=== PATIENT | female | born 1940 | race Caucasian/White ===

== ENCOUNTER 2019-04-09 08:00 | Outpatient (CLI) | payer MEDICARE, MEDICAID ==
[2019-04-09 10:26] LABS: BASOPHILS # (AUTO) 0.1 10^3/uL (0.0-0.1); BASOPHILS % (AUTO) 1.4 %; EOSINOPHILS # (AUTO) 0.1 10^3/uL (0.0-0.7); EOSINOPHILS % (AUTO) 1.7 %; HGB - HEMOGLOBIN 11.7 g/dL (12.0-16.0); LYMPHOCYTES # (AUTO) 2.2 10^3/uL (1.5-3.5); LYMPHOCYTES % (AUTO) 32.4 %; MEAN CORPUSCULAR HEMOGLOBIN 31.8 pg (27.0-31.0); MEAN CORPUSCULAR HGB CONC 34.6 g/dL (32.0-36.0); MEAN CORPUSCULAR VOLUME 91.7 fL (81.0-99.0); MEAN PLATELET VOLUME 8.7 fL (7.9-10.8); MONOCYTES # (AUTO) 0.5 10^3/uL (0.0-1.0); MONOCYTES % (AUTO) 6.9 %; NEUTROPHILS # (AUTO) 3.9 10^3/uL (1.5-6.6); NEUTROPHILS % (AUTO) 57.6 %; PLT - PLATELET COUNT 365 10^3/uL (130-450); RED BLOOD COUNT 3.68 10^6/uL (4.20-5.40); RED CELL DISTRIBUTION WIDTH 13.6 % (12.0-15.0); WHITE BLOOD COUNT 6.9 x10^3/uL (4.8-10.8)
[2019-04-09 10:47] LABS: ALBUMIN 4.3 g/dL (3.2-5.5); ALBUMIN/GLOBULIN RATIO 1.1 (1.0-2.2); ALKALINE PHOSPHATASE 62 IU/L (42-121); ALT ALANINE AMINOTRANSFERASE 12 IU/L (10-60); AST ASPARTATE AMINOTRANSFERASE 16 IU/L (10-42); BILIRUBIN,TOTAL 0.5 mg/dL (0.2-1.0); BUN - BLOOD UREA NITROGEN 27 mg/dL (6-20); CALCIUM 9.5 mg/dL (8.5-10.3); CARBON DIOXIDE - CO2 25 mmol/L (21-32); CHLORIDE 99 mmol/L (101-111); CHOL/HDL RATIO 3.2 (<4.4); CHOLESTEROL 149 mg/dL; CREATININE 0.7 mg/dL (0.4-1.0); GFR - MDRD 81 (>89); GLUCOSE 102 mg/dL (70-100); HDL CHOLESTEROL 46 mg/dL; LDL CHOLESTEROL,CALCULATED 76 mg/dL; LDL/HDL RATIO 1.7 (<4.4); SODIUM 136 mmol/L (135-145); TOTAL PROTEIN 8.1 g/dL (6.7-8.2); VLDL CHOLESTEROL 27 mg/dL
== END 2019-04-09 23:59 | disposition home or self-care (01) ==
LOC: LAB.R 08:00
PROVIDERS: ATTEND Physician Assistant Medical
DX: E78.5 Hyperlipidemia, unspecified (principal); K21.9 Gastro-esophageal reflux disease without esophagitis; I10 Essential (primary) hypertension; F32.9 Major depressive disorder, single episode, unspecified; M81.8 Other osteoporosis without current pathological fracture; F39 Unspecified mood [affective] disorder; L84 Corns and callosities; M91.11 Juvenile osteochondrosis of head of femur [Legg-Calve-Perthes], right leg; M77.42 Metatarsalgia, left foot; M20.40 Other hammer toe(s) (acquired), unspecified foot; M54.2 Cervicalgia; M54.89 Other dorsalgia; F20.9 Schizophrenia, unspecified; Z72.0 Tobacco use; J44.9 Chronic obstructive pulmonary disease, unspecified
CPT/HCPCS: 36415; 80053; 80061; 82306; 83721; 84443; 85025

== ENCOUNTER 2019-06-10 14:45 | Outpatient (CLI) | payer MEDICARE, MEDICAID ==
[2019-06-10 18:26] LABS: CALCIUM 9.9 mg/dL (8.5-10.3); CREATININE 0.8 mg/dL (0.4-1.0)
== END 2019-06-10 23:59 | disposition home or self-care (01) ==
LOC: LAB.R 14:45
PROVIDERS: ATTEND Internal Medicine
DX: I10 Essential (primary) hypertension (principal); J44.9 Chronic obstructive pulmonary disease, unspecified; G89.4 Chronic pain syndrome
CPT/HCPCS: 80048

== ENCOUNTER 2021-05-15 13:39 | Outpatient (CLI) | payer MEDICARE, MEDICAID | END 2021-05-15 13:40 | disposition critical access hospital (66) | LOC: EMS 13:39 | DX: M25.551 Pain in right hip (principal) | CPT/HCPCS: A0425; A0427 ==

== ENCOUNTER 2021-05-15 14:06 | Inpatient (IN) | payer MEDICARE, MEDICAID ==
--- NOTE | 2021-05-15 14:07 | ED Physician Documentation ---
PD HPI Fall - Stated complaint Stated Complaint: R HIP PX - History obtained from History obtained from: Patient, EMS - History of Present Illness Mechanism of injury: Other (has had chronic hip pain due to osteoarthritis, with worse pain the past several days. No new injury. Was being brought by EMS for eval. Also reported to EMS was pt feeling lightheaded at times the past week. Enroute, went into fast rate SVT/atrial fib at 170s.). No: Tripped, Slipped Fall distance: Other (no known new injury.) Timing - onset: Other (The patient's fast heart rate started just on route by EMS. Her initial blood blood pressure and heart rate were good and went to heart rate 170 on route. Monitor showed SVT versus A. fib.) Quality of pain: Pain (right hip. No chest pain.) Symptoms improve with: Other (Medics gave adenosine enroute with pausing of HR and then returned at tachy 130 with unvarying rate. Consider atrial flutter.) Similar symptoms before: No diagnosis (reports lightheaded episodes for minutes or more at a time periodically the past 1-2 weeks. No history of atrial fib.) Review of Systems Constitutional: denies: Fever, Chills Nose: denies: Rhinorrhea / runny nose, Congestion Throat: denies: Sore throat Respiratory: denies: Cough GI: denies: Vomiting, Diarrhea Skin: denies: Abrasion (s), Laceration (s) Musculoskeletal: reports: Joint pain (right hip chronically, and has had eval by Ortho in [place] and not surgical candidate at the time.) Neurologic: denies: Headache Psychiatric: reports: Anxiety PD PAST MEDICAL HISTORY - Past Medical History Cardiovascular: Hypertension, Other (no history of atrial fib nor SVT. ) Respiratory: None Neuro: None Endocrine/Autoimmune: None Psych: Anxiety - Allergies Allergies/Adverse Reactions: Allergies Allergy/AdvReac Type Severity Reaction Status Date / Time No Known Drug Allergies Allergy Verified 05/15/21 14:14 - Living Situation Living Situation: reports: Alone Living Arrangement: reports: Assisted living - Social History Does the pt smoke?: No Does the pt drink ETOH?: No Does the pt have substance abuse?: No PD ED PE NORMAL - Vitals Vital signs reviewed: Yes - General General: Alert and oriented X 3, Well developed/nourished - HEENT HEENT: Atraumatic - Neck Neck: Supple, no meningeal sign, No bony TTP, No adenopathy - Cardiac Cardiac: No murmur. No: RRR (regular and tachycardic at 132 without wavering. ) - Respiratory Respiratory: Clear bilaterally, Other (no chestwall tenderness. ) - Abdomen Abdomen: Soft, Non tender - Derm Derm: Normal color, Warm and dry - Extremities Extremities: No tenderness to palpate, Normal ROM s pain, No edema, No calf tenderness / cord, Other (guarded ROM of the right hip. No noted deformity. Some pain with ROM of the left hip. ) - Neuro Neuro: Alert and oriented X 3, No motor deficit, Normal speech Results - Vitals Vitals: Vital Signs - 24 hr 05/15/21 05/15/21 05/15/21 14:14 14:19 14:49 Temperature 37.0 C 37.0 C Heart Rate 132 H 135 H 130 H Respiratory 22 20 16 Rate Blood Pressure 110/73 110/73 109/75 O2 Saturation 98 98 95 05/15/21 05/15/21 05/15/21 15:19 15:30 16:00 Temperature Heart Rate 128 H 126 H 124 H Respiratory 15 18 16 Rate Blood Pressure 105/77 111/79 119/87 H O2 Saturation 96 97 98 05/15/21 05/15/21 05/15/21 16:45 17:00 17:30 Temperature Heart Rate 124 H 121 H 123 H Respiratory 21 18 22 Rate Blood Pressure 116/86 H 117/95 H 116/85 H O2 Saturation 97 94 93 05/15/21 18:00 Temperature 36.5 C Heart Rate 124 H Respiratory 18 Rate Blood Pressure 113/74 O2 Saturation 95 Oxygen O2 Source Room air - EKG (time done) 14:08 Rate: Rate (enter#) (132) Rhythm: Atrial flutter [place]: Normal Intervals: Wide QRS Ischemia: Normal ST segments, Non specific changes. No: ST elevation c/w ischemia - Labs Labs: Laboratory Tests 05/15/21 05/15/21 05/15/21 14:36 14:36 14:36 WBC 7.2 RBC 3.58 L Hgb 11.8 L Hct 34.6 L MCV 96.6 MCH 33.0 H MCHC 34.1 RDW 14.0 Plt Count 234 MPV 9.8 Neut # (Auto) 5.2 Lymph # (Auto) 1.5 [place] # (Auto) 0.4 Eos # (Auto) 0.1 Baso # (Auto) 0.1 Absolute Nucleated RBC 0.00 Nucleated RBC % 0.0 Sodium 137 Potassium 4.7 Chloride 107 Carbon Dioxide 21 Anion Gap 9.0 BUN 38 H Creatinine 1.0 Estimated GFR (MDRD) 53 L Glucose 140 H Calcium 9.3 Magnesium 1.8 Total Bilirubin 0.5 AST 23 ALT 24 Alkaline Phosphatase 85 Troponin I High Sens 13.1 B-Natriuretic Peptide Total Protein 7.4 Albumin 4.2 Globulin 3.2 Albumin/Globulin Ratio 1.3 Lipase 50 Nasal Adenovirus (PCR) Nasal B. parapertussis DNA (PCR) Nasal Coronavir 229E PCR Nasal Coronavir HKU1 PCR Nasal Coronavir NL63 PCR Nasal Coronavir OC43 PCR Nasal Enterovir/Rhinovir PCR Nasal Influenza B PCR Nasal Influenza A PCR Nasal Parainfluen 1 PCR Nasal Parainfluen 2 PCR Nasal Parainfluen 3 PCR Nasal Parainfluen 4 PCR Nasal RSV (PCR) Nasal B.pertussis DNA PCR Nasal C.pneumoniae (PCR) Stefan Human Metapneumo PCR Nasal M.pneumoniae (PCR) Nasal SARS-CoV-2 (PCR) 05/15/21 05/15/21 14:36 16:50 WBC RBC Hgb Hct MCV MCH MCHC RDW Plt Count MPV Neut # (Auto) Lymph # (Auto) [place] # (Auto) Eos # (Auto) Baso # (Auto) Absolute Nucleated RBC Nucleated RBC % Sodium Potassium Chloride Carbon Dioxide Anion Gap BUN Creatinine Estimated GFR (MDRD) Glucose Calcium Magnesium Total Bilirubin AST ALT Alkaline Phosphatase Troponin I High Sens B-Natriuretic Peptide 291 H Total Protein Albumin Globulin Albumin/Globulin Ratio Lipase Nasal Adenovirus (PCR) NOT DETECTED Nasal B. parapertussis DNA (PCR) NOT DETECTED Nasal Coronavir 229E PCR NOT DETECTED Nasal Coronavir HKU1 PCR NOT DETECTED Nasal Coronavir NL63 PCR NOT DETECTED Nasal Coronavir OC43 PCR NOT DETECTED Nasal Enterovir/Rhinovir PCR NOT DETECTED Nasal Influenza B PCR NOT DETECTED Nasal Influenza A PCR NOT DETECTED Nasal Parainfluen 1 PCR NOT DETECTED Nasal Parainfluen 2 PCR NOT DETECTED Nasal Parainfluen 3 PCR NOT DETECTED Nasal Parainfluen 4 PCR NOT DETECTED Nasal RSV (PCR) NOT DETECTED Nasal B.pertussis DNA PCR NOT DETECTED Nasal C.pneumoniae (PCR) NOT DETECTED Stefan Human Metapneumo PCR NOT DETECTED Nasal M.pneumoniae (PCR) NOT DETECTED Nasal SARS-CoV-2 (PCR) NOT DETECTED - Rads (name of study) right hipe Radiology: Prelim report reviewed (degenerative changes. no acute fracture.), See rad report chest xray Radiology: Prelim report reviewed (no acute process), See rad report PD MEDICAL DECISION MAKING - ED course Complexity details: re-evaluated patient (Heart rate minimally slowed with Me toprolol IV. Down to 118-120 but still fiarly unimform at rate. No noted varying. Presume still atrial flutter. ), considered differential (The hip pain sounds likely to be an exacerbation of her arthritis. No new injury. Can get a new x-ray. The fast heart rate is not previously diagnosed. She had rate of 170. Slowed to 130 after adenosine. Likely atrial flutter.), d/w patient Departure - Departure Disposition: 66 [facility] DC/Xfer Clinical Impression: Atrial flutter with rapid ventricular response Chronic hip pain Qualifiers: Laterality: right Qualified Code(s): M25.551 - Pain in right hip Condition: Stable
[2021-05-15] MEDS ORDERED: METOPROLOL 5 MG/5 ML VIAL IVP STA ×4 (14:29→16:46)
[2021-05-15 14:45] LABS: BASOPHILS # (AUTO) 0.1 10^3/uL (0.0-0.1); BASOPHILS % (AUTO) 0.7 %; EOSINOPHILS # (AUTO) 0.1 10^3/uL (0.0-0.7); EOSINOPHILS % (AUTO) 0.8 %; HCT - HEMATOCRIT 34.6 % (37.0-47.0); HGB - HEMOGLOBIN 11.8 g/dL (12.0-16.0); LYMPHOCYTES # (AUTO) 1.5 10^3/uL (1.5-3.5); LYMPHOCYTES % (AUTO) 20.6 %; MEAN CORPUSCULAR HGB CONC 34.1 g/dL (32.0-36.0); MEAN CORPUSCULAR VOLUME 96.6 fL (81.0-99.0); MEAN PLATELET VOLUME 9.8 fL (7.9-10.8); MONOCYTES # (AUTO) 0.4 10^3/uL (0.0-1.0); MONOCYTES % (AUTO) 5.1 %; NEUTROPHILS # (AUTO) 5.2 10^3/uL (1.5-6.6); NEUTROPHILS % (AUTO) 72.5 %; PLT - PLATELET COUNT 234 10^3/uL (130-450); RED BLOOD COUNT 3.58 10^6/uL (4.20-5.40); WHITE BLOOD COUNT 7.2 x10^3/uL (4.8-10.8)
[2021-05-15 15:03] LABS: ALBUMIN 4.2 g/dL (3.2-5.5); ALBUMIN/GLOBULIN RATIO 1.3 (1.0-2.2); BILIRUBIN,TOTAL 0.5 mg/dL (0.2-1.0); CALCIUM 9.3 mg/dL (8.5-10.3); MAGNESIUM 1.8 mg/dL (1.7-2.8); POTASSIUM 4.7 mmol/L (3.5-5.0); TOTAL PROTEIN 7.4 g/dL (6.7-8.2)
--- NOTE | 2021-05-15 15:24 | XRAY Report ---
PROCEDURE: Chest 1 View X-Ray INDICATIONS: Chest pain TECHNIQUE: One view of the chest was acquired. COMPARISON: None. FINDINGS: Surgical changes and devices: None. Lungs and pleura: No pleural effusions or pneumothorax. Lungs are clear. Mediastinum: Tortuous thoracic aorta is seen. Heart size is normal. Bones and chest wall: No suspicious bony lesions. Overlying soft tissues appear unremarkable. IMPRESSION: No acute cardiopulmonary pathology. Reviewed by: Joshua Powell MD on 05/15/2021 3:23 PM PDT Approved by: Joshua Powell MD on 05/15/2021 3:23 PM PDT Station ID: [id number]
--- NOTE | 2021-05-15 15:24 | XRAY Report ---
PROCEDURE: Hip w/Pelvis 2-3V RT INDICATIONS: hip pain worse TECHNIQUE: AP pelvis with lateral view(s) of the right hip(s). COMPARISON: None. 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 Moderate left hip joint osteophytic changes are seen. No evidence of avascular necrosis of femoral head. No fractures or dislocations. Pelvic ring appear s intact. No suspicious bony lesions. Soft tissues: The visualized bowel gas pattern is normal. No suspicious soft tissue calcifications. IMPRESSION: Severe right hip joint osteoarthritis and chronic appearing hip deformity. No acute hip f racture or dislocation. Moderate left hip joint osteoarthritis. No evidence of avascular necrosis of femoral head. Reviewed by: Joshua Powell MD on 05/15/2021 3:23 PM PDT Approved by: Joshua Powell MD on 05/15/2021 3:23 PM PDT Station ID: [id number]
[2021-05-15] MEDS ORDERED: HYDROmorphone 1 MG/ML CARPUJECT IVP STA (16:53)
[2021-05-15 17:50] LABS: B. PARAPERTUSSIS- RESP PCR PAN NOT DETECTED; B. PERTUSSIS- RESP PCR PANEL NOT DETECTED; C. PNEUMONIAE- RESP PCR PANEL NOT DETECTED; CORONAVIRUS 229E-RESP PCR NOT DETECTED; CORONAVIRUS HKU1-RESP PCR NOT DETECTED; CORONAVIRUS NL63-RESP PCR NOT DETECTED; CORONAVIRUS OC43-RESP PCR NOT DETECTED; HUMAN METAPNEUMOVIRUS NOT DETECTED; INFLUENZA A- RESP PCR PANEL NOT DETECTED; INFLUENZA B - RESP PCR PANEL NOT DETECTED; M. PNEUMONIAE- RESP PCR PANEL NOT DETECTED; PARAINFLUENZA VIRUS 1 NOT DETECTED; PARAINFLUENZA VIRUS 2 NOT DETECTED; PARAINFLUENZA VIRUS 3 NOT DETECTED; PARAINFLUENZA VIRUS 4 NOT DETECTED; RHINOVIRUS/ENTEROVIRUS NOT DETECTED; RSV- RESP PCR PANEL NOT DETECTED; SARS-CoV-2 -RESP PCR PANEL NOT DETECTED
[2021-05-15] MEDS ORDERED: diltiaZEM INJ 125 MG in DEXTROSE 5% 100 ML IV SCH (19:00)
[2021-05-15] MEDS ORDERED: ACETAMINOPHEN 325 MG TABLET PO PRN (21:12)
[2021-05-15] MEDS ORDERED: ONDANSETRON 4 MG/2 ML VIAL IVP PRN (21:12)
[2021-05-15] MEDS ORDERED: diltiaZEM 30 MG TABLET PO SCH (21:15)
--- NOTE | 2021-05-15 21:21 | HISTORY & PHYSICAL EXAMINATION ---
Chief Complaint - Chief Complaint Chief Complaint: Hip pain History of Present Illness - Admitted From Admitted From:: ED - History Obtained From Records Reviewed: ED History obtained from: Patient Exam Limitations: Some dementia - History of Present Illness HPI Comment/Other: Patient is a 81-year-old female who is a poor historian who presented to the emergency room after complaining at her assisted living facility that she was having pain in her "thighs". She is known to have a history of severe DJD, and admits that she was complaining of her chronic hip pain. Paramedics were called despite no fall or injury to suggest a fracture, and upon their initial evaluation they noticed that the patient SVT to 170s, was brought to the emergency room and given adenosine, had a brief pause then returned to a flutter with heart rates in the 130s.She was then given metoprolol x2 with heart rates initially responding to the 110s then increasing again to the 130s so diltiazem drip was initiated. Patient denied ever having any chest pain, but upon questioning and review of systems she does admit to having experienced palpitations in the past especially when she is anxious. She also suggests that she may have anxiety related to her chronic hip pain. She denies any shortness of breath. She denies any known history of cardiac disease. However, she is a poor historian and denies any medical history to speak of however she has a relatively lengthy medication list from her assisted living facility. Hip x-rays in the ER were negative. Hospital admission was requested to manage new versus previously undiagnosed atrial flutter and to achieve better rate control and expand work-up in hospital. History - Past Medical History Cardiovascular: reports: Hypertension, Other (no history of atrial fib nor SVT. ) Respiratory: reports: None Neuro: reports: None Endocrine/Autoimmune: reports: None Psych: reports: Anxiety MRSA Hx?: No - Family & Social History Family History Comment/Other: Patient denies any family history stating all her family members have been health Living arrangement: Assisted living Living Situation: Alone - Substance History Use: Uses substance without health or social issues: NONE - POLST Patient has POLST: Yes POLST Status: Limited Interventions Meds/Allgy - Allergies Allergies/Adverse Reactions: Allergies Allergy/AdvReac Type Severity Reaction Status Date / Time No Known Drug Allergies Allergy Verified 05/15/21 14:14 Review of Systems - Constitutional Constitutional: denies: Fatigue - Cardiovascular Cariovascular: reports: Irregular heart rate, Palpitations. denies: Chest pain, Edema, Lightheadedness, Syncope, Exertional dyspnea - Respiratory Respiratory: denies: Cough, SOB at rest, SOB with exertion - Gastrointestinal Gastrointestinal: denies: Abdominal pain - Musculoskeletal Musculoskeletal: reports: Joint pain - Neurological Neurological: denies: General weakness, Dizziness - Psychiatric Psychiatric: reports: Anxiety Prior Level of Functionality: Patient resides in assisted living facility ambulating with a walker. She tells me that some days are better than others but she is usually able to get by fairly well with a walker Exam - Vital Signs Reviewed Vital Signs: Yes Vital Signs: Vital Signs x48h Temp Pulse Pulse Resp BP BP Pulse Ox 05/15/21 21:10 71 10 L 05/15/21 21:05 83 11 L 05/15/21 21:02 77 15 103/64 05/15/21 21:01 83 13 05/15/21 21:00 79 83 14 103/64 96 05/15/21 20:55 77 13 05/15/21 20:50 80 10 L 05/15/21 20:46 84 10 L 106/69 05/15/21 20:45 76 20 05/15/21 20:40 89 13 05/15/21 20:35 80 21 05/15/21 20:31 88 20 110/67 05/15/21 20:30 87 21 05/15/21 20:25 93 16 05/15/21 20:20 84 22 05/15/21 20:16 87 15 110/69 05/15/21 20:15 88 25 H 05/15/21 20:10 88 17 05/15/21 20:05 123 H 27 H 05/15/21 20:01 122 H 26 H 120/80 05/15/21 20:00 36.8 C 99 89 18 110/69 97 05/15/21 19:58 104 H 17 110/71 05/15/21 19:57 93 20 05/15/21 19:55 99 20 05/15/21 19:50 108 H 20 05/15/21 19:46 124 H 13 125/101 H 05/15/21 19:45 122 H 17 05/15/21 19:40 124 H 20 05/15/21 19:35 95 15 05/15/21 19:31 114 H 17 122/83 H 05/15/21 19:30 113 H 17 05/15/21 19:25 125 H 18 05/15/21 19:20 124 H 15 05/15/21 19:16 125 H 15 112/50 L 05/15/21 19:15 124 H 16 05/15/21 19:10 125 H 18 05/15/21 19:05 124 H 19 05/15/21 19:04 124 H 15 126/85 H 05/15/21 19:03 124 H 15 05/15/21 19:01 124 H 17 113/102 H 05/15/21 19:00 127 H 24 126/85 H 05/15/21 18:55 125 H 21 05/15/21 18:50 125 H 16 05/15/21 18:45 115 H 28 H 05/15/21 18:40 121 H 23 05/15/21 18:36 122 H 15 05/15/21 18:35 122 H 15 118/86 H 05/15/21 18:32 36.7 C 121 H 20 118/86 H 96 05/15/21 18:00 36.5 C 124 H 18 113/74 95 05/15/21 17:30 123 H 22 116/85 H 93 05/15/21 17:00 121 H 18 117/95 H 94 05/15/21 16:45 124 H 21 116/86 H 97 05/15/21 16:00 124 H 16 119/87 H 98 05/15/21 15:30 126 H 18 111/79 97 05/15/21 15:19 128 H 15 105/77 96 05/15/21 14:49 130 H 16 109/75 95 05/15/21 14:19 37.0 C 135 H 20 110/73 98 05/15/21 14:14 37.0 C 132 H 22 110/73 98 - Physical Exam General Appearance: positive: No acute distress Eyes Bilateral: positive: Normal inspection ENT: positive: ENT inspection nml Neck: positive: Nml inspection, Thyroid nml, No JVD Respiratory: positive: Chest non-tender, No respiratory distress, Breath sounds nml Cardiovascular: positive: No murmur, No gallop, Irregularly irregular. negative: Regular rate & rhythm Peripheral Pulses: positive: 2+ Abdomen: positive: Non-tender, No organomegaly, Nml bowel sounds, No distention Skin: positive: Color nml Extremities: positive: Nml appearance Neurologic/Psychiatric: positive: CN's nml (2-12), Disoriented to time. negative: Disoriented to person, Disoriented to place Conclusion/Plan - Problem List (1) Atrial flutter with rapid ventricular response Conclusion/Plan: Patient states that she has had a sensation of palpitations in the past, making me suspect that this is not new onset but rather new diagnosis. Given Possible past history of this, would be a risky candidate for cardioversion. Fortunately she is responded well to diltiazem so far. We will start oral diltiazem and resume her home metoprolol but transition her from metoprolol tartrate to metoprolol succinate tomorrow. Suspect she also may have a diagnosis of A. fib though I do not see this in the chart. She is on furosemide and lisinopril. Check thyroid labs in the morning We will check echocardiogram in the morning. (2) Chronic hip pain Conclusion/Plan: As needed pain medications for chronic hip pain. X-ray reviewed, no acute injury or fractures but known history of DJD. PT eval in the morning. Qualifiers: Laterality: right Qualified Code(s): M25.551 - Pain in right hip; G89.29 - Other chronic pain - Lab Results Fish Bones: 05/15/21 14:36 05/15/21 14:36 Core Measures - Anticipated LOS I expect patient to be DC'd or transferred within 96 hours.: Yes - DVT/VTE - Prophylaxis VTE/DVT Device ordered at admit?: Yes
[2021-05-15] MEDS: HYDROcod/ACETAM 5/325 MG TABLET PO PRN (21:38)
[2021-05-15] MEDS: ethyl alcohoL 62% SWAB AMPULE NAS SCH (22:06)
[2021-05-15] MEDS: SODIUM CHLORIDE FLUSH 0.9% 10 ML SYRINGE IVP SCH (22:37)
[2021-05-16] MEDS ORDERED: diltiaZEM 30 MG TABLET PO SCH (03:30)
[2021-05-16] MEDS: HYDROcod/ACETAM 5/325 MG TABLET PO PRN ×5 (03:37→21:54)
[2021-05-16 05:28] LABS: HCT - HEMATOCRIT 34.5 % (37.0-47.0); HGB - HEMOGLOBIN 11.1 g/dL (12.0-16.0); MEAN CORPUSCULAR HEMOGLOBIN 31.6 pg (27.0-31.0); MEAN CORPUSCULAR HGB CONC 32.2 g/dL (32.0-36.0); MEAN CORPUSCULAR VOLUME 98.3 fL (81.0-99.0); MEAN PLATELET VOLUME 10.4 fL (7.9-10.8); RED BLOOD COUNT 3.51 10^6/uL (4.20-5.40); RED CELL DISTRIBUTION WIDTH 14.2 % (12.0-15.0); WHITE BLOOD COUNT 6.2 x10^3/uL (4.8-10.8)
[2021-05-16 05:37] LABS: CALCIUM 8.8 mg/dL (8.5-10.3); CREATININE 0.8 mg/dL (0.4-1.0); POTASSIUM 3.9 mmol/L (3.5-5.0)
[2021-05-16 05:53] LABS: T4 (THYROXINE) 8.85 ug/dL (6.09-12.23)
[2021-05-16 05:57] LABS: THYROID STIMULATING HORMONE 1.7 uIU/mL (0.34-5.60)
[2021-05-16] MEDS ORDERED: METOPROLOL SUCCINATE 25 MG TABLET PO ONE (07:17)
[2021-05-16] MEDS ORDERED: METOPROLOL SUCCINATE 25 MG TABLET PO SCH (09:00)
[2021-05-16] MEDS: SODIUM CHLORIDE FLUSH 0.9% 10 ML SYRINGE IVP SCH ×2 (09:05→18:18)
[2021-05-16] MEDS: ethyl alcohoL 62% SWAB AMPULE NAS SCH ×2 (09:05→21:09)
[2021-05-16] MEDS: ENOXAPARIN 40 MG/0.4 ML SYRINGE SUBQ SCH (09:05)
--- NOTE | 2021-05-16 11:55 | PHARMACY PROGRESS NOTE ---
- Best Possible Medication History Admit Date and Time: 05/15/211812 Processed by: Pharmacy Medication History completed: Yes Secondary Source(s): Facility MAR as ONLY source As the person ultimately responsible for medication therapy, providers are able to order a medication from an existing home medication list in [facility] via the "Reconcile Routine" prior to Confirmation of that medication by it application support analyst. Such practice is discouraged except when the physician, in their clinical judgment, deems that a medical need exists for a medication without regard to previous use.
--- NOTE | 2021-05-16 12:27 | PROVIDER PROGRESS NOTE ---
Subjective - Prog Note Date Prog Note Date: 05/16/21 - Subjective Pt reports feeling: No change (Still has mild sensation of palpitaions and R hip pain when she moves, not at rest) Objective - Vital Signs/Intake & Output Reviewed Vital Signs: Yes Vital Signs: Vital Signs Pulse Resp BP BP Pulse Ox 05/16/21 12:00 132 H 12 108/74 94 05/16/21 11:00 134 H 18 116/75 05/16/21 10:00 134 H 29 H 107/68 95 05/16/21 09:04 118/71 05/16/21 09:00 132 H 19 118/71 95 Intake & Output: Intake & Output 05/13/21 05/14/21 05/15/21 05/16/21 23:59 23:59 23:59 23:59 Intake Total 18.083 415 Output Total 175 525 Balance -156.917 -110 - Objective General Appearance: positive: No acute distress, Other (Disheveled) Eyes Bilateral: positive: Normal inspection, EOMI Neck: positive: Nml inspection, Thyroid nml, No JVD Respiratory: positive: No respiratory distress, Breath sounds nml Cardiovascular: positive: No murmur, Tachycardia Abdomen: positive: Non-tender, No distention Skin: positive: Warm, Dry Extremities: positive: No pedal edema Neurologic/Psychiatric: positive: Oriented x3 (Poor memory) - Lab Results Fish Bones: 05/16/21 04:45 05/16/21 04:45 Other Labs: Lab Results x24hrs 05/16/21 05/16/21 05/16/21 Range/Units 10:43 04:45 04:45 WBC (4.8-10.8) x10^3/uL RBC (4.20-5.40) 10^6/uL Hgb (12.0-16.0) g/dL Hct (37.0-47.0) % MCV (81.0-99.0) fL MCH (27.0-31.0) pg MCHC (32.0-36.0) g/dL RDW (12.0-15.0) % Plt Count (130-450) 10^3/uL MPV (7.9-10.8) fL Neut # (Auto) (1.5-6.6) 10^3/uL Lymph # (Auto) (1.5-3.5) 10^3/uL [place] # (Auto) (0.0-1.0) 10^3/uL Eos # (Auto) (0.0-0.7) 10^3/uL Baso # (Auto) (0.0-0.1) 10^3/uL Absolute Nucleated RBC x10^3/uL Nucleated RBC % /100WBC Sodium (135-145) mmol/L Potassium (3.5-5.0) mmol/L Chloride (101-111) mmol/L Carbon Dioxide (21-32) mmol/L Anion Gap (6-13) BUN (6-20) mg/dL Creatinine (0.4-1.0) mg/dL Estimated GFR (MDRD) (>89) Glucose (70-100) mg/dL Calcium (8.5-10.3) mg/dL Magnesium (1.7-2.8) mg/dL Total Bilirubin (0.2-1.0) mg/dL AST (10-42) IU/L ALT (10-60) IU/L Alkaline Phosphatase (42-121) IU/L Troponin I High Sens 36.6 H* 58.9 H* (2.3-14.8) ng/L B-Natriuretic Peptide (5-100) pg/mL Total Protein (6.7-8.2) g/dL Albumin (3.2-5.5) g/dL Globulin (2.1-4.2) g/dL Albumin/Globulin Ratio (1.0-2.2) Lipase (22-51) U/L TSH 1.70 (0.34-5.60) uIU/mL Thyroxine (T4) 8.85 (6.09-12.23) ug/dL Nasal Adenovirus (PCR) Nasal B. parapertussis DNA (PCR) Nasal Coronavir 229E PCR Nasal Coronavir HKU1 PCR Nasal Coronavir NL63 PCR Nasal Coronavir OC43 PCR Nasal Enterovir/Rhinovir PCR Nasal Influenza B PCR Nasal Influenza A PCR Nasal Parainfluen 1 PCR Nasal Parainfluen 2 PCR Nasal Parainfluen 3 PCR Nasal Parainfluen 4 PCR Nasal RSV (PCR) Nasal Screen MRSA (PCR) (NEGATIVE) Nasal B.pertussis DNA PCR Nasal C.pneumoniae (PCR) Stefan Human Metapneumo PCR Nasal M.pneumoniae (PCR) Nasal SARS-CoV-2 (PCR) 05/16/21 05/16/21 05/15/21 Range/Units 04:45 04:45 19:00 WBC 6.2 (4.8-10.8) x10^3/uL RBC 3.51 L (4.20-5.40) 10^6/uL Hgb 11.1 L (12.0-16.0) g/dL Hct 34.5 L (37.0-47.0) % MCV 98.3 (81.0-99.0) fL MCH 31.6 H (27.0-31.0) pg MCHC 32.2 (32.0-36.0) g/dL RDW 14.2 (12.0-15.0) % Plt Count 216 (130-450) 10^3/uL MPV 10.4 (7.9-10.8) fL Neut # (Auto) (1.5-6.6) 10^3/uL Lymph # (Auto) (1.5-3.5) 10^3/uL [place] # (Auto) (0.0-1.0) 10^3/uL Eos # (Auto) (0.0-0.7) 10^3/uL Baso # (Auto) (0.0-0.1) 10^3/uL Absolute Nucleated RBC x10^3/uL Nucleated RBC % /100WBC Sodium 138 (135-145) mmol/L Potassium 3.9 (3.5-5.0) mmol/L Chloride 105 (101-111) mmol/L Carbon Dioxide 23 (21-32) mmol/L Anion Gap 10.0 (6-13) BUN 27 H (6-20) mg/dL Creatinine 0.8 (0.4-1.0) mg/dL Estimated GFR (MDRD) 69 L (>89) Glucose 100 (70-100) mg/dL Calcium 8.8 (8.5-10.3) mg/dL Magnesium (1.7-2.8) mg/dL Total Bilirubin (0.2-1.0) mg/dL AST (10-42) IU/L ALT (10-60) IU/L Alkaline Phosphatase (42-121) IU/L Troponin I High Sens (2.3-14.8) ng/L B-Natriuretic Peptide (5-100) pg/mL Total Protein (6.7-8.2) g/dL Albumin (3.2-5.5) g/dL Globulin (2.1-4.2) g/dL Albumin/Globulin Ratio (1.0-2.2) Lipase (22-51) U/L TSH (0.34-5.60) uIU/mL Thyroxine (T4) (6.09-12.23) ug/dL Nasal Adenovirus (PCR) Nasal B. parapertussis DNA (PCR) Nasal Coronavir 229E PCR Nasal Coronavir HKU1 PCR Nasal Coronavir NL63 PCR Nasal Coronavir OC43 PCR Nasal Enterovir/Rhinovir PCR Nasal Influenza B PCR Nasal Influenza A PCR Nasal Parainfluen 1 PCR Nasal Parainfluen 2 PCR Nasal Parainfluen 3 PCR Nasal Parainfluen 4 PCR Nasal RSV (PCR) Nasal Screen MRSA (PCR) POSITIVE A* (NEGATIVE) Nasal B.pertussis DNA PCR Nasal C.pneumoniae (PCR) Stefan Human Metapneumo PCR Nasal M.pneumoniae (PCR) Nasal SARS-CoV-2 (PCR) 05/15/21 05/15/21 05/15/21 Range/Units 16:50 14:36 14:36 WBC (4.8-10.8) x10^3/uL RBC (4.20-5.40) 10^6/uL Hgb (12.0-16.0) g/dL Hct (37.0-47.0) % MCV (81.0-99.0) fL MCH (27.0-31.0) pg MCHC (32.0-36.0) g/dL RDW (12.0-15.0) % Plt Count (130-450) 10^3/uL MPV (7.9-10.8) fL Neut # (Auto) (1.5-6.6) 10^3/uL Lymph # (Auto) (1.5-3.5) 10^3/uL [place] # (Auto) (0.0-1.0) 10^3/uL Eos # (Auto) (0.0-0.7) 10^3/uL Baso # (Auto) (0.0-0.1) 10^3/uL Absolute Nucleated RBC x10^3/uL Nucleated RBC % /100WBC Sodium (135-145) mmol/L Potassium (3.5-5.0) mmol/L Chloride (101-111) mmol/L Carbon Dioxide (21-32) mmol/L Anion Gap (6-13) BUN (6-20) mg/dL Creatinine (0.4-1.0) mg/dL Estimated GFR (MDRD) (>89) Glucose (70-100) mg/dL Calcium (8.5-10.3) mg/dL Magnesium (1.7-2.8) mg/dL Total Bilirubin (0.2-1.0) mg/dL AST (10-42) IU/L ALT (10-60) IU/L Alkaline Phosphatase (42-121) IU/L Troponin I High Sens 13.1 (2.3-14.8) ng/L B-Natriuretic Peptide 291 H (5-100) pg/mL Total Protein (6.7-8.2) g/dL Albumin (3.2-5.5) g/dL Globulin (2.1-4.2) g/dL Albumin/Globulin Ratio (1.0-2.2) Lipase (22-51) U/L TSH (0.34-5.60) uIU/mL Thyroxine (T4) (6.09-12.23) ug/dL Nasal Adenovirus (PCR) NOT DETECTED Nasal B. parapertussis DNA (PCR) NOT DETECTED Nasal Coronavir 229E PCR NOT DETECTED Nasal Coronavir HKU1 PCR NOT DETECTED Nasal Coronavir NL63 PCR NOT DETECTED Nasal Coronavir OC43 PCR NOT DETECTED Nasal Enterovir/Rhinovir PCR NOT DETECTED Nasal Influenza B PCR NOT DETECTED Nasal Influenza A PCR NOT DETECTED Nasal Parainfluen 1 PCR NOT DETECTED Nasal Parainfluen 2 PCR NOT DETECTED Nasal Parainfluen 3 PCR NOT DETECTED Nasal Parainfluen 4 PCR NOT DETECTED Nasal RSV (PCR) NOT DETECTED Nasal Screen MRSA (PCR) (NEGATIVE) Nasal B.pertussis DNA PCR NOT DETECTED Nasal C.pneumoniae (PCR) NOT DETECTED Stefan Human Metapneumo PCR NOT DETECTED Nasal M.pneumoniae (PCR) NOT DETECTED Nasal SARS-CoV-2 (PCR) NOT DETECTED 05/15/21 05/15/21 Range/Units 14:36 14:36 WBC 7.2 (4.8-10.8) x10^3/uL RBC 3.58 L (4.20-5.40) 10^6/uL Hgb 11.8 L (12.0-16.0) g/dL Hct 34.6 L (37.0-47.0) % MCV 96.6 (81.0-99.0) fL MCH 33.0 H (27.0-31.0) pg MCHC 34.1 (32.0-36.0) g/dL RDW 14.0 (12.0-15.0) % Plt Count 234 (130-450) 10^3/uL MPV 9.8 (7.9-10.8) fL Neut # (Auto) 5.2 (1.5-6.6) 10^3/uL Lymph # (Auto) 1.5 (1.5-3.5) 10^3/uL [place] # (Auto) 0.4 (0.0-1.0) 10^3/uL Eos # (Auto) 0.1 (0.0-0.7) 10^3/uL Baso # (Auto) 0.1 (0.0-0.1) 10^3/uL Absolute Nucleated RBC 0.00 x10^3/uL Nucleated RBC % 0.0 /100WBC Sodium 137 (135-145) mmol/L Potassium 4.7 (3.5-5.0) mmol/L Chloride 107 (101-111) mmol/L Carbon Dioxide 21 (21-32) mmol/L Anion Gap 9.0 (6-13) BUN 38 H (6-20) mg/dL Creatinine 1.0 (0.4-1.0) mg/dL Estimated GFR (MDRD) 53 L (>89) Glucose 140 H (70-100) mg/dL Calcium 9.3 (8.5-10.3) mg/dL Magnesium 1.8 (1.7-2.8) mg/dL Total Bilirubin 0.5 (0.2-1.0) mg/dL AST 23 (10-42) IU/L ALT 24 (10-60) IU/L Alkaline Phosphatase 85 (42-121) IU/L Troponin I High Sens (2.3-14.8) ng/L B-Natriuretic Peptide (5-100) pg/mL Total Protein 7.4 (6.7-8.2) g/dL Albumin 4.2 (3.2-5.5) g/dL Globulin 3.2 (2.1-4.2) g/dL Albumin/Globulin Ratio 1.3 (1.0-2.2) Lipase 50 (22-51) U/L TSH (0.34-5.60) uIU/mL Thyroxine (T4) (6.09-12.23) ug/dL Nasal Adenovirus (PCR) Nasal B. parapertussis DNA (PCR) Nasal Coronavir 229E PCR Nasal Coronavir HKU1 PCR Nasal Coronavir NL63 PCR Nasal Coronavir OC43 PCR Nasal Enterovir/Rhinovir PCR Nasal Influenza B PCR Nasal Influenza A PCR Nasal Parainfluen 1 PCR Nasal Parainfluen 2 PCR Nasal Parainfluen 3 PCR Nasal Parainfluen 4 PCR Nasal RSV (PCR) Nasal Screen MRSA (PCR) (NEGATIVE) Nasal B.pertussis DNA PCR Nasal C.pneumoniae (PCR) Stefan Human Metapneumo PCR Nasal M.pneumoniae (PCR) Nasal SARS-CoV-2 (PCR) Assessment/Plan - Problem List (1) Atrial flutter with rapid ventricular response Impression: Her record from [facility] was received and reviewed. It has no mention of Heart failure or Tachycardia, but her Metoprolol dose was increased from 12.5 bid to 50 bid on 05/02/21. Unknown if an EKG was done to document heart rate and rhythm. We need to request records from Dr Mendez's office. Will try to transition from iv Dilt drip to po Cardizem today, however, she was off Dilt drip for 3-4 hours this am and her HR again negrita to 130 and a Cardizem 30 mg po then Cardizem 60 mg po did not affect the tachycardia. TFTs have been checked and are normal; no hyperthyroidism as the cause of her RVR. Her troponin is increasing but I suspect it is a secondary finding, rising from the persistent tachycardia and demand ischemia. She is on Lovenox at a prophylactic dose. No anticoagulation has been chosen yet. We are awaiting her Echo to know her LVEF, and to consider if she is a high fall risk and maybe should only be on 1 aspirin daily as her stroke prophylaxis. Physical Therapy was ordered to start today, but I will cancel this because she is still tachycardic at rest. (2) Acute systolic heart failure Impression: Her record from [facility] was received and reviewed. She has no mention of Heart failure or tachycardia, but her Metoprolol dose was increased from 12.5 bid to 50 bid on 05/02/21. We need to request records from her PCP, DR Mendez. Today the Echo was pending to evaluate LVEF>>> Echo shows LVEF of 35% with zakiya bal hypokinesis. This is an apparently a new finding for her. Continue with aggressive measures for rate control since tachycardia-induced cardiomyopathy could be the problem. She is currently euvolemic, does not have CHF on chest x-ray or exam and no Lasix is ordered now. We will begin (low) doses of CHIKI inhibitor and spironolactone (3) Type 2 [place] (myocardial infarction) Impression: The picture looks like the tachycardia is causing demand ischemia and a significant increase in her troponin. We will check lipid panel. We will start 1 aspirin daily. (4) Hx of essential hypertension Impression: Her record from [facility] was received and reviewed. She has no mention of Heart failure or tachycardia. (5) Chronic hip pain Impression: She asked me if her hip pain may be the reason for her "fast heart rate and the feeling of palpitations". Theoretically, an adrenaline increase during pain may be adding to the high heart rate, but is not the sole cause of the tachycardia. Continue with plan for medications for pain control Qualifiers: Laterality: right Qualified Code(s): M25.551 - Pain in right hip; G89.29 - Other chronic pain (6) Schizophrenia Impression: As per the record from [facility]. Her psych meds will be resumed (7) Depression with anxiety Impression: As per the record from [facility]. Her psych meds will be resumed
[2021-05-16] MEDS: VENLAFAXINE 37.5 MG TABLET PO SCH (13:11)
[2021-05-16] MEDS ORDERED: diltiaZEM INJ 125 MG in DEXTROSE 5% 100 ML IV SCH (18:00)
[2021-05-16] MEDS: ASPIRIN EC 81 MG TABLET PO SCH (18:17)
[2021-05-16] MEDS: METOPROLOL SUCCINATE 25 MG TABLET PO SCH (21:09)
[2021-05-16] MEDS: GABAPENTIN 100 MG CAPSULE PO SCH (21:09)
[2021-05-17] MEDS: SODIUM CHLORIDE FLUSH 0.9% 10 ML SYRINGE IVP SCH ×4 (00:35→20:49)
[2021-05-17] MEDS: HYDROcod/ACETAM 5/325 MG TABLET PO PRN ×5 (03:27→23:55)
[2021-05-17 05:34] LABS: HGB - HEMOGLOBIN 11.4 g/dL (12.0-16.0); MEAN CORPUSCULAR HEMOGLOBIN 31.8 pg (27.0-31.0); MEAN CORPUSCULAR HGB CONC 32.6 g/dL (32.0-36.0); MEAN CORPUSCULAR VOLUME 97.8 fL (81.0-99.0); MEAN PLATELET VOLUME 10.5 fL (7.9-10.8); RED BLOOD COUNT 3.58 10^6/uL (4.20-5.40); WHITE BLOOD COUNT 7.3 x10^3/uL (4.8-10.8)
[2021-05-17 05:41] LABS: CALCIUM 8.9 mg/dL (8.5-10.3); CREATININE 0.9 mg/dL (0.4-1.0); POTASSIUM 4.2 mmol/L (3.5-5.0)
[2021-05-17 05:55] LABS: CHOLESTEROL 123 mg/dL; HDL CHOLESTEROL 41 mg/dL; LDL CHOLESTEROL,CALCULATED 62 mg/dL; LDL/HDL RATIO 1.5 (<4.4); TRIGLYCERIDES 102 mg/dL; VLDL CHOLESTEROL 20 mg/dL
[2021-05-17] MEDS: ASPIRIN EC 81 MG TABLET PO SCH (08:45)
[2021-05-17] MEDS: ENOXAPARIN 40 MG/0.4 ML SYRINGE SUBQ SCH (08:45)
[2021-05-17] MEDS: METOPROLOL SUCCINATE 25 MG TABLET PO SCH (08:45)
[2021-05-17] MEDS: ethyl alcohoL 62% SWAB AMPULE NAS SCH ×2 (08:45→20:48)
[2021-05-17] MEDS: ARIPiprazole 5 MG TABLET PO SCH (08:46)
[2021-05-17] MEDS: SPIRONOLACTONE 25 MG TABLET PO SCH (08:46)
[2021-05-17] MEDS: VENLAFAXINE 37.5 MG TABLET PO SCH (08:46)
[2021-05-17] MEDS: polyethylene glycoL 3350 17 GM PACKET PO SCH (08:50)
[2021-05-17] MEDS: lisinopriL 5 MG TABLET PO SCH (12:41)
[2021-05-17] MEDS: DIGOXIN 500 MCG/2 ML AMP IVP SCH ×3 (12:42→20:48)
[2021-05-17] MEDS: SODIUM CHLORIDE FLUSH 0.9% 10 ML SYRINGE IVP PRN ×6 (12:48→23:08)
--- NOTE | 2021-05-17 12:48 | PROVIDER PROGRESS NOTE ---
Subjective - Prog Note Date Prog Note Date: 05/17/21 Prog Note Time: 12:46 - Subjective Pt reports feeling: Improved (Ms. Stephens reports feeling "a little better," with less episodes of palpitations and slightly improved leg pain.) Objective - Vital Signs/Intake & Output Vital Signs: Vital Signs Temp Pulse Resp BP Pulse Ox 05/17/21 12:00 36.7 C 104 H 17 113/83 H 98 05/17/21 11:10 110 H 05/17/21 11:00 97 22 102/64 93 05/17/21 10:35 130 H 97/71 05/17/21 10:24 115 H 05/17/21 10:00 99 19 98/70 94 05/17/21 09:00 106 H 19 111/74 97 Intake & Output: Intake & Output 05/14/21 05/15/21 05/16/21 05/17/21 23:59 23:59 23:59 23:59 Intake Total 18.083 415 776.750 Output Total 175 1150 350 Balance -156.917 -735 426.750 - Objective General Appearance: positive: No acute distress, Alert Eyes Bilateral: positive: Normal inspection, No lid inflammation, Conjunctivae nml, No scleral icterus ENT: positive: ENT inspection nml Neck: positive: Nml inspection Respiratory: positive: Chest non-tender, No respiratory distress, Breath sounds nml Cardiovascular: positive: No murmur, No gallop, Irregularly irregular, Tachycardia Abdomen: positive: Non-tender, No organomegaly, Nml bowel sounds, No distention Back: positive: Nml inspection Skin: positive: Color nml, No rash, Warm, Dry Extremities: positive: Non-tender, Full ROM, Nml appearance, No pedal edema Neurologic/Psychiatric: positive: Oriented x3, Weakness - Lab Results Fish Bones: 05/17/21 04:48 05/17/21 04:48 Other Labs: Lab Results x24hrs 05/17/21 05/17/21 05/17/21 Range/Units 04:48 04:48 04:48 WBC (4.8-10.8) x10^3/uL RBC (4.20-5.40) 10^6/uL Hgb (12.0-16.0) g/dL Hct (37.0-47.0) % MCV (81.0-99.0) fL MCH (27.0-31.0) pg MCHC (32.0-36.0) g/dL RDW (12.0-15.0) % Plt Count (130-450) 10^3/uL MPV (7.9-10.8) fL Sodium 137 (135-145) mmol/L Potassium 4.2 (3.5-5.0) mmol/L Chloride 104 (101-111) mmol/L Carbon Dioxide 23 (21-32) mmol/L Anion Gap 10.0 (6-13) BUN 29 H (6-20) mg/dL Creatinine 0.9 (0.4-1.0) mg/dL Estimated GFR (MDRD) 60 L (>89) Glucose 105 H (70-100) mg/dL Calcium 8.9 (8.5-10.3) mg/dL Troponin I High Sens (2.3-14.8) ng/L B-Natriuretic Peptide 162 H (5-100) pg/mL Triglycerides 102 ( - 149) mg/dL Cholesterol 123 ( - 199) mg/dL LDL Cholesterol, Calc 62 ( - 129) mg/dL VLDL Cholesterol 20 mg/dL HDL Cholesterol 41 L (60 - ) mg/dL LDL/HDL Ratio 1.5 (<4.4) Cholesterol/HDL Ratio 3.0 (<4.4) 05/17/21 05/16/21 Range/Units 04:48 16:48 WBC 7.3 (4.8-10.8) x10^3/uL RBC 3.58 L (4.20-5.40) 10^6/uL Hgb 11.4 L (12.0-16.0) g/dL Hct 35.0 L (37.0-47.0) % MCV 97.8 (81.0-99.0) fL MCH 31.8 H (27.0-31.0) pg MCHC 32.6 (32.0-36.0) g/dL RDW 14.0 (12.0-15.0) % Plt Count 245 (130-450) 10^3/uL MPV 10.5 (7.9-10.8) fL Sodium (135-145) mmol/L Potassium (3.5-5.0) mmol/L Chloride (101-111) mmol/L Carbon Dioxide (21-32) mmol/L Anion Gap (6-13) BUN (6-20) mg/dL Creatinine (0.4-1.0) mg/dL Estimated GFR (MDRD) (>89) Glucose (70-100) mg/dL Calcium (8.5-10.3) mg/dL Troponin I High Sens 37.3 H* (2.3-14.8) ng/L B-Natriuretic Peptide (5-100) pg/mL Triglycerides ( - 149) mg/dL Cholesterol ( - 199) mg/dL LDL Cholesterol, Calc ( - 129) mg/dL VLDL Cholesterol mg/dL HDL Cholesterol (60 - ) mg/dL LDL/HDL Ratio (<4.4) Cholesterol/HDL Ratio (<4.4) - Diagnostic Imaging Diagnostic Imaging Results: positive: Final report reviewed Assessment/Plan - Problem List (1) Atrial flutter with rapid ventricular response Impression: Impression: Prior records from [facility] have no mention of Heart failure or Tachycardia, but her Metoprolol dose was increased from 12.5 bid to 50 bid on 05/02/21. Unknown if an EKG was done to document heart rate and rhythm. Awaiting a callback from Dr. Mendez's office for additional records. Will be stopping Diltiazem drip today at 1400 and have initiated Digoxin at 250mcg IVP QID. HR in the 90's during rounding this afternoon, though bedside RN stated it still occasionally gets up into the 120's. Will continue to monitor response. TFTs have been checked and are normal. Her troponin increased yesterday but began downtrending during the afternoon; these were likely a secondary finding, rising from the persistent tachycardia and demand ischemia. She is on Lovenox at a prophylactic dose. No anticoagulation has been chosen yet. EF of 25-30% on yesterday's ECHO. HASBLED score:1; [id number] Score: 5. At [facility], she reports limited independent ambulation to and from the bathroom with a walker. Will need to have thorough discussion with patient and caregiver regarding anticoagulation preference- may benefit from conservative approach using 1 aspirin daily as her stroke prophylaxis. Physical Therapy was ordered to start yesterday but remains on hold due to tachycardia at rest. (2) Acute systolic heart failure Impression: She has no mention of Heart failure or tachycardia from available records (currently awaiting return call from Dr. Mendez's office, her PCP), but her Metoprolol dose was increased from 12.5 bid to 50 bid on 05/02/21. Echo shows LVEF of 35% with global hypokinesis. This is a new finding for her. Continue with aggressive measures for rate control since tachycardia-induced cardiomyopathy could be the problem. Digoxin started today. She is currently euvolemic, does not have CHF on chest x-ray or exam and no Lasix is ordered now. Low doses of CHIKI inhibitor and spironolactone initiated. (3) Type 2 [place] (myocardial infarction) Impression: Likely tachycardia is causing demand ischemia and a significant increase in her troponin that was seen yesterday. Lipid panel does not demonstrate any serious concerns. Daily aspirin initiated. (4) Hx of essential hypertension Impression: Her record from [facility] was received and reviewed. She has no mention of Heart failure or tachycardia. Awaiting information from PCP's office. (5) Chronic hip pain Impression: She states her hip pain is leftover from septic arthritis she experienced as a child, which she states was better for a long time but pain began recurring in adulthood. 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 Continue with plan for medications for pain control Qualifiers: Laterality: right Qualified Code(s): M25.551 - Pain in right hip; G89.29 - Other chronic pain (6) Schizophrenia Impression: As per the record from [facility]. Her psych meds will be resumed (7) Depression with anxiety Impression: As per the record from [facility]. Her psych meds will be resumed
[2021-05-17] MEDS ORDERED: diltiaZEM INJ 5 MG/ML VIAL IVP ONE (13:00)
[2021-05-17] MEDS: MORPHINE 2 MG/ML CARPUJECT IVP PRN ×2 (14:24→23:03)
[2021-05-17] MEDS: GABAPENTIN 100 MG CAPSULE PO SCH (20:48)
[2021-05-17] MEDS ORDERED: METOPROLOL SUCCINATE 25 MG TABLET PO SCH (21:00)
[2021-05-17] MEDS ORDERED: METOPROLOL 5 MG/5 ML VIAL IVP STA (22:55)
[2021-05-18] MEDS: DIGOXIN 500 MCG/2 ML AMP IVP SCH (01:55)
[2021-05-18] MEDS: SODIUM CHLORIDE FLUSH 0.9% 10 ML SYRINGE IVP PRN ×2 (01:55→05:16)
[2021-05-18] MEDS: HYDROcod/ACETAM 5/325 MG TABLET PO PRN ×2 (04:20→12:25)
[2021-05-18 05:01] LABS: HCT - HEMATOCRIT 37.2 % (37.0-47.0); HGB - HEMOGLOBIN 11.7 g/dL (12.0-16.0); MEAN CORPUSCULAR HEMOGLOBIN 31.5 pg (27.0-31.0); MEAN CORPUSCULAR HGB CONC 31.5 g/dL (32.0-36.0); MEAN CORPUSCULAR VOLUME 100.3 fL (81.0-99.0); MEAN PLATELET VOLUME 10.3 fL (7.9-10.8); RED BLOOD COUNT 3.71 10^6/uL (4.20-5.40); RED CELL DISTRIBUTION WIDTH 13.7 % (12.0-15.0)
[2021-05-18 05:07] LABS: CREATININE 0.8 mg/dL (0.4-1.0); POTASSIUM 4.4 mmol/L (3.5-5.0)
[2021-05-18] MEDS ORDERED: METOPROLOL 5 MG/5 ML VIAL IVP STA (05:08)
--- NOTE | 2021-05-18 08:05 | PROVIDER PROGRESS NOTE ---
Subjective - Prog Note Date Prog Note Date: 05/18/21 Prog Note Time: 08:05 - Subjective Pt reports feeling: No change (Patient states she "feels normal" today aside from persistant bilateral hip pain.) Objective - Vital Signs/Intake & Output Vital Signs: Vital Signs x48h Temp Pulse Pulse Resp BP BP Pulse Ox 05/18/21 07:00 131 H 25 H 129/87 H 100 05/18/21 06:00 99 17 123/78 94 05/18/21 05:15 123/74 05/18/21 05:00 132 H 19 123/74 96 05/18/21 04:18 37.1 C 113 H 23 98 05/18/21 04:00 99 19 121/66 100 05/18/21 03:00 93 21 115/56 L 96 05/18/21 02:00 99 18 106/61 96 05/18/21 01:55 120 H 05/18/21 01:00 104 H 15 111/53 L 94 05/18/21 00:00 37.0 C 124 H 25 H 134/83 H 97 Intake & Output: Intake & Output 05/15/21 05/16/21 05/17/21 05/18/21 23:59 23:59 23:59 23:59 Intake Total 18.519 271 5246.000 Output Total 175 1150 1275 525 Balance -156.917 -735 320.000 -525 - Objective General Appearance: positive: No acute distress, Alert Eyes Bilateral: positive: Normal inspection ENT: positive: ENT inspection nml, Pharynx nml, No signs of dehydration Neck: positive: Nml inspection, Thyroid nml, No JVD, Trachea midline Respiratory: positive: Chest non-tender, No respiratory distress, Breath sounds nml Cardiovascular: positive: Tachycardia Abdomen: positive: Non-tender, Other (Patient denies abdominal discomfort but states she has not had a bowel movement in several days. She states she would prefer to try drinking prune juice today to see if that would help.) Back: positive: Nml inspection Skin: positive: Color nml, No rash, Warm, Dry Extremities: positive: Other (pain to bilateral hips and thighs, chronic issue) Neurologic/Psychiatric: positive: Oriented x3, Weakness (generalized) - Lab Results Fish Bones: 05/18/21 04:15 05/18/21 04:15 Other Labs: Lab Results x24hrs 05/18/21 05/18/21 05/18/21 Range/Units 04:15 04:15 04:15 WBC 8.0 (4.8-10.8) x10^3/uL RBC 3.71 L (4.20-5.40) 10^6/uL Hgb 11.7 L (12.0-16.0) g/dL Hct 37.2 (37.0-47.0) % MCV 100.3 H (81.0-99.0) fL MCH 31.5 H (27.0-31.0) pg MCHC 31.5 L (32.0-36.0) g/dL RDW 13.7 (12.0-15.0) % Plt Count 226 (130-450) 10^3/uL MPV 10.3 (7.9-10.8) fL Sodium 135 (135-145) mmol/L Potassium 4.4 (3.5-5.0) mmol/L Chloride 102 (101-111) mmol/L Carbon Dioxide 25 (21-32) mmol/L Anion Gap 8.0 (6-13) BUN 24 H (6-20) mg/dL Creatinine 0.8 (0.4-1.0) mg/dL Estimated GFR (MDRD) 69 L (>89) Glucose 91 (70-100) mg/dL Calcium 9.0 (8.5-10.3) mg/dL B-Natriuretic Peptide 171 H (5-100) pg/mL - Diagnostic Imaging Diagnostic Imaging Results: positive: Final report reviewed ABX Reporting Has patient been on IV antibiotics over the past 48 hours?: No Assessment/Plan - Problem List (1) Atrial flutter with rapid ventricular response Impression: Prior records from [facility] have no mention of Heart failure or Tachycardia, but her Metoprolol dose was increased from 12.5 bid to 50 bid on 05/02/21. Unknown if an EKG was done to document heart rate and rhythm. Still awaiting a callback from Dr. Mendez's office for additional records (they were called yesterday and a voicemail was left with return call request and nu mber). Diltiazem drip stopped yesterday at 1400 and have Digoxin at 250mcg IVP QID. Overnight, patient required IV Metoprolol x2 with limited response. Per night RN, the patient's HR routinely goes up to the 120s-130s with any kind of physical exertion. During morning rounding, patient's HR was sustained in the 130's shortly after using the bedpan to urinate. Patient denied any chest pain, palpitation, or shortness of breath. Patient states she "feels normal" aside from her chronic bilateral hip pain. Her dig level this am is over 3 so will hold more dig until tomorrow. TFTs have been checked and are normal. Her troponin increased 05/16/21 but began downtrending; these were likely a secon maddie finding, rising from the persistent tachycardia and demand ischemia. She is on Lovenox at a prophylactic dose. No anticoagulation has been chosen yet. EF of 25-30% on ECHO during this admission. HASBLED score:1; [id number] Score: 5. At [facility], she reports limited independent ambulation to and from the bathroom with a walker. Will need to have thorough discussion with patient and caregiver regarding anticoagulation preference- may benefit from conservative approach using 1 aspirin daily as her stroke prophylaxis. Physical Therapy was ordered to start on 05/16/21 but remains on hold due to tachycardia. we wonder if there is a link between her pain and her heart rate. when she is asleep or calm, HR goes down. So will add toradol, stop the ASA, and ask anesthesia to do femoral block to see if it helps. (2) Acute systolic heart failure Impression: She has no mention of Heart failure or tachycardia from available records (currently awaiting return call from PCP Dr. Mendez's office), but her Metoprolol dose was increased from 12.5 bid to 50 bid on 05/02/21 outpatient. Echo shows LVEF of 35% with global hypokinesis. This is a new finding for her. Continue with aggressive measures for rate control since tachycardia-induced cardiomyopathy could be the problem. Digoxin started yesterday. She is currently euvolemic, does not have CHF on chest x-ray or exam and no Lasix is ordered now. Low doses of CHIKI inhibitor and spironolactone initiated. (3) Type 2 AK (myocardial infarction) Impression: Likely tachycardia is causing demand ischemia and a significant increase in her troponin that was seen 05/16/21. Lipid panel does not demonstrate any serious concerns. Daily aspirin initiated. (4) Hx of essential hypertension Impression: Her record from [facility] was received and reviewed. She has no mention of Heart failure or tachycardia. Awaiting information from PCP's office. (5) Chronic hip pain Impression: She states her hip pain is leftover from septic arthritis she experienced as a child, which she states was better for a long time but pain began recurring in adulthood. Imaging this admission shows severe right hip joint osteoarthritis and chronic appearing hip deformity. No acute hip fracture or dislocation. Moderate left hip joint osteoarthritis. No evidence of avascular necrosis or femoral head. She states she has not seen an orthopedist or in service educator. Home medication list shows she typically takes Celebrex. Initiated Ketorolac and Ativan this afternoon to address pain; stopped Aspirin and began pantoprazole prophylactically. She also has PRN acetaminophen available. Reviewed case with orthopedic surgery who stated she would not be a surgical candidate here due to low EF. Anesthesia service agreed to perform a femoral nerve block, which was performed at bedside this afternoon without complications. Awaiting patient response. Nursing staff also reports that she has become very stiff and has difficulty with even passive range of motion in her legs. Upon exam, patient's legs remain completely stiff during passive range of motion, even while trying to place a pillow under ankles. Once heart rate under control, may need to premedicate prior to ambulation to work with PT initially. Will continue to monitor and reassess. If she has a positive response to nerve block, will discuss repeat intervention with anesthesia service. Qualifiers: Laterality: right Qualified Code(s): M25.551 - Pain in right hip; G89.29 - Other chronic pain (6) Schizophrenia Impression: As per the record from [facility]. Her psych meds will be resumed (7) Depression with anxiety Impression: As per the record from [facility]. Her psych meds will be resumed
[2021-05-18] MEDS: SODIUM CHLORIDE FLUSH 0.9% 10 ML SYRINGE IVP SCH ×2 (08:09→17:48)
[2021-05-18] MEDS: MORPHINE 2 MG/ML CARPUJECT IVP PRN (08:09)
[2021-05-18] MEDS: polyethylene glycoL 3350 17 GM PACKET PO SCH (08:09)
[2021-05-18] MEDS: ENOXAPARIN 40 MG/0.4 ML SYRINGE SUBQ SCH (08:11)
[2021-05-18] MEDS: ASPIRIN EC 81 MG TABLET PO SCH (08:12)
[2021-05-18] MEDS: SENNA 8.6 MG TABLET PO SCH (08:12)
[2021-05-18] MEDS: ARIPiprazole 5 MG TABLET PO SCH (08:13)
[2021-05-18] MEDS: SPIRONOLACTONE 25 MG TABLET PO SCH (08:13)
[2021-05-18] MEDS: METOPROLOL SUCCINATE 25 MG TABLET PO SCH ×2 (08:15→20:31)
[2021-05-18] MEDS: DOCUSATE SODIUM 250 MG CAPSULE PO SCH (08:16)
[2021-05-18] MEDS: VENLAFAXINE 37.5 MG TABLET PO SCH (08:16)
[2021-05-18] MEDS: ethyl alcohoL 62% SWAB AMPULE NAS SCH ×2 (08:16→20:31)
[2021-05-18 08:58] LABS: DIGOXIN 3.3 ng/mL
[2021-05-18] MEDS ORDERED: polyethylene glycoL 3350 17 GM PACKET PO SCH (09:00)
[2021-05-18] MEDS: lisinopriL 5 MG TABLET PO SCH (12:22)
[2021-05-18] MEDS: PANTOPRAZOLE 40 MG TABLET PO SCH (17:47)
[2021-05-18] MEDS ORDERED: ROPIVACAINE 0.5% PF 20 ML AMPULE ONE (18:16)
[2021-05-18] MEDS: KETOROLAC 15 MG/ML VIAL IVP PRN (19:00)
[2021-05-18] MEDS: LORazepam 0.5 MG TABLET PO PRN (19:45)
[2021-05-18] MEDS: GABAPENTIN 100 MG CAPSULE PO SCH (20:31)
[2021-05-19] MEDS: SODIUM CHLORIDE FLUSH 0.9% 10 ML SYRINGE IVP SCH ×5 (00:53→23:03)
[2021-05-19] MEDS: KETOROLAC 15 MG/ML VIAL IVP PRN ×3 (00:53→20:51)
[2021-05-19] MEDS: PANTOPRAZOLE 40 MG TABLET PO SCH (06:19)
[2021-05-19] MEDS: SODIUM CHLORIDE FLUSH 0.9% 10 ML SYRINGE IVP PRN (06:20)
[2021-05-19] MEDS: DOCUSATE SODIUM 250 MG CAPSULE PO SCH (08:10)
[2021-05-19] MEDS: ethyl alcohoL 62% SWAB AMPULE NAS SCH ×2 (08:11→20:50)
[2021-05-19] MEDS: polyethylene glycoL 3350 17 GM PACKET PO SCH (08:12)
[2021-05-19] MEDS: SENNA 8.6 MG TABLET PO SCH (08:12)
[2021-05-19] MEDS: SPIRONOLACTONE 25 MG TABLET PO SCH (08:13)
[2021-05-19] MEDS: METOPROLOL SUCCINATE 25 MG TABLET PO SCH ×2 (08:15→20:50)
[2021-05-19] MEDS: VENLAFAXINE 37.5 MG TABLET PO SCH (08:17)
[2021-05-19] MEDS: ARIPiprazole 5 MG TABLET PO SCH (08:22)
[2021-05-19] MEDS: ENOXAPARIN 40 MG/0.4 ML SYRINGE SUBQ SCH (09:00)
[2021-05-19] MEDS: HYDROcod/ACETAM 5/325 MG TABLET PO PRN ×3 (11:15→20:51)
[2021-05-19] MEDS: lisinopriL 5 MG TABLET PO SCH (12:04)
[2021-05-19] MEDS: MORPHINE 2 MG/ML CARPUJECT IVP PRN ×2 (14:05→23:03)
--- NOTE | 2021-05-19 15:47 | PROVIDER PROGRESS NOTE ---
Subjective - Prog Note Date Prog Note Date: 05/19/21 Prog Note Time: 15:45 - Subjective Pt reports feeling: No change (This morning patient was feeling better, but in the afternoon her hip pain resumed. This is her biggest complaint. While it was improved overnight and this morning, it is back to baseline pain now.) Objective - Vital Signs/Intake & Output Vital Signs: Vital Signs x48h Temp Pulse Resp BP Pulse Ox 05/19/21 15:00 89 20 114/55 L 94 05/19/21 14:00 130 H 16 126/77 96 05/19/21 13:00 107 H 18 120/93 H 97 05/19/21 12:00 80 21 123/57 L 96 05/19/21 11:00 106 H 20 130/87 H 93 05/19/21 10:00 77 18 115/53 L 94 05/19/21 09:00 94 20 122/53 L 97 05/19/21 08:00 36.4 C L 67 121/61 Intake & Output: Intake & Output 05/16/21 05/17/21 05/18/21 05/19/21 23:59 23:59 23:59 23:59 Intake Total 415 1595.000 670 510 Output Total 1150 1275 1175 Balance -735 320.000 -505 510 - Objective General Appearance: positive: Mild distress Eyes Bilateral: positive: Normal inspection ENT: positive: ENT inspection nml Neck: positive: Nml inspection Respiratory: positive: Chest non-tender, No respiratory distress, Breath sounds nml Cardiovascular: positive: Irregularly irregular, Tachycardia (Variable tachycardia. Rate varies between 80's and 90's - 130's. Remains in a-flutter.) Abdomen: positive: Non-tender, No organomegaly, Nml bowel sounds, No distention Back: positive: Nml inspection Skin: positive: Color nml, No rash, Warm, Dry Extremities: positive: No pedal edema, Other (Very limited range of motion in BLEs) Neurologic/Psychiatric: positive: Oriented x3, Mood/affect nml - Lab Results Fish Bones: 05/18/21 04:15 05/18/21 04:15 - Diagnostic Imaging Diagnostic Imaging Results: positive: Final report reviewed (Recent telemetry and CT imaging reviewed. Awaiting new CT hip this afternoon.) Assessment/Plan - Problem List (1) Atrial flutter with rapid ventricular response Impression: Prior records from [facility] have no mention of Heart failure or Tachycardia, but her Metoprolol dose was increased from 12.5 bid to 50 bid on 05/02/21. Diltiazem drip stopped 05/17/21 at 1400 and Digoxin was initiated at that time. Overnight, rate was much improved in the 70's-90's, though today patient again began having rates back into the 130's. Her elevated HR this afternoon seemed to coordinate with increased pain levels from her chronic hip issues (see plan for item #5). We believe there is a link between the patient's HR and pain levels. Patient continues to deny any chest pain, palpitation, or shortness of breath. Patient states she "feels normal" aside from her chronic bilateral hip pain. Digoxin was held yesterday for a dig level of 3.3. Will redraw level today before resuming. TFTs have been checked and are normal. While there is relatievely low clinical suspicion at this time, we will order a chest angiogram today to make sure there is no underlying PE contributing to her tachycardia. Her troponin increased 05/16/21 but began downtrending; this was likely a secondary finding, rising from the persistent tachycardia and demand ischemia. She is on Lovenox at a prophylactic dose. No anticoagulation has been chosen yet. Will need to have thorough discussion with patient and caregiver regarding anticoagulation preference- may benefit from conservative approach using 1 aspirin daily as her stroke prophylaxis. EF of 25-30% on ECHO during this admission. HASBLED score:1; [id number] Score: 5. we wonder if there is a link between her pain and her heart rate. when she is asleep or calm, HR goes down. So will add toradol, stop the ASA, and ask anesthesia to do femoral block to see if it helps. (2) Acute systolic heart failure Impression: She has no mention of Heart failure or tachycardia from available records, but her Metoprolol dose was increased from 12.5 bid to 50 bid on 05/02/21 outpatient. Echo shows LVEF of 35% with global hypokinesis. This is a new finding for her. Continue with aggressive measures for rate control since tachycardia-induced c ardiomyopathy could be the problem. Digoxin started 05/17/21, held yesterday due to high serum levels. Awaiting new level to be drawn this afternoon. She is currently euvolemic, does not have CHF on chest x-ray or exam and no Lasix is ordered now. Low doses of CHIKI inhibitor and spironolactone initiated. (3) Type 2 MS (myocardial infarction) Impression: Likely tachycardia is causing demand ischemia and a significant increase in her troponin that was seen 05/16/21. Lipid panel does not demonstrate any serious concerns. Daily aspirin initiated, but stopped yesterday due to initiation of NSAID for hip pain. May resume aspirin in the near future as we continue to make changes to her pain control regimen. (4) Hx of essential hypertension Impression: Her record from [facility] was received and reviewed. She has no mention of Heart failure or tachycardia. BP has been stable this admission on current schedule of beta aylin, CHIKI-i, and diuretic. No acute need for changes at this time. (5) Chronic hip pain Impression: She states her hip pain is leftover from septic arthritis she experienced as a child, which she states was better for a long time but pain began recurring in adulthood. Imaging this admission shows severe right hip joint osteoarthritis and chronic appearing hip deformity. No acute hip fracture or dislocation. Moderate left hip joint osteoarthritis. No evidence of avascular necrosis or femoral head. She states she has not seen an orthopedist or salesperson women's hats. We have ordered another CT pelvis and plan to send results to [facility] for feedback regarding surgical candidacy in the setting of low EF and extensive degeneration. May benefit from IR-guided steroid injection into the right affected hip. Home medication list shows she typically takes Celebrex. Initiated Ketorolac and Ativan yesterday afternoon to address pain; stopped Aspirin and began pantoprazole prophylactically at this time. She also has PRN acetaminophen available. Reviewed case with orthopedic surgery who stated she would not be a surgical candidate at [facility] due to low EF. Anesthesia service agreed to perform a femoral nerve block, which was performed at bedside this afternoon without complications. This seemed to help overnight, but pain came back early this afternoon. Patient has difficulty with even passive range of motion in her legs. Upon exam, patient's legs remain completely stiff during passive range of motion, even while trying to place a pillow under ankles. At [facility], she reports limited independent ambulation to and from the bathroom with a walker. This may have been an outdated report, however, as Dr. Kaiser had a detailed conversation with Ms. Stephens's guardian today where it was relayed that the patient has not been ambulating for some time and has instead been requiring a david lift since December (see addendum by Dr. Kaiser). Physical Therapy was ordered to start on 05/16/21 but remains on hold due to tachycardia. Qualifiers: Laterality: right Qualified Code(s): M25.551 - Pain in right hip; G89.29 - Other chronic pain (6) Schizophrenia Impression: As per the record from [facility]. Her psych meds have been resumed. She has been very appropriate, calm and pleasant during this admission. (7) Depression with anxiety Impression: As per the record from [facility]. Her psych meds have been resumed
[2021-05-19] MEDS: LORazepam 0.5 MG TABLET PO PRN ×2 (16:15→22:26)
[2021-05-19] MEDS ORDERED: IOVERSOL 320 100 ML VIAL IVP ONE ×2 (16:16→18:28)
--- NOTE | 2021-05-19 18:21 | CT Report ---
PROCEDURE: PELVIS WO INDICATIONS: hip fracture TECHNIQUE: Noncontrast 3 mm axial sections acquired through the bony pelvis, with coronal and sagittal reformatt ing. For radiation dose reduction, the following was used: automated exposure control, adjustment of mA and/or kV according to patient size. COMPARISON: Right hip radiographs 05/16/2021. FINDINGS: Image quality: Excellent. Bones: No acute fractures seen. There is severe deformity and flattening of the right femoral head w ith severe degenerative changes in the right hip. Thinning is resultant proximal migration of the fem ur and the lesser trochanter abutting the posteroinferior acetabulum with intervening degenerative ch anges. Severe joint space narrowing is seen in the left hip with subchondral cystic changes and subchondral edema and formation of small marginal osteophytes. Degenerative changes are seen in the included portions of the lumbar spine. Soft tissues: There is fatty infiltration of the right gluteus medius and minimus muscles. Multiple diverticula are seen in the colon without signs of acute diverticulitis. No acute abnormality is seen in the pelvis. IMPRESSION: 1. No acute osseous fracture or dislocation. 2. Severe flattening and deformity of the right femoral head may be secondary to primary osteoarthro sis versus remote prior trauma, infection, inflammation, or osteonecrosis with secondary degenerative changes. There is resulting severe right hip osteoarthrosis and mild proximal migration of the femur that causes the lesser trochanter to abut the acetabulum, which may cause osseous impingement. 3. Moderate to severe left hip osteoarthrosis. 4. Degenerative changes in the included lower lumbar spine. 5. Colonic diverticulosis. Reviewed by: Chino Driscoll MD on 05/19/2021 5:20 PM RONNELL Approved by: Chino Driscoll MD on 05/19/2021 5:20 PM RONNELL Station ID: [id number]
--- NOTE | 2021-05-19 18:47 | CT Report ---
PROCEDURE: ANGIO CHEST W/WO INDICATIONS: unstable afib rate CONTRAST: IV CONTRAST: Optiray 320 ml: 80 PO CONTRAST: *NO PO CONTRAST TECHNIQUE: After the administration of intravenous contrast, images were acquired from the pulmonary apices to t he posterior costophrenic angles. 3-dimensional maximum intensity projection (MIP) coronal and sagit carlyle reformats were then acquired through the thorax. For radiation dose reduction, the following was used: automated exposure control, adjustment of mA and/or kV according to patient size. COMPARISON: Chest x-ray 05/15/2021 FINDINGS: Image quality: Excellent. Pulmonary arteries: Pulmonary arteries are normal in size, and demonstrate no intraluminal filling d efects to suggest central pulmonary embolism. Lungs and pleura: Minimal bilateral effusions, left greater than right. No pleural effusions or pneum othorax. Central and peripheral airways are patent. Mediastinum: Heart size is mildly prominent, without pericardial effusion. No mediastinal or hilar adenopathy. Thoracic aorta is normal in caliber and enhancement. Esophagus is normal in caliber, wi thout hiatal hernia. Bones and chest wall: No suspicious bony lesions. Ribs and thoracic spine appear intact throughout. No axillary or supraclavicular adenopathy. The thyroid is normal in size and there are no incident al findings. Abdomen: Visualized upper abdominal solid organs appear normal in the early arterial phase of enhanc ement. IMPRESSION: 1. Minimal bilateral effusions, left greater than right. 2. No pulmonary embolism. 3. No consolidations. Reviewed by: Constanza Turcios MD on 05/19/2021 6:46 PM PDT Approved by: Constanza Turcios MD on 05/19/2021 6:46 PM PDT Station ID: [id number]
[2021-05-19] MEDS: GABAPENTIN 100 MG CAPSULE PO SCH (20:50)
[2021-05-20] MEDS: HYDROcod/ACETAM 5/325 MG TABLET PO PRN ×4 (04:58→20:25)
[2021-05-20] MEDS: KETOROLAC 15 MG/ML VIAL IVP PRN ×3 (04:58→18:19)
[2021-05-20] MEDS: SODIUM CHLORIDE FLUSH 0.9% 10 ML SYRINGE IVP SCH ×3 (04:59→16:15)
[2021-05-20] MEDS: PANTOPRAZOLE 40 MG TABLET PO SCH (06:22)
[2021-05-20] MEDS: ARIPiprazole 5 MG TABLET PO SCH (07:50)
[2021-05-20] MEDS: DOCUSATE SODIUM 250 MG CAPSULE PO SCH (07:50)
[2021-05-20] MEDS: METOPROLOL SUCCINATE 25 MG TABLET PO SCH ×2 (07:51→20:26)
[2021-05-20] MEDS: ethyl alcohoL 62% SWAB AMPULE NAS SCH ×2 (07:51→20:25)
[2021-05-20] MEDS: polyethylene glycoL 3350 17 GM PACKET PO SCH (07:52)
[2021-05-20] MEDS: SENNA 8.6 MG TABLET PO SCH (07:52)
[2021-05-20] MEDS: SPIRONOLACTONE 25 MG TABLET PO SCH (07:53)
[2021-05-20] MEDS: VENLAFAXINE 37.5 MG TABLET PO SCH (07:56)
[2021-05-20] MEDS: ENOXAPARIN 40 MG/0.4 ML SYRINGE SUBQ SCH (08:01)
--- NOTE | 2021-05-20 10:29 | PROVIDER PROGRESS NOTE ---
Subjective - Prog Note Date Prog Note Date: 05/20/21 Prog Note Time: 10:24 - Subjective Pt reports feeling: No change (Patient reports getting some sleep overnight. She states her hip pain is ongoing, but at the moment is slightly improved from yesterday.) Objective - Vital Signs/Intake & Output Vital Signs: Vital Signs x48h Temp Pulse Resp BP Pulse Ox 05/20/21 09:00 87 20 121/55 L 94 05/20/21 06:25 36.8 C 72 19 95/60 94 Intake & Output: Intake & Output 05/17/21 05/18/21 05/19/21 05/20/21 23:59 23:59 23:59 23:59 Intake Total 1595.000 670 510 400 Output Total 1275 1175 200 Balance 320.000 -505 510 200 - Objective General Appearance: positive: No acute distress, Alert Eyes Bilateral: positive: Normal inspection ENT: positive: ENT inspection nml Neck: positive: Nml inspection Respiratory: positive: Chest non-tender, No respiratory distress, Breath sounds nml Cardiovascular: positive: No murmur, Irregularly irregular Abdomen: positive: Non-tender, No organomegaly, Nml bowel sounds, No distention Skin: positive: Color nml, No rash, Warm, Dry Extremities: positive: Other (Contractures/limited ROM of BLEs) Neurologic/Psychiatric: positive: Oriented x3, Mood/affect nml - Lab Results Fish Bones: 05/18/21 04:15 05/18/21 04:15 Other Labs: Lab Results x24hrs 05/19/21 Range/Units 16:07 Last Dose Date Not Reportable Last Dose Time Not Reportable Digoxin 1.0 ng/mL - Diagnostic Imaging Diagnostic Imaging Results: positive: Final report reviewed (CT pelvis and CTA chest reviewed.) Assessment/Plan - Problem List (1) Atrial flutter with rapid ventricular response Impression: Prior records from [facility] have no mention of Heart failure or Tachycardia, but her Metoprolol dose was increased from 12.5 bid to 50 bid on 05/02/21. Diltiazem drip stopped 05/17/21 at 1400 and Digoxin was initiated at that time. For the last two nights, rate was much improved in the 70's-90's (Of note, she also received Ativan at bedtime for the last two nights), though yesterday HR was back in the 130's during the day and seemed to be exacerbated by acute on chronic hip pain. We believe there is a link between the patient's HR and pain levels. Patient continues to deny any chest pain, palpitation, or shortness of breath. Patient states she "feels normal" aside from her chronic bilateral hip pain. Digoxin was held for a dig level of 3.3 on 05/18/21. Dig level yesterday WNL 1.0; will restart digoxin today. TFTs have been checked and are normal. CTA performed yesterday was negative for any PEs. Her troponin increased 05/16/21 but began downtrending; this was likely a secondary finding, rising from the persistent tachycardia and demand ischemia. She is on Lovenox at a prophylactic dose. No anticoagulation has been chosen yet. Will need to have thorough discussion with patient and caregiver regarding anticoagulation preference- may benefit from conservative approach using 1 aspirin daily as her stroke prophylaxis. EF of 25-30% on ECHO during this admission. HASBLED score:1; [id number] Score: 5. (2) Acute systolic heart failure Impression: She has no mention of Heart failure or tachycardia from available records, but her Metoprolol dose was increased from 12.5 bid to 50 bid on 05/02/21 outpatient. Echo shows LVEF of 35% with global hypokinesis. This is a new finding for her. Continue with aggressive measures for rate control since tachycardia-induced cardiomyopathy could be the problem. Digoxin started 05/17/21, held yesterday due to high serum levels. Restarting today. She is currently euvolemic, does not have CHF on chest x-ray or exam and no Lasix is ordered now. Low doses of CHIKI inhibitor and spironolactone initiated. (3) Type 2 [place] (myocardial infarction) Impression: Likely tachycardia is causing demand ischemia and a significant increase in her troponin that was seen 05/16/21. Lipid panel does not demonstrate any serious concerns. Daily aspirin initiated, but stopped due to initiation of NSAID for hip pain. May resume aspirin in the near future as we continue to make changes to her pain control regimen. (4) Chronic hip pain Impression: She states her hip pain is leftover from septic arthritis she experienced as a child, which she states was better for a long time but pain began recurring in adulthood. Imaging this admission shows severe right hip joint osteoarthritis and chronic appearing hip deformity. No acute hip fracture or dislocation. Moderate left hip joint osteoarthritis. No evidence of avascular necrosis or femoral head. She states she has not seen an orthopedist or health information director. We have ordered another CT pelvis and plan to send results to [facility] for feedback regarding surgical candidacy in the setting of low EF and extensive degeneration. May benefit from IR-guided steroid injection into the right affected hip. Home medication list shows she typically takes Celebrex. Initiated Ketorolac and Ativan to address pain; stopped Aspirin and began pantoprazole prophylactically. She also has PRN acetaminophen available. Reviewed case with orthopedic surgery who stated she would not be a surgical candidate at [facility] due to low EF. Anesthesia service agreed to perform a femoral nerve block, which was performed at bedside this afternoon without complications. This seemed to help overnight, but pain came back early this afternoon. Today will speak to IR about performing bilateral steroid injections in her trochanters. Patient has difficulty with even passive range of motion in her legs. Upon exam, patient's legs remain completely stiff during passive range of motion, even while trying to place a pillow under ankles. At [facility], she reports limited independent ambulation to and from the bathroom with a walker. This may have been an outdated report, however, as Dr. Kaiser had a detailed conversation with Ms. Stephens's guardian yesterday where it was relayed that the patient has not been ambulating for some time and has instead been requiring a david lift since December. Physical Therapy ordered to evaluate for wheelchair and for appropriate outpatient disposition. Qualifiers: Laterality: right Qualified Code(s): M25.551 - Pain in right hip; G89.29 - Other chronic pain (5) Hx of essential hypertension Impression: Her record from [facility] was received and reviewed. She has no mention of Heart failure or tachycardia. BP has been stable this admission on current schedule of beta aylin, CHIKI-i, and diuretic. No acute need for changes at this time. (6) Schizophrenia Impression: As per the record from [facility]. Her psych meds have been resumed. She has been very appropriate, calm and pleasant during this admission. (7) Depression with anxiety Impression: As per the record from [facility]. Her psych meds have been resumed
[2021-05-20] MEDS: lisinopriL 5 MG TABLET PO SCH (12:10)
[2021-05-20] MEDS: DIGOXIN 125 MCG TABLET PO SCH (12:10)
[2021-05-20] MEDS ORDERED: BUFFERED LIDOCAINE 10 ML SYRINGE ONE (12:11)
[2021-05-20] MEDS ORDERED: ROPIVACAINE 0.5% PF 20 ML AMPULE ONE (12:12)
[2021-05-20] MEDS ORDERED: TRIAMCINOLONE 40 MG/ML VIAL ONE ×2 (12:13→13:18)
[2021-05-20] MEDS: LORazepam 0.5 MG TABLET PO PRN ×2 (12:15→18:19)
[2021-05-20] MEDS: SODIUM CHLORIDE FLUSH 0.9% 10 ML SYRINGE IVP PRN (18:20)
[2021-05-20] MEDS: GABAPENTIN 100 MG CAPSULE PO SCH (20:25)
[2021-05-21] MEDS: HYDROcod/ACETAM 5/325 MG TABLET PO PRN ×3 (00:03→10:28)
[2021-05-21] MEDS: SODIUM CHLORIDE FLUSH 0.9% 10 ML SYRINGE IVP SCH ×4 (00:03→23:43)
[2021-05-21] MEDS: KETOROLAC 15 MG/ML VIAL IVP PRN ×3 (00:03→16:06)
[2021-05-21] MEDS: PANTOPRAZOLE 40 MG TABLET PO SCH (06:34)
[2021-05-21] MEDS: DOCUSATE SODIUM 250 MG CAPSULE PO SCH (08:10)
[2021-05-21] MEDS: ARIPiprazole 5 MG TABLET PO SCH (08:10)
[2021-05-21] MEDS: VENLAFAXINE 37.5 MG TABLET PO SCH (08:10)
[2021-05-21] MEDS: DIGOXIN 125 MCG TABLET PO SCH (08:11)
[2021-05-21] MEDS: ENOXAPARIN 40 MG/0.4 ML SYRINGE SUBQ SCH (08:11)
[2021-05-21] MEDS: SPIRONOLACTONE 25 MG TABLET PO SCH (08:11)
[2021-05-21] MEDS: ethyl alcohoL 62% SWAB AMPULE NAS SCH ×2 (08:11→20:50)
[2021-05-21] MEDS: METOPROLOL SUCCINATE 25 MG TABLET PO SCH ×2 (08:11→20:50)
[2021-05-21] MEDS: polyethylene glycoL 3350 17 GM PACKET PO SCH (08:11)
[2021-05-21] MEDS: SENNA 8.6 MG TABLET PO SCH (08:11)
[2021-05-21 09:33] LABS: BASOPHILS # (AUTO) 0.1 10^3/uL (0.0-0.1); BASOPHILS % (AUTO) 0.8 %; EOSINOPHILS # (AUTO) 0.1 10^3/uL (0.0-0.7); EOSINOPHILS % (AUTO) 2.3 %; HCT - HEMATOCRIT 34.4 % (37.0-47.0); HGB - HEMOGLOBIN 11.7 g/dL (12.0-16.0); LYMPHOCYTES # (AUTO) 1.6 10^3/uL (1.5-3.5); LYMPHOCYTES % (AUTO) 27.4 %; MEAN CORPUSCULAR HEMOGLOBIN 32.3 pg (27.0-31.0); MEAN PLATELET VOLUME 10.1 fL (7.9-10.8); MONOCYTES # (AUTO) 0.3 10^3/uL (0.0-1.0); MONOCYTES % (AUTO) 4.7 %; NEUTROPHILS # (AUTO) 3.9 10^3/uL (1.5-6.6); NEUTROPHILS % (AUTO) 64.6 %; PLT - PLATELET COUNT 239 10^3/uL (130-450); RED BLOOD COUNT 3.62 10^6/uL (4.20-5.40); RED CELL DISTRIBUTION WIDTH 13.4 % (12.0-15.0)
[2021-05-21 09:38] LABS: CALCIUM 8.9 mg/dL (8.5-10.3); CREATININE 0.9 mg/dL (0.4-1.0); POTASSIUM 4.4 mmol/L (3.5-5.0)
[2021-05-21] MEDS: LORazepam 0.5 MG TABLET PO PRN ×2 (10:28→21:27)
--- NOTE | 2021-05-21 10:33 | PROVIDER PROGRESS NOTE ---
Subjective - Prog Note Date Prog Note Date: 05/21/21 Prog Note Time: 10:31 - Subjective Pt reports feeling: Improved (Patient reports that she slept well and that, at least at the moment, she is not having hip pain.) Objective - Vital Signs/Intake & Output Vital Signs: Vital Signs x48h Temp Pulse Resp BP BP Pulse Ox 05/21/21 08:44 37.2 C 56 L 17 132/66 H 97 05/21/21 05:00 36.5 C 56 L 18 138/59 H 99 Intake & Output: Intake & Output 05/18/21 05/19/21 05/20/21 05/21/21 23:59 23:59 23:59 23:59 Intake Total 378 846 1441 240 Output Total 1175 450 250 Balance -505 510 870 -10 - Objective General Appearance: positive: No acute distress, Alert Eyes Bilateral: positive: Normal inspection Neck: positive: Nml inspection Respiratory: positive: Chest non-tender, No respiratory distress, Breath sounds nml Cardiovascular: positive: No murmur, No gallop, Irregularly irregular Abdomen: positive: Non-tender, No organomegaly, Nml bowel sounds, No distention Skin: positive: Color nml, No rash, Warm, Dry Neurologic/Psychiatric: positive: Oriented x3, Mood/affect nml - Lab Results Fish Bones: 05/21/21 09:10 05/21/21 09:10 Other Labs: Lab Results x24hrs 05/21/21 05/21/21 Range/Units 09:10 09:10 WBC 6.0 (4.8-10.8) x10^3/uL RBC 3.62 L (4.20-5.40) 10^6/uL Hgb 11.7 L (12.0-16.0) g/dL Hct 34.4 L (37.0-47.0) % MCV 95.0 (81.0-99.0) fL MCH 32.3 H (27.0-31.0) pg MCHC 34.0 (32.0-36.0) g/dL RDW 13.4 (12.0-15.0) % Plt Count 239 (130-450) 10^3/uL MPV 10.1 (7.9-10.8) fL Neut # (Auto) 3.9 (1.5-6.6) 10^3/uL Lymph # (Auto) 1.6 (1.5-3.5) 10^3/uL [place] # (Auto) 0.3 (0.0-1.0) 10^3/uL Eos # (Auto) 0.1 (0.0-0.7) 10^3/uL Baso # (Auto) 0.1 (0.0-0.1) 10^3/uL Absolute Nucleated RBC 0.00 x10^3/uL Nucleated RBC % 0.0 /100WBC Sodium 134 L (135-145) mmol/L Potassium 4.4 (3.5-5.0) mmol/L Chloride 102 (101-111) mmol/L Carbon Dioxide 25 (21-32) mmol/L Anion Gap 7.0 (6-13) BUN 30 H (6-20) mg/dL Creatinine 0.9 (0.4-1.0) mg/dL Estimated GFR (MDRD) 60 L (>89) Glucose 150 H (70-100) mg/dL Calcium 8.9 (8.5-10.3) mg/dL Assessment/Plan - Problem List (1) Atrial flutter with rapid ventricular response Impression: New diagnosis. For the last 3 nights, rate was much improved in the 70's-90's, though she remains in atrial flutter. We believe there is a link between the patient's HR and pain levels. Patient continues to deny any chest pain, palpitation, or shortness of breath. Patient states she "feels normal" aside from her chronic bilateral hip pain. Digoxin was held for a dig level of 3.3 on 05/18/21. Dig level yesterday WNL 1.0 and was re-started. TFTs have been checked and are normal. CTA performed 05/19/21 was negative for any PEs. We have stopped enoxaparin and initiated apixaban for anticoagulation since it appears that she will be non-ambulatory/bed-bound. EF of 25-30% on ECHO during this admission. HASBLED score:1; [id number] Score: 5. (2) Acute systolic heart failure Impression: She has no mention of Heart failure or tachycardia from available records, but her Metoprolol dose was increased from 12.5 bid to 50 bid on 05/02/21 outpatient. Echo shows LVEF of 35% with global hypokinesis. This is a new finding for her. Continue with aggressive measures for rate control since tachycardia-induced cardiomyopathy could be the problem. Digoxin started. She is currently euvolemic, does not have CHF on chest x-ray or exam and no Lasix is ordered now. Low doses of CHIKI inhibitor and spironolactone initiated. (3) Type 2 [place] (myocardial infarction) Impression: Likely tachycardia is causing demand ischemia and a significant increase in her troponin that was seen 05/16/21. Lipid panel does not demonstrate any serious concerns. Daily aspirin initiated, but stopped due to initiation of NSAID for hip pain. Will resume aspirin today. (4) Chronic hip pain Impression: Patient had septic arthritis in her hips as a child. Imaging this admission shows severe right hip joint osteoarthritis and chronic appearing hip deformity. No acute hip fracture or dislocation. Moderate left hip joint osteoarthritis. No evidence of avascular necrosis or femoral head. She states she has not seen an orthopedist or analyst programmer. Stopped Ketorolac and initiated low-dose opioids as needed. Reviewed case with orthopedic surgery who stated she would not be a surgical candidate at [facility] due to low EF. Anesthesia service agreed to perform a femoral nerve block, which was performed at bedside on 05/19/21 without complications. This seemed to provide temporary relief. Yesterday IR was unable to perform a guided steroid injection into the hip due to patient's BLE contractures. The patient will unfortunately need to follow-up outpatient with her PCP for an orthopedic and possibly pain specialist referral to further explore available treatment options. Social work has contacted [facility] to discuss necessary assistive equipment the patient will need upon discharge. Physical Therapy ordered to evaluate for wheelchair and for appropriate outpatient disposition. Qualifiers: Laterality: right Qualified Code(s): M25.551 - Pain in right hip; G89.29 - Other chronic pain (5) Hx of essential hypertension Impression: Her record from [facility] was received and reviewed. She has no mention of Heart failure or tachycardia. BP has been stable this admission on current schedule of beta aylin, CHIKI-i, and diuretic. No acute need for changes at this time. (6) Schizophrenia Impression: As per the record from [facility]. Her psych meds have been resumed. She has been very appropriate, calm and pleasant during this admission. (7) Depression with anxiety Impression: As per the record from [facility]. Her psych meds have been resumed
[2021-05-21] MEDS: lisinopriL 5 MG TABLET PO SCH (13:12)
[2021-05-21] MEDS: HYDROcod/ACETAM 5/325 MG TABLET PO SCH (17:18)
[2021-05-21] MEDS: GABAPENTIN 100 MG CAPSULE PO SCH (20:50)
[2021-05-21] MEDS: APIXABAN 5 MG TABLET PO SCH (20:50)
[2021-05-21] MEDS: MORPHINE 2 MG/ML CARPUJECT IVP PRN ×2 (21:27→23:47)
[2021-05-22] MEDS: HYDROcod/ACETAM 5/325 MG TABLET PO SCH ×3 (00:59→16:58)
[2021-05-22] MEDS: MORPHINE 2 MG/ML CARPUJECT IVP PRN ×3 (03:07→21:34)
[2021-05-22] MEDS: LORazepam 0.5 MG TABLET PO PRN ×2 (03:07→21:34)
[2021-05-22] MEDS: PANTOPRAZOLE 40 MG TABLET PO SCH (05:53)
[2021-05-22] MEDS: DIGOXIN 125 MCG TABLET PO SCH (08:40)
[2021-05-22] MEDS: VENLAFAXINE 37.5 MG TABLET PO SCH (08:41)
[2021-05-22] MEDS: ARIPiprazole 5 MG TABLET PO SCH (08:41)
[2021-05-22] MEDS: APIXABAN 5 MG TABLET PO SCH ×2 (08:42→20:31)
[2021-05-22] MEDS: SENNA 8.6 MG TABLET PO SCH (08:42)
[2021-05-22] MEDS: METOPROLOL SUCCINATE 25 MG TABLET PO SCH ×2 (08:42→20:31)
[2021-05-22] MEDS: SPIRONOLACTONE 25 MG TABLET PO SCH (08:43)
[2021-05-22] MEDS: polyethylene glycoL 3350 17 GM PACKET PO SCH (08:44)
[2021-05-22] MEDS: DOCUSATE SODIUM 250 MG CAPSULE PO SCH (08:44)
[2021-05-22] MEDS: SODIUM CHLORIDE FLUSH 0.9% 10 ML SYRINGE IVP SCH ×3 (08:47→23:42)
[2021-05-22] MEDS: ethyl alcohoL 62% SWAB AMPULE NAS SCH ×2 (08:47→20:31)
[2021-05-22] MEDS ORDERED: ASPIRIN EC 81 MG TABLET PO SCH (09:00)
--- NOTE | 2021-05-22 10:27 | PROVIDER PROGRESS NOTE ---
Subjective - Prog Note Date Prog Note Date: 05/22/21 Prog Note Time: 10:24 - Subjective Pt reports feeling: No change (The patient continues to report feeling at baseline with variable pain levels in her hips. Yesterday she woke from a vivid dream that made her briefly confused about where she was and who was in the room with her. She says this has never happened before and it "freaked her out," but hasn't reoccured) Objective - Vital Signs/Intake & Output Vital Signs: Vital Signs x48h Temp Pulse Pulse Resp BP Pulse Ox 05/22/21 08:21 36.6 C 62 18 106/60 96 05/22/21 05:00 36.5 C 82 16 103/61 97 Intake & Output: Intake & Output 05/19/21 05/20/21 05/21/21 05/22/21 23:59 23:59 23:59 23:59 Intake Total 510 1320 720 340 Output Total 450 425 600 Balance 510 870 295 -260 - Objective General Appearance: positive: No acute distress, Alert Eyes Bilateral: positive: Normal inspection Neck: positive: Nml inspection, No JVD, Trachea midline Respiratory: positive: Chest non-tender, No respiratory distress, Breath sounds nml Cardiovascular: positive: Irregularly irregular Abdomen: positive: Non-tender, Nml bowel sounds Skin: positive: No rash, Warm, Dry Extremities: positive: No pedal edema, Other (Limited ROM in BLEs, which are very stiff and painful) Neurologic/Psychiatric: positive: Oriented x3, Mood/affect nml - Lab Results Fish Bones: 05/21/21 09:10 05/21/21 09:10 Assessment/Plan - Problem List (1) Atrial flutter with rapid ventricular response Impression: Newly diagnosed this admission For the last several nights, rate was much improved in the 70's-90's, though she remains in atrial flutter. There were some bradycardic readings from her VS report yesterday, but we question the fidelity of these since sometimes the HR is a-fib/flutter isn't accurately detected on pulse oximetry. We believe there is a link between the patient's HR and pain levels. Patient continues to deny any chest pain, palpitation, or shortness of breath. Patient states she "feels normal" aside from her chronic bilateral hip pain. Digoxin has been started and we are following therapeutic serum levels. TFTs have been checked and are normal. CTA performed 05/19/21 was negative for any PEs. We have stopped enoxaparin and initiated apixaban for anticoagulation since it appears that she will be non-ambulatory/bed-bound. EF of 25-30% on ECHO during this admission. HASBLED score:1; [id number] Score: 5. (2) Acute systolic heart failure Impression: She has no mention of Heart failure or tachycardia from available records, but her Metoprolol dose was increased from 12.5 bid to 50 bid on 05/02/21 outpatient. Echo shows LVEF of 35% with global hypokinesis. This is a new finding for her. Continue with aggressive measures for rate control since tachycardia-induced cardiomyopathy could be the problem. Digoxin started. She is currently euvolemic, does not have CHF on chest x-ray or exam and no Lasix is ordered now. Low doses of CHIKI inhibitor and spironolactone initiated. (3) Type 2 [place] (myocardial infarction) Impression: Likely tachycardia is causing demand ischemia and a significant increase in her troponin that was seen 05/16/21. Lipid panel does not demonstrate any serious concerns. Daily aspirin initiated, but stopped due to initiation of NSAID for hip pain. Aspirin was discontinued since we have started her on apixaban. (4) Chronic hip pain Impression: Patient had septic arthritis in her hips as a child. Imaging this admission shows severe right hip joint osteoarthritis and chronic appearing hip deformity. No acute hip fracture or dislocation. Moderate left hip joint osteoarthritis. No evidence of avascular necrosis or femoral head. She states she has not seen an orthopedist or service rig operator. Stopped Ketorolac and initiated low-dose opioids as needed. Reviewed case with orthopedic surgery who stated she would not be a surgical candidate at [facility] due to low EF. Anesthesia service agreed to perform a femoral nerve block, which was performed at bedside on 05/19/21 without complications. This seemed to provide temporary relief, but is not a mcc solution. IR was unable to perform a guided steroid injection into the hip due to patient's BLE stiffness, which prohibited her from getting into the correct positioning. The patient will unfortunately need to follow-up outpatient with her PCP for an orthopedic and possibly pain specialist referral to further explore available treatment options. Social work has contacted [facility] to discuss necessary assistive equipment the patient will need upon discharge. Physical Therapy ordered to evaluate for wheelchair and for appropriate outpatient disposition. (5) Hx of essential hypertension Impression: Her record from [facility] was received and reviewed. She has no mention of Heart failure or tachycardia. BP has been stable this admission on current schedule of beta aylin, CHIKI-i, and diuretic. No acute need for changes at this time. (6) Schizophrenia Impression: As per the record from [facility]. Her psych meds have been resumed. She has been very appropriate, calm and pleasant during this admission. (7) Depression with anxiety Impression: As per the record from [facility]. Her psych meds have been resumed
[2021-05-22] MEDS: lisinopriL 5 MG TABLET PO SCH (11:31)
[2021-05-22] MEDS: GABAPENTIN 100 MG CAPSULE PO SCH (20:31)
[2021-05-22] MEDS: SODIUM CHLORIDE FLUSH 0.9% 10 ML SYRINGE IVP PRN (21:34)
[2021-05-23] MEDS: HYDROcod/ACETAM 5/325 MG TABLET PO SCH ×3 (00:24→17:00)
[2021-05-23] MEDS: PANTOPRAZOLE 40 MG TABLET PO SCH (06:01)
[2021-05-23 08:54] LABS: DIGOXIN 0.6 ng/mL
[2021-05-23] MEDS: ethyl alcohoL 62% SWAB AMPULE NAS SCH ×2 (09:13→20:59)
[2021-05-23] MEDS: APIXABAN 5 MG TABLET PO SCH ×2 (09:13→21:00)
[2021-05-23] MEDS: ARIPiprazole 5 MG TABLET PO SCH (09:13)
[2021-05-23] MEDS: DIGOXIN 125 MCG TABLET PO SCH (09:13)
[2021-05-23] MEDS: DOCUSATE SODIUM 250 MG CAPSULE PO SCH (09:13)
[2021-05-23] MEDS: polyethylene glycoL 3350 17 GM PACKET PO SCH (09:14)
[2021-05-23] MEDS: SENNA 8.6 MG TABLET PO SCH (09:14)
[2021-05-23] MEDS: SPIRONOLACTONE 25 MG TABLET PO SCH (09:14)
[2021-05-23] MEDS: VENLAFAXINE 37.5 MG TABLET PO SCH (09:16)
[2021-05-23] MEDS: SODIUM CHLORIDE FLUSH 0.9% 10 ML SYRINGE IVP SCH ×2 (09:20→15:52)
[2021-05-23] MEDS: METOPROLOL SUCCINATE 25 MG TABLET PO SCH ×2 (09:24→21:00)
--- NOTE | 2021-05-23 10:31 | XRAY Report ---
PROCEDURE: Hip w/Pelvis 1V RT INDICATIONS: SEVERE OA AND HIP PAIN TECHNIQUE: Single fluoroscopic intra-procedural film of the right hip. COMPARISON: None. FINDINGS: Severe osteoarthritic changes of the right hip joint with flattening and dysmorphia of the right femo ral head and neck. Right hip joint injection was not performed due to patient condition. IMPRESSION: Severe right hip osteoarthritic changes. Right hip joint injection was not performed. Reviewed by: Shannan Tobar MD on 05/23/2021 10:30 AM PDT Approved by: Shannan Tobar MD on 05/23/2021 10:30 AM PDT Station ID: [id number]
[2021-05-23] MEDS: MORPHINE 2 MG/ML CARPUJECT IVP PRN ×2 (12:05→15:48)
[2021-05-23] MEDS: lisinopriL 5 MG TABLET PO SCH (12:27)
--- NOTE | 2021-05-23 17:38 | PROVIDER PROGRESS NOTE ---
Subjective - Prog Note Date Prog Note Date: 05/23/21 Prog Note Time: 17:37 - Subjective Pt reports feeling: No change Subjective: INTERIM REPORT: 05/15/21: Admitted to ED after experiencing increased severity of her chronic hip pain while at her [facility] ([facility]) and subsequently found to be in SVT by EMS. 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 She was brought to the emergency room and given adenosine, had a brief pause then returned to a-flutter with heart rates in the 130s. She was admitted to the ICU in a-flutter and started on a diltiazem drip. She was placed on enoxaparin for prophylaxis. TFTs checked and were normal. 05/16/20: Troponin became elevated. We believe this was due to demand ischemia 2/2 tachycardia causing a type 2 AL. EF of 25-30% on ECHO. HASBLED score:1; [id number] Score: 5. Low doses of CHIKI inhibitor and spironolactone initiated around this time. 05/17/21: Troponins begin down-trending. Diltiazem drip stopped. Digoxin initiated at 250mcg IVP QID. This was transitioned to Digoxin 125mcg PO daily. 05/19/21: Patient continues to have a-flutter in 120's-130's. We now suspect that her HR is greatly impacted by the hip pain. Regardless, CTA was ordered which ruled out PE. Over the next couple of days we devised various plans in an attempt to address the patient's hip pain. Imaging revels severe right hip joint osteoarthritis and chronic appearing hip deformity. No acute hip fracture or d islocation. Moderate left hip joint osteoarthritis. No evidence of avascular necrosis or femoral head. Ortho stated she would not be a surgical candidate at [facility] d/t low EF. Anesthesia graciously performed a lidocaine block to the patient's R hip, which seemed to help temporarily. IR was contacted to perform steroid injections in both hips, but were unable to do so since patient is now rather contracted at the hip. The patient may benefit from an outpatient orthopedic referral for surgical workup at a larger facility and for general treatment recommendations to address patient's discomfort. 05/21/21: Lovenox stopped and apixaban initiated. While we initially considering a conservative approach using aspirin for anticoagulation, we decided apixaban would be more appropriate since the patient is now essentially bed/chair-bound 2/2 hip pain and deformity. 05/23/21: The patient's HR is more rate controlled, but remains in a-flutter and is still quite variable with documented HRs in the 50's-120's. Social work has been attempting to coordinate with [place] and the patient's caser to address equipment and care needs upon discharge. The patient will require close and timely follow-up/coordination with her PCP to establish appropriate pain control in the outpatient setting. We believe that the patient will unfortunately require routine opioids due to her exceptional pain and complex medical issues which prohibit surgical intervention. Objective - Vital Signs/Intake & Output Vital Signs: Vital Signs x48h Temp Pulse Resp BP Pulse Ox 05/23/21 15:43 37.1 C 132 H 18 108/75 96 05/23/21 12:28 134/82 H Intake & Output: Intake & Output 05/20/21 05/21/21 05/22/21 05/23/21 23:59 23:59 23:59 23:59 Intake Total 5930 048 5097 880 Output Total 450 664 654 5957 Balance 870 295 440 -170 - Objective General Appearance: positive: Alert, Mild distress (increased pain in her hips during exam) Respiratory: positive: Chest non-tender, No respiratory distress, Breath sounds nml Cardiovascular: positive: Irregularly irregular (atrial flutter) Abdomen: positive: Non-tender, No organomegaly, Nml bowel sounds, No distention Skin: positive: Color nml, No rash, Warm, Dry Extremities: positive: No pedal edema, Other (bilateral hip pain and tenderness. she is contracted at the hips and generally very stiff throughout her BLEs) Neurologic/Psychiatric: positive: Oriented x3, Mood/affect nml (very pleasant and cooperative disposition) - Lab Results Fish Bones: 05/21/21 09:10 05/21/21 09:10 Other Labs: Lab Results x24hrs 05/23/21 Range/Units 08:00 Last Dose Date NA Last Dose Time NA Digoxin 0.6 ng/mL Assessment/Plan - Problem List (1) Atrial flutter with rapid ventricular response Impression: Newly diagnosed this admission For the last several nights, rate was much improved in the 70's-90's, though she remains in atrial flutter. There were some bradycardic readings from her VS, but we question the fidelity of these unless they were corrolated with telemetry as a-fib/flutter is often inaccurately detected on pulse oximetry. We believe there is a link between the patient's HR and pain levels. Patient continues to deny any chest pain, palpitation, or shortness of breath. Patient states she "feels normal" aside from her chronic bi lateral hip pain. Digoxin has been started and we are following therapeutic serum levels. Apixaban initiated for anticoagulation since it appears that she will be non-ambulatory/bed-bound. EF of 25-30% on ECHO during this admission. HASBLED score:1; [id number] Score: 5. (2) Acute systolic heart failure Impression: She has no mention of Heart failure or tachycardia from available records, but her Metoprolol dose was increased from 12.5 bid to 50 bid on 05/02/21 outpatient. Echo shows LVEF of 35% with global hypokinesis. This is a new finding for her during this admission. Continue with aggressive measures for rate control since tachycardia-induced cardiomyopathy could be the problem. Digoxin started. She is currently euvolemic, does not have CHF on chest x-ray or exam and no Lasix is ordered now. Low doses of CHIKI inhibitor and spironolactone initiated. (3) Chronic hip pain Impression: Patient had septic arthritis in her hips as a child. Imaging this admission shows severe right hip joint osteoarthritis and chronic appearing hip deformity. No acute hip fracture or dislocation. Moderate left hip joint osteoarthritis. No evidence of avascular necrosis or femoral head. She states she has not seen an orthopedist or life enrichment director. Low-dose opioids ordered. [facility]. IR was unable to perform a guided steroid injection into the hip due to patient's BLE stiffness. The patient will unfortunately need to follow-up outpatient with her PCP for an orthopedic and possibly pain specialist referral to further explore available treatment options. Social work has contacted [facility] to discuss necessary assistive equipment the patient will need upon discharge. (4) Hx of essential hypertension Impression: Her record from [facility] was received and reviewed. She has no mention of Heart failure or tachycardia. BP has been stable this admission on current schedule of beta aylin, CHIKI-i, and diuretic. No acute need for changes at this time. (5) Schizophrenia Impression: As per the record from [facility]. Her psych meds have been resumed. She has been very appropriate, calm and pleasant during this admission. (6) Depression with anxiety Impression: As per the record from [facility]. Her psych meds have been resumed
[2021-05-23] MEDS: GABAPENTIN 100 MG CAPSULE PO SCH (20:59)
[2021-05-24] MEDS: HYDROcod/ACETAM 5/325 MG TABLET PO SCH ×3 (01:11→17:41)
[2021-05-24] MEDS: SODIUM CHLORIDE FLUSH 0.9% 10 ML SYRINGE IVP SCH ×3 (01:29→17:41)
[2021-05-24] MEDS: MORPHINE 2 MG/ML CARPUJECT IVP PRN ×2 (03:50→06:36)
[2021-05-24] MEDS: SODIUM CHLORIDE FLUSH 0.9% 10 ML SYRINGE IVP PRN ×2 (06:37→09:44)
[2021-05-24] MEDS: PANTOPRAZOLE 40 MG TABLET PO SCH (06:37)
[2021-05-24] MEDS: LORazepam 0.5 MG TABLET PO PRN (08:42)
[2021-05-24] MEDS: SENNA 8.6 MG TABLET PO SCH (08:42)
[2021-05-24] MEDS: ethyl alcohoL 62% SWAB AMPULE NAS SCH ×2 (08:42→20:45)
[2021-05-24] MEDS: ARIPiprazole 5 MG TABLET PO SCH (08:42)
[2021-05-24] MEDS: VENLAFAXINE 37.5 MG TABLET PO SCH (08:42)
[2021-05-24] MEDS: SPIRONOLACTONE 25 MG TABLET PO SCH (08:42)
[2021-05-24] MEDS: METOPROLOL SUCCINATE 25 MG TABLET PO SCH (08:42)
[2021-05-24] MEDS: polyethylene glycoL 3350 17 GM PACKET PO SCH (08:42)
[2021-05-24] MEDS: DIGOXIN 125 MCG TABLET PO SCH (08:43)
[2021-05-24] MEDS: DOCUSATE SODIUM 250 MG CAPSULE PO SCH (08:43)
[2021-05-24] MEDS: APIXABAN 5 MG TABLET PO SCH ×2 (08:43→20:45)
[2021-05-24] MEDS ORDERED: METOPROLOL 5 MG/5 ML VIAL IVP PRN ×2 (09:23→10:36)
[2021-05-24] MEDS ORDERED: DIGOXIN 500 MCG/2 ML AMP IVP SCH (11:02)
[2021-05-24 11:13] LABS: BASOPHILS # (AUTO) 0.1 10^3/uL (0.0-0.1); BASOPHILS % (AUTO) 0.8 %; EOSINOPHILS # (AUTO) 0.1 10^3/uL (0.0-0.7); EOSINOPHILS % (AUTO) 1.9 %; HCT - HEMATOCRIT 37.5 % (37.0-47.0); HGB - HEMOGLOBIN 12.9 g/dL (12.0-16.0); LYMPHOCYTES # (AUTO) 1.9 10^3/uL (1.5-3.5); LYMPHOCYTES % (AUTO) 25.7 %; MEAN CORPUSCULAR HEMOGLOBIN 32.9 pg (27.0-31.0); MEAN CORPUSCULAR HGB CONC 34.4 g/dL (32.0-36.0); MEAN CORPUSCULAR VOLUME 95.7 fL (81.0-99.0); MEAN PLATELET VOLUME 9.6 fL (7.9-10.8); MONOCYTES # (AUTO) 0.6 10^3/uL (0.0-1.0); MONOCYTES % (AUTO) 7.7 %; NEUTROPHILS # (AUTO) 4.8 10^3/uL (1.5-6.6); NEUTROPHILS % (AUTO) 63.6 %; PLT - PLATELET COUNT 294 10^3/uL (130-450); RED BLOOD COUNT 3.92 10^6/uL (4.20-5.40); RED CELL DISTRIBUTION WIDTH 13.6 % (12.0-15.0); WHITE BLOOD COUNT 7.6 x10^3/uL (4.8-10.8)
[2021-05-24 11:22] LABS: CALCIUM 9.3 mg/dL (8.5-10.3); CREATININE 0.7 mg/dL (0.4-1.0)
--- NOTE | 2021-05-24 11:38 | PROVIDER PROGRESS NOTE ---
Assessment/Plan - Problem List (1) Atrial flutter with rapid ventricular response Assessment/Plan: Unfortunately, patient heart rate is still not in the control yet. add tele monitor and vital monitor both show pt has 125-135 HR, at time, pt did not complain of hip pain. pt is asymptomatic, she denies chest pain, palpitation, dizziness or lightheaded. plan: add tele monitor, check BMP and mag, check digoxin serum concentration, add once IV of digoxin. pt has severe systolic heart failure as well, and SBP is 95. slight increase Metoprolol oral, PRN IV of metoprolol. continue tele monitor. continue eliquis, continue monitor digoxin serum concentration. (2) Acute systolic heart failure Impression: Echo shows LVEF of 35% with global hypokinesis. This is a new finding for her during this admission. 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 Digoxin started. continue metoprolol. Because the patient had low systolic blood pressure, we will hold lisinopril and spironolactone. She is currently euvolemic, no lasix now. (3) Chronic hip pain Impression: CT study in this admission reveals severe right hip joint osteoarthritis and chronic appearing hip deformity. Moderate left hip joint osteoarthritis. No acute hip fracture or dislocation. No evidence of avascular necrosis or femoral head. She states she has not seen an orthopedist or line installation supervisor. Low-dose opioids ordered. 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 She is not a surgical candidate at [facility] due to low EF, systolic heart failure. IR was unable to perform a guided steroid injection into the hip due to pat ient's BLE stiffness. The patient may follow-up outpatient with her PCP for an orthopedic and possibly pain specialist referral to further explore available treatment options. Social work has contacted [facility] to discuss necessary assisting equipment the patient will need upon discharge. (4) Hx of essential hypertension Impression: her blood pressure is slightly lower, but pt is asymptomatic. we will hold her Lisinopril and spironolactone (5) Schizophrenia Impression: stable Her psych meds have been resumed. She has been very appropriate, calm and pleasant during this admission. (6) Depression with anxiety Impression: stable Her psych meds have been resumed - Current Meds Current Meds: Current Medications Generic Name Dose Route Start Last Admin Trade Name Luba PRN Reason Stop Dose Admin Hydrocodone Bitart/Acetaminophen 1 tab 05/21/21 17:00 05/24/21 08:43 Hydrocod/Acetam 5/325 Mg Tablet PO 1 tab Q8H JONATHAN Administration Alcohol 1 amp 05/15/21 22:00 05/24/21 08:42 Ethyl Alcohol 62% Swab Ampule LESLIE 1 amp BID JONATHAN Administration Apixaban 5 mg 05/21/21 21:00 05/24/21 08:43 Apixaban 5 Mg Tablet PO 5 mg BID JONATHAN Administration Aripiprazole 5 mg 05/17/21 09:00 05/24/21 08:42 Aripiprazole 5 Mg Tablet PO 5 mg DAILY JONATHAN Administration Digoxin 125 mcg 05/20/21 11:00 05/24/21 08:43 Digoxin 125 Mcg Tablet PO 125 mcg DAILY JONATHAN Administration Docusate Sodium 250 - 500 mg 05/18/21 09:00 05/24/21 08:43 Docusate Sodium 250 Mg Capsule PO 250 mg DAILY JONATHAN Administration Gabapentin 100 mg 05/16/21 21:00 05/23/21 20:59 Gabapentin 100 Mg Capsule PO 100 mg HS JONATHAN Administration Lorazepam 0.5 mg 05/18/21 15:58 05/24/21 08:42 Lorazepam 0.5 Mg Tablet PO 0.5 mg Q6H PRN Administration Anxiety Morphine Sulfate 2 mg 05/15/21 21:12 05/24/21 06:36 Morphine 2 Mg/Ml Carpuject IVP 2 mg Q2HR PRN Administration Pain 8 to 10 Pantoprazole Sodium 40 mg 05/18/21 17:00 05/24/21 06:37 Pantoprazole 40 Mg Tablet PO 40 mg QDAC JONATHAN Administration Polyethylene Glycol 17 gm 05/17/21 09:00 05/24/21 08:42 Polyethylene Glycol 3350 17 Gm Packet PO 17 gm DAILY JONATHAN Administration Senna 8.6 - 17.2 mg 05/18/21 09:00 05/24/21 08:42 Senna 8.6 Mg Tablet PO 8.6 mg DAILY JONATHAN Administration Sodium Chloride 10 ml 05/15/21 21:12 05/24/21 09:44 Sodium Chloride Flush 0.9% 10 Ml Syringe IVP 10 ml PRN PRN Administration NEEDED PER PROVIDER ORDERS Sodium Chloride 10 ml 05/16/21 01:00 05/24/21 08:44 Sodium Chloride Flush 0.9% 10 Ml Syringe IVP 10 ml 0100,0900,1700 JONATHAN Administration Venlafaxine HCl 112.5 mg 05/16/21 12:22 05/24/21 08:42 Venlafaxine 37.5 Mg Tablet PO 112.5 mg DAILY JONATHAN Administration - Lab Result Fish Bone Diagrams: 05/24/21 11:07 05/24/21 11:07 - Additional Planning My Orders: My Active Orders 05/24/21 08:22 Telemetry- [RC] Q4HR 05/24/21 10:36 Metoprolol Inj [Lopressor Inj] 5 mg IVP Q6H PRN 05/24/21 11:07 DIGOXIN [CHEM] Urgent 05/24/21 12:00 Digoxin Inj [Lanoxin Inj] 250 mcg IVP ONCE 05/24/21 21:00 Metoprolol Succinate [Toprol Xl] 100 mg PO BID 05/25/21 05:00 BMP - BASIC METABOLIC PANEL [CHEM] DAILYLAB CBC - COMP BLD CT W/AUTO DIFF [HEME] DAILYLAB DIGOXIN [CHEM] DAILYLAB MAGNESIUM [CHEM] DAILYLAB 05/26/21 05:00 BMP - BASIC METABOLIC PANEL [CHEM] DAILYLAB CBC - COMP BLD CT W/AUTO DIFF [HEME] DAILYLAB DIGOXIN [CHEM] DAILYLAB MAGNESIUM [CHEM] DAILYLAB 05/27/21 05:00 BMP - BASIC METABOLIC PANEL [CHEM] DAILYLAB CBC - COMP BLD CT W/AUTO DIFF [HEME] DAILYLAB MAGNESIUM [CHEM] DAILYLAB 05/28/21 05:00 BMP - BASIC METABOLIC PANEL [CHEM] DAILYLAB CBC - COMP BLD CT W/AUTO DIFF [HEME] DAILYLAB MAGNESIUM [CHEM] DAILYLAB 05/29/21 05:00 BMP - BASIC METABOLIC PANEL [CHEM] DAILYLAB CBC - COMP BLD CT W/AUTO DIFF [HEME] DAILYLAB Subjective - Subjective Patient Reports: Feeling Better Objective Vital Signs: Vital Signs - 24 hr 05/23/21 05/23/21 05/23/21 12:28 15:43 20:58 Temperature 37.1 C Heart Rate [ 132 H 128 H Brachial] Heart Rate [ Radial] Respiratory 18 Rate Blood Pressure [Left Brachial artery] Blood Pressure 134/82 H 108/75 109/66 [Right Brachial artery] O2 Saturation 96 05/24/21 05/24/21 05/24/21 00:00 03:44 07:53 Temperature 36.4 C L 36.5 C 37.2 C Heart Rate [ 119 H 65 Brachial] Heart Rate [ 133 H Radial] Respiratory 20 20 20 Rate Blood Pressure 89/69 L [Left Brachial artery] Blood Pressure 114/57 L 112/74 [Right Brachial artery] O2 Saturation 94 96 97 05/24/21 09:45 Temperature Heart Rate [ 125 H Brachial] Heart Rate [ Radial] Respiratory Rate Blood Pressure 95/49 L [Left Brachial artery] Blood Pressure [Right Brachial artery] O2 Saturation Oxygen O2 Source Room air I&O (Last 24 Hrs): Intake and Output Totals x24h 05/22/21 05/23/21 05/24/21 23:59 23:59 23:59 Intake Total 1040 1080 240 Output Total 600 1250 800 Balance 440 -170 -560 General: Alert, Oriented x3, Cooperative, No acute distress HEENT: Atraumatic, PERRLA Neck: Supple Lymphatic: no adenopathy Neuro: Alert, Non Focal, Oriented Times 3 Cardiovascular: Regular rate, Normal S1, Normal S2 Respiratory: Chest non-tender, No respiratory distress Abdomen: Normal bowel sounds, Soft Extremities: Normal pulses - Results Results: Laboratory Results WBC 7.6 x10^3/uL (4.8-10.8) 05/24/21 11:07 RBC 3.92 10^6/uL (4.20-5.40) L 05/24/21 11:07 Hgb 12.9 g/dL (12.0-16.0) 05/24/21 11:07 Hct 37.5 % (37.0-47.0) 05/24/21 11:07 MCV 95.7 fL (81.0-99.0) 05/24/21 11:07 MCH 32.9 pg (27.0-31.0) H 05/24/21 11:07 MCHC 34.4 g/dL (32.0-36.0) 05/24/21 11:07 RDW 13.6 % (12.0-15.0) 05/24/21 11:07 Plt Count 294 10^3/uL (130-450) 05/24/21 11:07 MPV 9.6 fL (7.9-10.8) 05/24/21 11:07 Neut # (Auto) 4.8 10^3/uL (1.5-6.6) 05/24/21 11:07 Lymph # (Auto) 1.9 10^3/uL (1.5-3.5) 05/24/21 11:07 [place] # (Auto) 0.6 10^3/uL (0.0-1.0) 05/24/21 11:07 Eos # (Auto) 0.1 10^3/uL (0.0-0.7) 05/24/21 11:07 Baso # (Auto) 0.1 10^3/uL (0.0-0.1) 05/24/21 11:07 Absolute Nucleated RBC 0.00 x10^3/uL 05/24/21 11:07 Nucleated RBC % 0.0 /100WBC 05/24/21 11:07 Sodium 135 mmol/L (135-145) 05/24/21 11:07 Potassium 4.0 mmol/L (3.5-5.0) 05/24/21 11:07 Chloride 103 mmol/L (101-111) 05/24/21 11:07 Carbon Dioxide 24 mmol/L (21-32) 05/24/21 11:07 Anion Gap 8.0 (6-13) 05/24/21 11:07 BUN 23 mg/dL (6-20) H 05/24/21 11:07 Creatinine 0.7 mg/dL (0.4-1.0) 05/24/21 11:07 Estimated GFR (MDRD) 80 (>89) L 05/24/21 11:07 Glucose 101 mg/dL (70-100) H 05/24/21 11:07 Calcium 9.3 mg/dL (8.5-10.3) 05/24/21 11:07 Magnesium 2.0 mg/dL (1.7-2.8) 05/24/21 11:07 Total Bilirubin 0.5 mg/dL (0.2-1.0) 05/15/21 14:36 AST 23 IU/L (10-42) 05/15/21 14:36 ALT 24 IU/L (10-60) 05/15/21 14:36 Alkaline Phosphatase 85 IU/L (42-121) 05/15/21 14:36 Troponin I High Sens 37.3 ng/L (2.3-14.8) H* 05/16/21 16:48 B-Natriuretic Peptide 171 pg/mL (5-100) H 05/18/21 04:15 Total Protein 7.4 g/dL (6.7-8.2) 05/15/21 14:36 Albumin 4.2 g/dL (3.2-5.5) 05/15/21 14:36 Globulin 3.2 g/dL (2.1-4.2) 05/15/21 14:36 Albumin/Globulin Ratio 1.3 (1.0-2.2) 05/15/21 14:36 Triglycerides 102 mg/dL (-149) 05/17/21 04:48 Cholesterol 123 mg/dL (-199) 05/17/21 04:48 LDL Cholesterol, Calc 62 mg/dL (-129) 05/17/21 04:48 VLDL Cholesterol 20 mg/dL 05/17/21 04:48 HDL Cholesterol 41 mg/dL (60-) L 05/17/21 04:48 LDL/HDL Ratio 1.5 (<4.4) 05/17/21 04:48 Cholesterol/HDL Ratio 3.0 (<4.4) 05/17/21 04:48 Lipase 50 U/L (22-51) 05/15/21 14:36 TSH 1.70 uIU/mL (0.34-5.60) 05/16/21 04:45 Thyroxine (T4) 8.85 ug/dL (6.09-12.23) 05/16/21 04:45 Nasal Adenovirus (PCR) NOT DETECTED 05/15/21 16:50 Nasal B. parapertussis DNA (PCR) NOT DETECTED 05/15/21 16:50 Nasal Coronavir 229E PCR NOT DETECTED 05/15/21 16:50 Nasal Coronavir HKU1 PCR NOT DETECTED 05/15/21 16:50 Nasal Coronavir NL63 PCR NOT DETECTED 05/15/21 16:50 Nasal Coronavir OC43 PCR NOT DETECTED 05/15/21 16:50 Nasal Enterovir/Rhinovir PCR NOT DETECTED 05/15/21 16:50 Nasal Influenza B PCR NOT DETECTED 05/15/21 16:50 Nasal Influenza A PCR NOT DETECTED 05/15/21 16:50 Nasal Parainfluen 1 PCR NOT DETECTED 05/15/21 16:50 Nasal Parainfluen 2 PCR NOT DETECTED 05/15/21 16:50 Nasal Parainfluen 3 PCR NOT DETECTED 05/15/21 16:50 Nasal Parainfluen 4 PCR NOT DETECTED 05/15/21 16:50 Nasal RSV (PCR) NOT DETECTED 05/15/21 16:50 Nasal Screen MRSA (PCR) POSITIVE (NEGATIVE) A* 05/15/21 19:00 Nasal B.pertussis DNA PCR NOT DETECTED 05/15/21 16:50 Nasal C.pneumoniae (PCR) NOT DETECTED 05/15/21 16:50 Leslie Human Metapneumo PCR NOT DETECTED 05/15/21 16:50 Nasal M.pneumoniae (PCR) NOT DETECTED 05/15/21 16:50 Nasal SARS-CoV-2 (PCR) NOT DETECTED 05/15/21 16:50 Last Dose Date NA 05/23/21 08:00 Last Dose Time NA 05/23/21 08:00 Digoxin 0.6 ng/mL 05/23/21 08:00 ABX Reporting Has patient been on IV antibiotics over the past 48 hours?: No Current Medications - Current Medications Current Medications: Active Medications Hydrocodone Bitart/Acetaminophen (Hydrocod/Acetam 5/325 Mg Tablet) 1 tab PO Q8H [facility] Last Admin: 05/24/21 08:43 Dose: 1 tab Documented by: Alcohol (Ethyl Alcohol 62% Swab Ampule) 1 amp LESLIE BID [facility] Last Admin: 05/24/21 08:42 Dose: 1 amp Documented by: Apixaban (Apixaban 5 Mg Tablet) 5 mg PO BID [facility] Last Admin: 05/24/21 08:43 Dose: 5 mg Documented by: Aripiprazole (Aripiprazole 5 Mg Tablet) 5 mg PO DAILY [facility] Last Admin: 05/24/21 08:42 Dose: 5 mg Documented by: Digoxin (Digoxin 125 Mcg Tablet) 125 mcg PO DAILY [facility] Last Admin: 05/24/21 08:43 Dose: 125 mcg Documented by: Digoxin (Digoxin 500 Mcg/2 Ml Amp) 250 mcg IVP ONCE ONE Stop: 05/24/21 12:01 Docusate Sodium (Docusate Sodium 250 Mg Capsule) 250 - 500 mg PO DAILY [facility] Last Admin: 05/24/21 08:43 Dose: 250 mg Documented by: Gabapentin (Gabapentin 100 Mg Capsule) 100 mg PO [facility] Last Admin: 05/23/21 20:59 Dose: 100 mg Documented by: Lorazepam (Lorazepam 0.5 Mg Tablet) 0.5 mg PO Q6H PRN PRN Reason: Anxiety Last Admin: 05/24/21 08:42 Dose: 0.5 mg Documented by: Metoprolol Succinate (Metoprolol Succinate 50 Mg Tablet) 100 mg PO BID [facility] Metoprolol Tartrate (Metoprolol 5 Mg/5 Ml Vial) 5 mg IVP Q6H PRN PRN Reason: Tachycardia Morphine Sulfate (Morphine 2 Mg/Ml Carpuject) 2 mg IVP Q2HR PRN PRN Reason: Pain 8 to 10 Last Admin: 05/24/21 06:36 Dose: 2 mg Documented by: Ondansetron HCl (Ondansetron 4 Mg/2 Ml Vial) 4 mg IVP Q6HR PRN PRN Reason: Nausea / Vomiting Pantoprazole Sodium (Pantoprazole 40 Mg Tablet) 40 mg PO QDAC [facility] Last Admin: 05/24/21 06:37 Dose: 40 mg Documented by: Polyethylene Glycol (Polyethylene Glycol 3350 17 Gm Packet) 17 gm PO DAILY [facility] Last Admin: 05/24/21 08:42 Dose: 17 gm Documented by: Senna (Senna 8.6 Mg Tablet) 8.6 - 17.2 mg PO DAILY [facility] Last Admin: 05/24/21 08:42 Dose: 8.6 mg Documented by: Sodium Chloride (Sodium Chloride Flush 0.9% 10 Ml Syringe) 10 ml IVP PRN PRN PRN Reason: NEEDED PER PROVIDER ORDERS Last Admin: 05/24/21 09:44 Dose: 10 ml Documented by: Sodium Chloride (Sodium Chloride Flush 0.9% 10 Ml Syringe) 10 ml IVP 0100,0 900,1700 [facility] Last Admin: 05/24/21 08:44 Dose: 10 ml Documented by: Venlafaxine HCl (Venlafaxine 37.5 Mg Tablet) 112.5 mg PO DAILY [facility] Last Admin: 05/24/21 08:42 Dose: 112.5 mg Documented by: ARIPiprazole [Abilify] 5 mg PO DAILY 05/16/21 Albuterol Sulfate [Proair Respiclick] 2 puffs INH Q4H PRN 05/16/21 Celecoxib [Celebrex] 200 mg PO QDBREAKFAST 05/16/21 Cholecalciferol (Vitamin D3) [Vitamin D3] 25 mcg PO DAILY 05/16/21 Diclofenac Sodium 50 mg PO TID PRN 05/16/21 Ferrous Sulfate 325 mg PO DAILYWM 05/16/21 Furosemide [Lasix] 20 mg PO MOWEFR PRN 05/16/21 Gabapentin [Neurontin] 100 mg PO HS 05/16/21 HYDROcod/ACETAM 5/325 [[place] 5/325] 1 tab PO 0800,1200,2100 05/16/21 Linaclotide [Linzess] 145 mcg PO DAILY PRN 05/16/21 Metoprolol Tartrate [Lopressor] 50 mg PO BID 05/16/21 Multivitamin [Theragran] 1 tab PO DAILY 05/16/21 Pantoprazole [Protonix] 40 mg PO QDAC 05/16/21 Simvastatin [Zocor] 20 mg PO QDDINNER 05/16/21 Venlafaxine HCl 75 mg PO DAILY 05/16/21 Venlafaxine [Effexor] 37.5 mg PO DAILY 05/16/21 lisinopriL [Lisinopril] 20 mg PO DAILY 05/16/21 traMADol [Ultram] 50 mg PO Q6H PRN 05/16/21
[2021-05-24 11:43] LABS: DIGOXIN 0.6 ng/mL
[2021-05-24] MEDS ORDERED: DIGOXIN 500 MCG/2 ML AMP IVP ONE (12:00)
[2021-05-24] MEDS: GABAPENTIN 100 MG CAPSULE PO SCH (20:45)
[2021-05-24] MEDS: METOPROLOL SUCCINATE 50 MG TABLET PO SCH (20:45)
[2021-05-24] MEDS ORDERED: METOPROLOL SUCCINATE 25 MG TABLET PO SCH (21:00)
[2021-05-24] MEDS ORDERED: METOPROLOL SUCCINATE 50 MG TABLET PO SCH ×2 (21:00)
[2021-05-25] MEDS: HYDROcod/ACETAM 5/325 MG TABLET PO SCH ×4 (00:53→22:39)
[2021-05-25] MEDS: SODIUM CHLORIDE FLUSH 0.9% 10 ML SYRINGE IVP SCH ×4 (00:53→23:43)
[2021-05-25 05:31] LABS: BASOPHILS # (AUTO) 0.1 10^3/uL (0.0-0.1); BASOPHILS % (AUTO) 0.9 %; EOSINOPHILS # (AUTO) 0.1 10^3/uL (0.0-0.7); EOSINOPHILS % (AUTO) 1.8 %; HCT - HEMATOCRIT 37.4 % (37.0-47.0); HGB - HEMOGLOBIN 12.5 g/dL (12.0-16.0); LYMPHOCYTES # (AUTO) 2.6 10^3/uL (1.5-3.5); LYMPHOCYTES % (AUTO) 33.7 %; MEAN CORPUSCULAR HEMOGLOBIN 31.8 pg (27.0-31.0); MEAN CORPUSCULAR HGB CONC 33.4 g/dL (32.0-36.0); MEAN CORPUSCULAR VOLUME 95.2 fL (81.0-99.0); MEAN PLATELET VOLUME 9.7 fL (7.9-10.8); MONOCYTES # (AUTO) 0.6 10^3/uL (0.0-1.0); MONOCYTES % (AUTO) 7.3 %; NEUTROPHILS # (AUTO) 4.3 10^3/uL (1.5-6.6); NEUTROPHILS % (AUTO) 55.9 %; PLT - PLATELET COUNT 288 10^3/uL (130-450); RED BLOOD COUNT 3.93 10^6/uL (4.20-5.40); RED CELL DISTRIBUTION WIDTH 13.5 % (12.0-15.0); WHITE BLOOD COUNT 7.7 x10^3/uL (4.8-10.8)
[2021-05-25 05:37] LABS: CALCIUM 9.6 mg/dL (8.5-10.3); CREATININE 0.8 mg/dL (0.4-1.0); MAGNESIUM 2.2 mg/dL (1.7-2.8); POTASSIUM 4.5 mmol/L (3.5-5.0)
[2021-05-25 05:43] LABS: DIGOXIN 1.2 ng/mL
[2021-05-25] MEDS: PANTOPRAZOLE 40 MG TABLET PO SCH (05:56)
[2021-05-25] MEDS: MORPHINE 2 MG/ML CARPUJECT IVP PRN ×3 (07:47→19:24)
[2021-05-25] MEDS: DOCUSATE SODIUM 250 MG CAPSULE PO SCH (08:28)
[2021-05-25] MEDS: APIXABAN 5 MG TABLET PO SCH ×2 (08:28→20:38)
[2021-05-25] MEDS: ARIPiprazole 5 MG TABLET PO SCH (08:28)
[2021-05-25] MEDS: VENLAFAXINE 37.5 MG TABLET PO SCH (08:29)
[2021-05-25] MEDS: METOPROLOL SUCCINATE 50 MG TABLET PO SCH ×2 (08:29→20:34)
[2021-05-25] MEDS: SENNA 8.6 MG TABLET PO SCH (08:30)
[2021-05-25] MEDS: polyethylene glycoL 3350 17 GM PACKET PO SCH (08:30)
[2021-05-25] MEDS: ethyl alcohoL 62% SWAB AMPULE NAS SCH ×2 (08:30→20:38)
[2021-05-25] MEDS: DIGOXIN 125 MCG TABLET PO SCH (08:31)
--- NOTE | 2021-05-25 14:00 | PROVIDER PROGRESS NOTE ---
Assessment/Plan - Problem List (1) Atrial flutter with rapid ventricular response Assessment/Plan: 05/25 [facility] did manually check her HR is 99 now, improved. digoxin is 1.2 now, will Continue digoxin, continue 100 mg twice daily metoprolol Since patient tolerated this dosage. Continue vital signs and color television console monitor Unfortunately, patient heart rate is still not in the control yet. add tele monitor and vital monitor both show pt has 125-135 HR, at time, pt did not complain of hip pain. pt is asymptomatic, she denies chest pain, palpitation, dizziness or lightheaded. plan: add tele monitor, check BMP and mag, check digoxin serum concentration, add once IV of digoxin. pt has severe systolic heart failure as well, and SBP is 95. slight increase Metoprolol oral, PRN IV of metoprolol. continue tele monitor. continue eliquis, continue monitor digoxin serum concentration. (2) Acute systolic heart failure Impression: Echo shows LVEF of 35% with global hypokinesis. This is a new finding for her during this admission. 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 Digoxin started. continue metoprolol. Because the patient had low systolic blood pressure, we will hold lisinopril and spironolactone. She is currently euvolemic, no lasix now. (3) Chronic hip pain Impression: 05/25 Patient complaint hip pain, We will increase her pain meds Frequency, Continue physical therapist. Continue consult with social work, [facility] facility will come to hospital to assess patient on tomorrow CT study in this admission reveals severe right hip joint osteoarthritis and chronic appearing hip deformity. Moderate left hip joint osteoarthritis. No acute hip fracture or dislocation. No evidence of avascular necrosis or femoral head. 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 Low-dose opioids ordered. 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 She is not a surgical candidate at [facility] due to low EF, systolic heart failure. IR was unable to perform a guided steroid injection into the hip due to patient's BLE stiffness. The patient may follow-up outpatient with her PCP for an orthopedic and possibly pain specialist referral to further explore available treatment options. Social work has contacted [facility] to discuss necessary assisting equipment the pat ient will need upon discharge. (4) Hx of essential hypertension Impression: her blood pressure is slightly lower, but pt is asymptomatic. we will hold her Lisinopril and spironolactone (5) Schizophrenia Impression: stable Her psych meds have been resumed. She has been very appropriate, calm and pleasant during this admission. (6) Depression with anxiety Impression: stable Her psych meds have been resumed - Current Meds Current Meds: Current Medications Generic Name Dose Route Start Last Admin Trade Name Freq PRN Reason Stop Dose Admin Hydrocodone Bitart/Acetaminophen 1 tab 05/21/21 17:00 05/25/21 08:28 Hydrocod/Acetam 5/325 Mg Tablet PO 1 tab Q8H JONATHAN Administration Alcohol 1 amp 05/15/21 22:00 05/25/21 08:30 Ethyl Alcohol 62% Swab Ampule LESLIE 1 amp BID JONATHAN Administration Apixaban 5 mg 05/21/21 21:00 05/25/21 08:28 Apixaban 5 Mg Tablet PO 5 mg BID JONATHAN Administration Aripiprazole 5 mg 05/17/21 09:00 05/25/21 08:28 Aripiprazole 5 Mg Tablet PO 5 mg DAILY JONATHAN Administration Digoxin 125 mcg 05/20/21 11:00 05/25/21 08:31 Digoxin 125 Mcg Tablet PO 125 mcg DAILY JONATHAN Administration Docusate Sodium 250 - 500 mg 05/18/21 09:00 05/25/21 08:28 Docusate Sodium 250 Mg Capsule PO 250 mg DAILY JONATHAN Administration Gabapentin 100 mg 05/16/21 21:00 05/24/21 20:45 Gabapentin 100 Mg Capsule PO 100 mg HS JONATHAN Administration Lorazepam 0.5 mg 05/18/21 15:58 05/24/21 08:42 Lorazepam 0.5 Mg Tablet PO 0.5 mg Q6H PRN Administration Anxiety Metoprolol Succinate 100 mg 05/24/21 21:00 05/25/21 08:29 Metoprolol Succinate 50 Mg Tablet PO 100 mg BID JONATHAN Administration Morphine Sulfate 2 mg 05/15/21 21:12 05/25/21 07:47 Morphine 2 Mg/Ml Carpuject IVP 2 mg Q2HR PRN Administration Pain 8 to 10 Pantoprazole Sodium 40 mg 05/18/21 17:00 05/25/21 05:56 Pantoprazole 40 Mg Tablet PO 40 mg QDAC JONATHAN Administration Polyethylene Glycol 17 gm 05/17/21 09:00 05/25/21 08:30 Polyethylene Glycol 3350 17 Gm Packet PO 17 gm DAILY JONATHAN Administration Senna 8.6 - 17.2 mg 05/18/21 09:00 05/25/21 08:30 Senna 8.6 Mg Tablet PO 8.6 mg DAILY JONATHAN Administration Sodium Chloride 10 ml 05/15/21 21:12 05/24/21 09:44 Sodium Chloride Flush 0.9% 10 Ml Syringe IVP 10 ml PRN PRN Administration NEEDED PER PROVIDER ORDERS Sodium Chloride 10 ml 05/16/21 01:00 05/25/21 07:47 Sodium Chloride Flush 0.9% 10 Ml Syringe IVP 10 ml 0100,0900,1700 JONATHAN Administration Venlafaxine HCl 112.5 mg 05/16/21 12:22 05/25/21 08:29 Venlafaxine 37.5 Mg Tablet PO 112.5 mg DAILY JONATHAN Administration - Lab Result Fish Bone Diagrams: 05/25/21 05:10 05/25/21 05:10 - Additional Planning My Orders: My Active Orders 05/24/21 21:00 Metoprolol Succinate [Toprol Xl] 100 mg PO BID 05/26/21 05:00 BMP - BASIC METABOLIC PANEL [CHEM] DAILYLAB CBC - COMP BLD CT W/AUTO DIFF [HEME] DAILYLAB DIGOXIN [CHEM] DAILYLAB MAGNESIUM [CHEM] DAILYLAB 05/27/21 05:00 BMP - BASIC METABOLIC PANEL [CHEM] DAILYLAB CBC - COMP BLD CT W/AUTO DIFF [HEME] DAILYLAB MAGNESIUM [CHEM] DAILYLAB 05/28/21 05:00 BMP - BASIC METABOLIC PANEL [CHEM] DAILYLAB CBC - COMP BLD CT W/AUTO DIFF [HEME] DAILYLAB MAGNESIUM [CHEM] DAILYLAB 05/29/21 05:00 BMP - BASIC METABOLIC PANEL [CHEM] DAILYLAB CBC - COMP BLD CT W/AUTO DIFF [HEME] DAILYLAB Subjective - Subjective Patient Reports: Pain Objective Vital Signs: Vital Signs - 24 hr 05/24/21 05/24/21 05/24/21 15:54 16:15 20:38 Temperature 36.5 C 36.4 C L Heart Rate [ 127 H 63 Brachial] Heart Rate [ 88 80 Monitoring electrodes] Respiratory 20 22 Rate Blood Pressure 142/82 H 124/54 L 107/49 L [Right Brachial artery] O2 Saturation 98 97 05/25/21 05/25/21 05/25/21 00:00 04:56 07:54 Temperature 36.4 C L 36.5 C 36.6 C Heart Rate [ 89 62 88 Brachial] Heart Rate [ Monitoring electrodes] Respiratory 18 20 20 Rate Blood Pressure 139/72 H 116/56 L 118/61 [Right Brachial artery] O2 Saturation 97 98 98 05/25/21 05/25/21 12:11 13:47 Temperature 36.4 C L Heart Rate [ 67 Brachial] Heart Rate [ Monitoring electrodes] Respiratory 20 Rate Blood Pressure 107/78 [Right Brachial artery] O2 Saturation 99 Oxygen O2 Source Room air I&O (Last 24 Hrs): Intake and Output Totals x24h 05/23/21 05/24/21 05/25/21 23:59 23:59 23:59 Intake Total 1080 1230 1070 Output Total 1250 1100 300 Balance -170 130 770 General: Alert, Oriented x3, Cooperative, No acute distress HEENT: Atraumatic, PERRLA Neck: Supple Lymphatic: no adenopathy Neuro: Alert, Non Focal, Oriented Times 3 Cardiovascular: Regular rate, Normal S1, Normal S2 Respiratory: Chest non-tender, No respiratory distress Abdomen: Normal bowel sounds, Soft, No tenderness Extremities: Normal pulses - Results Results: Laboratory Results WBC 7.7 x10^3/uL (4.8-10.8) 05/25/21 05:10 RBC 3.93 10^6/uL (4.20-5.40) L 05/25/21 05:10 Hgb 12.5 g/dL (12.0-16.0) 05/25/21 05:10 Hct 37.4 % (37.0-47.0) 05/25/21 05:10 MCV 95.2 fL (81.0-99.0) 05/25/21 05:10 MCH 31.8 pg (27.0-31.0) H 05/25/21 05:10 MCHC 33.4 g/dL (32.0-36.0) 05/25/21 05:10 RDW 13.5 % (12.0-15.0) 05/25/21 05:10 Plt Count 288 10^3/uL (130-450) 05/25/21 05:10 MPV 9.7 fL (7.9-10.8) 05/25/21 05:10 Neut # (Auto) 4.3 10^3/uL (1.5-6.6) 05/25/21 05:10 Lymph # (Auto) 2.6 10^3/uL (1.5-3.5) 05/25/21 05:10 Jack # (Auto) 0.6 10^3/uL (0.0-1.0) 05/25/21 05:10 Eos # (Auto) 0.1 10^3/uL (0.0-0.7) 05/25/21 05:10 Baso # (Auto) 0.1 10^3/uL (0.0-0.1) 05/25/21 05:10 Absolute Nucleated RBC 0.00 x10^3/uL 05/25/21 05:10 Nucleated RBC % 0.0 /100WBC 05/25/21 05:10 Sodium 138 mmol/L (135-145) 05/25/21 05:10 Potassium 4.5 mmol/L (3.5-5.0) 05/25/21 05:10 Chloride 103 mmol/L (101-111) 05/25/21 05:10 Carbon Dioxide 27 mmol/L (21-32) 05/25/21 05:10 Anion Gap 8.0 (6-13) 05/25/21 05:10 BUN 23 mg/dL (6-20) H 05/25/21 05:10 Creatinine 0.8 mg/dL (0.4-1.0) 05/25/21 05:10 Estimated GFR (MDRD) 69 (>89) L 05/25/21 05:10 Glucose 100 mg/dL (70-100) 05/25/21 05:10 Calcium 9.6 mg/dL (8.5-10.3) 05/25/21 05:10 Magnesium 2.2 mg/dL (1.7-2.8) 05/25/21 05:10 Total Bilirubin 0.5 mg/dL (0.2-1.0) 05/15/21 14:36 AST 23 IU/L (10-42) 05/15/21 14:36 ALT 24 IU/L (10-60) 05/15/21 14:36 Alkaline Phosphatase 85 IU/L (42-121) 05/15/21 14:36 Troponin I High Sens 37.3 ng/L (2.3-14.8) H* 05/16/21 16:48 B-Natriuretic Peptide 171 pg/mL (5-100) H 05/18/21 04:15 Total Protein 7.4 g/dL (6.7-8.2) 05/15/21 14:36 Albumin 4.2 g/dL (3.2-5.5) 05/15/21 14:36 Globulin 3.2 g/dL (2.1-4.2) 05/15/21 14:36 Albumin/Globulin Ratio 1.3 (1.0-2.2) 05/15/21 14:36 Triglycerides 102 mg/dL (-149) 05/17/21 04:48 Cholesterol 123 mg/dL (-199) 05/17/21 04:48 LDL Cholesterol, Calc 62 mg/dL (-129) 05/17/21 04:48 VLDL Cholesterol 20 mg/dL 05/17/21 04:48 HDL Cholesterol 41 mg/dL (60-) L 05/17/21 04:48 LDL/HDL Ratio 1.5 (<4.4) 05/17/21 04:48 Cholesterol/HDL Ratio 3.0 (<4.4) 05/17/21 04:48 Lipase 50 U/L (22-51) 05/15/21 14:36 TSH 1.70 uIU/mL (0.34-5.60) 05/16/21 04:45 Thyroxine (T4) 8.85 ug/dL (6.09-12.23) 05/16/21 04:45 Nasal Adenovirus (PCR) NOT DETECTED 05/15/21 16:50 Nasal B. parapertussis DNA (PCR) NOT DETECTED 05/15/21 16:50 Nasal Coronavir 229E PCR NOT DETECTED 05/15/21 16:50 Nasal Coronavir HKU1 PCR NOT DETECTED 05/15/21 16:50 Nasal Coronavir NL63 PCR NOT DETECTED 05/15/21 16:50 Nasal Coronavir OC43 PCR NOT DETECTED 05/15/21 16:50 Nasal Enterovir/Rhinovir PCR NOT DETECTED 05/15/21 16:50 Nasal Influenza B PCR NOT DETECTED 05/15/21 16:50 Nasal Influenza A PCR NOT DETECTED 05/15/21 16:50 Nasal Parainfluen 1 PCR NOT DETECTED 05/15/21 16:50 Nasal Parainfluen 2 PCR NOT DETECTED 05/15/21 16:50 Nasal Parainfluen 3 PCR NOT DETECTED 05/15/21 16:50 Nasal Parainfluen 4 PCR NOT DETECTED 05/15/21 16:50 Nasal RSV (PCR) NOT DETECTED 05/15/21 16:50 Nasal Screen MRSA (PCR) POSITIVE (NEGATIVE) A* 05/15/21 19:00 Nasal B.pertussis DNA PCR NOT DETECTED 05/15/21 16:50 Nasal C.pneumoniae (PCR) NOT DETECTED 05/15/21 16:50 Leslie Human Metapneumo PCR NOT DETECTED 05/15/21 16:50 Nasal M.pneumoniae (PCR) NOT DETECTED 05/15/21 16:50 Nasal SARS-CoV-2 (PCR) NOT DETECTED 05/15/21 16:50 Last Dose Date UNKNOWN 05/25/21 05:10 Last Dose Time UNKNOWN 05/25/21 05:10 Digoxin 1.2 ng/mL 05/25/21 05:10 ABX Reporting Has patient been on IV antibiotics over the past 48 hours?: No Current Medications - Current Medications Current Medications: Active Medications Hydrocodone Bitart/Acetaminophen (Hydrocod/Acetam 5/325 Mg Tablet) 1 tab PO Q6H [facility] Alcohol (Ethyl Alcohol 62% Swab Ampule) 1 amp LESLIE BID [facility] Last Admin: 05/25/21 08:30 Dose: 1 amp Documented by: Apixaban (Apixaban 5 Mg Tablet) 5 mg PO BID [facility] Last Admin: 05/25/21 08:28 Dose: 5 mg Documented by: Aripiprazole (Aripiprazole 5 Mg Tablet) 5 mg PO DAILY [facility] Last Admin: 05/25/21 08:28 Dose: 5 mg Documented by: Digoxin (Digoxin 125 Mcg Tablet) 125 mcg PO DAILY [facility] Last Admin: 05/25/21 08:31 Dose: 125 mcg Documented by: Docusate Sodium (Docusate Sodium 250 Mg Capsule) 250 - 500 mg PO DAILY [facility] Last Admin: 05/25/21 08:28 Dose: 250 mg Documented by: Gabapentin (Gabapentin 100 Mg Capsule) 100 mg PO HS [facility] Last Admin: 05/24/21 20:45 Dose: 100 mg Documented by: Lorazepam (Lorazepam 0.5 Mg Tablet) 0.5 mg PO Q6H PRN PRN Reason: Anxiety Last Admin: 05/25/21 14:20 Dose: 0.5 mg Documented by: Metoprolol Succinate (Metoprolol Succinate 50 Mg Tablet) 100 mg PO BID [facility] Last Admin: 05/25/21 08:29 Dose: 100 mg Documented by: Metoprolol Tartrate (Metoprolol 5 Mg/5 Ml Vial) 5 mg IVP Q6H PRN PRN Reason: Tachycardia Morphine Sulfate (Morphine 2 Mg/Ml Carpuject) 2 mg IVP Q2HR PRN PRN Reason: Pain 8 to 10 Last Admin: 05/25/21 14:20 Dose: 2 mg Documented by: Ondansetron HCl (Ondansetron 4 Mg/2 Ml Vial) 4 mg IVP Q6HR PRN PRN Reason: Nausea / Vomiting Pantoprazole Sodium (Pantoprazole 40 Mg Tablet) 40 mg PO QDAC [facility] Last Admin: 05/25/21 05:56 Dose: 40 mg Documented by: Polyethylene Glycol (Polyethylene Glycol 3350 17 Gm Packet) 17 gm PO DAILY [facility] Last Admin: 05/25/21 08:30 Dose: 17 gm Documented by: Senna (Senna 8.6 Mg Tablet) 8.6 - 17.2 mg PO DAILY [facility] Last Admin: 05/25/21 08:30 Dose: 8.6 mg Documented by: Sodium Chloride (Sodium Chloride Flush 0.9% 10 Ml Syringe) 10 ml IVP PRN PRN PRN Reason: NEEDED PER PROVIDER ORDERS Last Admin: 05/24/21 09:44 Dose: 10 ml Documented by: Sodium Chloride (Sodium Chloride Flush 0.9% 10 Ml Syringe) 10 ml IVP 010 0,0900,1700 [facility] Last Admin: 05/25/21 07:47 Dose: 10 ml Documented by: Venlafaxine HCl (Venlafaxine 37.5 Mg Tablet) 112.5 mg PO DAILY [facility] Last Admin: 05/25/21 08:29 Dose: 112.5 mg Documented by: ARIPiprazole [Abilify] 5 mg PO DAILY 05/16/21 Albuterol Sulfate [Proair Respiclick] 2 puffs INH Q4H PRN 05/16/21 Celecoxib [Celebrex] 200 mg PO QDBREAKFAST 05/16/21 Cholecalciferol (Vitamin D3) [Vitamin D3] 25 mcg PO DAILY 05/16/21 Diclofenac Sodium 50 mg PO TID PRN 05/16/21 Ferrous Sulfate 325 mg PO DAILYWM 05/16/21 Furosemide [Lasix] 20 mg PO MOWEFR PRN 05/16/21 Gabapentin [Neurontin] 100 mg PO HS 05/16/21 HYDROcod/ACETAM 5/325 [[place] 5/325] 1 tab PO 0800,1200,2100 05/16/21 Linaclotide [Linzess] 145 mcg PO DAILY PRN 05/16/21 Metoprolol Tartrate [Lopressor] 50 mg PO BID 05/16/21 Multivitamin [Theragran] 1 tab PO DAILY 05/16/21 Pantoprazole [Protonix] 40 mg PO QDAC 05/16/21 Simvastatin [Zocor] 20 mg PO QDDINNER 05/16/21 Venlafaxine HCl 75 mg PO DAILY 05/16/21 Venlafaxine [Effexor] 37.5 mg PO DAILY 05/16/21 lisinopriL [Lisinopril] 20 mg PO DAILY 05/16/21 traMADol [Ultram] 50 mg PO Q6H PRN 05/16/21
[2021-05-25] MEDS: LORazepam 0.5 MG TABLET PO PRN (14:20)
[2021-05-25] MEDS: GABAPENTIN 100 MG CAPSULE PO SCH (20:38)
[2021-05-26] MEDS: HYDROcod/ACETAM 5/325 MG TABLET PO SCH ×4 (05:04→22:04)
[2021-05-26 05:44] LABS: BASOPHILS # (AUTO) 0.1 10^3/uL (0.0-0.1); BASOPHILS % (AUTO) 0.9 %; CALCIUM 8.9 mg/dL (8.5-10.3); CREATININE 1.1 mg/dL (0.4-1.0); EOSINOPHILS # (AUTO) 0.3 10^3/uL (0.0-0.7); EOSINOPHILS % (AUTO) 3.1 %; HCT - HEMATOCRIT 34.1 % (37.0-47.0); HGB - HEMOGLOBIN 11.3 g/dL (12.0-16.0); LYMPHOCYTES # (AUTO) 2.6 10^3/uL (1.5-3.5); LYMPHOCYTES % (AUTO) 31.9 %; MEAN CORPUSCULAR HGB CONC 33.1 g/dL (32.0-36.0); MEAN CORPUSCULAR VOLUME 96.6 fL (81.0-99.0); MEAN PLATELET VOLUME 10.2 fL (7.9-10.8); MONOCYTES # (AUTO) 0.8 10^3/uL (0.0-1.0); MONOCYTES % (AUTO) 9.8 %; NEUTROPHILS # (AUTO) 4.3 10^3/uL (1.5-6.6); PLT - PLATELET COUNT 290 10^3/uL (130-450); POTASSIUM 4.3 mmol/L (3.5-5.0); RED BLOOD COUNT 3.53 10^6/uL (4.20-5.40); RED CELL DISTRIBUTION WIDTH 13.7 % (12.0-15.0)
[2021-05-26 05:50] LABS: DIGOXIN 1.5 ng/mL
[2021-05-26] MEDS: PANTOPRAZOLE 40 MG TABLET PO SCH (06:13)
[2021-05-26] MEDS: SODIUM CHLORIDE FLUSH 0.9% 10 ML SYRINGE IVP SCH ×2 (07:48→17:04)
[2021-05-26] MEDS ORDERED: SODIUM CHLORIDE 0.9% 1,000 ML IV SCH ×2 (08:00→08:15)
[2021-05-26] MEDS: SENNA 8.6 MG TABLET PO SCH (08:37)
[2021-05-26] MEDS: LORazepam 0.5 MG TABLET PO PRN (08:37)
[2021-05-26] MEDS: VENLAFAXINE 37.5 MG TABLET PO SCH (08:37)
[2021-05-26] MEDS: METOPROLOL SUCCINATE 50 MG TABLET PO SCH ×2 (08:37→20:37)
[2021-05-26] MEDS: APIXABAN 5 MG TABLET PO SCH ×2 (08:37→20:38)
[2021-05-26] MEDS: ethyl alcohoL 62% SWAB AMPULE NAS SCH ×2 (08:38→20:38)
[2021-05-26] MEDS: DOCUSATE SODIUM 250 MG CAPSULE PO SCH (08:38)
[2021-05-26] MEDS: MORPHINE 2 MG/ML CARPUJECT IVP PRN (08:38)
[2021-05-26] MEDS: ARIPiprazole 5 MG TABLET PO SCH (08:38)
[2021-05-26] MEDS: polyethylene glycoL 3350 17 GM PACKET PO SCH (08:38)
--- NOTE | 2021-05-26 14:16 | PROVIDER PROGRESS NOTE ---
Assessment/Plan - Problem List (1) Bradycardia Assessment/Plan: 05/26 pt's afib with RVR has been very difficult to control. now it controlled, tele reveal pt's afib/flutter was converted to sinus rhythm, but also in the night when pt was in the sleep, her tele show bradycardia at lowest HR is 30 with pauses otherwise her HR is normal arrange. pt's digoxin dosage is slight elevated now. pt's metoprolol is 100mg bid now. we will reduce digoxin dosage to Sunday, Sunday and Sunday, three days per week, check Digoxin serum concentration, continue tele monitor and order EKG. 05/25 DOUBLE CUTTER did manually check her HR is 99 now, improved. digoxin is 1.2 now, will Continue digoxin, continue 100 mg twice daily metoprolol Since patient tolerated this dosage. Continue vital signs and speech language pathologist Unfortunately, patient heart rate is still not in the control yet. add tele monitor and vital monitor both show pt has 125-135 HR, at time, pt did not complain of hip pain. pt is asymptomatic, she denies chest pain, palpitation, dizziness or lightheaded. plan: add tele monitor, check BMP and mag, check digoxin serum concentration, add once IV of digoxin. pt has severe systolic heart failure as well, and SBP is 95. slight increase Metoprolol oral, PRN IV of metoprolol. continue tele monitor. continue eliquis, continue monitor digoxin serum concentration. (2)dehydration pt has slight elevated creatinine to 1.1 from her baseline 0.8. clinic pt present dehydration. pt also has systolic heart failure. we will slowly give pt one bad IVF, closely monitor vital signs, and lab monitor (3) Acute systolic heart failure Impression: Echo shows LVEF of 35% with global hypokinesis. This is a new finding for her during this admission. 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 Digoxin started. continue metoprolol. Because the patient had low systolic blood pressure, we will hold lisinopril and spironolactone. She is currently euvolemic, no lasix now. (4) Chronic hip pain Impression: 05/25 Patient complaint hip pain, We will increase her pain meds Frequency, Continue physical therapist. [facility] patient on tomorrow CT study in this admission reveals severe right hip joint osteoarthritis and chronic appearing hip deformity. Moderate left hip joint osteoarthritis. No acute hip fracture or dislocation. No evidence of avascular necrosis or femoral head. She states she has not seen an orthopedist or cold roll inspector. Low-dose opioids ordered. 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 She is not a surgical candidate at [facility] due to low EF, systolic heart failure. IR was unable to perform a guided steroid injection into the hip due to patient's BLE stiffness. The patient may follow-up outpatient with her PCP for an orthopedic and possibly pain specialist referral to further explore available treatment options. Social work has contacted [facility] to discuss necessary assisting equipment the patient will need upon discharge. (5) Hx of essential hypertension Impression: her blood pressure is slightly lower, but pt is asymptomatic. we will hold her Lisinopril and spironolactone (6) Schizophrenia Impression: stable Her psych meds have been resumed. She has been very appropriate, calm and pleasant during this admission. (7) Depression with anxiety Impression: stable Her psych meds have been resumed - Current Meds Current Meds: Current Medications Generic Name Dose Route Start Last Admin Trade Name Mehrdadq PRN Reason Stop Dose Admin Hydrocodone Bitart/Acetaminophen 1 tab 05/25/21 17:00 05/26/21 11:22 Hydrocod/Acetam 5/325 Mg Tablet PO 1 tab Q6H JONATHAN Administration Alcohol 1 amp 05/15/21 22:00 05/26/21 08:38 Ethyl Alcohol 62% Swab Ampule LESLIE 1 amp BID JONATHAN Administration Apixaban 5 mg 05/21/21 21:00 05/26/21 08:37 Apixaban 5 Mg Tablet PO 5 mg BID JONATHAN Administration Aripiprazole 5 mg 05/17/21 09:00 05/26/21 08:38 Aripiprazole 5 Mg Tablet PO 5 mg DAILY JONATHAN Administration Docusate Sodium 250 - 500 mg 05/18/21 09:00 05/26/21 08:38 Docusate Sodium 250 Mg Capsule PO 250 mg DAILY JONATHAN Administration Gabapentin 100 mg 05/16/21 21:00 05/25/21 20:38 Gabapentin 100 Mg Capsule PO 100 mg HS JONATHAN Administration Sodium Chloride 1,000 mls @ 75 mls/hr 05/26/21 08:15 05/26/21 08:37 Normal Saline 0.9% IV 05/26/21 21:34 75 mls/hr .[id number] JONATHAN Administration Lorazepam 0.5 mg 05/18/21 15:58 05/26/21 08:37 Lorazepam 0.5 Mg Tablet PO 0.5 mg Q6H PRN Administration Anxiety Metoprolol Succinate 100 mg 05/24/21 21:00 05/26/21 08:37 Metoprolol Succinate 50 Mg Tablet PO 100 mg BID JONATHAN Administration Morphine Sulfate 2 mg 05/15/21 21:12 05/26/21 08:38 Morphine 2 Mg/Ml Carpuject IVP 2 mg Q2HR PRN Administration Pain 8 to 10 Pantoprazole Sodium 40 mg 05/18/21 17:00 05/26/21 06:13 Pantoprazole 40 Mg Tablet PO 40 mg QDAC JONATHAN Administration Polyethylene Glycol 17 gm 05/17/21 09:00 05/26/21 08:38 Polyethylene Glycol 3350 17 Gm Packet PO 17 gm DAILY JONATHAN Administration Senna 8.6 - 17.2 mg 05/18/21 09:00 05/26/21 08:37 Senna 8.6 Mg Tablet PO 8.6 mg DAILY JONATHAN Administration Sodium Chloride 10 ml 05/15/21 21:12 05/24/21 09:44 Sodium Chloride Flush 0.9% 10 Ml Syringe IVP 10 ml PRN PRN Administration NEEDED PER PROVIDER ORDERS Sodium Chloride 10 ml 05/16/21 01:00 05/26/21 07:48 Sodium Chloride Flush 0.9% 10 Ml Syringe IVP 10 ml 0100,0900,1700 JONATHAN Administration Venlafaxine HCl 112.5 mg 05/16/21 12:22 05/26/21 08:37 Venlafaxine 37.5 Mg Tablet PO 112.5 mg DAILY JONATHAN Administration - Lab Result Fish Bone Diagrams: 05/26/21 05:03 05/26/21 05:03 - Additional Planning My Orders: My Active Orders 05/25/21 17:00 HYDROcod/ACETAM 5/325 [[place] 5/325] 1 tab PO Q6H 05/26/21 08:15 Sodium Chloride 0.9% [Normal Saline 0.9%] 1,000 ml IV 75 mls/hr 05/26/21 14:06 EKG - Electrocardiogram [RC] .ONCE 05/27/21 05:00 BMP - BASIC METABOLIC PANEL [CHEM] DAILYLAB CBC - COMP BLD CT W/AUTO DIFF [HEME] DAILYLAB DIGOXIN [CHEM] DAILYLAB MAGNESIUM [CHEM] DAILYLAB 05/28/21 05:00 BMP - BASIC METABOLIC PANEL [CHEM] DAILYLAB CBC - COMP BLD CT W/AUTO DIFF [HEME] DAILYLAB DIGOXIN [CHEM] DAILYLAB MAGNESIUM [CHEM] DAILYLAB 05/29/21 05:00 BMP - BASIC METABOLIC PANEL [CHEM] DAILYLAB CBC - COMP BLD CT W/AUTO DIFF [HEME] DAILYLAB DIGOXIN [CHEM] DAILYLAB 05/30/21 05:00 DIGOXIN [CHEM] DAILYLAB Subjective - Subjective Patient Reports: Feeling Better Objective Vital Signs: Vital Signs - 24 hr 05/25/21 05/25/21 05/25/21 14:43 15:57 20:32 Temperature 36.6 C 36.5 C 36.6 C Heart Rate [ 66 Brachial] Heart Rate [ Monitoring electrodes] Heart Rate [ 99 Radial] Respiratory 18 20 20 Rate Blood Pressure [Left Brachial artery] Blood Pressure 103/76 103/53 L 97/48 L [Right Brachial artery] O2 Saturation 96 96 97 05/25/21 05/26/21 05/26/21 23:36 03:10 08:20 Temperature 36.5 C 36.4 C L 36.3 C L Heart Rate [ 69 Brachial] Heart Rate [ 79 80 Monitoring electrodes] Heart Rate [ Radial] Respiratory 17 16 18 Rate Blood Pressure 84/51 L 113/51 L [Left Brachial artery] Blood Pressure 111/50 L 109/51 L [Right Brachial artery] O2 Saturation 98 95 95 05/26/21 12:41 Temperature 36.5 C Heart Rate [ 67 Brachial] Heart Rate [ Monitoring electrodes] Heart Rate [ Radial] Respiratory 17 Rate Blood Pressure 118/59 L [Left Brachial artery] Blood Pressure [Right Brachial artery] O2 Saturation 99 Oxygen O2 Source Room air I&O (Last 24 Hrs): Intake and Output Totals x24h 05/24/21 05/25/21 05/26/21 23:59 23:59 23:59 Intake Total 1230 1540 833.3 Output Total 1100 500 100 Balance 130 1040 733.3 General: Alert, Oriented x3, Cooperative, No acute distress HEENT: Atraumatic Neck: Supple Lymphatic: no adenopathy Neuro: Alert, Non Focal, Oriented Times 3 Cardiovascular: Regular rate, Normal S1, Normal S2 Respiratory: Chest non-tender, No respiratory distress Abdomen: Normal bowel sounds, Soft, No tenderness Extremities: Normal pulses - Results Results: Laboratory Results WBC 8.0 x10^3/uL (4.8-10.8) 05/26/21 05:03 RBC 3.53 10^6/uL (4.20-5.40) L 05/26/21 05:03 Hgb 11.3 g/dL (12.0-16.0) L 05/26/21 05:03 Hct 34.1 % (37.0-47.0) L 05/26/21 05:03 MCV 96.6 fL (81.0-99.0) 05/26/21 05:03 MCH 32.0 pg (27.0-31.0) H 05/26/21 05:03 MCHC 33.1 g/dL (32.0-36.0) 05/26/21 05:03 RDW 13.7 % (12.0-15.0) 05/26/21 05:03 Plt Count 290 10^3/uL (130-450) 05/26/21 05:03 MPV 10.2 fL (7.9-10.8) 05/26/21 05:03 Neut # (Auto) 4.3 10^3/uL (1.5-6.6) 05/26/21 05:03 Lymph # (Auto) 2.6 10^3/uL (1.5-3.5) 05/26/21 05:03 [place] # (Auto) 0.8 10^3/uL (0.0-1.0) 05/26/21 05:03 Eos # (Auto) 0.3 10^3/uL (0.0-0.7) 05/26/21 05:03 Baso # (Auto) 0.1 10^3/uL (0.0-0.1) 05/26/21 05:03 Absolute Nucleated RBC 0.00 x10^3/uL 05/26/21 05:03 Nucleated RBC % 0.0 /100WBC 05/26/21 05:03 Sodium 134 mmol/L (135-145) L 05/26/21 05:03 Potassium 4.3 mmol/L (3.5-5.0) 05/26/21 05:03 Chloride 100 mmol/L (101-111) L 05/26/21 05:03 Carbon Dioxide 24 mmol/L (21-32) 05/26/21 05:03 Anion Gap 10.0 (6-13) 05/26/21 05:03 BUN 39 mg/dL (6-20) H 05/26/21 05:03 Creatinine 1.1 mg/dL (0.4-1.0) H 05/26/21 05:03 Estimated GFR (MDRD) 48 (>89) L 05/26/21 05:03 Glucose 105 mg/dL (70-100) H 05/26/21 05:03 Calcium 8.9 mg/dL (8.5-10.3) 05/26/21 05:03 Magnesium 2.0 mg/dL (1.7-2.8) 05/26/21 05:03 Total Bilirubin 0.5 mg/dL (0.2-1.0) 05/15/21 14:36 AST 23 IU/L (10-42) 05/15/21 14:36 ALT 24 IU/L (10-60) 05/15/21 14:36 Alkaline Phosphatase 85 IU/L (42-121) 05/15/21 14:36 Troponin I High Sens 37.3 ng/L (2.3-14.8) H* 05/16/21 16:48 B-Natriuretic Peptide 171 pg/mL (5-100) H 05/18/21 04:15 Total Protein 7.4 g/dL (6.7-8.2) 05/15/21 14:36 Albumin 4.2 g/dL (3.2-5.5) 05/15/21 14:36 Globulin 3.2 g/dL (2.1-4.2) 05/15/21 14:36 Albumin/Globulin Ratio 1.3 (1.0-2.2) 05/15/21 14:36 Triglycerides 102 mg/dL (-149) 05/17/21 04:48 Cholesterol 123 mg/dL (-199) 05/17/21 04:48 LDL Cholesterol, Calc 62 mg/dL (-129) 05/17/21 04:48 VLDL Cholesterol 20 mg/dL 05/17/21 04:48 HDL Cholesterol 41 mg/dL (60-) L 05/17/21 04:48 LDL/HDL Ratio 1.5 (<4.4) 05/17/21 04:48 Cholesterol/HDL Ratio 3.0 (<4.4) 05/17/21 04:48 Lipase 50 U/L (22-51) 05/15/21 14:36 TSH 1.70 uIU/mL (0.34-5.60) 05/16/21 04:45 Thyroxine (T4) 8.85 ug/dL (6.09-12.23) 05/16/21 04:45 Nasal Adenovirus (PCR) NOT DETECTED 05/15/21 16:50 Nasal B. parapertussis DNA (PCR) NOT DETECTED 05/15/21 16:50 Nasal Coronavir 229E PCR NOT DETECTED 05/15/21 16:50 Nasal Coronavir HKU1 PCR NOT DETECTED 05/15/21 16:50 Nasal Coronavir NL63 PCR NOT DETECTED 05/15/21 16:50 Nasal Coronavir OC43 PCR NOT DETECTED 05/15/21 16:50 Nasal Enterovir/Rhinovir PCR NOT DETECTED 05/15/21 16:50 Nasal Influenza B PCR NOT DETECTED 05/15/21 16:50 Nasal Influenza A PCR NOT DETECTED 05/15/21 16:50 Nasal Parainfluen 1 PCR NOT DETECTED 05/15/21 16:50 Nasal Parainfluen 2 PCR NOT DETECTED 05/15/21 16:50 Nasal Parainfluen 3 PCR NOT DETECTED 05/15/21 16:50 Nasal Parainfluen 4 PCR NOT DETECTED 05/15/21 16:50 Nasal RSV (PCR) NOT DETECTED 05/15/21 16:50 Nasal Screen MRSA (PCR) POSITIVE (NEGATIVE) A* 05/15/21 19:00 Nasal B.pertussis DNA PCR NOT DETECTED 05/15/21 16:50 Nasal C.pneumoniae (PCR) NOT DETECTED 05/15/21 16:50 Leslie Human Metapneumo PCR NOT DETECTED 05/15/21 16:50 Nasal M.pneumoniae (PCR) NOT DETECTED 05/15/21 16:50 Nasal SARS-CoV-2 (PCR) NOT DETECTED 05/15/21 16:50 Last Dose Date UNKNOWN 05/26/21 05:03 Last Dose Time UNKNOWN 05/26/21 05:03 Digoxin 1.5 ng/mL 05/26/21 05:03 ABX Reporting Has patient been on IV antibiotics over the past 48 hours?: No Current Medications - Current Medications Current Medications: Active Medications Hydrocodone Bitart/Acetaminophen (Hydrocod/Acetam 5/325 Mg Tablet) 1 tab PO Q6H [facility] Last Admin: 05/26/21 11:22 Dose: 1 tab Documented by: Alcohol (Ethyl Alcohol 62% Swab Ampule) 1 amp LESLIE BID [facility] Last Admin: 05/26/21 08:38 Dose: 1 amp Documented by: Apixaban (Apixaban 5 Mg Tablet) 5 mg PO BID [facility] Last Admin: 05/26/21 08:37 Dose: 5 mg Documented by: Aripiprazole (Aripiprazole 5 Mg Tablet) 5 mg PO DAILY [facility] Last Admin: 05/26/21 08:38 Dose: 5 mg Documented by: Digoxin (Digoxin 125 Mcg Tablet) 125 mcg PO MOWEFR [facility] Docusate Sodium (Docusate Sodium 250 Mg Capsule) 250 - 500 mg PO DAILY [facility] Last Admin: 05/26/21 08:38 Dose: 250 mg Documented by: Gabapentin (Gabapentin 100 Mg Capsule) 100 mg PO [facility] Last Admin: 05/25/21 20:38 Dose: 100 mg Documented by: Sodium Chloride (Normal Saline 0.9%) 1,000 mls @ 75 mls/hr IV .[id number] [facility] Stop: 05/26/21 21:34 Last Admin: 05/26/21 08:37 Dose: 75 mls/hr Documented by: Lorazepam (Lorazepam 0.5 Mg Tablet) 0.5 mg PO Q6H PRN PRN Reason: Anxiety Last Admin: 05/26/21 08:37 Dose: 0.5 mg Documented by: Metoprolol Succinate (Metoprolol Succinate 50 Mg Tablet) 100 mg PO BID [facility] Last Admin: 05/26/21 08:37 Dose: 100 mg Documented by: Metoprolol Tartrate (Metoprolol 5 Mg/5 Ml Vial) 5 mg IVP Q6H PRN PRN Reason: Tachycardia Morphine Sulfate (Morphine 2 Mg/Ml Carpuject) 2 mg IVP Q2HR PRN PRN Reason: Pain 8 to 10 Last Admin: 05/26/21 08:38 Dose: 2 mg Documented by: Ondansetron HCl (Ondansetron 4 Mg/2 Ml Vial) 4 mg IVP Q6HR PRN PRN Reason: Nausea / Vomiting Pantoprazole Sodium (Pantoprazole 40 Mg Tablet) 40 mg PO QDAC [facility] Last Admin: 05/26/21 06:13 Dose: 40 mg Documented by: Polyethylene Glycol (Polyethylene Glycol 3350 17 Gm Packet) 17 gm PO DAILY [facility] Last Admin: 05/26/21 08:38 Dose: 17 gm Documented by: Senna (Senna 8.6 Mg Tablet) 8.6 - 17.2 mg PO DAILY [facility] Last Admin: 05/26/21 08:37 Dose: 8.6 mg Documented by: Sodium Chloride (Sodium Chloride Flush 0.9% 10 Ml Syringe) 10 ml IVP PRN PRN PRN Reason: NEEDED PER PROVIDER ORDERS Last Admin: 05/24/21 09:44 Dose: 10 ml Documented by: Sodium Chloride (Sodium Chloride Flush 0.9% 10 Ml Syringe) 10 ml IVP 0100,0900,1700 [facility] Last Admin: 05/26/21 07:48 Dose: 10 ml Documented by: Venlafaxine HCl (Venlafaxine 37.5 Mg Tablet) 112.5 mg PO DAILY [facility] Last Admin: 05/26/21 08:37 Dose: 112.5 mg Documented by: ARIPiprazole [Abilify] 5 mg PO DAILY 05/16/21 Albuterol Sulfate [Proair Respiclick] 2 puffs INH Q4H PRN 05/16/21 Celecoxib [Celebrex] 200 mg PO QDBREAKFAST 05/16/21 Cholecalciferol (Vitamin D3) [Vitamin D3] 25 mcg PO DAILY 05/16/21 Diclofenac Sodium 50 mg PO TID PRN 05/16/21 Ferrous Sulfate 325 mg PO DAILYWM 05/16/21 Furosemide [Lasix] 20 mg PO MOWEFR PRN 05/16/21 Gabapentin [Neurontin] 100 mg PO HS 05/16/21 HYDROcod/ACETAM 5/325 [[place] 5/325] 1 tab PO 0800,1200,2100 05/16/21 Linaclotide [Linzess] 145 mcg PO DAILY PRN 05/16/21 Metoprolol Tartrate [Lopressor] 50 mg PO BID 05/16/21 Multivitamin [Theragran] 1 tab PO DAILY 05/16/21 Pantoprazole [Protonix] 40 mg PO QDAC 05/16/21 Simvastatin [Zocor] 20 mg PO QDDINNER 05/16/21 Venlafaxine HCl 75 mg PO DAILY 05/16/21 Venlafaxine [Effexor] 37.5 mg PO DAILY 05/16/21 lisinopriL [Lisinopril] 20 mg PO DAILY 05/16/21 traMADol [Ultram] 50 mg PO Q6H PRN 05/16/21
[2021-05-26] MEDS: GABAPENTIN 100 MG CAPSULE PO SCH (20:38)
[2021-05-27] MEDS: SODIUM CHLORIDE FLUSH 0.9% 10 ML SYRINGE IVP SCH ×3 (04:41→17:01)
[2021-05-27] MEDS: HYDROcod/ACETAM 5/325 MG TABLET PO SCH ×4 (04:41→22:32)
[2021-05-27 05:04] LABS: BASOPHILS # (AUTO) 0.1 10^3/uL (0.0-0.1); BASOPHILS % (AUTO) 0.9 %; CALCIUM 9.2 mg/dL (8.5-10.3); CREATININE 0.8 mg/dL (0.4-1.0); EOSINOPHILS # (AUTO) 0.2 10^3/uL (0.0-0.7); EOSINOPHILS % (AUTO) 2.4 %; HCT - HEMATOCRIT 33.7 % (37.0-47.0); HGB - HEMOGLOBIN 10.8 g/dL (12.0-16.0); LYMPHOCYTES # (AUTO) 2.8 10^3/uL (1.5-3.5); LYMPHOCYTES % (AUTO) 38.2 %; MEAN CORPUSCULAR HEMOGLOBIN 31.6 pg (27.0-31.0); MEAN CORPUSCULAR VOLUME 98.5 fL (81.0-99.0); MEAN PLATELET VOLUME 9.9 fL (7.9-10.8); MONOCYTES # (AUTO) 0.6 10^3/uL (0.0-1.0); MONOCYTES % (AUTO) 7.7 %; NEUTROPHILS # (AUTO) 3.7 10^3/uL (1.5-6.6); NEUTROPHILS % (AUTO) 50.5 %; PLT - PLATELET COUNT 294 10^3/uL (130-450); POTASSIUM 4.6 mmol/L (3.5-5.0); RED BLOOD COUNT 3.42 10^6/uL (4.20-5.40); RED CELL DISTRIBUTION WIDTH 13.9 % (12.0-15.0); WHITE BLOOD COUNT 7.4 x10^3/uL (4.8-10.8)
[2021-05-27 05:11] LABS: DIGOXIN 0.9 ng/mL
[2021-05-27] MEDS: PANTOPRAZOLE 40 MG TABLET PO SCH (06:19)
[2021-05-27] MEDS: SENNA 8.6 MG TABLET PO SCH (08:50)
[2021-05-27] MEDS: ARIPiprazole 5 MG TABLET PO SCH (08:50)
[2021-05-27] MEDS: APIXABAN 5 MG TABLET PO SCH ×2 (08:50→20:53)
[2021-05-27] MEDS: polyethylene glycoL 3350 17 GM PACKET PO SCH (08:50)
[2021-05-27] MEDS: VENLAFAXINE 37.5 MG TABLET PO SCH (08:51)
[2021-05-27] MEDS: DOCUSATE SODIUM 250 MG CAPSULE PO SCH (08:52)
[2021-05-27] MEDS: ethyl alcohoL 62% SWAB AMPULE NAS SCH ×2 (08:52→20:53)
[2021-05-27] MEDS: METOPROLOL SUCCINATE 50 MG TABLET PO SCH (08:53)
[2021-05-27] MEDS ORDERED: DIGOXIN 125 MCG TABLET PO SCH (09:00)
--- NOTE | 2021-05-27 11:51 | PROVIDER PROGRESS NOTE ---
Assessment/Plan - Problem List (1) Bradycardia Assessment/Plan: 05/27 resolved. pt's lowest HR on last is 51 on tele. WA interval is 0.20. Now EKG show Sinus rhythm. Patient also reported she feel good, she denies chest pain, palpitation, Dizziness or lightheaded. 05/26 pt's afib with RVR has been very difficult to control. now it controlled, tele reveal pt's afib/flutter was converted to sinus rhythm, but also in the night when pt was in the sleep, her tele show bradycardia at lowest HR is 30 with pauses otherwise her HR is normal arrange. pt's digoxin dosage is slight elevated now. pt's metoprolol is 100mg bid now. we will reduce digoxin dosage to Sunday, Sunday and Sunday, three days per week, check Digoxin serum concentration, continue tele monitor and order EKG. 05/25 TYPIST did manually check her HR is 99 now, improved. digoxin is 1.2 now, will Continue digoxin, continue 100 mg twice daily metoprolol Since patient tolerated this dosage. 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 add tele monitor and vital monitor both show pt has 125-135 HR, at time, pt did not complain of hip pain. pt is asymptomatic, she denies chest pain, palpitation, dizziness or lightheaded. plan: add tele monitor, check BMP and mag, check digoxin serum concentration, add once IV of digoxin. pt has severe systolic heart failure as well, and SBP is 95. slight increase Metoprolol oral, PRN IV of metoprolol. continue tele monitor. continue eliquis, continue monitor digoxin serum concentration. (2)dehydration 05/27 Resolved, creatinine 0.8, Keep patient oral hydration pt has slight elevated creatinine to 1.1 from her baseline 0.8. clinic pt present dehydration. pt also has systolic heart failure. we will slowly give pt one bad IVF, closely monitor vital signs, and lab monitor (3) Acute systolic heart failure Impression: Echo shows LVEF of 35% with global hypokinesis. This is a new finding for her during this admission. 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 Digoxin started. continue metoprolol. Because the patient had low systolic blood pressure, we will hold lisinopril and spironolactone. She is currently euvolemic, no lasix now. (4) Chronic hip pain Impression: 05/25 Patient complaint hip pain, We will increase her pain meds Frequency, Continue physical therapist. Continue consult with social work, [facility] facility will come to hospital to assess patient on tomorrow CT study in this admission reveals severe right hip joint osteoarthritis and chronic appearing hip deformity. Moderate left hip joint osteoarthritis. No acute hip fracture or dislocation. No evidence of avascular necrosis or femoral head. She states she has not seen an orthopedist or periodicals library assistant. Low-dose opioids ordered. 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 She is not a surgical candidate at [facility] due to low EF, systolic heart failure. IR was unable to perform a guided steroid injection into the hip due to patient's BLE stiffness. The patient may follow-up outpatient with her PCP for an orthopedic and possibly pain specialist referral to further explore available treatment options. Social work has contacted [facility] to discuss necessary assisting equipment the patient will need upon discharge. (5) Hx of essential hypertension Impression: her blood pressure is slightly lower, but pt is asymptomatic. we will hold her Lisinopril and spironolactone (6) Schizophrenia Impression: stable Her psych meds have been resumed. She has been very appropriate, calm and pleasant during this admission. (7) Depression with anxiety Impression: stable Her psych meds have been resumed - Current Meds Current Meds: Current Medications Generic Name Dose Route Start Last Admin Trade Name Mehrdadq PRN Reason Stop Dose Admin Hydrocodone Bitart/Acetaminophen 1 tab 05/25/21 17:00 05/27/21 11:04 Hydrocod/Acetam 5/325 Mg Tablet PO 1 tab Q6H JONATHAN Administration Alcohol 1 amp 05/15/21 22:00 05/27/21 08:52 Ethyl Alcohol 62% Swab Ampule LESLIE 1 amp BID JONATHAN Administration Apixaban 5 mg 05/21/21 21:00 05/27/21 08:50 Apixaban 5 Mg Tablet PO 5 mg BID JONATHAN Administration Aripiprazole 5 mg 05/17/21 09:00 05/27/21 08:50 Aripiprazole 5 Mg Tablet PO 5 mg DAILY JONATHAN Administration Digoxin 125 mcg 05/27/21 09:00 05/27/21 08:51 Digoxin 125 Mcg Tablet PO 125 mcg MOWEFR JONATHAN Administration Docusate Sodium 250 - 500 mg 05/18/21 09:00 05/27/21 08:52 Docusate Sodium 250 Mg Capsule PO 250 mg DAILY JONATHAN Administration Gabapentin 100 mg 05/16/21 21:00 05/26/21 20:38 Gabapentin 100 Mg Capsule PO 100 mg HS JONATHAN Administration Lorazepam 0.5 mg 05/18/21 15:58 05/26/21 08:37 Lorazepam 0.5 Mg Tablet PO 0.5 mg Q6H PRN Administration Anxiety Metoprolol Succinate 100 mg 05/24/21 21:00 05/27/21 08:53 Metoprolol Succinate 50 Mg Tablet PO 100 mg BID JONATHAN Administration Morphine Sulfate 2 mg 05/15/21 21:12 05/26/21 08:38 Morphine 2 Mg/Ml Carpuject IVP 2 mg Q2HR PRN Administration Pain 8 to 10 Pantoprazole Sodium 40 mg 05/18/21 17:00 05/27/21 06:19 Pantoprazole 40 Mg Tablet PO 40 mg QDAC JONATHAN Administration Polyethylene Glycol 17 gm 05/17/21 09:00 05/27/21 08:50 Polyethylene Glycol 3350 17 Gm Packet PO 17 gm DAILY JONATHAN Administration Senna 8.6 - 17.2 mg 05/18/21 09:00 05/27/21 08:50 Senna 8.6 Mg Tablet PO 8.6 mg DAILY JONATHAN Administration Sodium Chloride 10 ml 05/15/21 21:12 05/24/21 09:44 Sodium Chloride Flush 0.9% 10 Ml Syringe IVP 10 ml PRN PRN Administration NEEDED PER PROVIDER ORDERS Sodium Chloride 10 ml 05/16/21 01:00 05/27/21 08:53 Sodium Chloride Flush 0.9% 10 Ml Syringe IVP 10 ml 0100,0900,1700 JONATHAN Administration Venlafaxine HCl 112.5 mg 05/16/21 12:22 05/27/21 08:51 Venlafaxine 37.5 Mg Tablet PO 112.5 mg DAILY JONATHAN Administration - Lab Result Fish Bone Diagrams: 05/27/21 04:45 05/27/21 04:45 - Additional Planning My Orders: My Active Orders 05/28/21 05:00 BMP - BASIC METABOLIC PANEL [CHEM] DAILYLAB CBC - COMP BLD CT W/AUTO DIFF [HEME] DAILYLAB DIGOXIN [CHEM] DAILYLAB MAGNESIUM [CHEM] DAILYLAB 05/29/21 05:00 BMP - BASIC METABOLIC PANEL [CHEM] DAILYLAB CBC - COMP BLD CT W/AUTO DIFF [HEME] DAILYLAB DIGOXIN [CHEM] DAILYLAB 05/30/21 05:00 DIGOXIN [CHEM] DAILYLAB Subjective - Subjective Patient Reports: Feeling Better Objective Vital Signs: Vital Signs - 24 hr 05/26/21 05/26/21 05/26/21 12:41 16:39 20:05 Temperature 36.5 C 36.7 C 36.7 C Heart Rate [ 67 61 64 Brachial] Heart Rate [ Radial] Respiratory 17 20 20 Rate Blood Pressure 118/59 L 107/54 L [Left Brachial artery] Blood Pressure 119/53 L [Right Brachial artery] O2 Saturation 99 99 98 05/26/21 05/27/21 05/27/21 23:37 04:32 08:38 Temperature 37.1 C 36.6 C 36.8 C Heart Rate [ 61 63 Brachial] Heart Rate [ 65 Radial] Respiratory 18 20 18 Rate Blood Pressure 121/55 L [Left Brachial artery] Blood Pressure 113/51 L 140/59 H [Right Brachial artery] O2 Saturation 96 99 100 Oxygen O2 Source Room air I&O (Last 24 Hrs): Intake and Output Totals x24h 05/25/21 05/26/21 05/27/21 23:59 23:59 23:59 Intake Total 1540 2403.3 395 Output Total 500 200 200 Balance 1040 2203.3 195 General: Alert, Oriented x3, Cooperative, No acute distress HEENT: Atraumatic Neck: Supple Lymphatic: no adenopathy Neuro: Alert, Non Focal, Oriented Times 3 Cardiovascular: Regular rate, Normal S1, Normal S2 Respiratory: Chest non-tender, No respiratory distress Abdomen: Normal bowel sounds, Soft Extremities: Normal pulses - Results Results: Laboratory Results WBC 7.4 x10^3/uL (4.8-10.8) 05/27/21 04:45 RBC 3.42 10^6/uL (4.20-5.40) L 05/27/21 04:45 Hgb 10.8 g/dL (12.0-16.0) L 05/27/21 04:45 Hct 33.7 % (37.0-47.0) L 05/27/21 04:45 MCV 98.5 fL (81.0-99.0) 05/27/21 04:45 MCH 31.6 pg (27.0-31.0) H 05/27/21 04:45 MCHC 32.0 g/dL (32.0-36.0) 05/27/21 04:45 RDW 13.9 % (12.0-15.0) 05/27/21 04:45 Plt Count 294 10^3/uL (130-450) 05/27/21 04:45 MPV 9.9 fL (7.9-10.8) 05/27/21 04:45 Neut # (Auto) 3.7 10^3/uL (1.5-6.6) 05/27/21 04:45 Lymph # (Auto) 2.8 10^3/uL (1.5-3.5) 05/27/21 04:45 Page # (Auto) 0.6 10^3/uL (0.0-1.0) 05/27/21 04:45 Eos # (Auto) 0.2 10^3/uL (0.0-0.7) 05/27/21 04:45 Baso # (Auto) 0.1 10^3/uL (0.0-0.1) 05/27/21 04:45 Absolute Nucleated RBC 0.00 x10^3/uL 05/27/21 04:45 Nucleated RBC % 0.0 /100WBC 05/27/21 04:45 Sodium 136 mmol/L (135-145) 05/27/21 04:45 Potassium 4.6 mmol/L (3.5-5.0) 05/27/21 04:45 Chloride 104 mmol/L (101-111) 05/27/21 04:45 Carbon Dioxide 23 mmol/L (21-32) 05/27/21 04:45 Anion Gap 9.0 (6-13) 05/27/21 04:45 BUN 37 mg/dL (6-20) H 05/27/21 04:45 Creatinine 0.8 mg/dL (0.4-1.0) 05/27/21 04:45 Estimated GFR (MDRD) 69 (>89) L 05/27/21 04:45 Glucose 104 mg/dL (70-100) H 05/27/21 04:45 Calcium 9.2 mg/dL (8.5-10.3) 05/27/21 04:45 Magnesium 2.0 mg/dL (1.7-2.8) 05/27/21 04:45 Total Bilirubin 0.5 mg/dL (0.2-1.0) 05/15/21 14:36 AST 23 IU/L (10-42) 05/15/21 14:36 ALT 24 IU/L (10-60) 05/15/21 14:36 Alkaline Phosphatase 85 IU/L (42-121) 05/15/21 14:36 Troponin I High Sens 37.3 ng/L (2.3-14.8) H* 05/16/21 16:48 B-Natriuretic Peptide 171 pg/mL (5-100) H 05/18/21 04:15 Total Protein 7.4 g/dL (6.7-8.2) 05/15/21 14:36 Albumin 4.2 g/dL (3.2-5.5) 05/15/21 14:36 Globulin 3.2 g/dL (2.1-4.2) 05/15/21 14:36 Albumin/Globulin Ratio 1.3 (1.0-2.2) 05/15/21 14:36 Triglycerides 102 mg/dL (-149) 05/17/21 04:48 Cholesterol 123 mg/dL (-199) 05/17/21 04:48 LDL Cholesterol, Calc 62 mg/dL (-129) 05/17/21 04:48 VLDL Cholesterol 20 mg/dL 05/17/21 04:48 HDL Cholesterol 41 mg/dL (60-) L 05/17/21 04:48 LDL/HDL Ratio 1.5 (<4.4) 05/17/21 04:48 Cholesterol/HDL Ratio 3.0 (<4.4) 05/17/21 04:48 Lipase 50 U/L (22-51) 05/15/21 14:36 TSH 1.70 uIU/mL (0.34-5.60) 05/16/21 04:45 Thyroxine (T4) 8.85 ug/dL (6.09-12.23) 05/16/21 04:45 Nasal Adenovirus (PCR) NOT DETECTED 05/15/21 16:50 Nasal B. parapertussis DNA (PCR) NOT DETECTED 05/15/21 16:50 Nasal Coronavir 229E PCR NOT DETECTED 05/15/21 16:50 Nasal Coronavir HKU1 PCR NOT DETECTED 05/15/21 16:50 Nasal Coronavir NL63 PCR NOT DETECTED 05/15/21 16:50 Nasal Coronavir OC43 PCR NOT DETECTED 05/15/21 16:50 Nasal Enterovir/Rhinovir PCR NOT DETECTED 05/15/21 16:50 Nasal Influenza B PCR NOT DETECTED 05/15/21 16:50 Nasal Influenza A PCR NOT DETECTED 05/15/21 16:50 Nasal Parainfluen 1 PCR NOT DETECTED 05/15/21 16:50 Nasal Parainfluen 2 PCR NOT DETECTED 05/15/21 16:50 Nasal Parainfluen 3 PCR NOT DETECTED 05/15/21 16:50 Nasal Parainfluen 4 PCR NOT DETECTED 05/15/21 16:50 Nasal RSV (PCR) NOT DETECTED 05/15/21 16:50 Nasal Screen MRSA (PCR) POSITIVE (NEGATIVE) A* 05/15/21 19:00 Nasal B.pertussis DNA PCR NOT DETECTED 05/15/21 16:50 Nasal C.pneumoniae (PCR) NOT DETECTED 05/15/21 16:50 Leslie Human Metapneumo PCR NOT DETECTED 05/15/21 16:50 Nasal M.pneumoniae (PCR) NOT DETECTED 05/15/21 16:50 Nasal SARS-CoV-2 (PCR) NOT DETECTED 05/15/21 16:50 Last Dose Date UNKNOWN 05/27/21 04:45 Last Dose Time UNKNOWN 05/27/21 04:45 Digoxin 0.9 ng/mL 05/27/21 04:45 ABX Reporting Has patient been on IV antibiotics over the past 48 hours?: No Current Medications - Current Medications Current Medications: Active Medications Hydrocodone Bitart/Acetaminophen (Hydrocod/Acetam 5/325 Mg Tablet) 1 tab PO Q6H [facility] Last Admin: 05/27/21 11:04 Dose: 1 tab Documented by: Alcohol (Ethyl Alcohol 62% Swab Ampule) 1 amp LESLIE BID [facility] Last Admin: 05/27/21 08:52 Dose: 1 amp Documented by: Apixaban (Apixaban 5 Mg Tablet) 5 mg PO BID [facility] Last Admin: 05/27/21 08:50 Dose: 5 mg Documented by: Aripiprazole (Aripiprazole 5 Mg Tablet) 5 mg PO DAILY [facility] Last Admin: 05/27/21 08:50 Dose: 5 mg Documented by: Digoxin (Digoxin 125 Mcg Tablet) 125 mcg PO MOWEFR [facility] Last Admin: 05/27/21 08:51 Dose: 125 mcg Documented by: Docusate Sodium (Docusate Sodium 250 Mg Capsule) 250 - 500 mg PO DAILY [facility] Last Admin: 05/27/21 08:52 Dose: 250 mg Documented by: Gabapentin (Gabapentin 100 Mg Capsule) 100 mg PO HS [facility] Last Admin: 05/26/21 20:38 Dose: 100 mg Documented by: Lorazepam (Lorazepam 0.5 Mg Tablet) 0.5 mg PO Q6H PRN PRN Reason: Anxiety Last Admin: 05/26/21 08:37 Dose: 0.5 mg Documented by: Metoprolol Succinate (Metoprolol Succinate 50 Mg Tablet) 100 mg PO BID [facility] Last Admin: 05/27/21 08:53 Dose: 100 mg Documented by: Metoprolol Tartrate (Metoprolol 5 Mg/5 Ml Vial) 5 mg IVP Q6H PRN PRN Reason: Tachycardia Morphine Sulfate (Morphine 2 Mg/Ml Carpuject) 2 mg IVP Q2HR PRN PRN Reason: Pain 8 to 10 Last Admin: 05/26/21 08:38 Dose: 2 mg Documented by: Ondansetron HCl (Ondansetron 4 Mg/2 Ml Vial) 4 mg IVP Q6HR PRN PRN Reason: Nausea / Vomiting Pantoprazole Sodium (Pantoprazole 40 Mg Tablet) 40 mg PO QDAC [facility] Last Admin: 05/27/21 06:19 Dose: 40 mg Documented by: Polyethylene Glycol (Polyethylene Glycol 3350 17 Gm Packet) 17 gm PO DAILY [facility] Last Admin: 05/27/21 08:50 Dose: 17 gm Documented by: Senna (Senna 8.6 Mg Tablet) 8.6 - 17.2 mg PO DAILY [facility] Last Admin: 05/27/21 08:50 Dose: 8.6 mg Documented by: Sodium Chloride (Sodium Chloride Flush 0.9% 10 Ml Syringe) 10 ml IVP PRN PRN PRN Reason: NEEDED PER PROVIDER ORDERS Last Admin: 05/24/21 09:44 Dose: 10 ml Documented by: Sodium Chloride (Sodium Chloride Flush 0.9% 10 Ml Syringe) 10 ml IVP 0100,0900,1700 [facility] Last Admin: 05/27/21 08:53 Dose: 10 ml Documented by: Venlafaxine HCl (Venlafaxine 37.5 Mg Tablet) 112.5 mg PO DAILY [facility] Last Admin: 05/27/21 08:51 Dose: 112.5 mg Documented by: ARIPiprazole [Abilify] 5 mg PO DAILY 05/16/21 Albuterol Sulfate [Proair Respiclick] 2 puffs INH Q4H PRN 05/16/21 Celecoxib [Celebrex] 200 mg PO QDBREAKFAST 05/16/21 Cholecalciferol (Vitamin D3) [Vitamin D3] 25 mcg PO DAILY 05/16/21 Diclofenac Sodium 50 mg PO TID PRN 05/16/21 Ferrous Sulfate 325 mg PO DAILYWM 05/16/21 Furosemide [Lasix] 20 mg PO MOWEFR PRN 05/16/21 Gabapentin [Neurontin] 100 mg PO HS 05/16/21 HYDROcod/ACETAM 5/325 [[place] 5/325] 1 tab PO 0800,1200,2100 05/16/21 Linaclotide [Linzess] 145 mcg PO DAILY PRN 05/16/21 Metoprolol Tartrate [Lopressor] 50 mg PO BID 05/16/21 Multivitamin [Theragran] 1 tab PO DAILY 05/16/21 Pantoprazole [Protonix] 40 mg PO QDAC 05/16/21 Simvastatin [Zocor] 20 mg PO QDDINNER 05/16/21 Venlafaxine HCl 75 mg PO DAILY 05/16/21 Venlafaxine [Effexor] 37.5 mg PO DAILY 05/16/21 lisinopriL [Lisinopril] 20 mg PO DAILY 05/16/21 traMADol [Ultram] 50 mg PO Q6H PRN 05/16/21
--- NOTE | 2021-05-27 19:55 | PROVIDER PROGRESS NOTE ---
Clinic Supervisor Note - Clinic Supervisor Note Clinic Supervisor Note: The telemetry JEWELRY CONSULTANT brought a rhythm strip at 1910, showing the patient's rhythm: She is in sinus rhythm at a rate of 60 then has a 3 beat run of V. tach and then goes into junctional bradycardia at a rate of 40. Overall her HRs have been 60's, she does not have a substantial increase in HR with activity Her recent Dig levels have been : 1.2>> 1.5>> 0.9 today (after Dig was changed from daily to MWF) Patient's blood pressure is stable (120's) and she is comfortable, warm and dry. 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 Plan: 1) Decrease Dig from 125 mcg Sunday to just Sunday & Sunday. 2) Continued to check morning Dig level daily to assure that the level is under 1.0 3) Hold the next dose of B-aylin entirely 4) Decrease Toprol-XL from 100 twice daily back to her home dose of 75 twice daily. 5) Continue telemetry CRITICAL CARE TIME SPENT: 18 MIN
[2021-05-27] MEDS: MORPHINE 2 MG/ML CARPUJECT IVP PRN (20:52)
[2021-05-27] MEDS: GABAPENTIN 100 MG CAPSULE PO SCH (20:53)
[2021-05-28] MEDS: LORazepam 0.5 MG TABLET PO PRN ×2 (00:07→11:45)
[2021-05-28] MEDS: SODIUM CHLORIDE FLUSH 0.9% 10 ML SYRINGE IVP SCH ×3 (00:15→16:24)
[2021-05-28] MEDS: HYDROcod/ACETAM 5/325 MG TABLET PO SCH ×2 (04:26→10:52)
[2021-05-28 04:55] LABS: BASOPHILS # (AUTO) 0.1 10^3/uL (0.0-0.1); BASOPHILS % (AUTO) 0.9 %; EOSINOPHILS # (AUTO) 0.2 10^3/uL (0.0-0.7); EOSINOPHILS % (AUTO) 2.3 %; HCT - HEMATOCRIT 31.2 % (37.0-47.0); HGB - HEMOGLOBIN 10.5 g/dL (12.0-16.0); LYMPHOCYTES # (AUTO) 2.9 10^3/uL (1.5-3.5); LYMPHOCYTES % (AUTO) 41.3 %; MEAN CORPUSCULAR HEMOGLOBIN 32.3 pg (27.0-31.0); MEAN CORPUSCULAR HGB CONC 33.7 g/dL (32.0-36.0); MEAN PLATELET VOLUME 10.1 fL (7.9-10.8); MONOCYTES # (AUTO) 0.6 10^3/uL (0.0-1.0); MONOCYTES % (AUTO) 7.9 %; NEUTROPHILS # (AUTO) 3.4 10^3/uL (1.5-6.6); NEUTROPHILS % (AUTO) 47.5 %; PLT - PLATELET COUNT 297 10^3/uL (130-450); RED BLOOD COUNT 3.25 10^6/uL (4.20-5.40); RED CELL DISTRIBUTION WIDTH 13.5 % (12.0-15.0); WHITE BLOOD COUNT 7.1 x10^3/uL (4.8-10.8)
[2021-05-28 05:11] LABS: DIGOXIN 0.9 ng/mL
[2021-05-28 05:21] LABS: CALCIUM 9.3 mg/dL (8.5-10.3); CREATININE 0.7 mg/dL (0.4-1.0); POTASSIUM 4.3 mmol/L (3.5-5.0)
[2021-05-28] MEDS: PANTOPRAZOLE 40 MG TABLET PO SCH (06:42)
--- NOTE | 2021-05-28 07:34 | PROVIDER PROGRESS NOTE ---
Assessment/Plan - Problem List (1) Bradycardia Assessment/Plan: Junctional Patient's digoxin dose was decreased from 125mcg MWF to MF Toprol-XL decreased from 100mg po bid to 75mg po bid (2) Atrial flutter with rapid ventricular response Assessment/Plan: Rate- controlled Patient's digoxin dose was decreased from 125mcg MWF to MF and Toprol-XL decreased from 100mg po bid to 75mg po bid due to junctional bradycardia Will monitor digoxin level daily On eliquis 5mg po bid (3) Chronic hip pain Qualifiers: Laterality: right Qualified Code(s): M25.551 - Pain in right hip; G89.29 - Other chronic pain Assessment/Plan: Pain management with norco and/or morphine as needed Pending re-evaluation by [facility] for return to their facility (4) Depression with anxiety Assessment/Plan: On venlafaxine and abilify (5) Hx of essential hypertension Assessment/Plan: On Toprol-XL 75mg po bid currently. (6) Schizophrenia Assessment/Plan: On abilify - Current Meds Current Meds: Current Medications Generic Name Dose Route Start Last Admin Trade Name Freq PRN Reason Stop Dose Admin Hydrocodone Bitart/Acetaminophen 1 tab 05/25/21 17:00 05/28/21 04:26 Hydrocod/Acetam 5/325 Mg Tablet PO 1 tab Q6H JONATHAN Administration Alcohol 1 amp 05/15/21 22:00 05/27/21 20:53 Ethyl Alcohol 62% Swab Ampule LESLIE 1 amp BID JONATHAN Administration Apixaban 5 mg 05/21/21 21:00 05/27/21 20:53 Apixaban 5 Mg Tablet PO 5 mg BID JONATHAN Administration Aripiprazole 5 mg 05/17/21 09:00 05/27/21 08:50 Aripiprazole 5 Mg Tablet PO 5 mg DAILY JONATHAN Administration Docusate Sodium 250 - 500 mg 05/18/21 09:00 05/27/21 08:52 Docusate Sodium 250 Mg Capsule PO 250 mg DAILY JONATHAN Administration Gabapentin 100 mg 05/16/21 21:00 05/27/21 20:53 Gabapentin 100 Mg Capsule PO 100 mg HS JONATHAN Administration Lorazepam 0.5 mg 05/18/21 15:58 05/28/21 00:07 Lorazepam 0.5 Mg Tablet PO 0.5 mg Q6H PRN Administration Anxiety Morphine Sulfate 2 mg 05/15/21 21:12 05/27/21 20:52 Morphine 2 Mg/Ml Carpuject IVP 2 mg Q2HR PRN Administration Pain 8 to 10 Pantoprazole Sodium 40 mg 05/18/21 17:00 05/28/21 06:42 Pantoprazole 40 Mg Tablet PO 40 mg QDAC JONATHAN Administration Polyethylene Glycol 17 gm 05/17/21 09:00 05/27/21 08:50 Polyethylene Glycol 3350 17 Gm Packet PO 17 gm DAILY JONATHAN Administration Senna 8.6 - 17.2 mg 05/18/21 09:00 05/27/21 08:50 Senna 8.6 Mg Tablet PO 8.6 mg DAILY JONATHAN Administration Sodium Chloride 10 ml 05/15/21 21:12 05/24/21 09:44 Sodium Chloride Flush 0.9% 10 Ml Syringe IVP 10 ml PRN PRN Administration NEEDED PER PROVIDER ORDERS Sodium Chloride 10 ml 05/16/21 01:00 05/28/21 00:15 Sodium Chloride Flush 0.9% 10 Ml Syringe IVP 10 ml 0100,0900,1700 JONATHAN Administration Venlafaxine HCl 112.5 mg 05/16/21 12:22 05/27/21 08:51 Venlafaxine 37.5 Mg Tablet PO 112.5 mg DAILY JONATHAN Administration - Lab Result Fish Bone Diagrams: 05/29/21 05:34 05/29/21 05:34 Subjective - Subjective Patient Reports: Other (Patient was resting in bedside recliner. She complained of an 8 out of 10 left hip pain) Objective Vital Signs: Vital Signs - 24 hr 05/27/21 05/27/21 05/27/21 08:38 12:08 18:04 Temperature 36.8 C 36.6 C 36.7 C Heart Rate [ 70 Brachial] Heart Rate [ Monitoring electrodes] Heart Rate [ 65 62 Radial] Respiratory 18 18 18 Rate Blood Pressure 121/55 L 125/62 [Left Brachial artery] Blood Pressure 128/63 [Right Brachial artery] O2 Saturation 100 98 100 05/27/21 05/28/21 05/28/21 20:50 00:17 04:24 Temperature 36.5 C 36.8 C 36.7 C Heart Rate [ 67 49 L 64 Brachial] Heart Rate [ Monitoring electrodes] Heart Rate [ Radial] Respiratory 18 21 18 Rate Blood Pressure 105/59 L [Left Brachial artery] Blood Pressure 142/66 H 123/67 [Right Brachial artery] O2 Saturation 99 96 98 05/28/21 07:29 Temperature 36.5 C Heart Rate [ Brachial] Heart Rate [ 53 L Monitoring electrodes] Heart Rate [ Radial] Respiratory 17 Rate Blood Pressure [Left Brachial artery] Blood Pressure 121/56 L [Right Brachial artery] O2 Saturation 98 Oxygen O2 Source Room air I&O (Last 24 Hrs): Intake and Output Totals x24h 05/26/21 05/27/21 05/28/21 23:59 23:59 23:59 Intake Total 2403.3 635 Output Total 200 800 900 Balance 2203.3 -165 -900 General: Alert, Oriented x3, Mild distress, Moderate distress HEENT: PERRLA, EOMI Neck: Supple, No JVD Neuro: Alert, Non Focal, Oriented Times 3 Cardiovascular: Other (iregularly iregular) Respiratory: Chest non-tender, No respiratory distress, Breath sounds nml Abdomen: Normal bowel sounds, Soft, No tenderness Extremities: No clubbing, No cyanosis, No edema, Other (left hip and knee pain) Skin: No rashes, No breakdown, No significant lesion - Results Results: Laboratory Results WBC 7.1 x10^3/uL (4.8-10.8) 05/28/21 04:14 RBC 3.25 10^6/uL (4.20-5.40) L 05/28/21 04:14 Hgb 10.5 g/dL (12.0-16.0) L 05/28/21 04:14 Hct 31.2 % (37.0-47.0) L 05/28/21 04:14 MCV 96.0 fL (81.0-99.0) 05/28/21 04:14 MCH 32.3 pg (27.0-31.0) H 05/28/21 04:14 MCHC 33.7 g/dL (32.0-36.0) 05/28/21 04:14 RDW 13.5 % (12.0-15.0) 05/28/21 04:14 Plt Count 297 10^3/uL (130-450) 05/28/21 04:14 MPV 10.1 fL (7.9-10.8) 05/28/21 04:14 Neut # (Auto) 3.4 10^3/uL (1.5-6.6) 05/28/21 04:14 Lymph # (Auto) 2.9 10^3/uL (1.5-3.5) 05/28/21 04:14 [place] # (Auto) 0.6 10^3/uL (0.0-1.0) 05/28/21 04:14 Eos # (Auto) 0.2 10^3/uL (0.0-0.7) 05/28/21 04:14 Baso # (Auto) 0.1 10^3/uL (0.0-0.1) 05/28/21 04:14 Absolute Nucleated RBC 0.00 x10^3/uL 05/28/21 04:14 Nucleated RBC % 0.0 /100WBC 05/28/21 04:14 Sodium 139 mmol/L (135-145) 05/28/21 04:14 Potassium 4.3 mmol/L (3.5-5.0) 05/28/21 04:14 Chloride 104 mmol/L (101-111) 05/28/21 04:14 Carbon Dioxide 26 mmol/L (21-32) 05/28/21 04:14 Anion Gap 9.0 (6-13) 05/28/21 04:14 BUN 23 mg/dL (6-20) H 05/28/21 04:14 Creatinine 0.7 mg/dL (0.4-1.0) 05/28/21 04:14 Estimated GFR (MDRD) 80 (>89) L 05/28/21 04:14 Glucose 100 mg/dL (70-100) 05/28/21 04:14 Calcium 9.3 mg/dL (8.5-10.3) 05/28/21 04:14 Magnesium 2.0 mg/dL (1.7-2.8) 05/28/21 04:14 Total Bilirubin 0.5 mg/dL (0.2-1.0) 05/15/21 14:36 AST 23 IU/L (10-42) 05/15/21 14:36 ALT 24 IU/L (10-60) 05/15/21 14:36 Alkaline Phosphatase 85 IU/L (42-121) 05/15/21 14:36 Troponin I High Sens 37.3 ng/L (2.3-14.8) H* 05/16/21 16:48 B-Natriuretic Peptide 171 pg/mL (5-100) H 05/18/21 04:15 Total Protein 7.4 g/dL (6.7-8.2) 05/15/21 14:36 Albumin 4.2 g/dL (3.2-5.5) 05/15/21 14:36 Globulin 3.2 g/dL (2.1-4.2) 05/15/21 14:36 Albumin/Globulin Ratio 1.3 (1.0-2.2) 05/15/21 14:36 Triglycerides 102 mg/dL (-149) 05/17/21 04:48 Cholesterol 123 mg/dL (-199) 05/17/21 04:48 LDL Cholesterol, Calc 62 mg/dL (-129) 05/17/21 04:48 VLDL Cholesterol 20 mg/dL 05/17/21 04:48 HDL Cholesterol 41 mg/dL (60-) L 05/17/21 04:48 LDL/HDL Ratio 1.5 (<4.4) 05/17/21 04:48 Cholesterol/HDL Ratio 3.0 (<4.4) 05/17/21 04:48 Lipase 50 U/L (22-51) 05/15/21 14:36 TSH 1.70 uIU/mL (0.34-5.60) 05/16/21 04:45 Thyroxine (T4) 8.85 ug/dL (6.09-12.23) 05/16/21 04:45 Nasal Adenovirus (PCR) NOT DETECTED 05/15/21 16:50 Nasal B. parapertussis DNA (PCR) NOT DETECTED 05/15/21 16:50 Nasal Coronavir 229E PCR NOT DETECTED 05/15/21 16:50 Nasal Coronavir HKU1 PCR NOT DETECTED 05/15/21 16:50 Nasal Coronavir NL63 PCR NOT DETECTED 05/15/21 16:50 Nasal Coronavir OC43 PCR NOT DETECTED 05/15/21 16:50 Nasal Enterovir/Rhinovir PCR NOT DETECTED 05/15/21 16:50 Nasal Influenza B PCR NOT DETECTED 05/15/21 16:50 Nasal Influenza A PCR NOT DETECTED 05/15/21 16:50 Nasal Parainfluen 1 PCR NOT DETECTED 05/15/21 16:50 Nasal Parainfluen 2 PCR NOT DETECTED 05/15/21 16:50 Nasal Parainfluen 3 PCR NOT DETECTED 05/15/21 16:50 Nasal Parainfluen 4 PCR NOT DETECTED 05/15/21 16:50 Nasal RSV (PCR) NOT DETECTED 05/15/21 16:50 Nasal Screen MRSA (PCR) POSITIVE (NEGATIVE) A* 05/15/21 19:00 Nasal B.pertussis DNA PCR NOT DETECTED 05/15/21 16:50 Nasal C.pneumoniae (PCR) NOT DETECTED 05/15/21 16:50 [place] Human Metapneumo PCR NOT DETECTED 05/15/21 16:50 Nasal M.pneumoniae (PCR) NOT DETECTED 05/15/21 16:50 Nasal SARS-CoV-2 (PCR) NOT DETECTED 05/15/21 16:50 Last Dose Date 05/27/21 05/28/21 04:14 Last Dose Time 0900 05/28/21 04:14 Digoxin 0.9 ng/mL 05/28/21 04:14 ABX Reporting Has patient been on IV antibiotics over the past 48 hours?: No
[2021-05-28] MEDS: VENLAFAXINE 37.5 MG TABLET PO SCH (08:25)
[2021-05-28] MEDS: DOCUSATE SODIUM 250 MG CAPSULE PO SCH (08:26)
[2021-05-28] MEDS: APIXABAN 5 MG TABLET PO SCH ×2 (08:26→21:51)
[2021-05-28] MEDS: polyethylene glycoL 3350 17 GM PACKET PO SCH (08:26)
[2021-05-28] MEDS: ethyl alcohoL 62% SWAB AMPULE NAS SCH ×2 (08:26→21:52)
[2021-05-28] MEDS: SENNA 8.6 MG TABLET PO SCH (08:26)
[2021-05-28] MEDS: ARIPiprazole 5 MG TABLET PO SCH (08:26)
[2021-05-28] MEDS: METOPROLOL SUCCINATE 50 MG TABLET PO SCH ×2 (08:27→21:52)
[2021-05-28] MEDS: MORPHINE 2 MG/ML CARPUJECT IVP PRN (16:17)
[2021-05-28] MEDS: HYDROcod/ACETAM 5/325 MG TABLET PO PRN ×2 (16:49→21:52)
[2021-05-28] MEDS: GABAPENTIN 100 MG CAPSULE PO SCH (21:51)
[2021-05-29] MEDS: SODIUM CHLORIDE FLUSH 0.9% 10 ML SYRINGE IVP SCH ×4 (00:52→22:32)
[2021-05-29] MEDS: HYDROcod/ACETAM 5/325 MG TABLET PO PRN ×2 (02:15→12:06)
[2021-05-29 05:41] LABS: BASOPHILS # (AUTO) 0.1 10^3/uL (0.0-0.1); BASOPHILS % (AUTO) 1.2 %; EOSINOPHILS # (AUTO) 0.1 10^3/uL (0.0-0.7); EOSINOPHILS % (AUTO) 2.1 %; HCT - HEMATOCRIT 32.8 % (37.0-47.0); HGB - HEMOGLOBIN 10.9 g/dL (12.0-16.0); LYMPHOCYTES # (AUTO) 2.3 10^3/uL (1.5-3.5); LYMPHOCYTES % (AUTO) 34.1 %; MEAN CORPUSCULAR HEMOGLOBIN 32.1 pg (27.0-31.0); MEAN CORPUSCULAR HGB CONC 33.2 g/dL (32.0-36.0); MEAN CORPUSCULAR VOLUME 96.5 fL (81.0-99.0); MEAN PLATELET VOLUME 9.4 fL (7.9-10.8); MONOCYTES # (AUTO) 0.6 10^3/uL (0.0-1.0); MONOCYTES % (AUTO) 8.4 %; NEUTROPHILS # (AUTO) 3.7 10^3/uL (1.5-6.6); NEUTROPHILS % (AUTO) 54.1 %; PLT - PLATELET COUNT 275 10^3/uL (130-450); RED CELL DISTRIBUTION WIDTH 13.3 % (12.0-15.0); WHITE BLOOD COUNT 6.8 x10^3/uL (4.8-10.8)
[2021-05-29 05:50] LABS: CALCIUM 9.3 mg/dL (8.5-10.3); CREATININE 0.8 mg/dL (0.4-1.0); POTASSIUM 4.1 mmol/L (3.5-5.0)
[2021-05-29 05:57] LABS: DIGOXIN 0.7 ng/mL
[2021-05-29] MEDS: PANTOPRAZOLE 40 MG TABLET PO SCH (07:01)
--- NOTE | 2021-05-29 07:08 | PROVIDER PROGRESS NOTE ---
Assessment/Plan - Problem List (1) Bradycardia Assessment/Plan: Junctional Patient's digoxin dose was decreased from 125mcg MWF to MF Toprol-XL decreased from 100mg po bid to 75mg po bid (2) Atrial flutter with rapid ventricular response Assessment/Plan: Rate- controlled Patient's digoxin dose was decreased from 125mcg MWF to MF and Toprol-XL decreased from 100mg po bid to 75mg po bid due to junctional bradycardia Will monitor digoxin level daily On eliquis 5mg po bid (3) Chronic hip pain Qualifiers: Laterality: right Qualified Code(s): M25.551 - Pain in right hip; G89.29 - Other chronic pain Assessment/Plan: Pain management with norco and/or morphine as needed Pending re-evaluation by [facility] for return to their facility (4) Depression with anxiety Assessment/Plan: On venlafaxine and abilify (5) Hx of essential hypertension Assessment/Plan: On Toprol-XL 75mg po bid currently. (6) Schizophrenia Assessment/Plan: On abilify (3) Chronic hip pain Qualifiers: Laterality: right Qualified Code(s): M25.551 - Pain in right hip; G89.29 - Other chronic pain - Current Meds Current Meds: Current Medications Generic Name Dose Route Start Last Admin Trade Name Mehrdadq PRN Reason Stop Dose Admin Hydrocodone Bitart/Acetaminophen 1 tab 05/28/21 15:44 05/29/21 02:15 Hydrocod/Acetam 5/325 Mg Tablet PO 1 tab Q4HR PRN Administration PAIN 5-7 Alcohol 1 amp 05/15/21 22:00 05/28/21 21:52 Ethyl Alcohol 62% Swab Ampule LESLIE 1 amp BID JONATHAN Administration Apixaban 5 mg 05/21/21 21:00 05/28/21 21:51 Apixaban 5 Mg Tablet PO 5 mg BID JONATHAN Administration Aripiprazole 5 mg 05/17/21 09:00 05/28/21 08:26 Aripiprazole 5 Mg Tablet PO 5 mg DAILY JONATHAN Administration Docusate Sodium 250 - 500 mg 05/18/21 09:00 05/28/21 08:26 Docusate Sodium 250 Mg Capsule PO Not Given DAILY JONATHAN Gabapentin 100 mg 05/16/21 21:00 05/28/21 21:51 Gabapentin 100 Mg Capsule PO 100 mg HS JONATHAN Administration Lorazepam 0.5 mg 05/18/21 15:58 05/28/21 11:45 Lorazepam 0.5 Mg Tablet PO 0.5 mg Q6H PRN Administration Anxiety Metoprolol Succinate 75 mg 05/28/21 09:00 05/28/21 21:52 Metoprolol Succinate 50 Mg Tablet PO 75 mg BID JONATHAN Administration Morphine Sulfate 2 mg 05/15/21 21:12 05/28/21 16:17 Morphine 2 Mg/Ml Carpuject IVP 2 mg Q2HR PRN Administration Pain 8 to 10 Pantoprazole Sodium 40 mg 05/18/21 17:00 05/29/21 07:01 Pantoprazole 40 Mg Tablet PO 40 mg QDAC JONATHAN Administration Polyethylene Glycol 17 gm 05/17/21 09:00 05/28/21 08:26 Polyethylene Glycol 3350 17 Gm Packet PO Not Given DAILY JONATHAN Senna 8.6 - 17.2 mg 05/18/21 09:00 05/28/21 08:26 Senna 8.6 Mg Tablet PO Not Given DAILY JONATHAN Sodium Chloride 10 ml 05/15/21 21:12 05/24/21 09:44 Sodium Chloride Flush 0.9% 10 Ml Syringe IVP 10 ml PRN PRN Administration NEEDED PER PROVIDER ORDERS Sodium Chloride 10 ml 05/16/21 01:00 05/29/21 00:52 Sodium Chloride Flush 0.9% 10 Ml Syringe IVP 10 ml 0100,0900,1700 JONATHAN Administration Venlafaxine HCl 112.5 mg 05/16/21 12:22 05/28/21 08:25 Venlafaxine 37.5 Mg Tablet PO 112.5 mg DAILY JONATHAN Administration - Lab Result Fish Bone Diagrams: 05/29/21 05:34 05/29/21 05:34 - Additional Planning My Orders: My Active Orders 05/28/21 15:44 HYDROcod/ACETAM 5/325 [[place] 5/325] 1 tab PO Q4HR PRN Subjective - Subjective Patient Reports: Other (Patient was resting in bedside recliner. She complained of an 8 out of 10 left hip pain) Objective Vital Signs: Vital Signs - 24 hr 05/28/21 05/28/21 05/28/21 07:29 08:25 10:55 Temperature 36.5 C 36.5 C Heart Rate [ Brachial] Heart Rate [ 53 L 53 L 64 Monitoring electrodes] Respiratory 17 17 Rate Blood Pressure [Left Brachial artery] Blood Pressure 121/56 L 123/50 L [Right Brachial artery] O2 Saturation 98 99 05/28/21 05/28/21 05/29/21 15:38 20:33 00:53 Temperature 36.5 C 37.5 C 36.6 C Heart Rate [ 87 82 51 L Brachial] Heart Rate [ Monitoring electrodes] Respiratory 18 18 18 Rate Blood Pressure 97/38 L [Left Brachial artery] Blood Pressure 148/66 H 104/57 L [Right Brachial artery] O2 Saturation 98 95 94 05/29/21 06:50 Temperature 36.4 C L Heart Rate [ 56 L Brachial] Heart Rate [ Monitoring electrodes] Respiratory 20 Rate Blood Pressure [Left Brachial artery] Blood Pressure 116/57 L [Right Brachial artery] O2 Saturation 97 Oxygen O2 Source Room air I&O (Last 24 Hrs): Intake and Output Totals x24h 05/27/21 05/28/21 05/29/21 23:59 23:59 23:59 Intake Total 635 1330 Output Total 800 1950 100 Balance -165 -620 -100 Comments/Notes: General: Alert, Oriented x3, Mild distress, Moderate distress HEENT: PERRLA, EOMI Neck: Supple, No JVD Neuro: Alert, Non Focal, Oriented Times 3 Cardiovascular: Other (iregularly iregular) Respiratory: Chest non-tender, No respiratory distress, Breath sounds nml Abdomen: Normal bowel sounds, Soft, No tenderness Extremities: No clubbing, No cyanosis, No edema, Other (left hip and knee pain) Skin: No rashes, No breakdown, No significant lesion - Results Results: Laboratory Results WBC 6.8 x10^3/uL (4.8-10.8) 05/29/21 05:34 RBC 3.40 10^6/uL (4.20-5.40) L 05/29/21 05:34 Hgb 10.9 g/dL (12.0-16.0) L 05/29/21 05:34 Hct 32.8 % (37.0-47.0) L 05/29/21 05:34 MCV 96.5 fL (81.0-99.0) 05/29/21 05:34 MCH 32.1 pg (27.0-31.0) H 05/29/21 05:34 MCHC 33.2 g/dL (32.0-36.0) 05/29/21 05:34 RDW 13.3 % (12.0-15.0) 05/29/21 05:34 Plt Count 275 10^3/uL (130-450) 05/29/21 05:34 MPV 9.4 fL (7.9-10.8) 05/29/21 05:34 Neut # (Auto) 3.7 10^3/uL (1.5-6.6) 05/29/21 05:34 Lymph # (Auto) 2.3 10^3/uL (1.5-3.5) 05/29/21 05:34 [place] # (Auto) 0.6 10^3/uL (0.0-1.0) 05/29/21 05:34 Eos # (Auto) 0.1 10^3/uL (0.0-0.7) 05/29/21 05:34 Baso # (Auto) 0.1 10^3/uL (0.0-0.1) 05/29/21 05:34 Absolute Nucleated RBC 0.00 x10^3/uL 05/29/21 05:34 Nucleated RBC % 0.0 /100WBC 05/29/21 05:34 Sodium 139 mmol/L (135-145) 05/29/21 05:34 Potassium 4.1 mmol/L (3.5-5.0) 05/29/21 05:34 Chloride 103 mmol/L (101-111) 05/29/21 05:34 Carbon Dioxide 26 mmol/L (21-32) 05/29/21 05:34 Anion Gap 10.0 (6-13) 05/29/21 05:34 BUN 17 mg/dL (6-20) 05/29/21 05:34 Creatinine 0.8 mg/dL (0.4-1.0) 05/29/21 05:34 Estimated GFR (MDRD) 69 (>89) L 05/29/21 05:34 Glucose 103 mg/dL (70-100) H 05/29/21 05:34 Calcium 9.3 mg/dL (8.5-10.3) 05/29/21 05:34 Magnesium 2.0 mg/dL (1.7-2.8) 05/28/21 04:14 Total Bilirubin 0.5 mg/dL (0.2-1.0) 05/15/21 14:36 AST 23 IU/L (10-42) 05/15/21 14:36 ALT 24 IU/L (10-60) 05/15/21 14:36 Alkaline Phosphatase 85 IU/L (42-121) 05/15/21 14:36 Troponin I High Sens 37.3 ng/L (2.3-14.8) H* 05/16/21 16:48 B-Natriuretic Peptide 171 pg/mL (5-100) H 05/18/21 04:15 Total Protein 7.4 g/dL (6.7-8.2) 05/15/21 14:36 Albumin 4.2 g/dL (3.2-5.5) 05/15/21 14:36 Globulin 3.2 g/dL (2.1-4.2) 05/15/21 14:36 Albumin/Globulin Ratio 1.3 (1.0-2.2) 05/15/21 14:36 Triglycerides 102 mg/dL (-149) 05/17/21 04:48 Cholesterol 123 mg/dL (-199) 05/17/21 04:48 LDL Cholesterol, Calc 62 mg/dL (-129) 05/17/21 04:48 VLDL Cholesterol 20 mg/dL 05/17/21 04:48 HDL Cholesterol 41 mg/dL (60-) L 05/17/21 04:48 LDL/HDL Ratio 1.5 (<4.4) 05/17/21 04:48 Cholesterol/HDL Ratio 3.0 (<4.4) 05/17/21 04:48 Lipase 50 U/L (22-51) 05/15/21 14:36 TSH 1.70 uIU/mL (0.34-5.60) 05/16/21 04:45 Thyroxine (T4) 8.85 ug/dL (6.09-12.23) 05/16/21 04:45 Nasal Adenovirus (PCR) NOT DETECTED 05/15/21 16:50 Nasal B. parapertussis DNA (PCR) NOT DETECTED 05/15/21 16:50 Nasal Coronavir 229E PCR NOT DETECTED 05/15/21 16:50 Nasal Coronavir HKU1 PCR NOT DETECTED 05/15/21 16:50 Nasal Coronavir NL63 PCR NOT DETECTED 05/15/21 16:50 Nasal Coronavir OC43 PCR NOT DETECTED 05/15/21 16:50 Nasal Enterovir/Rhinovir PCR NOT DETECTED 05/15/21 16:50 Nasal Influenza B PCR NOT DETECTED 05/15/21 16:50 Nasal Influenza A PCR NOT DETECTED 05/15/21 16:50 Nasal Parainfluen 1 PCR NOT DETECTED 05/15/21 16:50 Nasal Parainfluen 2 PCR NOT DETECTED 05/15/21 16:50 Nasal Parainfluen 3 PCR NOT DETECTED 05/15/21 16:50 Nasal Parainfluen 4 PCR NOT DETECTED 05/15/21 16:50 Nasal RSV (PCR) NOT DETECTED 05/15/21 16:50 Nasal Screen MRSA (PCR) POSITIVE (NEGATIVE) A* 05/15/21 19:00 Nasal B.pertussis DNA PCR NOT DETECTED 05/15/21 16:50 Nasal C.pneumoniae (PCR) NOT DETECTED 05/15/21 16:50 [place] Human Metapneumo PCR NOT DETECTED 05/15/21 16:50 Nasal M.pneumoniae (PCR) NOT DETECTED 05/15/21 16:50 Nasal SARS-CoV-2 (PCR) NOT DETECTED 05/15/21 16:50 Last Dose Date 05/29/21 05/29/21 05:34 Last Dose Time 0900 05/29/21 05:34 Digoxin 0.7 ng/mL 05/29/21 05:34
[2021-05-29] MEDS: ARIPiprazole 5 MG TABLET PO SCH (08:38)
[2021-05-29] MEDS: VENLAFAXINE 37.5 MG TABLET PO SCH (08:38)
[2021-05-29] MEDS: DOCUSATE SODIUM 250 MG CAPSULE PO SCH (08:38)
[2021-05-29] MEDS: polyethylene glycoL 3350 17 GM PACKET PO SCH (08:38)
[2021-05-29] MEDS: APIXABAN 5 MG TABLET PO SCH ×2 (08:38→22:31)
[2021-05-29] MEDS: ethyl alcohoL 62% SWAB AMPULE NAS SCH ×2 (08:38→22:31)
[2021-05-29] MEDS: SENNA 8.6 MG TABLET PO SCH (08:38)
[2021-05-29] MEDS: DIGOXIN 125 MCG TABLET PO SCH (08:39)
[2021-05-29] MEDS: METOPROLOL SUCCINATE 50 MG TABLET PO SCH ×2 (08:39→22:31)
[2021-05-29] MEDS: LORazepam 0.5 MG TABLET PO PRN (15:43)
[2021-05-29] MEDS: MORPHINE 2 MG/ML CARPUJECT IVP PRN ×2 (15:44→22:31)
[2021-05-29] MEDS ORDERED: MORPHINE 2 MG/ML CARPUJECT ONE ×2 (15:45→22:22)
[2021-05-29] MEDS ORDERED: LORazepam 0.5 MG TABLET ONE (15:45)
[2021-05-29] MEDS ORDERED: APIXABAN 5 MG TABLET ONE (22:20)
[2021-05-29] MEDS ORDERED: ethyl alcohoL 62% SWAB AMPULE NAS ONE (22:20)
[2021-05-29] MEDS ORDERED: GABAPENTIN 100 MG CAPSULE ONE (22:21)
[2021-05-29] MEDS ORDERED: METOPROLOL SUCCINATE 50 MG TABLET PO ONE (22:22)
[2021-05-29] MEDS: GABAPENTIN 100 MG CAPSULE PO SCH (22:31)
[2021-05-29] MEDS: SODIUM CHLORIDE FLUSH 0.9% 10 ML SYRINGE IVP PRN (22:32)
[2021-05-30] MEDS ORDERED: SODIUM CHLORIDE FLUSH 0.9% 10 ML SYRINGE IVP ONE (03:33)
[2021-05-30] MEDS ORDERED: HYDROcod/ACETAM 5/325 MG TABLET ONE (03:33)
[2021-05-30] MEDS: SODIUM CHLORIDE FLUSH 0.9% 10 ML SYRINGE IVP SCH ×3 (03:41→15:58)
[2021-05-30] MEDS: HYDROcod/ACETAM 5/325 MG TABLET PO PRN ×4 (03:41→19:17)
[2021-05-30] MEDS ORDERED: MORPHINE 2 MG/ML CARPUJECT ONE (04:51)
[2021-05-30] MEDS: MORPHINE 2 MG/ML CARPUJECT IVP PRN ×2 (04:52→20:46)
[2021-05-30 05:38] LABS: DIGOXIN 0.6 ng/mL
--- NOTE | 2021-05-30 07:44 | PROVIDER PROGRESS NOTE ---
Assessment/Plan - Problem List (1) Bradycardia Assessment/Plan: Junctional Patient's digoxin dose was decreased from 125mcg MWF to MF Toprol-XL decreased from 100mg po bid to 75mg po bid (2) Atrial flutter with rapid ventricular response Assessment/Plan: Rate- controlled Patient's digoxin dose was decreased from 125mcg MWF to MF and Toprol-XL decreased from 100mg po bid to 75mg po bid due to junctional bradycardia Will monitor digoxin level daily On eliquis 5mg po bid (3) Chronic hip pain Qualifiers: Laterality: right Qualified Code(s): M25.551 - Pain in right hip; G89.29 - Other chronic pain Assessment/Plan: Pain management with norco and/or morphine as needed Pending re-evaluation by [facility] for return to their facility (4) Depression with anxiety Assessment/Plan: On venlafaxine and abilify (5) Hx of essential hypertension Assessment/Plan: On Toprol-XL 75mg po bid currently. (6) Schizophrenia Assessment/Plan: On abilify (3) Chronic hip pain Qualifiers: Laterality: right Qualified Code(s): M25.551 - Pain in right hip; G89.29 - Other chronic pain (3) Chronic hip pain Qualifiers: Laterality: right Qualified Code(s): M25.551 - Pain in right hip; G89.29 - Other chronic pain - Current Meds Current Meds: Current Medications Generic Name Dose Route Start Last Admin Trade Name Freq PRN Reason Stop Dose Admin Hydrocodone Bitart/Acetaminophen 1 tab 05/28/21 15:44 05/30/21 03:41 Hydrocod/Acetam 5/325 Mg Tablet PO 1 tab Q4HR PRN Administration PAIN 5-7 Alcohol 1 amp 05/15/21 22:00 05/29/21 22:31 Ethyl Alcohol 62% Swab Ampule LESLIE 1 amp BID JONATHAN Administration Apixaban 5 mg 05/21/21 21:00 05/29/21 22:31 Apixaban 5 Mg Tablet PO 5 mg BID JONATHAN Administration Aripiprazole 5 mg 05/17/21 09:00 05/29/21 08:38 Aripiprazole 5 Mg Tablet PO 5 mg DAILY JONATHAN Administration Digoxin 125 mcg 05/29/21 09:00 05/29/21 08:39 Digoxin 125 Mcg Tablet PO 125 mcg MOFR JONATHAN Administration Docusate Sodium 250 - 500 mg 05/18/21 09:00 05/29/21 08:38 Docusate Sodium 250 Mg Capsule PO Not Given DAILY JONATHAN Gabapentin 100 mg 05/16/21 21:00 05/29/21 22:31 Gabapentin 100 Mg Capsule PO 100 mg HS JONATHAN Administration Lorazepam 0.5 mg 05/18/21 15:58 05/29/21 15:43 Lorazepam 0.5 Mg Tablet PO 0.5 mg Q6H PRN Administration Anxiety Metoprolol Succinate 75 mg 05/28/21 09:00 05/29/21 22:31 Metoprolol Succinate 50 Mg Tablet PO 75 mg BID JONATHAN Administration Morphine Sulfate 2 mg 05/15/21 21:12 05/30/21 04:52 Morphine 2 Mg/Ml Carpuject IVP 2 mg Q2HR PRN Administration Pain 8 to 10 Pantoprazole Sodium 40 mg 05/18/21 17:00 05/29/21 07:01 Pantoprazole 40 Mg Tablet PO 40 mg QDAC JONATHAN Administration Polyethylene Glycol 17 gm 05/17/21 09:00 05/29/21 08:38 Polyethylene Glycol 3350 17 Gm Packet PO 17 gm DAILY JONATHAN Administration Senna 8.6 - 17.2 mg 05/18/21 09:00 05/29/21 08:38 Senna 8.6 Mg Tablet PO Not Given DAILY JONATHAN Sodium Chloride 10 ml 05/15/21 21:12 05/29/21 22:32 Sodium Chloride Flush 0.9% 10 Ml Syringe IVP 20 ml PRN PRN Administration NEEDED PER PROVIDER ORDERS Sodium Chloride 10 ml 05/16/21 01:00 05/30/21 03:41 Sodium Chloride Flush 0.9% 10 Ml Syringe IVP 10 ml 0100,0900,1700 JONATHAN Administration Venlafaxine HCl 112.5 mg 05/16/21 12:22 05/29/21 08:38 Venlafaxine 37.5 Mg Tablet PO 112.5 mg DAILY JONATHAN Administration - Lab Result Fish Bone Diagrams: 05/29/21 05:34 05/29/21 05:34 - Additional Planning My Orders: My Active Orders 05/31/21 05:00 BMP - BASIC METABOLIC PANEL [CHEM] DAILYLAB CBC - COMP BLD CT W/AUTO DIFF [HEME] DAILYLAB 06/01/21 05:00 BMP - BASIC METABOLIC PANEL [CHEM] DAILYLAB CBC - COMP BLD CT W/AUTO DIFF [HEME] DAILYLAB 06/02/21 05:00 BMP - BASIC METABOLIC PANEL [CHEM] DAILYLAB CBC - COMP BLD CT W/AUTO DIFF [HEME] DAILYLAB Subjective - Subjective Patient Reports: Other (Patient was resting in bedside recliner. She complained of an 6 out of 10 left hip pain) Objective Vital Signs: Vital Signs - 24 hr 05/29/21 05/29/21 05/29/21 11:55 16:16 21:00 Temperature 37 C 37.0 C 36.5 C Heart Rate [ 66 73 Brachial] Heart Rate [ 60 Monitoring electrodes] Respiratory 19 17 18 Rate Blood Pressure 139/64 H 142/69 H 149/66 H [Right Brachial artery] O2 Saturation 99 95 98 05/30/21 05/30/21 05/30/21 00:10 05:35 07:33 Temperature 36.6 C 36.5 C 36.6 C Heart Rate [ Brachial] Heart Rate [ 52 L 54 L 52 L Monitoring electrodes] Respiratory 16 16 16 Rate Blood Pressure 123/54 L 119/72 122/56 L [Right Brachial artery] O2 Saturation 94 97 97 Oxygen O2 Source Room air I&O (Last 24 Hrs): Intake and Output Totals x24h 05/28/21 05/29/21 05/30/21 23:59 23:59 23:59 Intake Total 1330 490 390 Output Total 1950 1050 1000 Balance -306 -173 -610 Comments/Notes: General: Alert, Oriented x3, Mild distress, Moderate distress HEENT: PERRLA, EOMI Neck: Supple, No JVD Neuro: Alert, Non Focal, Oriented Times 3 Cardiovascular: Other (iregularly iregular) Respiratory: Chest non-tender, No respiratory distress, Breath sounds nml Abdomen: Normal bowel sounds, Soft, No tenderness Extremities: No clubbing, No cyanosis, No edema, Other (left hip and knee pain) Skin: No rashes, No breakdown, No significant lesion - Results Results: Laboratory Results WBC 6.8 x10^3/uL (4.8-10.8) 05/29/21 05:34 RBC 3.40 10^6/uL (4.20-5.40) L 05/29/21 05:34 Hgb 10.9 g/dL (12.0-16.0) L 05/29/21 05:34 Hct 32.8 % (37.0-47.0) L 05/29/21 05:34 MCV 96.5 fL (81.0-99.0) 05/29/21 05:34 MCH 32.1 pg (27.0-31.0) H 05/29/21 05:34 MCHC 33.2 g/dL (32.0-36.0) 05/29/21 05:34 RDW 13.3 % (12.0-15.0) 05/29/21 05:34 Plt Count 275 10^3/uL (130-450) 05/29/21 05:34 MPV 9.4 fL (7.9-10.8) 05/29/21 05:34 Neut # (Auto) 3.7 10^3/uL (1.5-6.6) 05/29/21 05:34 Lymph # (Auto) 2.3 10^3/uL (1.5-3.5) 05/29/21 05:34 [place] # (Auto) 0.6 10^3/uL (0.0-1.0) 05/29/21 05:34 Eos # (Auto) 0.1 10^3/uL (0.0-0.7) 05/29/21 05:34 Baso # (Auto) 0.1 10^3/uL (0.0-0.1) 05/29/21 05:34 Absolute Nucleated RBC 0.00 x10^3/uL 05/29/21 05:34 Nucleated RBC % 0.0 /100WBC 05/29/21 05:34 Sodium 139 mmol/L (135-145) 05/29/21 05:34 Potassium 4.1 mmol/L (3.5-5.0) 05/29/21 05:34 Chloride 103 mmol/L (101-111) 05/29/21 05:34 Carbon Dioxide 26 mmol/L (21-32) 05/29/21 05:34 Anion Gap 10.0 (6-13) 05/29/21 05:34 BUN 17 mg/dL (6-20) 05/29/21 05:34 Creatinine 0.8 mg/dL (0.4-1.0) 05/29/21 05:34 Estimated GFR (MDRD) 69 (>89) L 05/29/21 05:34 Glucose 103 mg/dL (70-100) H 05/29/21 05:34 Calcium 9.3 mg/dL (8.5-10.3) 05/29/21 05:34 Magnesium 2.0 mg/dL (1.7-2.8) 05/28/21 04:14 Total Bilirubin 0.5 mg/dL (0.2-1.0) 05/15/21 14:36 AST 23 IU/L (10-42) 05/15/21 14:36 ALT 24 IU/L (10-60) 05/15/21 14:36 Alkaline Phosphatase 85 IU/L (42-121) 05/15/21 14:36 Troponin I High Sens 37.3 ng/L (2.3-14.8) H* 05/16/21 16:48 B-Natriuretic Peptide 171 pg/mL (5-100) H 05/18/21 04:15 Total Protein 7.4 g/dL (6.7-8.2) 05/15/21 14:36 Albumin 4.2 g/dL (3.2-5.5) 05/15/21 14:36 Globulin 3.2 g/dL (2.1-4.2) 05/15/21 14:36 Albumin/Globulin Ratio 1.3 (1.0-2.2) 05/15/21 14:36 Triglycerides 102 mg/dL (-149) 05/17/21 04:48 Cholesterol 123 mg/dL (-199) 05/17/21 04:48 LDL Cholesterol, Calc 62 mg/dL (-129) 05/17/21 04:48 VLDL Cholesterol 20 mg/dL 05/17/21 04:48 HDL Cholesterol 41 mg/dL (60-) L 05/17/21 04:48 LDL/HDL Ratio 1.5 (<4.4) 05/17/21 04:48 Cholesterol/HDL Ratio 3.0 (<4.4) 05/17/21 04:48 Lipase 50 U/L (22-51) 05/15/21 14:36 TSH 1.70 uIU/mL (0.34-5.60) 05/16/21 04:45 Thyroxine (T4) 8.85 ug/dL (6.09-12.23) 05/16/21 04:45 Nasal Adenovirus (PCR) NOT DETECTED 05/15/21 16:50 Nasal B. parapertussis DNA (PCR) NOT DETECTED 05/15/21 16:50 Nasal Coronavir 229E PCR NOT DETECTED 05/15/21 16:50 Nasal Coronavir HKU1 PCR NOT DETECTED 05/15/21 16:50 Nasal Coronavir NL63 PCR NOT DETECTED 05/15/21 16:50 Nasal Coronavir OC43 PCR NOT DETECTED 05/15/21 16:50 Nasal Enterovir/Rhinovir PCR NOT DETECTED 05/15/21 16:50 Nasal Influenza B PCR NOT DETECTED 05/15/21 16:50 Nasal Influenza A PCR NOT DETECTED 05/15/21 16:50 Nasal Parainfluen 1 PCR NOT DETECTED 05/15/21 16:50 Nasal Parainfluen 2 PCR NOT DETECTED 05/15/21 16:50 Nasal Parainfluen 3 PCR NOT DETECTED 05/15/21 16:50 Nasal Parainfluen 4 PCR NOT DETECTED 05/15/21 16:50 Nasal RSV (PCR) NOT DETECTED 05/15/21 16:50 Nasal Screen MRSA (PCR) POSITIVE (NEGATIVE) A* 05/15/21 19:00 Nasal B.pertussis DNA PCR NOT DETECTED 05/15/21 16:50 Nasal C.pneumoniae (PCR) NOT DETECTED 05/15/21 16:50 [place] Human Metapneumo PCR NOT DETECTED 05/15/21 16:50 Nasal M.pneumoniae (PCR) NOT DETECTED 05/15/21 16:50 Nasal SARS-CoV-2 (PCR) NOT DETECTED 05/15/21 16:50 Last Dose Date 05/29/21 05/30/21 04:51 Last Dose Time 0839 05/30/21 04:51 Digoxin 0.6 ng/mL 05/30/21 04:51 ABX Reporting Has patient been on IV antibiotics over the past 48 hours?: No
[2021-05-30] MEDS: PANTOPRAZOLE 40 MG TABLET PO SCH (07:46)
[2021-05-30] MEDS: ARIPiprazole 5 MG TABLET PO SCH (08:35)
[2021-05-30] MEDS: METOPROLOL SUCCINATE 50 MG TABLET PO SCH ×2 (08:35→20:46)
[2021-05-30] MEDS: DOCUSATE SODIUM 250 MG CAPSULE PO SCH (08:35)
[2021-05-30] MEDS: SENNA 8.6 MG TABLET PO SCH (08:36)
[2021-05-30] MEDS: APIXABAN 5 MG TABLET PO SCH ×2 (08:36→20:47)
[2021-05-30] MEDS: VENLAFAXINE 37.5 MG TABLET PO SCH (08:36)
[2021-05-30] MEDS: DIGOXIN 125 MCG TABLET PO SCH (08:36)
[2021-05-30] MEDS: ethyl alcohoL 62% SWAB AMPULE NAS SCH ×2 (08:36→20:46)
[2021-05-30] MEDS: polyethylene glycoL 3350 17 GM PACKET PO SCH (08:37)
[2021-05-30] MEDS: LORazepam 0.5 MG TABLET PO PRN (14:04)
[2021-05-30] MEDS: GABAPENTIN 100 MG CAPSULE PO SCH (20:46)
[2021-05-30] MEDS: SODIUM CHLORIDE FLUSH 0.9% 10 ML SYRINGE IVP PRN (20:46)
[2021-05-31] MEDS: HYDROcod/ACETAM 5/325 MG TABLET PO PRN ×5 (00:10→21:22)
[2021-05-31] MEDS: SODIUM CHLORIDE FLUSH 0.9% 10 ML SYRINGE IVP SCH ×3 (00:20→17:28)
[2021-05-31] MEDS: PANTOPRAZOLE 40 MG TABLET PO SCH (05:31)
[2021-05-31 06:09] LABS: BASOPHILS # (AUTO) 0.1 10^3/uL (0.0-0.1); BASOPHILS % (AUTO) 0.6 %; EOSINOPHILS # (AUTO) 0.2 10^3/uL (0.0-0.7); EOSINOPHILS % (AUTO) 2.1 %; HCT - HEMATOCRIT 34.2 % (37.0-47.0); HGB - HEMOGLOBIN 11.5 g/dL (12.0-16.0); LYMPHOCYTES # (AUTO) 2.8 10^3/uL (1.5-3.5); LYMPHOCYTES % (AUTO) 32.9 %; MEAN CORPUSCULAR HEMOGLOBIN 31.6 pg (27.0-31.0); MEAN CORPUSCULAR HGB CONC 33.6 g/dL (32.0-36.0); MEAN PLATELET VOLUME 9.1 fL (7.9-10.8); MONOCYTES # (AUTO) 0.5 10^3/uL (0.0-1.0); NEUTROPHILS # (AUTO) 4.9 10^3/uL (1.5-6.6); NEUTROPHILS % (AUTO) 57.9 %; PLT - PLATELET COUNT 313 10^3/uL (130-450); RED BLOOD COUNT 3.64 10^6/uL (4.20-5.40); RED CELL DISTRIBUTION WIDTH 13.2 % (12.0-15.0); WHITE BLOOD COUNT 8.4 x10^3/uL (4.8-10.8)
[2021-05-31 06:19] LABS: CALCIUM 9.5 mg/dL (8.5-10.3); CREATININE 0.8 mg/dL (0.4-1.0); POTASSIUM 4.3 mmol/L (3.5-5.0)
[2021-05-31] MEDS: VENLAFAXINE 37.5 MG TABLET PO SCH (08:28)
[2021-05-31] MEDS: DOCUSATE SODIUM 250 MG CAPSULE PO SCH (08:28)
[2021-05-31] MEDS: ethyl alcohoL 62% SWAB AMPULE NAS SCH ×2 (08:28→20:28)
[2021-05-31] MEDS: METOPROLOL SUCCINATE 50 MG TABLET PO SCH ×2 (08:29→20:27)
[2021-05-31] MEDS: ARIPiprazole 5 MG TABLET PO SCH (08:29)
[2021-05-31] MEDS: SENNA 8.6 MG TABLET PO SCH (08:29)
[2021-05-31] MEDS: APIXABAN 5 MG TABLET PO SCH ×2 (08:29→20:28)
[2021-05-31] MEDS: polyethylene glycoL 3350 17 GM PACKET PO SCH (08:30)
--- NOTE | 2021-05-31 11:13 | PROVIDER PROGRESS NOTE ---
Assessment/Plan - Problem List (1) Ventricular tachycardia (paroxysmal) Assessment/Plan: 05/31 Patient Had 3 beats of nonsuspended ventricular tachycardia at last night on telemetry. Patient denies chest pain, patient's hemodynamically is stable. Electrolytes are in the normal range, Troponin test is negative. We will continue director style patient, We will continue metoprolol for patient. (2) Bradycardia Assessment/Plan: 05/31 good controlled. Patient denies dizziness, lightheaded. Lowest HR was 50, when patient was in the sleep at night. Patient's digoxin dose was decreased from 125mcg MWF to MF Toprol-XL decreased from 100mg po bid to 75mg po bid Continue telemetry (3) Atrial flutter with rapid ventricular response Assessment/Plan: 05/31 Rate is under of controlled, Patient's digoxin dose was decreased from 125 mcg MWF to MF, digoxin serum Concentration is in the therapeutic range. Toprol-XL decreased from 100mg po bid to 75mg po bid due to junctional bradycardia continue On eliquis 5mg po bid (4) Chronic hip pain Pain management with norco and/or morphine as needed Pending re-evaluation by [facility] for return to their facility (5) Depression with anxiety Assessment/Plan: On venlafaxine and abilify (6) Hx of essential hypertension Assessment/Plan: On Toprol-XL 75mg po bid currently. (7) Schizophrenia Assessment/Plan: On abilify - Current Meds Current Meds: Current Medications Generic Name Dose Route Start Last Admin Trade Name Freq PRN Reason Stop Dose Admin Hydrocodone Bitart/Acetaminophen 1 tab 05/28/21 15:44 05/31/21 05:29 Hydrocod/Acetam 5/325 Mg Tablet PO 1 tab Q4HR PRN Administration PAIN 5-7 Alcohol 1 amp 05/15/21 22:00 05/31/21 08:28 Ethyl Alcohol 62% Swab Ampule LESLIE 1 amp BID JONATHAN Administration Apixaban 5 mg 05/21/21 21:00 05/31/21 08:29 Apixaban 5 Mg Tablet PO 5 mg BID JONATHAN Administration Aripiprazole 5 mg 05/17/21 09:00 05/31/21 08:29 Aripiprazole 5 Mg Tablet PO 5 mg DAILY JONATHAN Administration Digoxin 125 mcg 05/29/21 09:00 05/30/21 08:36 Digoxin 125 Mcg Tablet PO 125 mcg MOFR JONATHAN Administration Docusate Sodium 250 - 500 mg 05/18/21 09:00 05/31/21 08:28 Docusate Sodium 250 Mg Capsule PO 250 mg DAILY JONATHAN Administration Gabapentin 100 mg 05/16/21 21:00 05/30/21 20:46 Gabapentin 100 Mg Capsule PO 100 mg HS JONATHAN Administration Lorazepam 0.5 mg 05/18/21 15:58 05/30/21 14:04 Lorazepam 0.5 Mg Tablet PO 0.5 mg Q6H PRN Administration Anxiety Metoprolol Succinate 75 mg 05/28/21 09:00 05/31/21 08:29 Metoprolol Succinate 50 Mg Tablet PO 75 mg BID JONATHAN Administration Morphine Sulfate 2 mg 05/15/21 21:12 05/30/21 20:46 Morphine 2 Mg/Ml Carpuject IVP 2 mg Q2HR PRN Administration Pain 8 to 10 Pantoprazole Sodium 40 mg 05/18/21 17:00 05/31/21 05:31 Pantoprazole 40 Mg Tablet PO 40 mg QDAC JONATHAN Administration Polyethylene Glycol 17 gm 05/17/21 09:00 05/31/21 08:30 Polyethylene Glycol 3350 17 Gm Packet PO Not Given DAILY JONATHAN Senna 8.6 - 17.2 mg 05/18/21 09:00 05/31/21 08:29 Senna 8.6 Mg Tablet PO 8.6 mg DAILY JONATHAN Administration Sodium Chloride 10 ml 05/15/21 21:12 05/30/21 20:46 Sodium Chloride Flush 0.9% 10 Ml Syringe IVP 10 ml PRN PRN Administration NEEDED PER PROVIDER ORDERS Sodium Chloride 10 ml 05/16/21 01:00 05/31/21 08:30 Sodium Chloride Flush 0.9% 10 Ml Syringe IVP 10 ml 0100,0900,1700 JONATHAN Administration Venlafaxine HCl 112.5 mg 05/16/21 12:22 05/31/21 08:28 Venlafaxine 37.5 Mg Tablet PO 112.5 mg DAILY JONATHAN Administration - Lab Result Fish Bone Diagrams: 05/31/21 06:03 05/31/21 06:03 Subjective - Subjective Patient Reports: Feeling Better Objective Vital Signs: Vital Signs - 24 hr 05/30/21 05/30/21 05/30/21 11:13 16:35 20:39 Temperature 36.6 C 36.6 C 37.1 C Heart Rate [ 51 L 73 75 Brachial] Respiratory 16 18 19 Rate Blood Pressure 119/51 L 137/70 H 149/74 H [Right Brachial artery] O2 Saturation 96 97 97 05/30/21 05/31/21 05/31/21 23:33 05:13 07:46 Temperature 37.0 C 37.3 C 36.6 C Heart Rate [ 68 58 L 50 L Brachial] Respiratory 16 18 18 Rate Blood Pressure 136/58 H 129/68 121/68 [Right Brachial artery] O2 Saturation 96 97 98 Oxygen O2 Source Room air I&O (Last 24 Hrs): Intake and Output Totals x24h 05/29/21 05/30/21 05/31/21 23:59 23:59 23:59 Intake Total 490 1850 580 Output Total 1050 1100 1300 Balance -560 750 -720 General: Alert, Oriented x3, Cooperative, No acute distress HEENT: Atraumatic Neck: Supple Lymphatic: no adenopathy Neuro: Alert, Non Focal, Oriented Times 3 Cardiovascular: Regular rate, Normal S1, Normal S2 Respiratory: Chest non-tender, No respiratory distress Abdomen: Normal bowel sounds, Soft Extremities: Normal pulses - Results Results: Laboratory Results WBC 8.4 x10^3/uL (4.8-10.8) 05/31/21 06:03 RBC 3.64 10^6/uL (4.20-5.40) L 05/31/21 06:03 Hgb 11.5 g/dL (12.0-16.0) L 05/31/21 06:03 Hct 34.2 % (37.0-47.0) L 05/31/21 06:03 MCV 94.0 fL (81.0-99.0) 05/31/21 06:03 MCH 31.6 pg (27.0-31.0) H 05/31/21 06:03 MCHC 33.6 g/dL (32.0-36.0) 05/31/21 06:03 RDW 13.2 % (12.0-15.0) 05/31/21 06:03 Plt Count 313 10^3/uL (130-450) 05/31/21 06:03 MPV 9.1 fL (7.9-10.8) 05/31/21 06:03 Neut # (Auto) 4.9 10^3/uL (1.5-6.6) 05/31/21 06:03 Lymph # (Auto) 2.8 10^3/uL (1.5-3.5) 05/31/21 06:03 [place] # (Auto) 0.5 10^3/uL (0.0-1.0) 05/31/21 06:03 Eos # (Auto) 0.2 10^3/uL (0.0-0.7) 05/31/21 06:03 Baso # (Auto) 0.1 10^3/uL (0.0-0.1) 05/31/21 06:03 Absolute Nucleated RBC 0.00 x10^3/uL 05/31/21 06:03 Nucleated RBC % 0.0 /100WBC 05/31/21 06:03 Sodium 139 mmol/L (135-145) 05/31/21 06:03 Potassium 4.3 mmol/L (3.5-5.0) 05/31/21 06:03 Chloride 105 mmol/L (101-111) 05/31/21 06:03 Carbon Dioxide 24 mmol/L (21-32) 05/31/21 06:03 Anion Gap 10.0 (6-13) 05/31/21 06:03 BUN 19 mg/dL (6-20) 05/31/21 06:03 Creatinine 0.8 mg/dL (0.4-1.0) 05/31/21 06:03 Estimated GFR (MDRD) 69 (>89) L 05/31/21 06:03 Glucose 104 mg/dL (70-100) H 05/31/21 06:03 Calcium 9.5 mg/dL (8.5-10.3) 05/31/21 06:03 Magnesium 2.0 mg/dL (1.7-2.8) 05/28/21 04:14 Total Bilirubin 0.5 mg/dL (0.2-1.0) 05/15/21 14:36 AST 23 IU/L (10-42) 05/15/21 14:36 ALT 24 IU/L (10-60) 05/15/21 14:36 Alkaline Phosphatase 85 IU/L (42-121) 05/15/21 14:36 Troponin I High Sens 9.0 ng/L (2.3-14.8) 05/31/21 08:46 B-Natriuretic Peptide 171 pg/mL (5-100) H 05/18/21 04:15 Total Protein 7.4 g/dL (6.7-8.2) 05/15/21 14:36 Albumin 4.2 g/dL (3.2-5.5) 05/15/21 14:36 Globulin 3.2 g/dL (2.1-4.2) 05/15/21 14:36 Albumin/Globulin Ratio 1.3 (1.0-2.2) 05/15/21 14:36 Triglycerides 102 mg/dL (-149) 05/17/21 04:48 Cholesterol 123 mg/dL (-199) 05/17/21 04:48 LDL Cholesterol, Calc 62 mg/dL (-129) 05/17/21 04:48 VLDL Cholesterol 20 mg/dL 05/17/21 04:48 HDL Cholesterol 41 mg/dL (60-) L 05/17/21 04:48 LDL/HDL Ratio 1.5 (<4.4) 05/17/21 04:48 Cholesterol/HDL Ratio 3.0 (<4.4) 05/17/21 04:48 Lipase 50 U/L (22-51) 05/15/21 14:36 TSH 1.70 uIU/mL (0.34-5.60) 05/16/21 04:45 Thyroxine (T4) 8.85 ug/dL (6.09-12.23) 05/16/21 04:45 Nasal Adenovirus (PCR) NOT DETECTED 05/15/21 16:50 Nasal B. parapertussis DNA (PCR) NOT DETECTED 05/15/21 16:50 Nasal Coronavir 229E PCR NOT DETECTED 05/15/21 16:50 Nasal Coronavir HKU1 PCR NOT DETECTED 05/15/21 16:50 Nasal Coronavir NL63 PCR NOT DETECTED 05/15/21 16:50 Nasal Coronavir OC43 PCR NOT DETECTED 05/15/21 16:50 Nasal Enterovir/Rhinovir PCR NOT DETECTED 05/15/21 16:50 Nasal Influenza B PCR NOT DETECTED 05/15/21 16:50 Nasal Influenza A PCR NOT DETECTED 05/15/21 16:50 Nasal Parainfluen 1 PCR NOT DETECTED 05/15/21 16:50 Nasal Parainfluen 2 PCR NOT DETECTED 05/15/21 16:50 Nasal Parainfluen 3 PCR NOT DETECTED 05/15/21 16:50 Nasal Parainfluen 4 PCR NOT DETECTED 05/15/21 16:50 Nasal RSV (PCR) NOT DETECTED 05/15/21 16:50 Nasal Screen MRSA (PCR) POSITIVE (NEGATIVE) A* 05/15/21 19:00 Nasal B.pertussis DNA PCR NOT DETECTED 05/15/21 16:50 Nasal C.pneumoniae (PCR) NOT DETECTED 05/15/21 16:50 [place] Human Metapneumo PCR NOT DETECTED 05/15/21 16:50 Nasal M.pneumoniae (PCR) NOT DETECTED 05/15/21 16:50 Nasal SARS-CoV-2 (PCR) NOT DETECTED 05/15/21 16:50 Last Dose Date 05/29/21 05/30/21 04:51 Last Dose Time 0839 05/30/21 04:51 Digoxin 0.6 ng/mL 05/30/21 04:51 ABX Reporting Has patient been on IV antibiotics over the past 48 hours?: No Current Medications - Current Medications Current Medications: Active Medications Hydrocodone Bitart/Acetaminophen (Hydrocod/Acetam 5/325 Mg Tablet) 1 tab PO Q4HR PRN PRN Reason: PAIN 5-7 Last Admin: 05/31/21 05:29 Dose: 1 tab Documented by: Alcohol (Ethyl Alcohol 62% Swab Ampule) 1 amp LESLIE BID COUNT INCLUDES THE [facility] Last Admin: 05/31/21 08:28 Dose: 1 amp Documented by: Apixaban (Apixaban 5 Mg Tablet) 5 mg PO BID COUNT INCLUDES THE [facility] Last Admin: 05/31/21 08:29 Dose: 5 mg Documented by: Aripiprazole (Aripiprazole 5 Mg Tablet) 5 mg PO DAILY COUNT INCLUDES THE [facility] Last Admin: 05/31/21 08:29 Dose: 5 mg Documented by: Digoxin (Digoxin 125 Mcg Tablet) 125 mcg PO MOFR COUNT INCLUDES THE [facility] Last Admin: 05/30/21 08:36 Dose: 125 mcg Documented by: Docusate Sodium (Docusate Sodium 250 Mg Capsule) 250 - 500 mg PO DAILY COUNT INCLUDES THE [facility] Last Admin: 05/31/21 08:28 Dose: 250 mg Documented by: Gabapentin (Gabapentin 100 Mg Capsule) 100 mg PO [facility] Last Admin: 05/30/21 20:46 Dose: 100 mg Documented by: Lorazepam (Lorazepam 0.5 Mg Tablet) 0.5 mg PO Q6H PRN PRN Reason: Anxiety Last Admin: 05/30/21 14:04 Dose: 0.5 mg Documented by: Metoprolol Succinate (Metoprolol Succinate 50 Mg Tablet) 75 mg PO BID COUNT INCLUDES THE [facility] Last Admin: 05/31/21 08:29 Dose: 75 mg Documented by: Metoprolol Tartrate (Metoprolol 5 Mg/5 Ml Vial) 5 mg IVP Q6H PRN PRN Reason: Tachycardia Morphine Sulfate (Morphine 2 Mg/Ml Carpuject) 2 mg IVP Q2HR PRN PRN Reason: Pain 8 to 10 Last Admin: 05/30/21 20:46 Dose: 2 mg Documented by: Ondansetron HCl (Ondansetron 4 Mg/2 Ml Vial) 4 mg IVP Q6HR PRN PRN Reason: Nausea / Vomiting Pantoprazole Sodium (Pantoprazole 40 Mg Tablet) 40 mg PO QDAC COUNT INCLUDES THE [facility] Last Admin: 05/31/21 05:31 Dose: 40 mg Documented by: Polyethylene Glycol (Polyethylene Glycol 3350 17 Gm Packet) 17 gm PO DAILY COUNT INCLUDES THE [facility] Last Admin: 05/31/21 08:30 Dose: Not Given Documented by: Senna (Senna 8.6 Mg Tablet) 8.6 - 17.2 mg PO DAILY COUNT INCLUDES THE [facility] Last Admin: 05/31/21 08:29 Dose: 8.6 mg Documented by: Sodium Chloride (Sodium Chloride Flush 0.9% 10 Ml Syringe) 10 ml IVP PRN PRN PRN Reason: NEEDED PER PROVIDER ORDERS Last Admin: 05/30/21 20:46 Dose: 10 ml Documented by: Sodium Chloride (Sodium Chloride Flush 0.9% 10 Ml Syringe) 10 ml IVP 0100,0900,1700 COUNT INCLUDES THE [facility] Last Admin: 05/31/21 08:30 Dose: 10 ml Documented by: Venlafaxine HCl (Venlafaxine 37.5 Mg Tablet) 112.5 mg PO DAILY COUNT INCLUDES THE [facility] Last Admin: 05/31/21 08:28 Dose: 112.5 mg Documented by: ARIPiprazole [Abilify] 5 mg PO DAILY 05/16/21 Albuterol Sulfate [Proair Respiclick] 2 puffs INH Q4H PRN 05/16/21 Celecoxib [Celebrex] 200 mg PO QDBREAKFAST 05/16/21 Cholecalciferol (Vitamin D3) [Vitamin D3] 25 mcg PO DAILY 05/16/21 Diclofenac Sodium 50 mg PO TID PRN 05/16/21 Ferrous Sulfate 325 mg PO DAILYWM 05/16/21 Furosemide [Lasix] 20 mg PO MOWEFR PRN 05/16/21 Gabapentin [Neurontin] 100 mg PO HS 05/16/21 HYDROcod/ACETAM 5/325 [[place] 5/325] 1 tab PO 0800,1200,2100 05/16/21 Linaclotide [Linzess] 145 mcg PO DAILY PRN 05/16/21 Metoprolol Tartrate [Lopressor] 50 mg PO BID 05/16/21 Multivitamin [Theragran] 1 tab PO DAILY 05/16/21 Pantoprazole [Protonix] 40 mg PO QDAC 05/16/21 Simvastatin [Zocor] 20 mg PO QDDINNER 05/16/21 Venlafaxine HCl 75 mg PO DAILY 05/16/21 Venlafaxine [Effexor] 37.5 mg PO DAILY 05/16/21 lisinopriL [Lisinopril] 20 mg PO DAILY 05/16/21 traMADol [Ultram] 50 mg PO Q6H PRN 05/16/21
[2021-05-31] MEDS: SODIUM CHLORIDE FLUSH 0.9% 10 ML SYRINGE IVP PRN (19:10)
[2021-05-31] MEDS: MORPHINE 2 MG/ML CARPUJECT IVP PRN (19:10)
[2021-05-31] MEDS: LORazepam 0.5 MG TABLET PO PRN (20:27)
[2021-05-31] MEDS: GABAPENTIN 100 MG CAPSULE PO SCH (20:28)
[2021-06-01] MEDS: SODIUM CHLORIDE FLUSH 0.9% 10 ML SYRINGE IVP SCH ×2 (00:39→09:58)
[2021-06-01 05:25] LABS: BASOPHILS # (AUTO) 0.1 10^3/uL (0.0-0.1); BASOPHILS % (AUTO) 0.8 %; EOSINOPHILS # (AUTO) 0.2 10^3/uL (0.0-0.7); LYMPHOCYTES # (AUTO) 2.8 10^3/uL (1.5-3.5); LYMPHOCYTES % (AUTO) 35.7 %; MEAN CORPUSCULAR HEMOGLOBIN 31.6 pg (27.0-31.0); MEAN CORPUSCULAR HGB CONC 33.3 g/dL (32.0-36.0); MEAN CORPUSCULAR VOLUME 94.8 fL (81.0-99.0); MEAN PLATELET VOLUME 10.1 fL (7.9-10.8); MONOCYTES # (AUTO) 0.6 10^3/uL (0.0-1.0); MONOCYTES % (AUTO) 7.4 %; NEUTROPHILS # (AUTO) 4.2 10^3/uL (1.5-6.6); NEUTROPHILS % (AUTO) 53.8 %; PLT - PLATELET COUNT 318 10^3/uL (130-450); RED BLOOD COUNT 3.48 10^6/uL (4.20-5.40); RED CELL DISTRIBUTION WIDTH 13.4 % (12.0-15.0); WHITE BLOOD COUNT 7.8 x10^3/uL (4.8-10.8)
[2021-06-01] MEDS: HYDROcod/ACETAM 5/325 MG TABLET PO PRN ×2 (05:41→09:58)
[2021-06-01] MEDS: PANTOPRAZOLE 40 MG TABLET PO SCH (05:41)
[2021-06-01 05:48] LABS: CALCIUM 9.4 mg/dL (8.5-10.3); CREATININE 0.7 mg/dL (0.4-1.0); POTASSIUM 3.9 mmol/L (3.5-5.0)
--- NOTE | 2021-06-01 08:21 | Discharge Plan ---
"Discharge Plan for SNF / [facility] - Discharge Plan And Transition Orders Problem Reviewed?: Yes Disposition: 03 SNF DC/Xfer Condition: Stable Allergies and Adverse Reactions: Allergies Allergy/AdvReac Type Severity Reaction Status Date / Time No Known Drug Allergies Allergy Verified 05/15/21 14:14 Health Concerns: chronic hip pain, systolic heart failure, afib with RVR Plan of Treatment: chronic hip pain: continue pain control, pt is not candidate for hip repair per surgeon's assessment. systolic heart failure: pt has 35% EF with global hypokinesis, pt may continue Digoxin, Metoprolol, Lisinopril, Zocor and Eliquis, followup with welding machine operator [facility] as out-pt Afib with RVR. pt's heart rate is controlled now, pt may continue Metoprolol and Digoxin, followup with welding machine operator submerged arc as out-pt Care Goals: Stabilization and improvement of patient's medical conditions Assessment: Discussed the care plan with patient, answered patient's questions, patient understood. - SNF / [facility] Transition Orders Admit to (Facility): [facility] Under the care of (Name): [facility] Discharge Diagnosis: Chronic hip pain, A fibrillation with RVR, Systolic heart failure, Hypertension, Schizophrenia, depression with anxiety Medicare Certification Statement: I certify that Post Hospital care home care is medically necessary on a continuing basis for any of the conditions for which she/he is receiving care during hospitalization. Notify PCP of admission and forward orders to primary provider for signature. Weight on admission and: Daily Call PCP immediately if weight increases by: 2 kg Other Notification Orders: Call PCP immediately if patient develops dyspnea, chest pain/tightness or edema. House Bowel Program: Yes Additional Bowel Program Orders: If no BM after 2 days, nurse may give M.O.M. 30ml PO PRN and/or ducolax Supp 1 NC and/or JOSE ALEJANDRO 250mg P.O., and/or senna 1-2 tabs PO. On day 3 nurse may give repeat above order until residents constipation is resolved. Annual Influenza Vaccine (between Jun 29 and January 26): Yes Two-step PPD per [facility] [phone] or approved exception documents: Yes Treatments & Other Orders: chronic hip pain: continue pain control, pt is not candidate for hip repair per surgeon's assessment. systolic heart failure: pt has 35% EF with global hypokinesis, pt may continue Digoxin, Metoprolol, Lisinopril,,Zocor and Eliquis, followup with welding machine operator submerged arc as out-pt. Afib with RVR. pt's heart rate is controlled now, pt may continue Metoprolol and Digoxin, followup with welding machine operator submerged arc as out-pt Medication Orders: PLEASE REFER TO THE DISCHARGE MEDICATION LIST. Insulin Orders?: No - Medications New Prescriptions: HYDROcod/ACETAM 5/325 [[place] 5/325] 1 tab PO Q4HR PRN #30 tablet PRN Reason: Pain 5-7 Apixaban [Eliquis] 5 mg PO BID #60 tablet Digoxin [Lanoxin] 125 mcg PO MOFR #10 tablet Medical Supply, Miscellaneous [Sea-Band] 1 each MC DAILY #1 each Metoprolol Succinate [Toprol Xl] 75 mg PO BID #120 tablet - Diet Type: Geriatric Texture: Regular Liquids: Thin May have monthly special meal: Yes - Therapies | Activity Rehabilitation Potential: Maximize functional status Activity: Activity as Tolerated"
--- NOTE | 2021-06-01 08:50 | DISCHARGE SUMMARY ---
Discharge Summary Admit Date: 05/15/21 Discharge Date: 06/01/21 Discharging Provider: Maykel Muñiz Primary Care Provider: Dr. Mendez Condition at Discharge: Stable Discharge Disposition: SNF DC/Xfer Discharge Facility Name: [facility] - DIAGNOSES Discharge Diagnoses with Status of Each Condition: (1) Atrial flutter with rapid ventricular response controlled HR. Patient home metoprolol dosage increases to 75 mg twice daily from 50 mg twice daily, Add digoxin on Sunday and Sunday, Patient is prescribed Eliquis. (2) Acute systolic heart failure Echo shows LVEF of 30% with global hypokinesis. This is a new finding for her during this admission.It is likely caused by uncontrolled tachycardia-induced cardiomyopathy could be the problem. Patient is prescribed digoxin, metoprolol, Eliquis, resume home lisinopril and statin. Patient may follow-up with rn document improvement as outpatient (3) Chronic hip pain Patient had septic arthritis in her hips as a child. Imaging this admission shows severe right hip joint osteoarthritis and chronic appearing hip deformity. No acute hip fracture or dislocation. Moderate left hip joint osteoarthritis. No evidence of avascular necrosis or femoral head. She states she has not seen an orthopedist or child support investigator. opioids is ordered for her pain control. She is not a surgical candidate at [facility] due to low EF per surgeon's assessm ent. IR was unable to perform a guided steroid injection into the hip due to patient's BLE stiffness. The patient will unfortunately need to follow-up outpatient with her PCP for an orthopedic and possibly pain specialist referral to further explore available treatment options. Social work has contacted [facility] and assistive equipment is prescribed for the patient. (4)bradycardia resolved. The lowest HR is 50 when pt was totally asymptomatic, and when pt was at sleep. (5) Hx of essential hypertension stable, resume home meds. (6) Schizophrenia stable, resume home meds (7) Depression with anxiety stable. - HPI History of Present Illness: refer from Dr. Lama's HPI on 05/15/21 Patient is a 81-year-old female who is a poor historian who presented to the emergency room after complaining at her assisted living facility that she was having pain in her "thighs". She is known to have a history of severe DJD, and admits that she was complaining of her chronic hip pain. Paramedics were called despite no fall or injury to suggest a fracture, and upon their initial evaluation they noticed that the patient SVT to 170s, was brought to the emergency room and given adenosine, had a brief pause then returned to a flutter with heart rates in the 130s.She was then given metoprolol x2 with heart rates initially responding to the 110s then increasing again to the 130s so diltiazem drip was initiated. Patient denied ever having any chest pain, but upon questioning and review of systems she does admit to having experienced palpitations in the past especially when she is anxious. She also suggests that she may have anxiety related to her chronic hip pain. She denies any shortness of breath. She denies any known history of cardiac disease. However, she is a poor historian and denies any medical history to speak of however she has a relatively lengthy medication list from her assisted living facility. Hip x-rays in the ER were negative. Hospital admission was requested to manage new versus previously undiagnosed atrial flutter and to achieve better rate control and expand work-up in hospital. - CONSULTS | PROCEDURES Consultations: Dr. Nolen Procedures: no procedure - HOSPITAL COURSE Hospital Course: Patient was admitted for hip pain chronic, SVT up to 170, patient started on ICU for Cardizem drip. Patient was found to have acute systolic heart failure with EF at 30%. Patient was consulted with orthopedic surgeon for her hip pain. Patient was not a candidate for hip repair per orthopedic surgeon assessment. Patient was found to have atrial flutter/fibrillation with RVR. Patient's heart HR was very difficult to control in the hospital. After adjustment of her medications, patient's heart rate finally was controlled. After adjustment of her medications her bradycardia was resolved. Patient was discharged at hemodynamically stable condition. - ALLERGIES Allergies/Adverse Reactions: Allergies Allergy/AdvReac Type Severity Reaction Status Date / Time No Known Drug Allergies Allergy Verified 05/15/21 14:14 - MEDICATIONS Home Medications: Ambulatory Orders Medication Instructions Recorded Confirmed ARIPiprazole [Abilify] 5 mg PO DAILY 05/16/21 05/16/21 Albuterol Sulfate [Proair 2 puffs INH Q4H PRN 05/16/21 05/16/21 Respiclick] Celecoxib [Celebrex] 200 mg PO QDBREAKFAST 05/16/21 05/16/21 Cholecalciferol (Vitamin D3) 25 mcg PO DAILY 05/16/21 05/16/21 [Vitamin D3] Diclofenac Sodium 50 mg PO TID PRN 05/16/21 05/16/21 Ferrous Sulfate 325 mg PO DAILYWM 05/16/21 05/16/21 Furosemide [Lasix] 20 mg PO MOWEFR PRN 05/16/21 05/16/21 Gabapentin [Neurontin] 100 mg PO HS 05/16/21 05/16/21 Linaclotide [Linzess] 145 mcg PO DAILY PRN 05/16/21 05/16/21 Multivitamin [Theragran] 1 tab PO DAILY 05/16/21 05/16/21 Pantoprazole [Protonix] 40 mg PO QDAC 05/16/21 05/16/21 Simvastatin [Zocor] 20 mg PO QDDINNER 05/16/21 05/16/21 Venlafaxine HCl 75 mg PO DAILY 05/16/21 05/16/21 lisinopriL [Lisinopril] 20 mg PO DAILY 05/16/21 05/16/21 traMADol [Ultram] 50 mg PO Q6H PRN 05/16/21 05/16/21 Medical Supply, Miscellaneous 1 each MC DAILY #1 each 05/23/21 [Sea-Band] Apixaban [Eliquis] 5 mg PO BID #60 tablet 06/01/21 Digoxin [Lanoxin] 125 mcg PO MOFR #10 tablet 06/01/21 HYDROcod/ACETAM 5/325 [[place] 5/325] 1 tab PO Q4HR PRN #30 tablet 06/01/21 Metoprolol Succinate [Toprol Xl] 75 mg PO BID #120 tablet 06/01/21 - PHYSICAL EXAM AT DISCHARGE General Appearance: positive: No acute distress, Alert. negative: Lethargic Eyes Bilateral: positive: Normal inspection, PERRL, No lid inflammation ENT: positive: ENT inspection nml, No signs of dehydration. negative: Purulent nasal drainage Neck: positive: Nml inspection, Trachea midline. negative: Thyromegaly, Tracheal deviation Respiratory: positive: Chest non-tender, No respiratory distress. negative: Wheezes, Rales Cardiovascular: positive: Regular rate & rhythm, No murmur. negative: Tachycardia, Bradycardia, Systolic murmur Peripheral Pulses: positive: 2+ Abdomen: positive: Non-tender, Nml bowel sounds, No distention. negative: Tenderness Back: positive: Nml inspection Skin: positive: Color nml, Warm, Dry. negative: Cyanosis Extremities: positive: Non-tender, Nml appearance, No pedal edema. negative: Calf tenderness Neurologic/Psychiatric: positive: Oriented x3, Sensation nml. negative: Weakness, Sensory loss, Facial droop, Slurred/abnml speech - LABS Result Diagrams: 06/01/21 04:31 06/01/21 04:31 - FOLLOW UP Follow Up: chronic hip pain: continue pain control, pt is not candidate for hip repair per surgeon's assessment. systolic heart failure: pt has 30% EF with global hypokinesis, pt may continue Digoxin, Metoprolol, Lisinopril, Zocor and Eliquis, followup with rn document improvement as out-pt Afib with RVR. pt's heart rate is controlled now, pt may continue Metoprolol and Digoxin, followup with rn document improvement as out-pt - TIME SPENT Time Spent in Discharge (Minutes): 30
[2021-06-01] MEDS: VENLAFAXINE 37.5 MG TABLET PO SCH (09:58)
[2021-06-01] MEDS: ethyl alcohoL 62% SWAB AMPULE NAS SCH (09:58)
[2021-06-01] MEDS: APIXABAN 5 MG TABLET PO SCH (09:59)
[2021-06-01] MEDS: METOPROLOL SUCCINATE 50 MG TABLET PO SCH (09:59)
[2021-06-01] MEDS: ARIPiprazole 5 MG TABLET PO SCH (09:59)
[2021-06-01] MEDS: polyethylene glycoL 3350 17 GM PACKET PO SCH (10:00)
[2021-06-01] MEDS: SENNA 8.6 MG TABLET PO SCH (10:01)
[2021-06-01] MEDS: DOCUSATE SODIUM 250 MG CAPSULE PO SCH (10:01)
[2021-06-01 10:02] VITALS: BP 115/45
== END 2021-06-01 10:54 | disposition home or self-care (01) | DRG 280 ==
LOC: EDUNIT# → ED 14:06 → ICU 18:13 → MS2 05-20 14:06
PROVIDERS: ADMIT Family Medicine Sports Medicine; ATTEND Nurse Practitioner Gerontology
DX: I48.92 Unspecified atrial flutter (principal); M25.551 Pain in right hip; I10 Essential (primary) hypertension; I50.21 Acute systolic (congestive) heart failure; Z20.822 Contact with and (suspected) exposure to COVID-19; I21.A1 Myocardial infarction type 2; I11.0 Hypertensive heart disease with heart failure; I43 Cardiomyopathy in diseases classified elsewhere; I48.91 Unspecified atrial fibrillation; F41.8 Other specified anxiety disorders; Z79.899 Other long term (current) drug therapy; G89.29 Other chronic pain; M16.11 Unilateral primary osteoarthritis, right hip; M21.951 Unspecified acquired deformity of right thigh; R00.1 Bradycardia, unspecified; F20.9 Schizophrenia, unspecified; Z74.09 Other reduced mobility; E86.0 Dehydration; F41.9 Anxiety disorder, unspecified
CPT/HCPCS: 0202U; 20610; 36415; 80048; 80053; 80061; 80162; 83690; 83721; 83735; 83880; 84436; 84443; 84484; 85025; 85027; 87150; 93005; 93306; 96374; 96375; 96376; 99284

== ENCOUNTER 2021-06-01 10:59 | Outpatient (CLI) | payer MEDICARE, MEDICAID | END 2021-06-01 11:00 | disposition home or self-care (01) | LOC: EMS 10:59 | PROVIDERS: ATTEND Nurse Practitioner Gerontology | DX: M21.921 Unspecified acquired deformity of right upper arm (principal); I48.91 Unspecified atrial fibrillation; M19.90 Unspecified osteoarthritis, unspecified site; Z74.01 Bed confinement status | CPT/HCPCS: A0425; A0428 ==

== ENCOUNTER 2024-08-11 00:29 | Inpatient (IN) ==
[2024-08-11 00:45] LABS: BASOPHILS # (AUTO) 0.1 10^3/uL (0.0-0.1); BASOPHILS % (AUTO) 0.7 %; EOSINOPHILS # (AUTO) 0.2 10^3/uL (0.0-0.7); EOSINOPHILS % (AUTO) 1.7 %; HCT - HEMATOCRIT 39.5 % (37.0-47.0); HGB - HEMOGLOBIN 12.8 g/dL (12.0-16.0); LYMPHOCYTES # (AUTO) 2.3 10^3/uL (1.5-3.5); LYMPHOCYTES % (AUTO) 21.9 %; MEAN CORPUSCULAR HGB CONC 32.4 g/dL (32.0-36.0); MEAN CORPUSCULAR VOLUME 98.8 fL (81.0-99.0); MEAN PLATELET VOLUME 10.6 fL (7.9-10.8); MONOCYTES # (AUTO) 0.3 10^3/uL (0.0-1.0); MONOCYTES % (AUTO) 3.3 %; NEUTROPHILS # (AUTO) 7.4 10^3/uL (1.5-6.6); NEUTROPHILS % (AUTO) 71.2 %; PLT - PLATELET COUNT 301 10^3/uL (130-450); RED CELL DISTRIBUTION WIDTH 15.8 % (12.0-15.0); WHITE BLOOD COUNT 10.4 x10^3/uL (4.8-10.8)
[2024-08-11 01:04] LABS: ALBUMIN 3.5 g/dL (3.2-5.5); BILIRUBIN,TOTAL 0.4 mg/dL (0.2-1.0); CREATININE 1.1 mg/dL (0.6-1.3); POTASSIUM 4.2 mmol/L (3.5-4.5); TOTAL PROTEIN 7.1 g/dL (6.4-8.9)
[2024-08-11] MEDS: DEXAMETHASONE 10 MG/ML VIAL IVP STA (01:11)
[2024-08-11] MEDS: SODIUM CHLORIDE 0.9% 1,000 ML IV ONE (01:11)
[2024-08-11 01:12] LABS: ABG HCO3 16.3 mmol/L (22.0-26.0); ABG PCO2 33 mmHg (34-45); ABG PO2 71 mmHg (80-100)
[2024-08-11 01:13] LABS: ABG OXYGEN SATURATION 93 % (94-98); ALLEN TEST POSITIVE
[2024-08-11] MEDS: IPRATROPIUM/ALBUTEROL 3 ML NEB INH STA (01:19)
[2024-08-11] MEDS: diltiaZEM INJ 5 MG/ML VIAL IVP STA (01:32)
[2024-08-11] MEDS: diltiaZEM CD 120 MG CAPSULE PO STA (01:32)
[2024-08-11 01:38] LABS: DIGOXIN 0.3 ng/mL
[2024-08-11 01:44] LABS: B. PARAPERTUSSIS- RESP PCR PAN NOT DETECTED; B. PERTUSSIS- RESP PCR PANEL NOT DETECTED; C. PNEUMONIAE- RESP PCR PANEL NOT DETECTED; CORONAVIRUS 229E-RESP PCR NOT DETECTED; CORONAVIRUS HKU1-RESP PCR NOT DETECTED; CORONAVIRUS NL63-RESP PCR NOT DETECTED; CORONAVIRUS OC43-RESP PCR NOT DETECTED; INFLUENZA B - RESP PCR PANEL NOT DETECTED; M. PNEUMONIAE- RESP PCR PANEL NOT DETECTED; PARAINFLUENZA VIRUS 1 NOT DETECTED; PARAINFLUENZA VIRUS 2 NOT DETECTED; PARAINFLUENZA VIRUS 3 NOT DETECTED; PARAINFLUENZA VIRUS 4 NOT DETECTED; RSV- RESP PCR PANEL NOT DETECTED; SARS-CoV-2 -RESP PCR PANEL DETECTED
[2024-08-11 01:45] LABS: HUMAN METAPNEUMOVIRUS NOT DETECTED; INFLUENZA A- RESP PCR PANEL NOT DETECTED; RHINOVIRUS/ENTEROVIRUS NOT DETECTED
--- NOTE | 2024-08-11 01:46 | XRAY Report ---
PROCEDURE: XR Chest 1V INDICATIONS: dyspnea TECHNIQUE: One view of the chest was acquired. COMPARISON: None. FINDINGS: Surgical changes and devices: None. Lungs and pleura: Right upper lobe opacification. Trace bilateral pleural effusions. No pneumothorax . Mediastinum: Cardiomegaly. Splaying of the peter, suggestive of left atrial enlargement. Aortic arc h calcifications. Bones and chest wall: No suspicious bony lesions. Overlying soft tissues appear unremarkable. IMPRESSION: 1.Right upper lobe opacification, likely representing pneumonia in the given clinical context. 2.Cardiomegaly with left atrial enlargement. Reviewed by: Skip Ladd MD on 08/11/2024 1:45 AM PDT Approved by: Skip Ladd MD on 08/11/2024 1:45 AM PDT Station ID: [id number]
[2024-08-11] MEDS ORDERED: cefTRIAXone 2 GM VIAL ONE (02:25)
[2024-08-11] MEDS: cefTRIAXone 2 GM in SODIUM CHLORIDE 0.9% MINIBAG 100 ML IV STA (02:26)
[2024-08-11] MEDS: DIGOXIN 500 MCG/2 ML AMP IVP STA (02:27)
[2024-08-11] MEDS: SODIUM CHLORIDE 0.9% 1,000 ML IV STA (02:47)
[2024-08-11] MEDS ORDERED: diltiaZEM INJ 5 MG/ML VIAL ONE (02:51)
--- NOTE | 2024-08-11 02:51 | ED Physician Documentation ---
History of Present Illness Stated complaint Stated Complaint: DIFF BREATHING/C+ Chief complaint Chief Complaint: Resp History obtained from History obtained from: Patient and EMS Additonal information Additional information: The patient is brought to the emergency department via EMS for chief complaint of difficulty breathing. The patient lives at [facility] and apparently has been feeling somewhat short of breath for the last several days. The staff did not notice anything wrong until this evening when they noted the patient had a dry cough they did a COVID test, which was positive. The patient has a history of COPD but does not use any oxygen at home. The patient began to seem more short of breath and the staff tried to get an O2 sat and could only get 45. At that point they called EMS. EMS states when they got there they measured an O2 sat of 79% on room air. The patient was placed on 4 L of oxygen per nasal cannula given a DuoNeb, after which she did report feeling better and oxygen sat uration came up to 93%. The patient denies any fevers that she knows of. She states she she has had a dry cough and has felt generally weak and short of breath. Medics report elevated heart rate in the setting of the patient's history of A-fib. The patient does come with a POLST which states "DNR, DNI, limited interventions." Medics report that the patient has a POA but they have not been able to reach the POA, who is through a company that provides POA's. Meds/Allgy Home Medications Ambulatory Orders Medication Instructions Recorded Confirmed albuterol sulfate 90 mcg/actuation 2 puff inhalation Q4H PRN 05/16/21 08/11/24 breath activated powder inhaler Shortness Of Air/Wheezing (ProAir RespiClick) aripiprazole 5 mg tablet 5 mg PO DAILY 05/16/21 08/11/24 cholecalciferol (vitamin D3) 25 25 mcg PO DAILY 05/16/21 08/11/24 mcg (1,000 unit) capsule gabapentin 100 mg capsule 100 mg PO HS PRN pain 05/16/21 08/11/24 pantoprazole 40 mg tablet,delayed 40 mg PO QDAC 05/16/21 08/11/24 release miscellaneous medical supply #1 ea 05/23/21 (SEA-BAND ADULT misc) hydrocodone 5 mg-acetaminophen 325 1 tab PO Q4HR PRN Pain 5-7 #30 tabs 06/01/21 08/11/24 mg tablet acetaminophen 325 mg capsule 650 mg PO Q4H PRN pain 08/11/24 08/11/24 aspirin 81 mg capsule 81 mg PO DAILY 08/11/24 08/11/24 digoxin 125 mcg (0.125 mg) tablet 62.5 mcg PO DAILY 08/11/24 08/11/24 hydrocodone 5 mg-acetaminophen 325 1 tab PO DAILY 08/11/24 08/11/24 mg tablet lorazepam 0.5 mg tablet (Ativan) 0.5 mg PO .COMPLEX PRN anxiety 08/11/24 08/11/24 meloxicam 15 mg tablet 15 mg PO DAILY 08/11/24 08/11/24 methadone 5 mg tablet 5 mg PO BID 08/11/24 08/11/24 metoprolol succinate 50 mg 50 mg PO DAILY 08/11/24 08/11/24 tablet,extended release 24 hr morphine 100 mg/5 mL oral 5 mg PO .COMPLEX PRN pain 08/11/24 08/11/24 concentrate ondansetron 4 mg disintegrating 4 mg PO Q4H PRN nausea and vomiting 08/11/24 08/11/24 tablet sennosides 8.6 mg tablet (senna) 17.2 mg PO QPM 08/11/24 08/11/24 venlafaxine 150 mg 150 mg PO DAILY 08/11/24 08/11/24 capsule,extended release 24 hr Allergies Allergies Allergy/AdvReac Type Severity Reaction Status Date / Time No Known Drug Allergies Allergy Verified 08/11/24 00:44 [facility] Medical History Medical History (Updated 08/11/24 @ 05:11 by Chelo Narayanan RN) A-fib Chronic left systolic heart failure Degenerative brain disorder Pathological fracture due to osteoporosis Congenital QT prolongation on electrocardiogram (ECG) Hyperlipidemia Osteoarthritis COPD (chronic obstructive pulmonary disease) Gastro-esophageal reflux Social History Social History Smoking Status: Former smoker If you are a former smoker, when did you quit? (Date/Year): 2020 Number of Years Smoked: 40 How many cigarettes a day do you smoke? (20 cigarettes=1 Pk): 10 Do you dip or chew tobacco?: No Do you vape?: No Patient requests smoking cessation consult: No Initiate information on smoking cessation: No Living arrangement: Assisted living Living Condition: Alone Relationship: Home Mobility Equipment: Wheelchair Do you feel safe in your home environment?: Yes Suffered physical, verbal, emotional, or financial abuse?: No History of Abuse: No POLST Patient has POLST: Yes POLST Status: Limited Interventions Exam Constitutional normal general appearance Alert female in mild respiratory distress. HENMT normocephalic, head/scalp atraumatic, external nose normal and oral mucous membranes normal Eyes EOMs intact bilaterally Neck/C-Spine visual inspection normal and supple Respiratory Fine expiratory wheezes with tight respirations and diminished air movement through the lower halves of the lung joshi. Cardiovascular no edema Irregularly irregular heart rhythm with tachycardic rate variable in the 140s to 160s. Gastrointestinal abdomen normal to inspection, abdomen soft to palpation, nontender to palpation and nondistended Genitourinary no CVA tenderness Extremities normal to inspection No edema Neurology Alert, grossly intact Psychiatry mental status grossly normal Skin skin color normal Results Vitals Vitals: Vital Signs - 24 hr 08/11/24 00:35 08/11/24 00:45 08/11/24 01:19 Temperature 36.2 C L Temperature Source Temporal Artery Scan Pulse Rate 153 H 149 H Respiratory Rate 33 H 20 Blood Pressure 104/70 O2 Saturation 87 L Oxygen Delivery Method Nasal Cannula O2 Source Room air Nasal cannula If not protocol: Oxygen Flow, liters/minute 3 3 Pain Intensity 0 08/11/24 01:20 08/11/24 01:30 08/11/24 01:35 Temperature Temperature Source Pulse Rate 160 H 151 H 121 H Respiratory Rate 30 H 21 21 Blood Pressure 95/64 91/52 L 86/57 L O2 Saturation 94 95 94 Oxygen Delivery Method O2 Source Nasal cannula Nasal cannula Nasal cannula If not protocol: Oxygen Flow, liters/minute 3 2 3 Pain Intensity 0 0 0 08/11/24 01:40 08/11/24 01:45 08/11/24 01:52 Temperature Temperature Source Pulse Rate 105 H 129 H 130 H Respiratory Rate 28 H 23 23 Blood Pressure 106/54 L 81/54 L 93/52 L O2 Saturation 93 94 99 Oxygen Delivery Method O2 Source Nasal cannula Nasal cannula Nasal cannula If not protocol: Oxygen Flow, liters/minute 3 3 3 Pain Intensity 0 0 0 08/11/24 02:05 08/11/24 02:20 08/11/24 02:30 Temperature Temperature Source Pulse Rate 135 H 136 H 129 H Respiratory Rate 20 20 20 Blood Pressure 86/52 L 104/70 94/68 O2 Saturation 95 97 96 Oxygen Delivery Method O2 Source Nasal cannula Nasal cannula Nasal cannula If not protocol: Oxygen Flow, liters/minute 3 3 3 Pain Intensity 0 0 0 08/11/24 02:35 08/11/24 02:40 08/11/24 02:50 Temperature Temperature Source Pulse Rate 145 H 145 H 139 H Respiratory Rate 20 20 21 Blood Pressure 106/79 113/75 O2 Saturation 96 97 97 Oxygen Delivery Method O2 Source Nasal cannula Nasal cannula Nasal cannula If not protocol: Oxygen Flow, liters/minute 3 3 3 Pain Intensity 0 0 0 08/11/24 02:55 08/11/24 03:00 08/11/24 03:05 Temperature Temperature Source Pulse Rate 136 H 127 H 138 H Respiratory Rate 20 20 20 Blood Pressure 113/93 H 109/76 103/75 O2 Saturation 96 98 97 Oxygen Delivery Method O2 Source Nasal cannula Nasal cannula Nasal cannula If not protocol: Oxygen Flow, liters/minute 3 3 2 Pain Intensity 0 0 08/11/24 03:10 08/11/24 03:16 08/11/24 03:20 Temperature Temperature Source Pulse Rate 137 H 138 H 140 H Respiratory Rate 20 20 21 Blood Pressure 116/87 114/76 91/76 O2 Saturation 98 95 95 Oxygen Delivery Method O2 Source Nasal cannula Nasal cannula Nasal cannula If not protocol: Oxygen Flow, liters/minute 2 2 2 Pain Intensity 0 0 0 08/11/24 03:25 08/11/24 03:35 08/11/24 03:45 Temperature Temperature Source Pulse Rate 136 H 114 H 120 H Respiratory Rate 21 20 20 Blood Pressure 116/84 102/68 100/81 O2 Saturation 97 95 95 Oxygen Delivery Method O2 Source Nasal cannula Nasal cannula Nasal cannula If not protocol: Oxygen Flow, liters/minute 2 2 2 Pain Intensity 0 0 130 08/11/24 04:00 08/11/24 04:15 08/11/24 04:25 Temperature Temperature Source Pulse Rate 119 H 106 H 111 H Respiratory Rate 23 24 20 Blood Pressure 117/70 102/61 118/75 O2 Saturation 96 97 96 Oxygen Delivery Method O2 Source Nasal cannula Nasal cannula Nasal cannula If not protocol: Oxygen Flow, liters/minute 2 2 2 Pain Intensity 0 0 0 08/11/24 04:46 08/11/24 05:17 Temperature Temperature Source Pulse Rate 101 H 110 H Respiratory Rate 20 21 Blood Pressure 105/69 112/73 O2 Saturation 95 97 Oxygen Delivery Method O2 Source Nasal cannula Nasal cannula If not protocol: Oxygen Flow, liters/minute 2 2 Pain Intensity 0 0 Oxygen O2 Source Nasal cannula Labs Labs: Laboratory Tests 08/11/24 08/11/24 08/11/24 00:42 00:46 00:55 WBC 10.4 RBC 4.00 L Hgb 12.8 Hct 39.5 MCV 98.8 MCH 32.0 H MCHC 32.4 RDW 15.8 H Plt Count 301 MPV 10.6 Neut # (Auto) 7.4 H Lymph # (Auto) 2.3 [place] # (Auto) 0.3 Eos # (Auto) 0.2 Baso # (Auto) 0.1 Absolute Nucleated RBC 0.00 Nucleated RBC % 0.0 Bld Gas Analysis Time 0058 Sample Site RIGHT RADIAL ABG pH 7.30 L ABG pCO2 33 L ABG pO2 71 L ABG HCO3 16.3 L ABG Total CO2 17.0 L ABG O2 Saturation 93 L ABG Base Excess -10.0 L Lv Test POSITIVE O2 Delivery Device NASAL CANNULA O2 Liters/Min 3.00 Sodium 134 L Potassium 4.2 Chloride 101 Carbon Dioxide 19 L Anion Gap 14.0 H BUN 23 H Creatinine 1.1 Estimated GFR (MDRD) 47 L Glucose 222 H Lactic Acid Calcium 9.0 Total Bilirubin 0.4 AST 33 ALT 32 Alkaline Phosphatase 104 Troponin I High Sens B-Natriuretic Peptide 351 H Total Protein 7.1 Albumin 3.5 Globulin 3.6 Albumin/Globulin Ratio 1.0 Triglycerides Cholesterol LDL Cholesterol, Calc VLDL Cholesterol HDL Cholesterol LDL/HDL Ratio Cholesterol/HDL Ratio Lipase 124 H TSH Nasal Adenovirus (PCR) NOT DETECTED Nasal B. parapertussis DNA (PCR) NOT DETECTED Nasal Coronavir 229E PCR NOT DETECTED Nasal Coronavir HKU1 PCR NOT DETECTED Nasal Coronavir NL63 PCR NOT DETECTED Nasal Coronavir OC43 PCR NOT DETECTED Nasal Enterovir/Rhinovir PCR NOT DETECTED Nasal Influenza B PCR NOT DETECTED Nasal Influenza A PCR NOT DETECTED Nasal Parainfluen 1 PCR NOT DETECTED Nasal Parainfluen 2 PCR NOT DETECTED Nasal Parainfluen 3 PCR NOT DETECTED Nasal Parainfluen 4 PCR NOT DETECTED Nasal RSV (PCR) NOT DETECTED Nasal B.pertussis DNA PCR NOT DETECTED Nasal C.pneumoniae (PCR) NOT DETECTED Stefan Human Metapneumo PCR NOT DETECTED Nasal M.pneumoniae (PCR) NOT DETECTED Nasal SARS-CoV-2 (PCR) DETECTED A Last Dose Date Not Reportable Last Dose Time Not Reportable Digoxin 0.3 08/11/24 08/11/24 01:32 04:46 WBC RBC Hgb Hct MCV MCH MCHC RDW Plt Count MPV Neut # (Auto) Lymph # (Auto) [place] # (Auto) Eos # (Auto) Baso # (Auto) Absolute Nucleated RBC Nucleated RBC % Bld Gas Analysis Time Sample Site ABG pH ABG pCO2 ABG pO2 ABG HCO3 ABG Total CO2 ABG O2 Saturation ABG Base Excess Lv Test O2 Delivery Device O2 Liters/Min Sodium Potassium Chloride Carbon Dioxide Anion Gap BUN Creatinine Estimated GFR (MDRD) Glucose Lactic Acid 2.9 H Calcium Total Bilirubin AST ALT Alkaline Phosphatase Troponin I High Sens 38.7 H* B-Natriuretic Peptide Total Protein Albumin Globulin Albumin/Globulin Ratio Triglycerides 143 Cholesterol 182 LDL Cholesterol, Calc 111 VLDL Cholesterol 29 HDL Cholesterol 42 L LDL/HDL Ratio 2.6 Cholesterol/HDL Ratio 4.3 Lipase TSH 3.55 Nasal Adenovirus (PCR) Nasal B. parapertussis DNA (PCR) Nasal Coronavir 229E PCR Nasal Coronavir HKU1 PCR Nasal Coronavir NL63 PCR Nasal Coronavir OC43 PCR Nasal Enterovir/Rhinovir PCR Nasal Influenza B PCR Nasal Influenza A PCR Nasal Parainfluen 1 PCR Nasal Parainfluen 2 PCR Nasal Parainfluen 3 PCR Nasal Parainfluen 4 PCR Nasal RSV (PCR) Nasal B.pertussis DNA PCR Nasal C.pneumoniae (PCR) Stefan Human Metapneumo PCR Nasal M.pneumoniae (PCR) Nasal SARS-CoV-2 (PCR) Last Dose Date Last Dose Time Digoxin PD Medical Decision Making ED course Complexity details: reviewed old records, reviewed results, re-evaluated patient, considered differential and d/w patient ED course: The patient had a kaleidoscope of acute issues going on including dyspnea, tachypnea, hypoxia, and A-fib with RVR. She had also reported tested positive for COVID. Accordingly, I ordered CBC, ER abdominal panel, chest x-ray, EKG, and respiratory PCR panel. I also ordered a lactic acid level. The patient's heart rate was quite high and I felt she did need to be treated for this. However, her blood pressure was at the low end of normal with a systolic of 111 at the time of administration of the diltiazem. The patient was given 10 mg of diltiazem IV and 120 mg p.o. I added a digoxin level to the labs as the patient is normally on this. The patient's heart rate did respond well to even the small dose of Cardizem, coming down into the low 100s to 120s. However, the patient's blood pressure did initially drop quite a bit, but did come up in the following minutes. The patient was also started on a liter of normal saline. The patient was found to have a normal white blood cell count but a lactic acid level of 2.9. She was unsurprisingly positive for COVID. Her chest x-ray showed a possible small infiltrate so she was treated with antibiotics for this. The patient's heart rate did begin to creep up a bit and blood pressure was normal but near the low end. She had already been given IV digoxin without much response, so I did start her on a diltiazem drip. She was also given a second liter of 0.9 normal saline. The patient's heart rate did stabilize in the 90s to around 120. I felt this was reasonable acceptable, given the patient's general illness and increased work of breathing. The patient was overall doing much better but still requiring supplemental oxygen at 3 L to keep her sats in the lower 90s. The patient reported feeling better after the nebulizer treatment and steroids here. Her chest x-ray showed a small right upper lobe infiltrate. I felt the patient should be admitted to the hospital and after some delay due to technological difficulties, I was able to speak with the hospitalist on-call. He requested a troponin be added to the workup, though I did feel the patient already had a reasonable explanation for his symptoms and she was not exhibiting any chest pain. The patient is also DNR DNI and does not want any invasive procedures to be done, so I do not feel that it is likely that doing a troponin will change due to management in any meaningful way. Trav castañeda, because the admitting physician prefer that this be done, it was ordered and found to be 38. Because of the elevation, a second 1 would be needed. The hospitalist and myself discussed the case and he did state that he would admit the patient anyway, given the unlikelihood of anything further being done. The repeat troponin will be done on the hdz. The patient is agreeable to admission . Critical Care Time(min): 45 Comments: Critical care time was necessary, secondary to high probability of Imminent and life-threatening decline, due to hypoxemia and extremely elevated heart rate and respiratory distress, secondary to sepsis, COVID, COPD exacerbation, and atrial fibrillation with rapid ventricular response. Time Includes: Direct patient care, Review records, Reassess patient, Document care, Coordinate care, Medical consult and See progress note Data interpretation: Labs, Pulse ox, ABG, CXR, Cardiac output and See progress note Discharge Plan Discharge Patient Disposition: [facility] DC/Xfer Condition: Critical Clinical Impression: COVID, Pneumonia, Atrial fibrillation with rapid ventricular response, Acute exacerbation of chronic obstructive pulmonary disease, Hypoxia, Sepsis Interventions: ED Admission Assessment Last Done: 08/11/24 06:30
[2024-08-11] MEDS: diltiaZEM INJ 125 MG in DEXTROSE 5% 100 ML IV STA (02:59)
[2024-08-11] MEDS: AZITHROMYCIN INJ 500 MG in SODIUM CHLORIDE 0.9% 250 ML IV STA (03:03)
[2024-08-11] MEDS ORDERED: BENZONATATE 100 MG CAPSULE PO PRN (05:36)
[2024-08-11] MEDS ORDERED: ALBUTEROL NEB 2.5 MG/3 ML INH PRN (05:40)
[2024-08-11] MEDS: ENOXAPARIN 80 MG/0.8 ML SYRINGE SUBQ STA (05:40)
[2024-08-11 05:57] LABS: CHOL/HDL RATIO 4.3 (<4.4); CHOLESTEROL 182 mg/dL; HDL CHOLESTEROL 42 mg/dL; LDL CHOLESTEROL,CALCULATED 111 mg/dL; LDL/HDL RATIO 2.6 (<4.4); TRIGLYCERIDES 143 mg/dL; VLDL CHOLESTEROL 29 mg/dL
--- NOTE | 2024-08-11 05:57 | HISTORY & PHYSICAL EXAMINATION ---
Chief Complaint Chief Complaint Chief Complaint: sob, palpitations History of Present Illness History of Present Illness HPI Comment/Other: pt with worsening sob, dry cough for the past several days. resides in shelter care facility. covid test on site was positive. no chest pain. pt did report some palpitations. h/o copd but does not use any oxygen. O2 sat was apparently as low as 45 at facility, and per EMS, it was 79%. pt also has h/o a- fib and HR was rapid upto 160s reported by EMS. no falls. pt is DNR/DNI status, and does not want interventions done, per her report. some weakness and mild confusion but overall able to answer questions and provide history. d/t cart connection issues, unable to see pt on video at this time. details obtained from discussion with er staff and ed charting. Review of Systems per ed charting [facility] Medical History Medical History (Updated 08/11/24 @ 05:11 by Chelo Narayanan RN) A-fib Chronic left systolic heart failure Degenerative brain disorder Pathological fracture due to osteoporosis Congenital QT prolongation on electrocardiogram (ECG) Hyperlipidemia Osteoarthritis COPD (chronic obstructive pulmonary disease) Gastro-esophageal reflux Social History Social History Smoking Status: Former smoker If you are a former smoker, when did you quit? (Date/Year): 2020 Number of Years Smoked: 40 How many cigarettes a day do you smoke? (20 cigarettes=1 Pk): 10 Do you dip or chew tobacco?: No Do you vape?: No Patient requests smoking cessation consult: No Initiate information on smoking cessation: No Living arrangement: Assisted living Living Condition: Alone Relationship: Home Mobility Equipment: Wheelchair Do you feel safe in your home environment?: Yes Suffered physical, verbal, emotional, or financial abuse?: No History of Abuse: No POLST Patient has POLST: Yes POLST Status: Limited Interventions Meds/Allgy Home Medications Ambulatory Orders Medication Instructions Recorded Confirmed albuterol sulfate 90 mcg/actuation 2 puff inhalation Q4H PRN 05/16/21 08/11/24 breath activated powder inhaler Shortness Of Air/Wheezing (ProAir RespiClick) aripiprazole 5 mg tablet 5 mg PO DAILY 05/16/21 08/11/24 cholecalciferol (vitamin D3) 25 25 mcg PO DAILY 05/16/21 08/11/24 mcg (1,000 unit) capsule gabapentin 100 mg capsule 100 mg PO HS PRN pain 05/16/21 08/11/24 pantoprazole 40 mg tablet,delayed 40 mg PO QDAC 05/16/21 08/11/24 release miscellaneous medical supply #1 ea 05/23/21 ([facility] misc) hydrocodone 5 mg-acetaminophen 325 1 tab PO Q4HR PRN Pain 5-7 #30 tabs 06/01/21 08/11/24 mg tablet acetaminophen 325 mg capsule 650 mg PO Q4H PRN pain 08/11/24 08/11/24 aspirin 81 mg capsule 81 mg PO DAILY 08/11/24 08/11/24 digoxin 125 mcg (0.125 mg) tablet 62.5 mcg PO DAILY 08/11/24 08/11/24 hydrocodone 5 mg-acetaminophen 325 1 tab PO DAILY 08/11/24 08/11/24 mg tablet lorazepam 0.5 mg tablet (Ativan) 0.5 mg PO .COMPLEX PRN anxiety 08/11/24 08/11/24 meloxicam 15 mg tablet 15 mg PO DAILY 08/11/24 08/11/24 methadone 5 mg tablet 5 mg PO BID 08/11/24 08/11/24 metoprolol succinate 50 mg 50 mg PO DAILY 08/11/24 08/11/24 tablet,extended release 24 hr morphine 100 mg/5 mL oral 5 mg PO .COMPLEX PRN pain 08/11/24 08/11/24 concentrate ondansetron 4 mg disintegrating 4 mg PO Q4H PRN nausea and vomiting 08/11/24 08/11/24 tablet sennosides 8.6 mg tablet (senna) 17.2 mg PO QPM 08/11/24 08/11/24 venlafaxine 150 mg 150 mg PO DAILY 08/11/24 08/11/24 capsule,extended release 24 hr Allergies Allergies Allergy/AdvReac Type Severity Reaction Status Date / Time No Known Drug Allergies Allergy Verified 08/11/24 00:44 Exam Exam per ed charting Conclusion/Plan Problem List (1) COVID: (2) Pneumonia: Qualifiers: Laterality: right Lung location: upper lobe of lung Pneumonia type: d ue to unspecified organism Qualified Code(s): J18.9 - Pneumonia, unspecified organism (3) Atrial fibrillation with rapid ventricular response: (4) Acute exacerbation of chronic obstructive pulmonary disease: Lab Results 08/11/24 00:42 08/11/24 00:42 Other Other Results/Comments: pt with - - acute hypoxemic resp failure multi-factorial in setting of copd exacerbation + covid pna + afib (below) treat as hcap since pt resides in facility --> zosyn ordered also needs remdesivir and can start this AM once pharmacy arrives with medicine O2, mvi, vit c, folic acid, albuterol, decadron cardizem drip monitor electrolytes - rapid a-fib with rvr with h/o chronic a-fib, on bb and digoxin cardizem drip started with HR in low 100s now not on long-term anticoagulation or DOAC continue ASA and therapeutic lovenox x 1 dose given (below) - elevated troponin likely in setting of above repeat pending at this time pt has no chest pain at this time, and does not desire any interventions therapeutic lovenox x 1 dose ordered will also check CTA chest to assess for PE f/u labs, cultures further orders per clinical course
[2024-08-11] MEDS ORDERED: iohexoL-300 100 ML VIAL ONE (06:05)
[2024-08-11 06:09] LABS: THYROID STIMULATING HORMONE 3.55 uIU/mL (0.34-5.60)
[2024-08-11] MEDS: iohexoL-300 100 ML VIAL IVP ONE (06:56)
[2024-08-11] MEDS: ALBUTEROL 1 PUFF INH PRN (08:00)
--- NOTE | 2024-08-11 08:28 | CT Report ---
PROCEDURE: CT Angio Chest INDICATIONS: PE, pna CONTRAST: 100 ML OMNI 300 TECHNIQUE: After the administration of intravenous contrast, 2 mm axial images were acquired from the pulmonary apices to the posterior costophrenic angles during the arterial phase. In addition, 1 mm lung kernel and 5 mm soft tissue kernel reconstructions were performed. 3-dimensional coronal oblique maximum int ensity projection (MIP) reformats, 8 mm axial MIP, and 5 mm coronal and sagittal MPR reformats were t hen performed through the thorax. For radiation dose reduction, the following was used: automated exp osure control, adjustment of mA and/or kV according to patient size. COMPARISON: Chest film from the same date. FINDINGS: Image quality: Excellent. Large vessels: No filling defects within the opacified pulmonary arteries, accounting for motion and contrast timing. No evidence of acute aortic syndrome or aortic aneurysm. Lungs and pleura: Subtle groundglass opacities, predominantly biapical distribution with subtle kath eptal thickening in the apices, potentially representing very mild pulmonary edema. Small bilateral p leural effusions with associated minimal compressive bibasilar atelectasis. No suspicious pulmonary n odules which require follow up. Mediastinum: Heart size is mildly enlarged. Moderate to severe coronary artery calcifications. No per icardial effusion. No large vessel abnormality. No mediastinal adenopathy by size criteria. [place] me diastinal lymph nodes, likely reactive. Reflux of contrast into the hepatic veins suggests a degree o f right heart failure. Chest wall and lower neck: Thyroid is unremarkable. No axillary or supraclavicular adenopathy by size . Bones: No aggressive osseous abnormality. Upper Abdomen: Unremarkable. IMPRESSION: 1. No acute pulmonary embolus. 2. Findings possibly representing a degree of biventricular congestive heart failure. Findings are concordant with preliminary interpretation provided by [facility]. Reviewed by: Clement Headley MD on 08/11/2024 8:26 AM PDT Approved by: Clement Headley MD on 08/11/2024 8:26 AM PDT Station ID: [id number]
[2024-08-11] MEDS: PIPERACILLIN/TAZOBACTAM 4.5 GM in SODIUM CHLORIDE 0.9% MINIBAG 100 ML IV SCH ×3 (08:36→22:24)
[2024-08-11] MEDS: PANTOPRAZOLE 40 MG TABLET PO SCH (08:48)
[2024-08-11] MEDS: VENLAFAXINE ER 75 MG CAPSULE PO SCH (08:49)
[2024-08-11] MEDS: MULTIVITAMIN W/MINERALS TABLET PO SCH (08:49)
[2024-08-11] MEDS: THIAMINE 100 MG TABLET PO SCH (08:49)
[2024-08-11] MEDS: DIGOXIN 125 MCG TABLET PO SCH (08:50)
[2024-08-11] MEDS: METHADONE 5 MG TABLET PO SCH (08:50)
[2024-08-11] MEDS: guaiFENesin 600 MG TABLET PO SCH (08:50)
[2024-08-11] MEDS: ARIPiprazole 5 MG TABLET PO SCH (08:52)
[2024-08-11] MEDS: LACTOBACILLUS RHAMNOSUS GG CAPSULE PO SCH (08:52)
[2024-08-11] MEDS: FOLIC ACID 1 MG TABLET PO SCH (08:52)
[2024-08-11] MEDS: CHOLECALCIFEROL 25 MCG TABLET PO SCH (08:52)
[2024-08-11] MEDS: METOPROLOL SUCCINATE 50 MG TABLET PO SCH (08:53)
[2024-08-11] MEDS: ASPIRIN EC 81 MG TABLET PO SCH (08:53)
[2024-08-11] MEDS: ASCORBIC ACID 500 MG TABLET PO SCH (08:56)
[2024-08-11] MEDS: METOPROLOL 5 MG/5 ML VIAL IVP PRN (09:05)
[2024-08-11 09:20] LABS: ESTIMATED AVERAGE GLUCOSE 105 mg/dL (70-100); HEMOGLOBIN A1c% 5.3 % (4.27-6.07)
[2024-08-11] MEDS: DEXAMETHASONE 10 MG/ML VIAL PO SCH (09:27)
[2024-08-11] MEDS: INSULIN LISPRO 300 UNIT/3 ML PEN SUBQ SCH (12:19)
[2024-08-11 12:27] LABS: BILIRUBIN,URINE NEGATIVE (NEGATIVE); GLUCOSE, URINE (UA) NEGATIVE (NEGATIVE); KETONES,URINE (UA) NEGATIVE (NEGATIVE); LEUKOCYTE ESTERASE, URINE NEGATIVE (NEGATIVE); NITRITE,URINE NEGATIVE (NEGATIVE); OCCULT BLOOD,URINE MODERATE (NEGATIVE); PH,URINE 5.5 PH (5.0-7.5); PROTEIN,URINE 30 mg/dL (NEGATIVE); UROBILINOGEN,URINE 0.2 (NORMAL) E.U./dL (NORMAL)
[2024-08-11 12:30] LABS: CLARITY,URINE CLEAR (CLEAR)
--- NOTE | 2024-08-11 12:32 | PHARMACY PROGRESS NOTE ---
Best Possible Medication History Admit Date and Time: 08/11/24 0534 Processed by: Pharmacy Medications reviewed in ED?: Yes Medication History completed: Yes Patient Interview: Pt unable to participate Secondary Source(s): Pharmacy records, Insurance records and Previous admit records [facility] Statement: As the person ultimately responsible for medication therapy, providers are able to order a medication from an existing home medication list in [facility] via the "Reconcile Routine" prior to Confirmation of that medication by ground support equipment assembler. Such practice is discouraged except when the physician, in their clinical judgment, deems that a medical need exists for a medication without regard to previous use.
[2024-08-11 12:35] LABS: BACTERIA,URINE Few /HPF (None Seen); CRYSTALS,URINE 0-2 Uric Acid /LPF; SQUAMOUS EPITHELIAL CELL,UR RARE Squamous (<= Few); WBC,URINE 0-3 /HPF (0-5)
[2024-08-11] MEDS: METOPROLOL TARTRATE 25 MG TABLET PO ONE (13:06)
[2024-08-11] MEDS: LORazepam 2 MG/ML VIAL IVP PRN (13:08)
[2024-08-11] MEDS: MORPHINE 2 MG/ML CARPUJECT IVP STA (13:58)
[2024-08-11] MEDS: VANCOMYCIN INJ 1.75 GM in SODIUM CHLORIDE 0.9% 500 ML IV ONE (14:37)
[2024-08-11] MEDS: FUROSEMIDE 20 MG/2 ML VIAL IVP ONE (18:11)
[2024-08-11] MEDS: ethyl alcohoL 62% SWAB AMPULE NAS SCH (20:52)
[2024-08-11] MEDS: SENNA 8.6 MG TABLET PO SCH (20:54)
[2024-08-11] MEDS: GABAPENTIN 100 MG CAPSULE PO PRN (20:54)
--- NOTE | 2024-08-12 02:23 | PROVIDER PROGRESS NOTE ---
Edi Manager Note Edi Manager Note Edi Manager Note: pt with persistent tachycardia / a-fib along with elevated bp. cardizem gtt started and ok to transfer to icu
[2024-08-12] MEDS ORDERED: DEXTROSE 5% 100 ML IV ONE (02:33)
[2024-08-12] MEDS: diltiaZEM INJ 125 MG in DEXTROSE 5% 100 ML IV SCH (02:59)
[2024-08-12 04:42] LABS: BASOPHILS % (AUTO) 0.1 %; HCT - HEMATOCRIT 34.6 % (37.0-47.0); HGB - HEMOGLOBIN 11.5 g/dL (12.0-16.0); LYMPHOCYTES # (AUTO) 1.4 10^3/uL (1.5-3.5); MEAN CORPUSCULAR HEMOGLOBIN 31.8 pg (27.0-31.0); MEAN CORPUSCULAR HGB CONC 33.2 g/dL (32.0-36.0); MEAN CORPUSCULAR VOLUME 95.6 fL (81.0-99.0); MEAN PLATELET VOLUME 10.4 fL (7.9-10.8); MONOCYTES # (AUTO) 0.6 10^3/uL (0.0-1.0); MONOCYTES % (AUTO) 3.8 %; NEUTROPHILS # (AUTO) 13.1 10^3/uL (1.5-6.6); NEUTROPHILS % (AUTO) 86.7 %; PLT - PLATELET COUNT 312 10^3/uL (130-450); RED BLOOD COUNT 3.62 10^6/uL (4.20-5.40); WHITE BLOOD COUNT 15.1 x10^3/uL (4.8-10.8)
[2024-08-12 04:58] LABS: MAGNESIUM 1.6 mg/dL (1.7-2.3)
[2024-08-12 05:04] LABS: ALBUMIN 3.6 g/dL (3.2-5.5); ALBUMIN/GLOBULIN RATIO 1.1 (1.0-2.2); BILIRUBIN,TOTAL 0.6 mg/dL (0.2-1.0); CALCIUM 8.8 mg/dL (8.5-10.3); CREATININE 0.9 mg/dL (0.6-1.3); TOTAL PROTEIN 6.9 g/dL (6.4-8.9)
[2024-08-12 05:56] LABS: CALCIUM 8.8 mg/dL (8.5-10.3); IONIZED CALCIUM IF INDICATED NO
[2024-08-12] MEDS: MAGNESIUM OXIDE 400 MG TABLET PO ONE ×2 (06:34→17:58)
[2024-08-12] MEDS: dexAMETHasone 4 MG TABLET PO SCH (08:43)
[2024-08-12] MEDS: METOPROLOL SUCCINATE 50 MG TABLET PO SCH (08:44)
[2024-08-12] MEDS: ENOXAPARIN 40 MG/0.4 ML SYRINGE SUBQ SCH (08:51)
[2024-08-12] MEDS: diltiaZEM 30 MG TABLET PO SCH ×2 (11:27→17:54)
[2024-08-12] MEDS: VANCOMYCIN INJ 1 GM in SODIUM CHLORIDE 0.9% 250 ML IV SCH (14:36)
--- NOTE | 2024-08-12 15:07 | PROVIDER PROGRESS NOTE ---
Subjective Prog Note Date Prog Note Date: 08/12/24 Subjective Pt reports feeling: Improved Subjective: Says she feels better this morning Nursing noted heart rate sustained above 120s overnight, so overnight doc restarted Cardizem drip Current Medications Current Medications Current Medications: Current Medications Generic Name Dose Route Start Last Admin Trade Name Freq PRN Reason Stop Dose Admin Albuterol 2 puffs 08/11/24 08:16 08/11/24 16:26 Albuterol 1 Puff INH 2 puffs Q4H PRN Administration Asthma Alcohol 1 amp 08/11/24 21:00 08/12/24 08:50 Ethyl Alcohol 62% Swab Ampule LESLIE 1 amp BID JONATHAN Administration Aripiprazole 5 mg 08/11/24 09:00 08/12/24 08:43 Aripiprazole 5 Mg Tablet PO 5 mg DAILY JONATHAN Administration Ascorbic Acid 500 mg 08/11/24 09:00 08/12/24 08:44 Ascorbic Acid 500 Mg Tablet PO 500 mg DAILY JONATHAN Administration Aspirin 81 mg 08/11/24 09:00 08/12/24 08:44 Aspirin Ec 81 Mg Tablet PO 81 mg DAILY JONATHAN Administration Benzonatate 100 mg 08/11/24 05:36 Benzonatate 100 Mg Capsule PO Q8H PRN Cough Cholecalciferol 25 mcg 08/11/24 09:00 08/12/24 08:44 Cholecalciferol 25 Mcg Tablet PO 25 mcg DAILY JONATHAN Administration Dexamethasone 6 mg 08/12/24 09:00 08/12/24 08:43 Dexamethasone 4 Mg Tablet PO 6 mg DAILY JONATHAN Administration Digoxin 62.5 mcg 08/11/24 09:00 08/12/24 08:45 Digoxin 125 Mcg Tablet PO 62.5 mcg DAILY JONATHAN Administration Diltiazem HCl 60 mg 08/12/24 12:00 Diltiazem 60 Mg Tablet PO Q6HR JONATHAN Enoxaparin Sodium 40 mg 08/12/24 09:00 08/12/24 08:51 Enoxaparin 40 Mg/0.4 Ml Syringe SUBQ 40 mg DAILY JONATHAN Administration Folic Acid 1 mg 08/11/24 09:00 08/12/24 08:44 Folic Acid 1 Mg Tablet PO 1 mg DAILY JONATHAN Administration Gabapentin 100 mg 08/11/24 05:32 08/11/24 20:54 Gabapentin 100 Mg Capsule PO 100 mg HS PRN Administration pain Guaifenesin 600 mg 08/11/24 09:00 08/12/24 08:44 Guaifenesin 600 Mg Tablet PO 600 mg BID JONATHAN Administration Piperacillin Sod/Tazobactam 100 mls @ 25 mls/hr 08/11/24 15:00 08/12/24 06:35 Sod 4.5 gm/ Sodium Chloride IV 25 mls/hr Q8H JONATHAN Administration Vancomycin HCl 1 gm/ Sodium 250 mls @ 167 mls/hr 08/12/24 14:00 Chloride IV Q24H JONATHAN Diltiazem HCl 125 mg/ Dextrose 125 mls @ 5 mls/hr 08/12/24 03:00 08/12/24 10:21 IV 5 mg/hr .Q25H JONATHAN 5 mls/hr Titration Protocol 5 MG/HR Insulin Human Lispro 1 - 5 unit 08/11/24 12:00 08/12/24 08:32 Insulin Lispro 300 Unit/3 Ml Pen SUBQ 1 unit 0800,1200,1700,2100 JONATHAN Administration Protocol Lactobacillus Rhamnosus 1 cap 08/11/24 09:00 08/12/24 08:43 Lactobacillus Rhamnosus Gg Capsule PO 1 cap DAILY JONATHAN Administration Lorazepam 0.5 mg 08/11/24 12:40 08/12/24 00:27 Lorazepam 2 Mg/Ml Vial IVP 0.5 mg Q2H PRN Administration Anxiety Methadone HCl 5 mg 08/11/24 09:00 08/12/24 08:43 Methadone 5 Mg Tablet PO 5 mg BID JONATHAN Administration Metoprolol Succinate 100 mg 08/12/24 09:00 08/12/24 08:44 Metoprolol Succinate 50 Mg Tablet PO 100 mg DAILY JONATHAN Administration Metoprolol Tartrate 5 mg 08/11/24 07:45 08/12/24 00:33 Metoprolol 5 Mg/5 Ml Vial IVP 5 mg Q6H PRN Administration Tachycardia Multivitamins/Minerals 1 tab 08/11/24 08:00 08/12/24 08:44 Multivitamin W/Minerals Tablet PO 1 tab DAILYWM JONATHAN Administration Pantoprazole Sodium 40 mg 08/11/24 07:00 08/12/24 06:34 Pantoprazole 40 Mg Tablet PO 40 mg QDAC JONATHAN Administration Senna 17.2 mg 08/11/24 21:00 08/11/24 20:54 Senna 8.6 Mg Tablet PO 17.2 mg QPM JONATHAN Administration Thiamine HCl 100 mg 08/11/24 09:00 08/12/24 08:42 Thiamine 100 Mg Tablet PO 100 mg DAILY JONATHAN Administration Venlafaxine HCl 150 mg 08/11/24 09:00 08/12/24 08:44 Venlafaxine Er 75 Mg Capsule PO 150 mg DAILY JONATHAN Administration Objective Vital Signs/Intake & Output Reviewed Vital Signs: Yes Vital Signs: Vital Signs x48h Temp Pulse Pulse Resp BP BP Pulse Ox 08/12/24 10:00 99 H 17 138/69 H 95 08/12/24 09:00 110 H 23 120/75 96 08/12/24 08:24 36.9 C 08/12/24 08:00 90 20 117/89 96 08/12/24 07:00 106 H 18 127/90 97 08/12/24 06:00 103 H 19 136/77 H 98 08/12/24 05:00 110 H 19 127/99 H 96 08/12/24 04:10 37.0 C 128 H 17 139/85 H 97 08/12/24 03:16 124 H 154/100 H 08/12/24 03:12 124 H 138/88 H 08/12/24 03:00 108 H 19 133/97 H 97 08/12/24 02:59 149 H 136/102 H O2 Flow Rate 08/12/24 10:00 2 08/12/24 09:00 2 08/12/24 08:24 08/12/24 08:00 2 08/12/24 07:00 2 08/12/24 06:00 2 08/12/24 05:00 2 08/12/24 04:10 2 08/12/24 03:16 08/12/24 03:12 08/12/24 03:00 08/12/24 02:59 Intake & Output: Intake & Output 08/10/24 08/11/24 08/12/24 08/13/24 05:59 05:59 05:59 05:59 Intake Total 2353 / 2353 1400 / 1400 445 / 445 Output Total 1700 / 1700 900 / 900 Balance 2353 / 2353 -300 / -300 -455 / -455 Weight (kg) 77.3 kg 72.575 kg Objective General Appearance: positive No acute distress Respiratory: positive Chest non-tender, No respiratory distress and Rhonchi Cardiovascular: positive Irregularly irregular and Tachycardia Skin: positive Color nml Extremities: positive Non-tender Neurologic/Psychiatric: positive Oriented x3 Lab Results 08/12/24 04:15 08/12/24 04:15 Other Labs: Lab Results x24hrs 08/12/24 08/12/24 08/11/24 Range/Units 04:15 04:15 20:51 WBC 15.1 H (4.8-10.8) x10^3/uL RBC 3.62 L (4.20-5.40) 10^6/uL Hgb 11.5 L (12.0-16.0) g/dL Hct 34.6 L (37.0-47.0) % MCV 95.6 (81.0-99.0) fL MCH 31.8 H (27.0-31.0) pg MCHC 33.2 (32.0-36.0) g/dL RDW 16.0 H (12.0-15.0) % Plt Count 312 (130-450) 10^3/uL MPV 10.4 (7.9-10.8) fL Neut # (Auto) 13.1 H (1.5-6.6) 10^3/uL Lymph # (Auto) 1.4 L (1.5-3.5) 10^3/uL Luna # (Auto) 0.6 (0.0-1.0) 10^3/uL Eos # (Auto) 0.0 (0.0-0.7) 10^3/uL Baso # (Auto) 0.0 (0.0-0.1) 10^3/uL Absolute Nucleated RBC 0.00 x10^3/uL Nucleated RBC % 0.0 /100WBC Sodium 136 (135-145) mmol/L Potassium 4.0 (3.5-4.5) mmol/L Chloride 104 (101-111) mmol/L Carbon Dioxide 23 (21-32) mmol/L Anion Gap 9.0 (6-13) BUN 24 H (6-20) mg/dL Creatinine 0.9 (0.6-1.3) mg/dL Estimated GFR (MDRD) 60 L (>89) Glucose 142 H (74-104) mg/dL POC Whole Bld Glucose 147 (70-100) mg/dL Calcium 8.8 8.8 (8.5-10.3) mg/dL Ionized Calcium NO Phosphorus 3.9 (2.5-5.0) mg/dL Magnesium 1.6 L (1.7-2.3) mg/dL Total Bilirubin 0.6 (0.2-1.0) mg/dL AST 26 (10-42) IU/L ALT 28 (10-60) IU/L Alkaline Phosphatase 76 (42-121) IU/L Total Protein 6.9 (6.4-8.9) g/dL Albumin 3.6 (3.2-5.5) g/dL Globulin 3.3 (2.1-4.2) g/dL Albumin/Globulin Ratio 1.1 (1.0-2.2) Procalcitonin Immunoas (<0.5) ng/mL Urine Color Urine Clarity (CLEAR) Urine pH (5.0-7.5) PH Ur Specific [place] (1.002-1.030) Urine Protein (NEGATIVE) mg/dL Urine Glucose (UA) (NEGATIVE) mg/dL Urine Ketones (NEGATIVE) mg/dL Urine Occult Blood (NEGATIVE) Urine Nitrite (NEGATIVE) Urine Bilirubin (NEGATIVE) Urine Urobilinogen (NORMAL) E.U./dL Ur Leukocyte Esterase (NEGATIVE) Urine RBC (0-5) /HPF Urine WBC (0-5) /HPF Ur Squamous Epith Cells (<= Few) Urine Crystals /LPF Urine Bacteria (None Seen) /HPF Urine Culture Comments Nasal Screen MRSA (PCR) (NEGATIVE) 08/11/24 08/11/24 08/11/24 Range/Units 18:05 12:12 12:05 WBC (4.8-10.8) x10^3/uL RBC (4.20-5.40) 10^6/uL Hgb (12.0-16.0) g/dL Hct (37.0-47.0) % MCV (81.0-99.0) fL MCH (27.0-31.0) pg MCHC (32.0-36.0) g/dL RDW (12.0-15.0) % Plt Count (130-450) 10^3/uL MPV (7.9-10.8) fL Neut # (Auto) (1.5-6.6) 10^3/uL Lymph # (Auto) (1.5-3.5) 10^3/uL Luna # (Auto) (0.0-1.0) 10^3/uL Eos # (Auto) (0.0-0.7) 10^3/uL Baso # (Auto) (0.0-0.1) 10^3/uL Absolute Nucleated RBC x10^3/uL Nucleated RBC % /100WBC Sodium (135-145) mmol/L Potassium (3.5-4.5) mmol/L Chloride (101-111) mmol/L Carbon Dioxide (21-32) mmol/L Anion Gap (6-13) BUN (6-20) mg/dL Creatinine (0.6-1.3) mg/dL Estimated GFR (MDRD) (>89) Glucose (74-104) mg/dL POC Whole Bld Glucose 141 150 (70-100) mg/dL Calcium (8.5-10.3) mg/dL Ionized Calcium Phosphorus (2.5-5.0) mg/dL Magnesium (1.7-2.3) mg/dL Total Bilirubin (0.2-1.0) mg/dL AST (10-42) IU/L ALT (10-60) IU/L Alkaline Phosphatase (42-121) IU/L Total Protein (6.4-8.9) g/dL Albumin (3.2-5.5) g/dL Globulin (2.1-4.2) g/dL Albumin/Globulin Ratio (1.0-2.2) Procalcitonin Immunoas (<0.5) ng/mL Urine Color YELLOW Urine Clarity CLEAR (CLEAR) Urine pH 5.5 (5.0-7.5) PH Ur Specific [place] 1.015 (1.002-1.030) Urine Protein 30 H (NEGATIVE) mg/dL Urine Glucose (UA) NEGATIVE (NEGATIVE) mg/dL Urine Ketones NEGATIVE (NEGATIVE) mg/dL Urine Occult Blood MODERATE H (NEGATIVE) Urine Nitrite NEGATIVE (NEGATIVE) Urine Bilirubin NEGATIVE (NEGATIVE) Urine Urobilinogen 0.2 (NORMAL) (NORMAL) E.U./dL Ur Leukocyte Esterase NEGATIVE (NEGATIVE) Urine RBC 6-10 H (0-5) /HPF Urine WBC 0-3 (0-5) /HPF Ur Squamous Epith Cells RARE Squamous (<= Few) Urine Crystals 0-2 Uric Acid /LPF Urine Bacteria Few (None Seen) /HPF Urine Culture Comments NOT INDICATED Nasal Screen MRSA (PCR) (NEGATIVE) 08/11/24 08/11/24 Range/Units 07:00 04:46 WBC (4.8-10.8) x10^3/uL RBC (4.20-5.40) 10^6/uL Hgb (12.0-16.0) g/dL Hct (37.0-47.0) % MCV (81.0-99.0) fL MCH (27.0-31.0) pg MCHC (32.0-36.0) g/dL RDW (12.0-15.0) % Plt Count (130-450) 10^3/uL MPV (7.9-10.8) fL Neut # (Auto) (1.5-6.6) 10^3/uL Lymph # (Auto) (1.5-3.5) 10^3/uL Luna # (Auto) (0.0-1.0) 10^3/uL Eos # (Auto) (0.0-0.7) 10^3/uL Baso # (Auto) (0.0-0.1) 10^3/uL Absolute Nucleated RBC x10^3/uL Nucleated RBC % /100WBC Sodium (135-145) mmol/L Potassium (3.5-4.5) mmol/L Chloride (101-111) mmol/L Carbon Dioxide (21-32) mmol/L Anion Gap (6-13) BUN (6-20) mg/dL Creatinine (0.6-1.3) mg/dL Estimated GFR (MDRD) (>89) Glucose (74-104) mg/dL POC Whole Bld Glucose (70-100) mg/dL Calcium (8.5-10.3) mg/dL Ionized Calcium Phosphorus (2.5-5.0) mg/dL Magnesium (1.7-2.3) mg/dL Total Bilirubin (0.2-1.0) mg/dL AST (10-42) IU/L ALT (10-60) IU/L Alkaline Phosphatase (42-121) IU/L Total Protein (6.4-8.9) g/dL Albumin (3.2-5.5) g/dL Globulin (2.1-4.2) g/dL Albumin/Globulin Ratio (1.0-2.2) Procalcitonin Immunoas 0.30 (<0.5) ng/mL Urine Color Urine Clarity (CLEAR) Urine pH (5.0-7.5) PH Ur Specific [place] (1.002-1.030) Urine Protein (NEGATIVE) mg/dL Urine Glucose (UA) (NEGATIVE) mg/dL Urine Ketones (NEGATIVE) mg/dL Urine Occult Blood (NEGATIVE) Urine Nitrite (NEGATIVE) Urine Bilirubin (NEGATIVE) Urine Urobilinogen (NORMAL) E.U./dL Ur Leukocyte Esterase (NEGATIVE) Urine RBC (0-5) /HPF Urine WBC (0-5) /HPF Ur Squamous Epith Cells (<= Few) Urine Crystals /LPF Urine Bacteria (None Seen) /HPF Urine Culture Comments Nasal Screen MRSA (PCR) POSITIVE A* (NEGATIVE) Assessment/Plan Problem List (1) Atrial fibrillation with rapid ventricular response: Impression: Has been on and off diltiazem drip for over a day now Echo pending Check TSH I have increased her home dose metoprolol 200 mg p.o. daily I have added 30 mg every 6hr Cardizem to allow us to wean off the Cardizem drip Will consider completely removing Cardizem tomorrow, and managing this with only beta-aylin This is likely exacerbated by COVID/pneumonia/respiratory failure She is not on anticoagulation at home, will go ahead and start anticoagulation while inpatient given COVID-positive status (2) COVID: Impression: Decadron 6 mg p.o. daily Holding off on remdesivir given low O2 needs at this time CTA chest with no PE (3) Pneumonia: Impression: Given she is a facility resident, and has MRSA positive PCR, treating as pneumonia with risk factors with Zosyn and vancomycin IV I-S Qualifiers: Laterality: right Lung location: upper lobe of lung Pneumonia type: d ue to unspecified organism Qualified Code(s): J18.9 - Pneumonia, unspecified organism (4) Acute exacerbation of chronic obstructive pulmonary disease: Impression: Steroids as above Antibiotics as above (5) Acute and chronic respiratory failure with hypoxia: Impression: Manage COPD/pneumonia/COVID-19 infection as above CTA on admit showed possible biventricular congestive heart failure Was given one-time dose of 20 mg Lasix IV yesterday with 1500 mL UOP, and some improvement in respiratory symptoms Echo pending On metoprolol, will consider goal-directed therapy if she has severely reduced EF Given concern for heart failure, exercising caution in use of Cardizem for her atrial fibrillation with RVR
--- NOTE | 2024-08-12 15:13 | PHARMACY PROGRESS NOTE ---
Vancomycin Therapy Monitoring Patient Information Vancomycin Pt Height (inches): 65 Vancomycin Patient Weight (kg): 72 Vanco Rx Serum Creatinine (mg/dL): 0.9 Vancomycin Therapy BUN (mg/dL): 24 Vancomycin Therapy Calculated Creatinine Cl (ml/min): 52 Concurrent Antibiotics: ZOSYN 4.5MG EXTENDED INFUSION Vancomycin Therapy Goals Treatment Indication: HCAP Vancomycin Target Range: Vancomycin AUC Target Range 400-600 mcg*h/ml Assessment of Current Therapy Vancomycin Loading Dose (GM, if applicable): 1.75G Current Vancomycin Maintenance Regimen (if applicable): ONE DOSE OF 1G Q24H RECEIVED BEFORE ORDER WAS UPDATED TO BE 0.75G Q12H DUE TO IMPROVEMENT IN RENAL FUNCTION FROM 43 TO 52ML/MIN. ESTIMATED AUC OF 502 WITH A PEAK OF 26.1 AND TROUGH OF 16.4 Plan: Current Vancomycin Maintenance Regimen (if applicable): 0.75G Q12H Pharmacy recommendation: Continue current regimen
[2024-08-13] MEDS: MAGNESIUM OXIDE 400 MG TABLET PO ONE ×2 (00:15→06:22)
[2024-08-13] MEDS: VANCOMYCIN INJ 0.75 GM in SODIUM CHLORIDE 0.9% 250 ML IV SCH (02:47)
[2024-08-13 04:39] LABS: HCT - HEMATOCRIT 31.7 % (37.0-47.0); HGB - HEMOGLOBIN 10.2 g/dL (12.0-16.0); MEAN CORPUSCULAR HEMOGLOBIN 31.6 pg (27.0-31.0); MEAN CORPUSCULAR HGB CONC 32.2 g/dL (32.0-36.0); MEAN CORPUSCULAR VOLUME 98.1 fL (81.0-99.0); MEAN PLATELET VOLUME 10.4 fL (7.9-10.8); RED BLOOD COUNT 3.23 10^6/uL (4.20-5.40); RED CELL DISTRIBUTION WIDTH 16.1 % (12.0-15.0); WHITE BLOOD COUNT 14.5 x10^3/uL (4.8-10.8)
[2024-08-13 04:41] LABS: CALCIUM, IONIZED 1.06 mmol/L (1.15-1.33); VBG PH 7.439 (7.31-7.41)
[2024-08-13 04:56] LABS: CALCIUM 8.4 mg/dL (8.5-10.3); CREATININE 0.9 mg/dL (0.6-1.3); MAGNESIUM 1.8 mg/dL (1.7-2.3); PHOSPHORUS 3.2 mg/dL (2.5-5.0); POTASSIUM 4.1 mmol/L (3.5-4.5)
[2024-08-13] MEDS: CALCIUM CARBONATE CHEW 500 MG TABLET PO SCH (06:23)
--- NOTE | 2024-08-13 08:45 | PROVIDER PROGRESS NOTE ---
Subjective Prog Note Date Prog Note Date: 08/13/24 Subjective Pt reports feeling: Improved Subjective: Patient without need for IV Cardizem overnight. Now down to 1 L O2 requirement. Afebrile Current Medications Current Medications Current Medications: Current Medications Generic Name Dose Route Start Last Admin Trade Name Freq PRN Reason Stop Dose Admin Albuterol 2 puffs 08/11/24 08:16 08/11/24 16:26 Albuterol 1 Puff INH 2 puffs Q4H PRN Administration Asthma Alcohol 1 amp 08/11/24 21:00 08/12/24 21:05 Ethyl Alcohol 62% Swab Ampule LESLIE 1 amp BID JONATHAN Administration Aripiprazole 5 mg 08/11/24 09:00 08/12/24 08:43 Aripiprazole 5 Mg Tablet PO 5 mg DAILY JONATHAN Administration Ascorbic Acid 500 mg 08/11/24 09:00 08/12/24 08:44 Ascorbic Acid 500 Mg Tablet PO 500 mg DAILY JONATHAN Administration Aspirin 81 mg 08/11/24 09:00 08/12/24 08:44 Aspirin Ec 81 Mg Tablet PO 81 mg DAILY JONATHAN Administration Benzonatate 100 mg 08/11/24 05:36 Benzonatate 100 Mg Capsule PO Q8H PRN Cough Calcium Carbonate/Glycine 1,250 mg 08/13/24 07:00 08/13/24 06:23 Calcium Carbonate Chew 500 Mg Tablet PO 08/13/24 11:01 1,250 mg Q4H JONATHAN Administration Protocol Cholecalciferol 25 mcg 08/11/24 09:00 08/12/24 08:44 Cholecalciferol 25 Mcg Tablet PO 25 mcg DAILY JONATHAN Administration Dexamethasone 6 mg 08/12/24 09:00 08/12/24 08:43 Dexamethasone 4 Mg Tablet PO 6 mg DAILY JONATHAN Administration Digoxin 62.5 mcg 08/11/24 09:00 08/12/24 08:45 Digoxin 125 Mcg Tablet PO 62.5 mcg DAILY JONATHAN Administration Diltiazem HCl 30 mg 08/12/24 18:00 08/13/24 06:24 Diltiazem 30 Mg Tablet PO 30 mg Q6HR JONATHAN Administration Enoxaparin Sodium 40 mg 08/12/24 09:00 08/12/24 08:51 Enoxaparin 40 Mg/0.4 Ml Syringe SUBQ 40 mg DAILY JONATHAN Administration Folic Acid 1 mg 08/11/24 09:00 08/12/24 08:44 Folic Acid 1 Mg Tablet PO 1 mg DAILY JONATHAN Administration Gabapentin 100 mg 08/11/24 05:32 08/12/24 21:05 Gabapentin 100 Mg Capsule PO 100 mg HS PRN Administration pain Guaifenesin 600 mg 08/11/24 09:00 08/12/24 21:05 Guaifenesin 600 Mg Tablet PO 600 mg BID JONATHAN Administration Piperacillin Sod/Tazobactam 100 mls @ 25 mls/hr 08/11/24 15:00 08/13/24 06:27 Sod 4.5 gm/ Sodium Chloride IV 25 mls/hr Q8H JONATHAN Administration Vancomycin HCl 0.75 gm/ Sodium 250 mls @ 167 mls/hr 08/13/24 03:00 08/13/24 04:41 Chloride IV Infused Q12H JONATHAN Infusion Insulin Human Lispro 1 - 5 unit 08/11/24 12:00 08/12/24 21:04 Insulin Lispro 300 Unit/3 Ml Pen SUBQ Not Given 0800,1200,1700,2100 [facility] Protocol Lactobacillus Rhamnosus 1 cap 08/11/24 09:00 08/12/24 08:43 Lactobacillus Rhamnosus Gg Capsule PO 1 cap DAILY JONATHAN Administration Lorazepam 0.5 mg 08/11/24 12:40 08/12/24 00:27 Lorazepam 2 Mg/Ml Vial IVP 0.5 mg Q2H PRN Administration Anxiety Methadone HCl 5 mg 08/11/24 09:00 08/12/24 21:05 Methadone 5 Mg Tablet PO 5 mg BID JONATHAN Administration Metoprolol Tartrate 5 mg 08/11/24 07:45 08/12/24 00:33 Metoprolol 5 Mg/5 Ml Vial IVP 5 mg Q6H PRN Administration Tachycardia Metoprolol Tartrate 75 mg 08/13/24 09:00 Metoprolol Tartrate 25 Mg Tablet PO BID JONATHAN Multivitamins/Minerals 1 tab 08/11/24 08:00 08/12/24 08:44 Multivitamin W/Minerals Tablet PO 1 tab DAILYWM JONATHAN Administration Pantoprazole Sodium 40 mg 08/11/24 07:00 08/13/24 06:23 Pantoprazole 40 Mg Tablet PO 40 mg QDAC JONATHAN Administration Senna 17.2 mg 08/11/24 21:00 08/12/24 21:05 Senna 8.6 Mg Tablet PO 17.2 mg QPM JONATHAN Administration Thiamine HCl 100 mg 08/11/24 09:00 08/12/24 08:42 Thiamine 100 Mg Tablet PO 100 mg DAILY JONATHAN Administration Venlafaxine HCl 150 mg 08/11/24 09:00 08/12/24 08:44 Venlafaxine Er 75 Mg Capsule PO 150 mg DAILY JONATHAN Administration Objective Vital Signs/Intake & Output Reviewed Vital Signs: Yes Vital Signs: Vital Signs x48h Temp Pulse Pulse Resp BP BP Pulse Ox 08/13/24 08:19 25 H 08/13/24 08:00 36.6 C 104 H 42 H 132/68 H 93 08/13/24 07:00 108 H 21 113/84 97 08/13/24 06:25 102 H 21 113/84 97 08/13/24 06:24 102 H 113/84 08/13/24 05:00 109 H 29 H 131/93 H 94 08/13/24 04:00 113 H 16 111/86 94 08/13/24 03:00 93 H 18 112/73 94 08/13/24 03:00 106 H 15 112/73 96 08/13/24 02:00 36.6 C 124 H 15 101/64 93 08/13/24 01:00 110 H 16 111/66 94 O2 Flow Rate 08/13/24 08:19 08/13/24 08:00 08/13/24 07:00 1 08/13/24 06:25 1 08/13/24 06:24 08/13/24 05:00 1 08/13/24 04:00 1 08/13/24 03:00 1 08/13/24 03:00 1 08/13/24 02:00 1 08/13/24 01:00 1 Intake & Output: Intake & Output 08/11/24 08/12/24 08/13/24 08/14/24 05:59 05:59 05:59 05:59 Intake Total 2353 / 2353 1400 / 1400 1407 / 1407 Output Total 1700 / 1700 900 / 900 300 / 300 Balance 2353 / 2353 -300 / -300 507 / 507 -300 / -300 Weight (kg) 77.3 kg 72.575 kg Objective General Appearance: positive No acute distress Respiratory: positive Chest non-tender, No respiratory distress and Rhonchi Cardiovascular: positive Irregularly irregular and Tachycardia Abdomen: positive Non-tender Skin: positive Color nml Extremities: positive Non-tender Neurologic/Psychiatric: positive Oriented x3 Lab Results 08/13/24 04:30 08/13/24 04:30 Other Labs: Lab Results x24hrs 08/13/24 08/13/24 08/12/24 Range/Units 07:50 04:30 21:57 WBC 14.5 H (4.8-10.8) x10^3/uL RBC 3.23 L (4.20-5.40) 10^6/uL Hgb 10.2 L (12.0-16.0) g/dL Hct 31.7 L (37.0-47.0) % MCV 98.1 (81.0-99.0) fL MCH 31.6 H (27.0-31.0) pg MCHC 32.2 (32.0-36.0) g/dL RDW 16.1 H (12.0-15.0) % Plt Count 256 (130-450) 10^3/uL MPV 10.4 (7.9-10.8) fL VBG pH 7.439 H (7.31-7.41) Ionized Calcium 1.06 L (1.15-1.33) mmol/L Sodium 136 (135-145) mmol/L Potassium 4.1 (3.5-4.5) mmol/L Chloride 107 (101-111) mmol/L Carbon Dioxide 22 (21-32) mmol/L Anion Gap 7.0 (6-13) BUN 30 H (6-20) mg/dL Creatinine 0.9 (0.6-1.3) mg/dL Estimated GFR (MDRD) 60 L (>89) Glucose 117 H (74-104) mg/dL POC Whole Bld Glucose 101 (70-100) mg/dL Calcium 8.4 L (8.5-10.3) mg/dL Phosphorus 3.2 (2.5-5.0) mg/dL Magnesium 1.8 1.7 (1.7-2.3) mg/dL 08/12/24 08/12/24 08/12/24 Range/Units 21:00 17:05 11:28 WBC (4.8-10.8) x10^3/uL RBC (4.20-5.40) 10^6/uL Hgb (12.0-16.0) g/dL Hct (37.0-47.0) % MCV (81.0-99.0) fL MCH (27.0-31.0) pg MCHC (32.0-36.0) g/dL RDW (12.0-15.0) % Plt Count (130-450) 10^3/uL MPV (7.9-10.8) fL VBG pH (7.31-7.41) Ionized Calcium (1.15-1.33) mmol/L Sodium (135-145) mmol/L Potassium (3.5-4.5) mmol/L Chloride (101-111) mmol/L Carbon Dioxide (21-32) mmol/L Anion Gap (6-13) BUN (6-20) mg/dL Creatinine (0.6-1.3) mg/dL Estimated GFR (MDRD) (>89) Glucose (74-104) mg/dL POC Whole Bld Glucose 129 126 114 (70-100) mg/dL Calcium (8.5-10.3) mg/dL Phosphorus (2.5-5.0) mg/dL Magnesium (1.7-2.3) mg/dL 08/12/24 08/12/24 Range/Units 10:35 08:11 WBC (4.8-10.8) x10^3/uL RBC (4.20-5.40) 10^6/uL Hgb (12.0-16.0) g/dL Hct (37.0-47.0) % MCV (81.0-99.0) fL MCH (27.0-31.0) pg MCHC (32.0-36.0) g/dL RDW (12.0-15.0) % Plt Count (130-450) 10^3/uL MPV (7.9-10.8) fL VBG pH (7.31-7.41) Ionized Calcium (1.15-1.33) mmol/L Sodium (135-145) mmol/L Potassium (3.5-4.5) mmol/L Chloride (101-111) mmol/L Carbon Dioxide (21-32) mmol/L Anion Gap (6-13) BUN (6-20) mg/dL Creatinine (0.6-1.3) mg/dL Estimated GFR (MDRD) (>89) Glucose (74-104) mg/dL POC Whole Bld Glucose 145 (70-100) mg/dL Calcium (8.5-10.3) mg/dL Phosphorus (2.5-5.0) mg/dL Magnesium 1.7 (1.7-2.3) mg/dL Assessment/Plan Problem List (1) Atrial fibrillation with rapid ventricular response: Impression: Heart rate has been less than 120 for the past day on metoprolol and Cardizem Echo shows moderate to severely impaired left systolic function with an EF of 30 to 35% Given her HFrEF, I will attempt to manage her rate without Cardizem Metoprolol was increased to 100 mg p.o. succinate yesterday After discussion with pharmacy, decision was made to further increase dose to 200 mg p.o. metoprolol succinate, so we can attempt to discontinue Cardizem Given her advanced age, will hold off on anticoagulation Aspirin Manage respiratory failure as below (2) COVID: Impression: Decadron 6 mg p.o. daily Holding off on remdesivir given low O2 needs at this time CTA chest with no PE (3) Pneumonia: Impression: Given she is a facility resident, and has MRSA positive PCR,She was initially treated with Zosyn and vancomycin IV Transition to doxycycline and Augmentin today I-S Qualifiers: Laterality: right Lung location: upper lobe of lung Pneumonia type: d ue to unspecified organism Qualified Code(s): J18.9 - Pneumonia, unspecified organism (4) Acute exacerbation of chronic obstructive pulmonary disease: Impression: Steroids as above Antibiotics as above (5) Acute and chronic respiratory failure with hypoxia: Impression: Manage COPD/pneumonia/COVID-19 infection as above CTA on admit showed possible biventricular congestive heart failure Was given one-time dose of 20 mg Lasix IV yesterday with 1500 mL UOP, and some improvement in respiratory symptoms (6) HFrEF (heart failure with reduced ejection fraction): Impression: EF 30 to 35% on echo Lisinopril 5 mg p.o. daily Spironolactone 25 mg p.o. daily Will defer SGLT2 inhibitor to PCP
[2024-08-13] MEDS: METOPROLOL TARTRATE 25 MG TABLET PO SCH (09:57)
[2024-08-13] MEDS: SPIRONOLACTONE 25 MG TABLET PO SCH (11:46)
[2024-08-13] MEDS: lisinopriL 5 MG TABLET PO SCH (11:47)
[2024-08-13] MEDS: METOPROLOL TARTRATE 25 MG TABLET PO ONE (11:58)
[2024-08-13] MEDS: DOXYCYCLINE 100 MG TABLET PO SCH (12:00)
[2024-08-13] MEDS: AMOX/CLAV 875 MG/125 MG TABLET PO SCH (12:00)
[2024-08-13] MEDS: METOPROLOL TARTRATE 50 MG TABLET PO ONE (22:07)
[2024-08-14 05:41] LABS: CALCIUM, IONIZED 1.09 mmol/L (1.15-1.33); VBG PH 7.456 (7.31-7.41)
[2024-08-14 05:43] LABS: HCT - HEMATOCRIT 32.8 % (37.0-47.0); HGB - HEMOGLOBIN 10.9 g/dL (12.0-16.0); MEAN CORPUSCULAR HEMOGLOBIN 32.2 pg (27.0-31.0); MEAN CORPUSCULAR HGB CONC 33.2 g/dL (32.0-36.0); MEAN PLATELET VOLUME 10.1 fL (7.9-10.8); RED BLOOD COUNT 3.38 10^6/uL (4.20-5.40); WHITE BLOOD COUNT 13.3 x10^3/uL (4.8-10.8)
[2024-08-14 06:01] LABS: CALCIUM 8.9 mg/dL (8.5-10.3); CREATININE 0.7 mg/dL (0.6-1.3); MAGNESIUM 1.9 mg/dL (1.7-2.3); PHOSPHORUS 2.8 mg/dL (2.5-5.0); POTASSIUM 4.2 mmol/L (3.5-4.5)
[2024-08-14] MEDS: METOPROLOL SUCCINATE 50 MG TABLET PO SCH (08:58)
[2024-08-14 10:36] VITALS: O2SAT 93
--- NOTE | 2024-08-14 11:18 | Discharge Summary ---
Discharge Summary ALLERGIES Allergies Allergy/AdvReac Type Severity Reaction Status Date / Time No Known Drug Allergies Allergy Verified 08/11/24 00:44 MEDICATIONS Ambulatory Orders Medication Instructions Recorded Confirmed albuterol sulfate 90 mcg/actuation 2 puff inhalation Q4H PRN 05/16/21 08/11/24 breath activated powder inhaler Shortness Of Air/Wheezing (ProAir RespiClick) aripiprazole 5 mg tablet 5 mg PO DAILY 05/16/21 08/11/24 cholecalciferol (vitamin D3) 25 25 mcg PO DAILY 05/16/21 08/11/24 mcg (1,000 unit) capsule gabapentin 100 mg capsule 100 mg PO HS PRN pain 05/16/21 08/11/24 pantoprazole 40 mg tablet,delayed 40 mg PO QDAC 05/16/21 08/11/24 release miscellaneous medical supply #1 ea 05/23/21 ([employer]ULT mis) acetaminophen 325 mg capsule 650 mg PO Q4H PRN pain 08/11/24 08/11/24 aspirin 81 mg capsule 81 mg PO DAILY 08/11/24 08/11/24 digoxin 125 mcg (0.125 mg) tablet 62.5 mcg PO DAILY 08/11/24 08/11/24 lorazepam 0.5 mg tablet (Ativan) 0.5 mg PO .COMPLEX PRN anxiety 08/11/24 08/11/24 meloxicam 15 mg tablet 15 mg PO DAILY 08/11/24 08/11/24 methadone 5 mg tablet 5 mg PO BID 08/11/24 08/11/24 ondansetron 4 mg disintegrating 4 mg PO Q4H PRN nausea and vomiting 08/11/24 08/11/24 tablet sennosides 8.6 mg tablet (senna) 17.2 mg PO QPM 08/11/24 08/11/24 venlafaxine 150 mg 150 mg PO DAILY 08/11/24 08/11/24 capsule,extended release 24 hr Lactobacillus rhamnosus GG 10 1 cap PO DAILY 14 days #14 caps 08/14/24 billion cell capsule (Culturelle) amoxicillin 875 mg-potassium 1 tab PO BID 7 days #14 tabs 08/14/24 clavulanate 125 mg tablet benzonatate 100 mg capsule 100 mg PO Q8H PRN Cough #30 caps 08/14/24 dexamethasone 4 mg tablet 6 mg (1.5 x 4 mg) PO DAILY 3 days 08/14/24 #5 tabs doxycycline hyclate 100 mg tablet 100 mg PO BID 7 days #14 tabs 08/14/24 empagliflozin 10 mg tablet 10 mg PO DAILY #30 tabs 08/14/24 (Jardiance) guaifenesin 600 mg tablet, 600 mg PO BID #60 tabs 08/14/24 extended release 12 hr (Mucinex) metoprolol succinate 50 mg 200 mg (4 x 50 mg) PO DAILY #120 08/14/24 tablet,extended release 24 hr tabs [id number] 1 tab PO DAILYWM #30 tabs 08/14/24 fumarate 19 mg-folic acid 400 mcg tablet (Therapeutic-M) spironolactone 25 mg tablet 25 mg PO DAILY #30 tabs 08/14/24 LABS 08/14/24 05:36 08/14/24 05:36 Discharge Plan Discharge [facility] Condition: Stable Prescriptions: New benzonatate 100 mg Capsule 100 mg PO Q8H PRN (Reason: Cough) Qty: 30 0RF amoxicillin-pot clavulanate 875-125 mg Tablet 1 tab PO BID 7 Days Qty: 14 0RF dexamethasone 4 mg Tablet 6 mg PO DAILY 3 Days Qty: 5 0RF spironolactone 25 mg Tablet 25 mg PO DAILY Qty: 30 0RF Culturelle 10 billion cell Capsule 1 cap PO DAILY 14 Days Qty: 14 0RF doxycycline hyclate 100 mg Tablet 100 mg PO BID 7 Days Qty: 14 0RF Therapeutic-M 19 mg iron- 400 mcg Tablet 1 tab PO DAILYWM Qty: 30 0RF guaifenesin [Mucinex] 600 mg Tablet Extended Release 12hr 600 mg PO BID Qty: 60 0RF metoprolol succinate 50 mg Tablet Extended Release 24 Hr 200 mg PO DAILY Qty: 120 0RF Jardiance 10 mg tablet 10 mg PO DAILY Qty: 30 0RF Continued pantoprazole 40 MG tablet,delayed release (DR/EC) 40 mg PO QDAC gabapentin 100 MG capsule 100 mg PO HS PRN (Reason: pain) cholecalciferol (vitamin D3) 25 MCG capsule 25 mcg PO DAILY aripiprazole 5 MG tablet 5 mg PO DAILY ProAir RespiClick 90 MCG aerosol powdr breath activated 2 puff inhalation Q4H PRN (Reason: Shortness Of Air/Wheezing) aspirin 81 mg capsule 81 mg PO DAILY meloxicam 15 mg tablet 15 mg PO DAILY methadone 5 mg tablet 5 mg PO BID venlafaxine 150 mg capsule,extended release 24hr 150 mg PO DAILY sennosides [senna] 8.6 mg tablet 17.2 mg PO QPM ondansetron 4 mg tablet,disintegrating 4 mg PO Q4H PRN (Reason: nausea and vomiting) lorazepam [Ativan] 0.5 mg tablet 0.5 mg PO .COMPLEX PRN (Reason: anxiety) Rx Instructions: 0.5 mg orally every 2 hours as needed PRN; digoxin 125 MCG tablet 62.5 mcg PO DAILY acetaminophen 325 mg capsule 650 mg PO Q4H PRN (Reason: pain) Discontinued hydrocodone-acetaminophen 1 TAB tablet 1 tab PO Q4HR PRN (Reason: Pain 5-7) Qty: 30 0RF hydrocodone-acetaminophen 5-325 mg tablet 1 tab PO DAILY metoprolol succinate 50 mg tablet extended release 24 hr 50 mg PO DAILY morphine 100 mg/5 mL concentrate 5 mg PO .COMPLEX PRN (Reason: pain) Rx Instructions: 5 mg orally every hour as needed PRN; No Action (DME) miscellaneous medical supply [[employer]ULT] 1 EACH misc 1 ea miscellaneous DAILY Qty: 1 0RF Rx Instructions: air pressure pad for mattress 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 You would had a positive COVID test at your place of residence. When you came into the hospital your oxygen saturation was very low. It improved while you were here with treatment of your COPD. While you were here you also had an x-ray of your chest which showed a right upper lobe pneumonia. You are being treated for that. Additionally, your atrial fibrillation was out of control with a rapid heartbeat. We have changed her medication slightly and we will discharge you home on these medications. You had an ultrasound on your heart called an echocardiogram while you were here. It shows reduced ejection fraction of 30 to 35%. This is considered moderately severe impairment. Because of this we will put you on a new medication called Jardiance. I would recommend that you follow-up with your primary care provider and seek referral to cardiology going forward. We are also discharging you home on a steroid called dexamethasone. You will finish this course of steroids just like you would finish a course of antibiotics. I would recommend that you follow-up with your primary care doctor within 1 week to review new medications and make sure you are doing well after leaving the hospital. Care Plan Goals: Finish all medications for your COVID and for your pneumonia. Maintain isolation precautions until 08/21. Follow-up with your primary care provider in 7 to 10 days Assessment: Pneumonia COVID infection COPD Heart failure with reduced ejection fraction DNR status Plan of Treatment: Finish dexamethasone Finish doxycycline and Augmentin Increase metoprolol as prescribed Start Jardiance as prescribed Print Language: Pakistani Patient Instructions: Atrial Fibrillation, Flu and Cold: Nutrition, Prevention and Treatment Tips Stand Alone Forms: PCP List Follow-up Care: Chey Mendez MD [Provider Admit Priv/Credential] -
--- NOTE | 2024-08-14 15:03 | Discharge Summary ---
"Discharge Summary Admit Date: 08/11/24 Discharge Date: 08/14/24 Discharging Provider: Lexi Shabazz PA-C Primary Care Provider: Chey Mendez Code Status: Do Not Attempt Resuscitation DIAGNOSES Admission Diagnoses: COVID Pneumonia Acute hypoxemic respiratory failure Rapid A-fib with RVR Elevated troponin Discharge Diagnoses with Status of Each Condition: 1. A-fib with RVR History of atrial fibrillation she is on digoxin 62.5 mcg daily at home. I do not see that she was on a beta-aylin previously. She was admitted and placed on metoprolol and Cardizem for rate control. Echocardiogram was completed. Echocardiogram showed moderate to severe impairment of the left ventricular systolic function with an EF of 30 to 35%. Right ventricle grossly normal in size and function Moderate to severe mitral regurgitation Moderate tricuspid regurgitation Mildly abnormal right heart pressures With institution of metoprolol succinate and increase of dose to 200 mg we were able to discontinue Cardizem. Decision was made to start aspirin but hold off on full anticoagulation given the patient's age and functional status. 2. COVID infection Remdesivir was not instituted given low and decreasing needs for supplemental oxygenation. She was started on Decadron 6 mg daily. She will complete a 5-day course of this. 3. Pneumonia MRSA positive screening. Chest x-ray significant for right upper lobe opacification likely pneumonia. She was treated initially with Zosyn and vancomycin IV. This was de-escalated to doxycycline and Augmentin. Her oxygen requirements did not increase. She will complete a course of doxycycline and Augmentin as an outpatient. 4. Acute exacerbation of COPD Dexamethasone as above. Antibiotics as above. 5. Acute and chronic respiratory failure with hypoxia Contributory factors to this are her COPD, right upper lobe pneumonia and COVID- 19 infection. These were managed as above. 6. Heart failure with reduced ejection fraction She was given 1 dose of Lasix 20 mg IV on the date of admission but did not require any further Lasix. She was started on lisinopril 5 mg a day She was started on spironolactone 25 mg a day She was prescribed Jardiance 10 mg daily on discharge. She will follow-up with her primary care provider at an appropriate interval, 7 to 10 days postdischarge. HPI History of Present Illness: pt with worsening sob, dry cough for the past several days. resides in [facility] facility. covid test on site was positive. no chest pain. pt did report some palpitations. h/o copd but does not use any oxygen. O2 sat was apparently as low as 45 at facility, and per EMS, it was 79%. pt also has h/o a- fib and HR was rapid upto 160s reported by EMS. no falls. pt is DNR/DNI status, and does not want interventions done, per her report. some weakness and mild confusion but overall able to answer questions and provide history. d/t cart connection issues, unable to see pt on video at this time. details obtained from discussion with er staff and ed charting. CONSULTS | PROCEDURES Consultations: none Procedures: Chest x-ray: Right upper lobe opacification, likely pneumonia. Cardiomegaly witht left atrial enlargement CT of the thorax: No acute PE Findings possibly representing a degree of biventricular CHF HOSPITAL COURSE Hospital Course: 84-year-old resident of assisted living facility with DNR status presents to the emergency department with shortness of breath and dry cough for several days. She had had a COVID test that was positive at her facility she also had some palpitations and shortness of breath. She had hypoxia 79% per EMS and a heart rate into the 160s reported by EMS. Overnight she was admitted and then subsequently transferred to the ICU on a diltiazem drip for rate control of her atrial fibrillation with RVR. This was discontinued in favor of metoprolol. She maintained with good rate control. CTA on admit showed possible biventricular CHF. She was given a one-time dose of Lasix with good results and echocardiogram was completed showing an ejection fraction as listed above 30 to 35% showing moderate to severe congestive heart failure. With steroids and antibiotics her oxygen requirements decreased and she did not require treatment of her COVID infection with remdesivir. She was discharged back to her care facility in stable condition on hospital day 4. ALLERGIES Allergies Allergy/AdvReac Type Severity Reaction Status Date / Time No Known Drug Allergies Allergy Verified 08/11/24 00:44 MEDICATIONS Ambulatory Orders Medication Instructions Recorded Confirmed albuterol sulfate 90 mcg/actuation 2 puff inhalation Q4H PRN 05/16/21 08/11/24 breath activated powder inhaler Shortness Of Air/Wheezing (ProAir RespiClick) aripiprazole 5 mg tablet 5 mg PO DAILY 05/16/21 08/11/24 cholecalciferol (vitamin D3) 25 25 mcg PO DAILY 05/16/21 08/11/24 mcg (1,000 unit) capsule gabapentin 100 mg capsule 100 mg PO HS PRN pain 05/16/21 08/11/24 pantoprazole 40 mg tablet,delayed 40 mg PO QDAC 05/16/21 08/11/24 release miscellaneous medical supply #1 ea 05/23/21 ([employer] misc) acetaminophen 325 mg capsule 650 mg PO Q4H PRN pain 08/11/24 08/11/24 aspirin 81 mg capsule 81 mg PO DAILY 08/11/24 08/11/24 digoxin 125 mcg (0.125 mg) tablet 62.5 mcg PO DAILY 08/11/24 08/11/24 lorazepam 0.5 mg tablet (Ativan) 0.5 mg PO .COMPLEX PRN anxiety 08/11/24 08/11/24 meloxicam 15 mg tablet 15 mg PO DAILY 08/11/24 08/11/24 methadone 5 mg tablet 5 mg PO BID 08/11/24 08/11/24 ondansetron 4 mg disintegrating 4 mg PO Q4H PRN nausea and vomiting 08/11/24 08/11/24 tablet sennosides 8.6 mg tablet (senna) 17.2 mg PO QPM 08/11/24 08/11/24 venlafaxine 150 mg 150 mg PO DAILY 08/11/24 08/11/24 capsule,extended release 24 hr Lactobacillus rhamnosus GG 10 1 cap PO DAILY 14 days #14 caps 08/14/24 billion cell capsule (Culturelle) amoxicillin 875 mg-potassium 1 tab PO BID 7 days #14 tabs 08/14/24 clavulanate 125 mg tablet benzonatate 100 mg capsule 100 mg PO Q8H PRN Cough #30 caps 08/14/24 dexamethasone 4 mg tablet 6 mg (1.5 x 4 mg) PO DAILY 3 days 08/14/24 #5 tabs doxycycline hyclate 100 mg tablet 100 mg PO BID 7 days #14 tabs 08/14/24 empagliflozin 10 mg tablet 10 mg PO DAILY #30 tabs 08/14/24 (Jardiance) guaifenesin 600 mg tablet, 600 mg PO BID #60 tabs 08/14/24 extended release 12 hr (Mucinex) metoprolol succinate 50 mg 200 mg (4 x 50 mg) PO DAILY #120 08/14/24 tablet,extended release 24 hr tabs [id number]-zwhsddko-rhwg 1 tab PO DAILYWM #30 tabs 08/14/24 fumarate 19 mg-folic acid 400 mcg tablet (Therapeutic-M) spironolactone 25 mg tablet 25 mg PO DAILY #30 tabs 08/14/24 PHYSICAL EXAM AT DISCHARGE General Appearance: positive No acute distress and Alert Eyes Bilateral: positive Normal inspection and Other (slight exopthalmus) ENT: positive ENT inspection nml Neck: positive Nml inspection Respiratory: positive Chest non-tender, No respiratory distress and Wheezes (occasional throughout) Cardiovascular: positive Regular rate & rhythm Abdomen: positive Non-tender and No distention Back: positive Nml inspection Skin: positive Color nml Extremities: positive No pedal edema Neurologic/Psychiatric: positive Oriented x3 LABS 08/14/24 05:36 08/14/24 05:36 FOLLOW UP Follow Up: PCP 7-10 days TIME SPENT Time Spent in Discharge (Minutes): 45 Discharge Plan Discharge Patient Disposition: JEANETTE, Self Care Condition: Stable Prescriptions: New benzonatate 100 mg Capsule 100 mg PO Q8H PRN (Reason: Cough) Qty: 30 0RF amoxicillin-pot clavulanate 875-125 mg Tablet 1 tab PO BID 7 Days Qty: 14 0RF dexamethasone 4 mg Tablet 6 mg PO DAILY 3 Days Qty: 5 0RF metoprolol succinate 50 mg Tablet Extended Release 24 Hr 200 mg PO DAILY Qty: 120 0RF spironolactone 25 mg Tablet 25 mg PO DAILY Qty: 30 0RF Culturelle 10 billion cell Capsule 1 cap PO DAILY 14 Days Qty: 14 0RF doxycycline hyclate 100 mg Tablet 100 mg PO BID 7 Days Qty: 14 0RF Therapeutic-M 19 mg iron- 400 mcg Tablet 1 tab PO DAILYWM Qty: 30 0RF Jardiance 10 mg tablet 10 mg PO DAILY Qty: 30 0RF guaifenesin [Mucinex] 600 mg Tablet Extended Release 12hr 600 mg PO BID Qty: 60 0RF Continued pantoprazole 40 MG tablet,delayed release (DR/EC) 40 mg PO QDAC gabapentin 100 MG capsule 100 mg PO HS PRN (Reason: pain) cholecalciferol (vitamin D3) 25 MCG capsule 25 mcg PO DAILY aripiprazole 5 MG tablet 5 mg PO DAILY ProAir RespiClick 90 MCG aerosol powdr breath activated 2 puff inhalation Q4H PRN (Reason: Shortness Of Air/Wheezing) aspirin 81 mg capsule 81 mg PO DAILY meloxicam 15 mg tablet 15 mg PO DAILY methadone 5 mg tablet 5 mg PO BID venlafaxine 150 mg capsule,extended release 24hr 150 mg PO DAILY sennosides [senna] 8.6 mg tablet 17.2 mg PO QPM ondansetron 4 mg tablet,disintegrating 4 mg PO Q4H PRN (Reason: nausea and vomiting) lorazepam [Ativan] 0.5 mg tablet 0.5 mg PO .COMPLEX PRN (Reason: anxiety) Rx Instructions: 0.5 mg orally every 2 hours as needed PRN; digoxin 125 MCG tablet 62.5 mcg PO DAILY acetaminophen 325 mg capsule 650 mg PO Q4H PRN (Reason: pain) Discontinued hydrocodone-acetaminophen 1 TAB tablet 1 tab PO Q4HR PRN (Reason: Pain 5-7) Qty: 30 0RF hydrocodone-acetaminophen 5-325 mg tablet 1 tab PO DAILY metoprolol succinate 50 mg tablet extended release 24 hr 50 mg PO DAILY morphine 100 mg/5 mL concentrate 5 mg PO .COMPLEX PRN (Reason: pain) Rx Instructions: 5 mg orally every hour as needed PRN; No Action (DME) miscellaneous medical supply [[employer]ULT] 1 EACH misc 1 ea miscellaneous DAILY Qty: 1 0RF Rx Instructions: air pressure pad for mattress 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 You would had a positive COVID test at your place of residence. When you came into the hospital your oxygen saturation was very low. It improved while you were here with treatment of your COPD. While you were here you also had an x-ray of your chest which showed a right upper lobe pneumonia. You are being treated for that. Additionally, your atrial fibrillation was out of control with a rapid heartbeat. We have changed her medication slightly and we will discharge you home on these medications. You had an ultrasound on your heart called an echocardiogram while you were here. It shows reduced ejection fraction of 30 to 35%. This is considered moderately severe impairment. Because of this we will put you on a new medication called Jardiance. I would recommend that you follow-up with your primary care provider and seek referral to cardiology going forward. We are also discharging you home on a steroid called dexamethasone. You will finish this course of steroids just like you would finish a course of antibiotics. I would recommend that you follow-up with your primary care doctor within 1 week to review new medications and make sure you are doing well after leaving the hospital. Care Plan Goals: Finish all medications for your COVID and for your pneumonia. Maintain isolation precautions until 08/21. Follow-up with your primary care provider in 7 to 10 days Assessment: Pneumonia COVID infection COPD Heart failure with reduced ejection fraction DNR status Plan of Treatment: Finish dexamethasone Finish doxycycline and Augmentin Increase metoprolol as prescribed Start Jardiance as prescribed Print Language: Cuban Patient Instructions: Atrial Fibrillation, Flu and Cold: Nutrition, Prevention and Treatment Tips Stand Alone Forms: PCP List Follow-up Care: Chey Mendez MD [Provider Admit Priv/Credential] -"
== END 2024-08-14 16:20 | disposition home or self-care (01) | DRG 871 ==
LOC: ED 00:29 → ICU 05:34 → MS2 08-13 14:41
PROVIDERS: ADMIT Student in an Organized Health Care Education/Training Program; ATTEND Student in an Organized Health Care Education/Training Program
DX: I08.1 Rheumatic disorders of both mitral and tricuspid valves; I50.22 Chronic systolic (congestive) heart failure; K21.9 Gastro-esophageal reflux disease without esophagitis; J44.1 Chronic obstructive pulmonary disease with (acute) exacerbation; Z79.82 Long term (current) use of aspirin; A41.9 Sepsis, unspecified organism; J96.21 Acute and chronic respiratory failure with hypoxia; R09.02 Hypoxemia; I48.91 Unspecified atrial fibrillation; F41.9 Anxiety disorder, unspecified; J44.0 Chronic obstructive pulmonary disease with (acute) lower respiratory infection; R06.03 Acute respiratory distress; I48.20 Chronic atrial fibrillation, unspecified; R79.89 Other specified abnormal findings of blood chemistry; J12.82 Pneumonia due to coronavirus disease 2019; M19.90 Unspecified osteoarthritis, unspecified site; I44.4 Left anterior fascicular block; Z20.828 Contact with and (suspected) exposure to other viral communicable diseases; R65.20 Severe sepsis without septic shock; U07.1 COVID-19; E78.5 Hyperlipidemia, unspecified; Z66 Do not resuscitate; Z79.899 Other long term (current) drug therapy; Z20.818 Contact with and (suspected) exposure to other bacterial communicable diseases; J18.9 Pneumonia, unspecified organism; Z87.891 Personal history of nicotine dependence

== ENCOUNTER 2024-08-14 23:12 | Inpatient (IN) ==
[2024-08-14] MEDS ORDERED: SODIUM CHLORIDE 0.9% 500 ML IV STA (23:23)
--- NOTE | 2024-08-14 23:34 | ED Physician Documentation ---
PD HPI DYSPNEA Stated complaint Stated Complaint: SOA, C+ Chief complaint Chief Complaint: Resp History obtained from History obtained from: EMS Additional information Additional information: 84-year-old woman with history of COPD, CHF with EF 30 to 35%, COVID, recent hospitalization for this and for possible bacterial pneumonia, presents as a bounce back after being discharged earlier today. Patient called caregivers at [facility] stating that she could not breeze and EMS was called. On scene, her O2 sat was 70% room air. This improved with DuoNeb en route. However she is tachycardic here in the emergency department only speaking in one-word sentences. Patient is DNR/DNI with limited interventions only. Meds/Allgy Home Medications Ambulatory Orders Medication Instructions Recorded Confirmed albuterol sulfate 90 mcg/actuation 2 puff inhalation Q4H PRN 05/16/21 08/11/24 breath activated powder inhaler Shortness Of Air/Wheezing (ProAir RespiClick) aripiprazole 5 mg tablet 5 mg PO DAILY 05/16/21 08/11/24 cholecalciferol (vitamin D3) 25 25 mcg PO DAILY 05/16/21 08/11/24 mcg (1,000 unit) capsule gabapentin 100 mg capsule 100 mg PO HS PRN pain 05/16/21 08/11/24 pantoprazole 40 mg tablet,delayed 40 mg PO QDAC 05/16/21 08/11/24 release miscellaneous medical supply #1 ea 05/23/21 ([facility] [place]) acetaminophen 325 mg capsule 650 mg PO Q4H PRN pain 08/11/24 08/11/24 aspirin 81 mg capsule 81 mg PO DAILY 08/11/24 08/11/24 digoxin 125 mcg (0.125 mg) tablet 62.5 mcg PO DAILY 08/11/24 08/11/24 lorazepam 0.5 mg tablet (Ativan) 0.5 mg PO .COMPLEX PRN anxiety 08/11/24 08/11/24 meloxicam 15 mg tablet 15 mg PO DAILY 08/11/24 08/11/24 methadone 5 mg tablet 5 mg PO BID 08/11/24 08/11/24 ondansetron 4 mg disintegrating 4 mg PO Q4H PRN nausea and vomiting 08/11/24 08/11/24 tablet sennosides 8.6 mg tablet (senna) 17.2 mg PO QPM 08/11/24 08/11/24 venlafaxine 150 mg 150 mg PO DAILY 08/11/24 08/11/24 capsule,extended release 24 hr Lactobacillus rhamnosus GG 10 1 cap PO DAILY 14 days #14 caps 08/14/24 billion cell capsule (Culturelle) amoxicillin 875 mg-potassium 1 tab PO BID 7 days #14 tabs 08/14/24 clavulanate 125 mg tablet benzonatate 100 mg capsule 100 mg PO Q8H PRN Cough #30 caps 08/14/24 dexamethasone 4 mg tablet 6 mg (1.5 x 4 mg) PO DAILY 3 days 08/14/24 #5 tabs doxycycline hyclate 100 mg tablet 100 mg PO BID 7 days #14 tabs 08/14/24 empagliflozin 10 mg tablet 10 mg PO DAILY #30 tabs 08/14/24 (Jardiance) guaifenesin 600 mg tablet, 600 mg PO BID #60 tabs 08/14/24 extended release 12 hr (Mucinex) metoprolol succinate 50 mg 200 mg (4 x 50 mg) PO DAILY #120 08/14/24 tablet,extended release 24 hr tabs [id number] 1 tab PO DAILYWM #30 tabs 08/14/24 fumarate 19 mg-folic acid 400 mcg tablet (Therapeutic-M) spironolactone 25 mg tablet 25 mg PO DAILY #30 tabs 08/14/24 Allergies Allergies Allergy/AdvReac Type Severity Reaction Status Date / Time No Known Drug Allergies Allergy Verified 08/14/24 23:23 [facility] Medical History Medical History (Updated 08/15/24 @ 00:01 by Chani Hawkins MD) A-fib Chronic left systolic heart failure Degenerative brain disorder Pathological fracture due to osteoporosis Congenital QT prolongation on electrocardiogram (ECG) Hyperlipidemia Osteoarthritis COPD (chronic obstructive pulmonary disease) Gastro-esophageal reflux Social History Social History Smoking Status: Former smoker If you are a former smoker, when did you quit? (Date/Year): 2020 Number of Years Smoked: 40 How many cigarettes a day do you smoke? (20 cigarettes=1 Pk): 10 Do you dip or chew tobacco?: No Do you vape?: No Patient requests smoking cessation consult: No Initiate information on smoking cessation: No Living arrangement: Assisted living Living Condition: Alone Relationship: Home Mobility Equipment: Wheelchair Do you feel safe in your home environment?: Yes Suffered physical, verbal, emotional, or financial abuse?: No History of Abuse: No POLST Patient has POLST: Yes POLST Status: Limited Interventions Exam Exam Vital Signs Temperature 36.2 C L 08/14/24 23:20 Pulse Rate 141 H 08/14/24 23:51 Respiratory Rate 19 08/14/24 23:37 Blood Pressure 133/98 H 08/14/24 23:37 O2 Saturation 100 08/14/24 23:37 If not protocol: Oxygen Flow, liters/minute 10 08/14/24 23:20 Constitutional Elderly appearing, deconditioned HENMT normocephalic and head/scalp atraumatic Eyes PERRL and EOMs intact bilaterally Neck/C-Spine visual inspection normal Chest inspection of chest normal Respiratory breath sounds equal bilaterally Bilateral expiratory wheezing, mild to moderate increased work of breathing Cardiovascular Tachycardic rate, regular rhythm Gastrointestinal abdomen normal to inspection, abdomen soft to palpation and nontender to palpation Results Vitals Vitals: Vital Signs - 24 hr 08/14/24 08:09 08/14/24 10:35 08/14/24 23:20 Temperature 36.2 C L Temperature Source Tympanic Pulse Rate 150 H Respiratory Rate 24 Blood Pressure 140/83 H O2 Saturation 96 Oxygen Delivery Method O2 Source Room air Oxymizer If not protocol: Oxygen Flow, liters/minute 10 Fraction of Inspired Oxygen (FIO2) Pain Intensity 0 0 08/14/24 23:37 08/14/24 23:38 08/14/24 23:44 Temperature Temperature Source Pulse Rate 150 H Respiratory Rate 19 Blood Pressure 133/98 H O2 Saturation 100 Oxygen Delivery Method Bi-pap O2 Source BIPAP If not protocol: Oxygen Flow, liters/minute Fraction of Inspired Oxygen (FIO2) Pain Intensity 0 0 08/14/24 23:51 Temperature Temperature Source Pulse Rate 141 H Respiratory Rate Blood Pressure O2 Saturation Oxygen Delivery Method O2 Source If not protocol: Oxygen Flow, liters/minute Fraction of Inspired Oxygen (FIO2) 100 Pain Intensity Oxygen O2 Source BIPAP Labs Labs: Laboratory Tests 08/14/24 23:30 WBC 16.2 H RBC 3.77 L Hgb 11.6 L Hct 37.7 MCV 100.0 H MCH 30.8 MCHC 30.8 L RDW 15.6 H Plt Count 324 MPV 10.5 Neut # (Auto) 14.1 H Lymph # (Auto) 1.4 L Towner # (Auto) 0.4 Eos # (Auto) 0.0 Baso # (Auto) 0.0 Absolute Nucleated RBC 0.00 Nucleated RBC % 0.0 VBG pH 7.187 L* VBG pCO2 41.5 VBG pO2 37.6 VBG HCO3 15.4 L VBG Total CO2 16.7 L VBG O2 Saturation 61.1 VBG Base Excess -12.3 L Sodium 133 L Potassium 4.6 H Chloride 100 L Carbon Dioxide 20 L Anion Gap 13.0 BUN 36 H Creatinine 1.1 Estimated GFR (MDRD) 47 L Glucose 149 H Calcium 8.9 Total Bilirubin 0.6 AST 93 H ALT 166 H Alkaline Phosphatase 79 Total Protein 7.3 Albumin 3.7 Globulin 3.6 Albumin/Globulin Ratio 1.0 Lipase 34 PD Medical Decision Making ED course ED course: 84-year-old woman presents As a bounce back after being admitted here for multiple days with shortness of breath and found to have COPD, COVID, CHF exacerbation, pneumonia. She is persistently tachypneic here in the emergency department and put on BiPAP, found to have venous blood gas pattern concerning for severe acidosis, likely metabolic acidosis secondary to infectious etiology. She does not appear to be retaining CO2. Plan to admit to ICU for further management. Patient is DNR/DNI with selective measures only. d/w Dr. Poon for admission Discharge Plan Discharge Patient Disposition: 66 [facility] DC/Xfer Condition: Serious Clinical Impression: COVID, Increasing shortness of breath Pneumonia Qualifiers: Pneumonia type: due to unspecified organism Laterality: right Lung location: upper lobe of lung Qualified Code(s): J18.9 - Pneumonia, unspecified organism Sepsis Qualifiers: Sepsis type: sepsis due to unspecified organism Sepsis acute organ dysfunction status: without acute organ dysfunction Qualified Code(s): A41.9 - Sepsis, unspecified organism Prescriptions: No Action pantoprazole 40 MG tablet,delayed release (DR/EC) 40 mg PO QDAC gabapentin 100 MG capsule 100 mg PO HS PRN (Reason: pain) cholecalciferol (vitamin D3) 25 MCG capsule 25 mcg PO DAILY aripiprazole 5 MG tablet 5 mg PO DAILY ProAir RespiClick 90 MCG aerosol powdr breath activated 2 puff inhalation Q4H PRN (Reason: Shortness Of Air/Wheezing) (DME) miscellaneous medical supply [[employer]] 1 EACH misc 1 ea miscellaneous DAILY Qty: 1 0RF Rx Instructions: air pressure pad for mattress 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, 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 Length of use 99 months aspirin 81 mg capsule 81 mg PO DAILY meloxicam 15 mg tablet 15 mg PO DAILY methadone 5 mg tablet 5 mg PO BID venlafaxine 150 mg capsule,extended release 24hr 150 mg PO DAILY sennosides [senna] 8.6 mg tablet 17.2 mg PO QPM ondansetron 4 mg tablet,disintegrating 4 mg PO Q4H PRN (Reason: nausea and vomiting) lorazepam [Ativan] 0.5 mg tablet 0.5 mg PO .COMPLEX PRN (Reason: anxiety) Rx Instructions: 0.5 mg orally every 2 hours as needed PRN; digoxin 125 MCG tablet 62.5 mcg PO DAILY acetaminophen 325 mg capsule 650 mg PO Q4H PRN (Reason: pain) benzonatate 100 mg Capsule 100 mg PO Q8H PRN (Reason: Cough) Qty: 30 0RF amoxicillin-pot clavulanate 875-125 mg Tablet 1 tab PO BID 7 Days Qty: 14 0RF dexamethasone 4 mg Tablet 6 mg PO DAILY 3 Days Qty: 5 0RF metoprolol succinate 50 mg Tablet Extended Release 24 Hr 200 mg PO DAILY Qty: 120 0RF spironolactone 25 mg Tablet 25 mg PO DAILY Qty: 30 0RF Culturelle 10 billion cell Capsule 1 cap PO DAILY 14 Days Qty: 14 0RF doxycycline hyclate 100 mg Tablet 100 mg PO BID 7 Days Qty: 14 0RF Therapeutic-M 19 mg iron- 400 mcg Tablet 1 tab PO DAILYWM Qty: 30 0RF Jardiance 10 mg tablet 10 mg PO DAILY Qty: 30 0RF guaifenesin [Mucinex] 600 mg Tablet Extended Release 12hr 600 mg PO BID Qty: 60 0RF Print Language: Yi Stand Alone Forms: PCP List
[2024-08-14 23:35] LABS: BASOPHILS % (AUTO) 0.1 %; HCT - HEMATOCRIT 37.7 % (37.0-47.0); HGB - HEMOGLOBIN 11.6 g/dL (12.0-16.0); LYMPHOCYTES # (AUTO) 1.4 10^3/uL (1.5-3.5); LYMPHOCYTES % (AUTO) 8.9 %; MEAN CORPUSCULAR HEMOGLOBIN 30.8 pg (27.0-31.0); MEAN CORPUSCULAR HGB CONC 30.8 g/dL (32.0-36.0); MEAN PLATELET VOLUME 10.5 fL (7.9-10.8); MONOCYTES # (AUTO) 0.4 10^3/uL (0.0-1.0); MONOCYTES % (AUTO) 2.7 %; NEUTROPHILS # (AUTO) 14.1 10^3/uL (1.5-6.6); NEUTROPHILS % (AUTO) 87.1 %; PLT - PLATELET COUNT 324 10^3/uL (130-450); RED BLOOD COUNT 3.77 10^6/uL (4.20-5.40); RED CELL DISTRIBUTION WIDTH 15.6 % (12.0-15.0); VBG BASE EXCESS -12.3 mmol/L (-2 - +2); VBG HCO3 15.4 mmol/L (23-28); VBG OXYGEN SATURATION 61.1 % (60-80); VBG PCO2 41.5 mmHg (41-51); VBG PO2 37.6 mmHg (25-47); VBG TOTAL CO2 16.7 mmol/L (24-29); WHITE BLOOD COUNT 16.2 x10^3/uL (4.8-10.8)
[2024-08-14 23:40] LABS: VBG PH 7.187 (7.31-7.41)
[2024-08-14] MEDS: MORPHINE 2 MG/ML CARPUJECT IVP STA (23:44)
[2024-08-14 23:56] LABS: ALBUMIN 3.7 g/dL (3.2-5.5); BILIRUBIN,TOTAL 0.6 mg/dL (0.2-1.0); CALCIUM 8.9 mg/dL (8.5-10.3); CREATININE 1.1 mg/dL (0.6-1.3); POTASSIUM 4.6 mmol/L (3.5-4.5); TOTAL PROTEIN 7.3 g/dL (6.4-8.9)
[2024-08-15] MEDS ORDERED: ONDANSETRON 4 MG/2 ML VIAL IVP PRN
[2024-08-15] MEDS ORDERED: SODIUM CHLORIDE FLUSH 0.9% 10 ML SYRINGE IVP PRN
[2024-08-15] MEDS: PIPERACILLIN/TAZOBACTAM 3.375 GM in SODIUM CHLORIDE 0.9% MINIBAG 100 ML IV STA (00:06)
--- NOTE | 2024-08-15 00:11 | XRAY Report ---
PROCEDURE: XR Chest 1V INDICATIONS: Chest Pain TECHNIQUE: One view of the chest was acquired. COMPARISON: CT chest angiogram with and without contrast 08/11/2024, chest x-ray 08/11/2024 FINDINGS: Reidentified diffuse pulmonary opacification with interval increase in opacification of the right mid dle and right lower lobes. Cardiomegaly with splaying of the peter, suggestive of left atrial enlarg ement. Aortic arch calcifications. Otherwise, the mediastinal contour is within normal limits. No pne umothorax. Small bilateral pleural effusions. No acute osseous abnormality. IMPRESSION: Moderate congestive heart failure exacerbation. Consider superimposed pneumonia. Reviewed by: Skip Ladd MD on 08/15/2024 12:09 AM PDT Approved by: Skip Ladd MD on 08/15/2024 12:09 AM PDT Station ID: [id number]
[2024-08-15] MEDS ORDERED: ACETAMINOPHEN 325 MG PO PRN (00:13)
--- NOTE | 2024-08-15 00:45 | HISTORY & PHYSICAL EXAMINATION ---
History of Present Illness Admitted From Admitted From:: nursing facility History Obtained From Records Reviewed: Y History obtained from: ED physician, records Exam Limitations: respiratory distress and patient on BIPAP History of Present Illness HPI Comment/Other: Mrs. Stephens is an 84 yo F with a history of Afib, COPD not on chronic oxygen, who was just admitted to the hospitalist service for treatment of covid pneumonia. she was discharged on the day of presentation. Upon arrival to the nursing facility she was noted to be in continued respiratory distress and hypoxic on room air, oxygen saturations in the 70s. She was brought back to the Ed for furhter management. Upon arrival she was still in respiratory distress adn required upward titration of oxygen. She was tachycardic, ekg and telemetry showing sinus tachycardia. she was afebrile. Due to her continued respiratory distress hospitalist was asked to readmit for furhter management. Patient was seen via tele-medicine tools including telephone and live video. during my evaluation at bedside she was alert, but difficult to answer questions due to respiratory distress and the need for BIPAP. Plan of care was discussed with the patient and she signaled understanding and agreement to admission. Review of Systems Status of ROS: unobtainable due to medical condition [facility] Medical History Medical History (Updated 08/15/24 @ 00:43 by Bryanna Tadeo MD) A-fib Chronic left systolic heart failure Degenerative brain disorder Pathological fracture due to osteoporosis Congenital QT prolongation on electrocardiogram (ECG) Hyperlipidemia Osteoarthritis COPD (chronic obstructive pulmonary disease) Gastro-esophageal reflux Social History Social History Smoking Status: Former smoker If you are a former smoker, when did you quit? (Date/Year): 2020 Number of Years Smoked: 40 How many cigarettes a day do you smoke? (20 cigarettes=1 Pk): 10 Do you dip or chew tobacco?: No Do you vape?: No Patient requests smoking cessation consult: No Initiate information on smoking cessation: No Living arrangement: Assisted living Living Condition: Alone Relationship: Home Mobility Equipment: Wheelchair Do you feel safe in your home environment?: Yes Suffered physical, verbal, emotional, or financial abuse?: No History of Abuse: No POLST Patient has POLST: Yes POLST Status: Limited Interventions Meds/Allgy Home Medications Ambulatory Orders Medication Instructions Recorded Confirmed albuterol sulfate 90 mcg/actuation 2 puff inhalation Q4H PRN 05/16/21 08/11/24 breath activated powder inhaler Shortness Of Air/Wheezing (ProAir RespiClick) aripiprazole 5 mg tablet 5 mg PO DAILY 05/16/21 08/11/24 cholecalciferol (vitamin D3) 25 25 mcg PO DAILY 05/16/21 08/11/24 mcg (1,000 unit) capsule gabapentin 100 mg capsule 100 mg PO HS PRN pain 05/16/21 08/11/24 pantoprazole 40 mg tablet,delayed 40 mg PO QDAC 05/16/21 08/11/24 release miscellaneous medical supply #1 ea 05/23/21 ([employer] ADULT misc) acetaminophen 325 mg capsule 650 mg PO Q4H PRN pain 08/11/24 08/11/24 aspirin 81 mg capsule 81 mg PO DAILY 08/11/24 08/11/24 digoxin 125 mcg (0.125 mg) tablet 62.5 mcg PO DAILY 08/11/24 08/11/24 lorazepam 0.5 mg tablet (Ativan) 0.5 mg PO .COMPLEX PRN anxiety 08/11/24 08/11/24 meloxicam 15 mg tablet 15 mg PO DAILY 08/11/24 08/11/24 methadone 5 mg tablet 5 mg PO BID 08/11/24 08/11/24 ondansetron 4 mg disintegrating 4 mg PO Q4H PRN nausea and vomiting 08/11/24 08/11/24 tablet sennosides 8.6 mg tablet (senna) 17.2 mg PO QPM 08/11/24 08/11/24 venlafaxine 150 mg 150 mg PO DAILY 08/11/24 08/11/24 capsule,extended release 24 hr Lactobacillus rhamnosus GG 10 1 cap PO DAILY 14 days #14 caps 08/14/24 billion cell capsule (Culturelle) amoxicillin 875 mg-potassium 1 tab PO BID 7 days #14 tabs 08/14/24 clavulanate 125 mg tablet benzonatate 100 mg capsule 100 mg PO Q8H PRN Cough #30 caps 08/14/24 dexamethasone 4 mg tablet 6 mg (1.5 x 4 mg) PO DAILY 3 days 08/14/24 #5 tabs doxycycline hyclate 100 mg tablet 100 mg PO BID 7 days #14 tabs 08/14/24 empagliflozin 10 mg tablet 10 mg PO DAILY #30 tabs 10/17/24 (Jardiance) guaifenesin 600 mg tablet, 600 mg PO BID #60 tabs 08/14/24 extended release 12 hr (Mucinex) metoprolol succinate 50 mg 200 mg (4 x 50 mg) PO DAILY #120 08/14/24 tablet,extended release 24 hr tabs calmxilovxtf-mdhdrqre-xkiz 1 tab PO DAILYWM #30 tabs 08/14/24 fumarate 19 mg-folic acid 400 mcg tablet (Therapeutic-M) spironolactone 25 mg tablet 25 mg PO DAILY #30 tabs 08/14/24 Allergies Allergies Allergy/AdvReac Type Severity Reaction Status Date / Time No Known Drug Allergies Allergy Verified 08/14/24 23:23 Exam Exam Vital Signs Temperature 36.2 C L 08/14/24 23:20 Pulse Rate 131 H 08/14/24 23:53 Respiratory Rate 21 08/14/24 23:53 Blood Pressure 117/84 08/14/24 23:53 O2 Saturation 99 08/14/24 23:53 If not protocol: Oxygen Flow, liters/minute 10 08/14/24 23:20 Constitutional distress noted and alert Eyes PERRL Chest inspection of chest normal Respiratory abnormal respiratory effort (labored) and wheezing noted (scattered wheezes) Cardiovascular heart rate abnormal (tachycardic) Neurology no focal motor deficit noted Psychiatry mental status grossly normal and cooperative Sepsis Event Note (H) Evaluation Current Stage of Sepsis: Sepsis Possible source of Sepsis: positive Pulmonary Sepsis Criteria Sepsis Criteria: Recorded Heart Rate greater than 90 bpm, Respiratory: Increasing oxygen requirements and WBC count greater than 12,000 or less than 4000 Conclusion/Plan Problem List (1) Acute and chronic respiratory failure with hypoxia: Plan: secondary to pneumonia and superimposed copd exacerbation -continue with bipap, titrate as tolerated -trend ABG as needed -close monitoring of serial pulse oximetry and vitals (2) Acute exacerbation of chronic obstructive pulmonary disease: Plan: likely precipitated by underlying pulmonary infection -continue with empiric antibiotic, cultures pending -repeat chest imaging for continue evaluation as appropriate -xopenex and decadron continued, scheduled -monitor vitals and BG for adverse affects to treatment to make appropriate adjustment to management (3) Atrial fibrillation with rapid ventricular response: Plan: continue home regimen of digoxin -will give low dose lorpessor -monitor vitals with continuous telemetry -replace electroltyes as needed. (4) Sepsis: Plan: pateint met sepsis on admission -secondary to pneuomina with respiratory failure -continue with empiric antibioitcs -monitor inflammatory marker for repsonse to mangement and a guide to adjustments as needed -supplemental oxygen -cultures pending Qualifiers: Sepsis type: sepsis due to unspecified organism Severe sepsis acute organ dysfunction type: acute respiratory failure Sepsis acute organ dysfunction status: with acute organ dysfunction (5) Pneumonia: Plan: -chest xray trend -empirica antibiotics -supplemental oxygen Lab Results Lab results reviewed: Yes 08/14/24 23:30 08/14/24 23:30 Diagnostic Imaging Results Diagnostic Imaging Results: positive Final report reviewed Core Measures Anticipated LOS I expect patient to be DC'd or transferred within 96 hours.: Yes DVT/VTE - Prophylaxis VTE/DVT Device ordered at admit?: Yes Telemedicine Consult Details Provider Location & Consult Time Telemedicine consultation conducted via videoconferencing?: Yes
[2024-08-15] MEDS ORDERED: VANCOMYCIN 1 GM VIAL ONE (00:55)
[2024-08-15] MEDS: VANCOMYCIN INJ 1.25 GM in SODIUM CHLORIDE 0.9% 250 ML IV ONE (01:00)
[2024-08-15] MEDS: IPRATROPIUM/ALBUTEROL 3 ML NEB INH STA (01:40)
[2024-08-15] MEDS: METOPROLOL 5 MG/5 ML VIAL IVP STA (01:47)
[2024-08-15] MEDS: SODIUM CHLORIDE FLUSH 0.9% 10 ML SYRINGE IVP SCH (01:48)
[2024-08-15] MEDS: LEVALBUTEROL 1.25 MG/3 ML NEB INH SCH (01:56)
[2024-08-15] MEDS: PIPERACILLIN/TAZOBACTAM 3.375 GM in SODIUM CHLORIDE 0.9% MINIBAG 100 ML IV SCH (02:23)
[2024-08-15] MEDS: MORPHINE 2 MG/ML CARPUJECT IVP PRN (05:37)
[2024-08-15] MEDS: dexAMETHasone 4 MG TABLET PO SCH (08:22)
[2024-08-15] MEDS: DIGOXIN 125 MCG TABLET PO SCH (08:22)
[2024-08-15] MEDS: PANTOPRAZOLE 40 MG TABLET PO SCH (08:23)
[2024-08-15] MEDS: ARIPiprazole 5 MG TABLET PO SCH (08:24)
[2024-08-15] MEDS: METOPROLOL SUCCINATE 50 MG TABLET PO SCH (08:24)
[2024-08-15] MEDS: guaiFENesin 600 MG TABLET PO SCH (08:24)
[2024-08-15] MEDS: SPIRONOLACTONE 25 MG TABLET PO SCH (08:24)
[2024-08-15] MEDS: ASPIRIN EC 81 MG TABLET PO SCH (08:24)
[2024-08-15] MEDS: VENLAFAXINE ER 75 MG CAPSULE PO SCH (08:24)
--- NOTE | 2024-08-15 09:23 | PROVIDER PROGRESS NOTE ---
Subjective Prog Note Date Prog Note Date: 08/15/24 Prog Note Time: 09:20 Subjective Pt reports feeling: Improved Subjective: feel better on the BiPAP overnight. She said that the mask is not bothering her. She felt short of breath before she came in. Current Medications Current Medications Current Medications: Current Medications Generic Name Dose Route Start Last Admin Trade Name Freq PRN Reason Stop Dose Admin Acetaminophen 650 mg 08/15/24 00:00 Acetaminophen 325 Mg Tablet PO Q4HR PRN Pain 1 to 4, or Fever Aripiprazole 5 mg 08/15/24 09:00 08/15/24 08:24 Aripiprazole 5 Mg Tablet PO 5 mg DAILY JONATHAN Administration Aspirin 81 mg 08/15/24 09:00 08/15/24 08:24 Aspirin Ec 81 Mg Tablet PO 81 mg DAILY JONATHAN Administration Benzonatate 100 mg 08/15/24 00:13 Benzonatate 100 Mg Capsule PO Q8H PRN Cough Dexamethasone 6 mg 08/15/24 09:00 08/15/24 08:22 Dexamethasone 4 Mg Tablet PO 6 mg DAILY JONATHAN Administration Digoxin 62.5 mcg 08/15/24 09:00 08/15/24 08:22 Digoxin 125 Mcg Tablet PO 62.5 mcg DAILY JONATHAN Administration Gabapentin 100 mg 08/15/24 00:13 Gabapentin 100 Mg Capsule PO HS PRN pain Guaifenesin 600 mg 08/15/24 09:00 08/15/24 08:24 Guaifenesin 600 Mg Tablet PO 600 mg BID JONATHAN Administration Piperacillin Sod/Tazobactam 100 mls @ 25 mls/hr 08/15/24 03:00 08/15/24 07:00 Sod 3.375 gm/ Sodium Chloride IV Infused Q8H JONATHAN Infusion Vancomycin HCl 1 gm/ Sodium 250 mls @ 250 mls/hr 08/16/24 01:00 Chloride IV Q24H JONATHAN Levalbuterol HCl 1.25 mg 08/15/24 01:00 08/15/24 01:56 Levalbuterol 1.25 Mg/3 Ml Neb INH Not Given Q6H JONATHAN Lorazepam 0.5 mg 08/15/24 00:13 Lorazepam 0.5 Mg Tablet PO Q2H PRN anxiety Metoprolol Succinate 200 mg 08/15/24 09:00 08/15/24 08:24 Metoprolol Succinate 50 Mg Tablet PO 200 mg DAILY JONATHAN Administration Morphine Sulfate 2 mg 10/18/24 00:00 08/15/24 05:37 Morphine 2 Mg/Ml Carpuject IVP 2 mg Q4HR PRN Administration Pain 8 to 10 Ondansetron HCl 4 mg 08/15/24 00:00 Ondansetron 4 Mg/2 Ml Vial IVP Q6HR PRN Nausea / Vomiting Pantoprazole Sodium 40 mg 08/15/24 07:00 08/15/24 08:23 Pantoprazole 40 Mg Tablet PO 40 mg QDAC JONATHAN Administration Empagliflozin [ 1 each 08/15/24 09:00 Jardiance] 10 Mg PO Tablet DAILY JONATHAN Sodium Chloride 10 ml 08/15/24 00:00 Sodium Chloride Flush 0.9% 10 Ml Syringe IVP PRN PRN NEEDED PER PROVIDER ORDERS Sodium Chloride 10 ml 08/15/24 01:00 08/15/24 08:25 Sodium Chloride Flush 0.9% 10 Ml Syringe IVP 10 ml 0100,0900,1700 JONATHAN Administration Spironolactone 25 mg 08/15/24 09:00 08/15/24 08:24 Spironolactone 25 Mg Tablet PO 25 mg DAILY JONATHAN Administration Venlafaxine HCl 150 mg 08/15/24 09:00 08/15/24 08:24 Venlafaxine Er 75 Mg Capsule PO 150 mg DAILY JONATHAN Administration Objective Vital Signs/Intake & Output Reviewed Vital Signs: Yes Vital Signs: Vital Signs x48h Temp Pulse Pulse Resp BP BP Pulse Ox 08/15/24 09:00 08/15/24 08:50 08/15/24 08:00 36.7 C 120 H 24 124/80 98 08/15/24 07:15 108 H 08/15/24 07:00 104 H 20 132/71 H 98 08/15/24 06:01 115 H 08/15/24 06:00 36.7 C 110 H 20 118/83 99 08/15/24 05:00 106 H 22 140/69 H 99 08/15/24 04:00 111 H 22 122/64 100 08/15/24 03:42 110 H 08/15/24 03:00 126 H 20 97/84 99 08/15/24 02:45 137 H 110/88 08/15/24 02:40 104 H 105/71 08/15/24 02:35 109 H 120/74 08/15/24 02:30 116 H 97/65 08/15/24 02:25 118 H 117/79 08/15/24 02:20 112 H 92/74 08/15/24 02:15 116 H 108/69 08/15/24 02:10 137 H 121/65 08/15/24 02:05 138 H 118/84 08/15/24 02:00 136 H 120/88 08/15/24 01:55 126 H 130/97 H 08/15/24 01:51 121 H 118/92 H 08/15/24 01:47 143 H 118/98 H 08/15/24 01:43 36.7 C 137 H 15 118/98 H 100 O2 Flow Rate 08/15/24 09:00 3 08/15/24 08:50 3 08/15/24 08:00 08/15/24 07:15 08/15/24 07:00 08/15/24 06:01 08/15/24 06:00 08/15/24 05:00 08/15/24 04:00 08/15/24 03:42 08/15/24 03:00 08/15/24 02:45 08/15/24 02:40 08/15/24 02:35 08/15/24 02:30 08/15/24 02:25 08/15/24 02:20 08/15/24 02:15 08/15/24 02:10 08/15/24 02:05 08/15/24 02:00 08/15/24 01:55 08/15/24 01:51 08/15/24 01:47 08/15/24 01:43 Intake & Output: Intake & Output 08/13/24 08/14/24 08/15/24 08/16/24 05:59 05:59 05:59 05:59 Intake Total 100 / 100 100 / 100 Output Total 0 / 0 Balance 100 / 100 100 / 100 Weight (kg) 78 kg Objective General Appearance: positive No acute distress and Alert Eyes Bilateral: positive Normal inspection ENT: positive ENT inspection nml Neck: positive Nml inspection Respiratory: positive Chest non-tender, Wheezes (right>left. ) and Rhonchi (occasional) Cardiovascular: positive Tachycardia Abdomen: positive Non-tender and No distention Skin: positive Color nml and No rash Extremities: positive Non-tender and No pedal edema Neurologic/Psychiatric: positive Oriented x3 Lab Results 08/15/24 09:56 08/15/24 09:56 Other Labs: Lab Results x24hrs 08/15/24 08/14/24 08/14/24 Range/Units 02:00 23:57 23:30 WBC 16.2 H (4.8-10.8) x10^3/uL RBC 3.77 L (4.20-5.40) 10^6/uL Hgb 11.6 L (12.0-16.0) g/dL Hct 37.7 (37.0-47.0) % MCV 100.0 H (81.0-99.0) fL MCH 30.8 (27.0-31.0) pg MCHC 30.8 L (32.0-36.0) g/dL RDW 15.6 H (12.0-15.0) % Plt Count 324 (130-450) 10^3/uL MPV 10.5 (7.9-10.8) fL Neut # (Auto) 14.1 H (1.5-6.6) 10^3/uL Lymph # (Auto) 1.4 L (1.5-3.5) 10^3/uL [place] # (Auto) 0.4 (0.0-1.0) 10^3/uL Eos # (Auto) 0.0 (0.0-0.7) 10^3/uL Baso # (Auto) 0.0 (0.0-0.1) 10^3/uL Absolute Nucleated RBC 0.00 x10^3/uL Nucleated RBC % 0.0 /100WBC VBG pH 7.187 L* (7.31-7.41) VBG pCO2 41.5 (41-51) mmHg VBG pO2 37.6 (25-47) mmHg VBG HCO3 15.4 L (23-28) mmol/L VBG Total CO2 16.7 L (24-29) mmol/L VBG O2 Saturation 61.1 (60-80) % VBG Base Excess -12.3 L (-2 - +2) mmol/L Sodium 133 L (135-145) mmol/L Potassium 4.6 H (3.5-4.5) mmol/L Chloride 100 L (101-111) mmol/L Carbon Dioxide 20 L (21-32) mmol/L Anion Gap 13.0 (6-13) BUN 36 H (6-20) mg/dL Creatinine 1.1 (0.6-1.3) mg/dL Estimated GFR (MDRD) 47 L (>89) Glucose 149 H (74-104) mg/dL Lactic Acid 2.4 H (0.5-2.2) mmol/L Calcium 8.9 (8.5-10.3) mg/dL Total Bilirubin 0.6 (0.2-1.0) mg/dL AST 93 H (10-42) IU/L ALT 166 H (10-60) IU/L Alkaline Phosphatase 79 (42-121) IU/L Total Protein 7.3 (6.4-8.9) g/dL Albumin 3.7 (3.2-5.5) g/dL Globulin 3.6 (2.1-4.2) g/dL Albumin/Globulin Ratio 1.0 (1.0-2.2) Lipase 34 (11-82) U/L Nasal Screen MRSA (PCR) POSITIVE A* (NEGATIVE) ABX Reporting Has patient been on IV antibiotics over the past 48 hours?: Yes Sepsis Event Note (H) Evaluation Current Stage of Sepsis: Sepsis Possible source of Sepsis: positive Pulmonary Sepsis Criteria Sepsis Criteria: Recorded Heart Rate greater than 90 bpm, Respiratory: Increasing oxygen requirements and WBC count greater than 12,000 or less than 4000 Assessment/Plan Problem List (1) Acute and chronic respiratory failure with hypoxia: Impression: Manage COPD/pneumonia/COVID-19 infection as below. this morning she has been able to wean from BiPAP to supplemental oxygen. I plan to observe her for several more hours in the ICU to look for increasing tachypnea, increasing oxygen requirements prior to transfer to [facility]. I am continuing decadron 6 mg daily. Afternoon update: Patient continued to improve throughout the day. She started the morning on BiPAP and weaned to 3 L via nasal cannula at about 930. At noon she transitioned onto room air without hypoxia. She had no subjective shortness of breath. After several hours on room air she was transferred to [facility]. Time spent on this encounter 55 minutes: re evaluations, review of data from last admission, review and ordering of tests. (2) Sepsis: Impression: presented to the ED with increasing leukocytosis, tachycardia and increasing oxygen requirements. Pulmonary source. Blood cultures were not drawn. She has RUL PNA on previous CXR, PNA was considered on admit CXR last evening. This AM, possible consolidation in the left lower lobe. While she does have Covid, I think appropriate to treat for HCAP given her decline in the outpatient setting, and her need for BiPAP overnight. I will treat for 5 days. Qualifiers: Acute respiratory failure type: with hypoxia Sepsis acute organ dysfunction status: with acute organ dysfunction Sepsis type: sepsis due to unspecified organism Severe sepsis acute organ dysfunction type: acute respiratory failure Severe sepsis shock status: without septic shock Qualified Code(s): A41.9 - Sepsis, unspecified organism; R65.20 - Severe sepsis without septic shock; J96.01 - Acute respiratory failure with hypoxia (3) Acute exacerbation of chronic obstructive pulmonary disease: Impression: Steroids as above Antibiotics as above (4) COVID: Impression: Decadron 6 mg p.o. daily Holding off on remdesivir given length of time since dx. supportive oxygen CTA chest with no PE on 08/11 (5) Atrial fibrillation with rapid ventricular response: Impression: Heart rate into the 120's and 130's during ED visit. She has been >100's. Echo shows moderate to severely impaired left systolic function with an EF of 30 to 35% Given her HFrEF, I will attempt to manage her rate without Cardizem I will continue her metoprolol succinate 200mg daily. Given her advanced age, will hold off on anticoagulation Aspirin Manage respiratory failure as below (6) Pneumonia: Impression: Given she is a facility resident, and has MRSA positive PCR at last admit, she will be treated with Zosyn and vancomycin IV I will not de escalate coverage for at least 3 days, given her failure of outpatient treatment and readmission. Qualifiers: Laterality: right Lung location: upper lobe of lung Pneumonia type: d ue to unspecified organism Qualified Code(s): J18.9 - Pneumonia, unspecified organism (7) HFrEF (heart failure with reduced ejection fraction): Impression: EF 30 to 35% on echo Lisinopril 5 mg p.o. daily Spironolactone 25 mg p.o. daily I started SGLT2 (Jardiance 10 mg) on discharge yesterday. I am going to continue these treatments.
[2024-08-15 10:06] LABS: BASOPHILS % (AUTO) 0.1 %; HCT - HEMATOCRIT 32.4 % (37.0-47.0); HGB - HEMOGLOBIN 10.7 g/dL (12.0-16.0); LYMPHOCYTES # (AUTO) 1.2 10^3/uL (1.5-3.5); LYMPHOCYTES % (AUTO) 9.7 %; MEAN CORPUSCULAR HEMOGLOBIN 31.5 pg (27.0-31.0); MEAN CORPUSCULAR VOLUME 95.3 fL (81.0-99.0); MEAN PLATELET VOLUME 9.8 fL (7.9-10.8); MONOCYTES # (AUTO) 0.6 10^3/uL (0.0-1.0); MONOCYTES % (AUTO) 4.7 %; NEUTROPHILS # (AUTO) 10.7 10^3/uL (1.5-6.6); NEUTROPHILS % (AUTO) 84.9 %; PLT - PLATELET COUNT 241 10^3/uL (130-450); RED CELL DISTRIBUTION WIDTH 15.6 % (12.0-15.0); WHITE BLOOD COUNT 12.6 x10^3/uL (4.8-10.8)
[2024-08-15 10:18] LABS: CALCIUM 8.6 mg/dL (8.5-10.3); CREATININE 0.8 mg/dL (0.6-1.3); POTASSIUM 3.8 mmol/L (3.5-4.5)
--- NOTE | 2024-08-15 10:47 | XRAY Report ---
XR Chest 1V HISTORY: persistent shortness of breath COMPARISON: 08/14/2024. TECHNIQUE: Frontal view of the chest is submitted for interpretation. FINDINGS/IMPRESSION: Multifocal patchy airspace opacity of bilateral lung with consolidation in the left lower lobe, gross ly unchanged from prior exam, concerning for multifocal pneumonia and/or moderate pulmonary edema wit h associated atelectasis. No pleural effusion or pneumothorax. Stable cardiomegaly. Overall, no significant change from prior examination. Reviewed by: Haritha Elizondo MD on 08/15/2024 10:45 AM PDT Approved by: Haritha Elizondo MD on 08/15/2024 10:45 AM PDT Station ID: [id number]
[2024-08-15] MEDS: ALBUTEROL 1 PUFF INH SCH (12:48)
--- NOTE | 2024-08-15 17:16 | PHARMACY PROGRESS NOTE ---
Best Possible Medication History Admit Date and Time: 08/15/24 [id number] [facility] Statement: As the person ultimately responsible for medication therapy, providers are able to order a medication from an existing home medication list in [facility] via the "Reconcile Routine" prior to Confirmation of that medication by behaviour support teacher. Such practice is discouraged except when the physician, in their clinical judgment, deems that a medical need exists for a medication without regard to previous use.
[2024-08-15] MEDS: GABAPENTIN 100 MG CAPSULE PO PRN (20:34)
[2024-08-15] MEDS: LORazepam 0.5 MG TABLET PO PRN (20:35)
[2024-08-15] MEDS ORDERED: VANCOMYCIN INJ 1.25 GM in SODIUM CHLORIDE 0.9% 250 ML IV ONE (23:45)
[2024-08-16] MEDS: VANCOMYCIN INJ 1 GM in SODIUM CHLORIDE 0.9% 250 ML IV SCH (01:13)
[2024-08-16] MEDS: BENZONATATE 100 MG CAPSULE PO PRN (03:57)
--- NOTE | 2024-08-16 08:23 | PROVIDER PROGRESS NOTE ---
Subjective Prog Note Date Prog Note Date: 08/16/24 Prog Note Time: 08:16 Subjective Pt reports feeling: No change Subjective: She has no complaints with regards to her breathing. She knows she is in the hospital, in [place], but says that she wants to put on her shoes. She is requesting a pureed diet this AM. She does not feel better or worse Current Medications Current Medications Current Medications: Current Medications Generic Name Dose Route Start Last Admin Trade Name Luba PRN Reason Stop Dose Admin Acetaminophen 650 mg 08/15/24 00:00 Acetaminophen 325 Mg Tablet PO Q4HR PRN Pain 1 to 4, or Fever Albuterol 2 puffs 08/15/24 11:00 08/15/24 21:00 Albuterol 1 Puff INH 2 puffs QID JONATHAN Administration Aripiprazole 5 mg 08/15/24 09:00 08/15/24 08:24 Aripiprazole 5 Mg Tablet PO 5 mg DAILY JONATHAN Administration Aspirin 81 mg 08/15/24 09:00 08/15/24 08:24 Aspirin Ec 81 Mg Tablet PO 81 mg DAILY JONATHAN Administration Benzonatate 100 mg 08/15/24 00:13 08/16/24 03:57 Benzonatate 100 Mg Capsule PO 100 mg Q8H PRN Administration Cough Dexamethasone 6 mg 08/15/24 09:00 08/15/24 08:22 Dexamethasone 4 Mg Tablet PO 6 mg DAILY JONATHAN Administration Digoxin 62.5 mcg 08/15/24 09:00 08/15/24 08:22 Digoxin 125 Mcg Tablet PO 62.5 mcg DAILY JONATHAN Administration Gabapentin 100 mg 08/15/24 00:13 08/15/24 20:34 Gabapentin 100 Mg Capsule PO 100 mg HS PRN Administration pain Guaifenesin 600 mg 08/15/24 09:00 08/15/24 20:35 Guaifenesin 600 Mg Tablet PO 600 mg BID JONATHAN Administration Piperacillin Sod/Tazobactam 100 mls @ 25 mls/hr 08/15/24 03:00 08/16/24 03:33 Sod 3.375 gm/ Sodium Chloride IV 25 mls/hr Q8H JONATHAN Administration Vancomycin HCl 1 gm/ Sodium 250 mls @ 250 mls/hr 08/16/24 01:00 08/16/24 02:15 Chloride IV Infused Q24H JONATHAN Infusion Lisinopril 5 mg 08/16/24 09:00 Lisinopril 5 Mg Tablet PO DAILY JONATHAN Lorazepam 0.5 mg 08/15/24 00:13 08/16/24 05:16 Lorazepam 0.5 Mg Tablet PO 0.5 mg Q2H PRN Administration anxiety Metoprolol Succinate 200 mg 08/15/24 09:00 08/15/24 08:24 Metoprolol Succinate 50 Mg Tablet PO 200 mg DAILY JONATHAN Administration Ondansetron HCl 4 mg 08/15/24 00:00 Ondansetron 4 Mg/2 Ml Vial IVP Q6HR PRN Nausea / Vomiting Pantoprazole Sodium 40 mg 08/15/24 07:00 08/15/24 08:23 Pantoprazole 40 Mg Tablet PO 40 mg QDAC JONATHAN Administration Empagliflozin [ 1 each 08/15/24 09:00 08/15/24 14:25 Jardiance] 10 Mg PO Not Given Tablet DAILY JONATHAN Sodium Chloride 10 ml 08/15/24 00:00 Sodium Chloride Flush 0.9% 10 Ml Syringe IVP PRN PRN NEEDED PER PROVIDER ORDERS Sodium Chloride 10 ml 08/15/24 01:00 08/16/24 01:12 Sodium Chloride Flush 0.9% 10 Ml Syringe IVP 10 ml 0100,0900,1700 JONATHAN Administration Spironolactone 25 mg 08/15/24 09:00 08/15/24 08:24 Spironolactone 25 Mg Tablet PO 25 mg DAILY JONATHAN Administration Venlafaxine HCl 150 mg 08/15/24 09:00 08/15/24 08:24 Venlafaxine Er 75 Mg Capsule PO 150 mg DAILY JONATHAN Administration Objective Vital Signs/Intake & Output Reviewed Vital Signs: Yes Vital Signs: Vital Signs x48h Temp Pulse Resp BP Pulse Ox O2 Flow Rate 08/16/24 04:00 36.6 C 149 H 25 H 118/82 93 1 08/16/24 01:00 36.8 C Intake & Output: Intake & Output 08/14/24 08/15/24 08/16/24 08/17/24 05:59 05:59 05:59 05:59 Intake Total 100 / 100 1927 / 1927 Output Total 300 / 300 Balance 100 / 100 1627 / 1627 Weight (kg) 78 kg 79 kg Objective General Appearance: positive No acute distress and Alert Eyes Bilateral: positive Normal inspection ENT: positive ENT inspection nml Neck: positive Nml inspection Respiratory: positive Chest non-tender, Wheezes (right>left. ) and Rhonchi (occasional) Cardiovascular: positive Tachycardia Abdomen: positive Non-tender and No distention Skin: positive Color nml and No rash Extremities: positive Non-tender and No pedal edema Neurologic/Psychiatric: positive Oriented x3 Lab Results 08/16/24 12:33 08/16/24 12:33 Other Labs: Lab Results x24hrs 08/15/24 Range/Units 09:56 WBC 12.6 H (4.8-10.8) x10^3/uL RBC 3.40 L (4.20-5.40) 10^6/uL Hgb 10.7 L (12.0-16.0) g/dL Hct 32.4 L (37.0-47.0) % MCV 95.3 (81.0-99.0) fL MCH 31.5 H (27.0-31.0) pg MCHC 33.0 (32.0-36.0) g/dL RDW 15.6 H (12.0-15.0) % Plt Count 241 (130-450) 10^3/uL MPV 9.8 (7.9-10.8) fL Neut # (Auto) 10.7 H (1.5-6.6) 10^3/uL Lymph # (Auto) 1.2 L (1.5-3.5) 10^3/uL [place] # (Auto) 0.6 (0.0-1.0) 10^3/uL Eos # (Auto) 0.0 (0.0-0.7) 10^3/uL Baso # (Auto) 0.0 (0.0-0.1) 10^3/uL Absolute Nucleated RBC 0.00 x10^3/uL Nucleated RBC % 0.0 /100WBC Sodium 135 (135-145) mmol/L Potassium 3.8 (3.5-4.5) mmol/L Chloride 104 (101-111) mmol/L Carbon Dioxide 25 (21-32) mmol/L Anion Gap 6.0 (6-13) BUN 33 H (6-20) mg/dL Creatinine 0.8 (0.6-1.3) mg/dL Estimated GFR (MDRD) 68 L (>89) Glucose 116 H (74-104) mg/dL Lactic Acid 1.1 (0.5-2.2) mmol/L Calcium 8.6 (8.5-10.3) mg/dL ABX Reporting Has patient been on IV antibiotics over the past 48 hours?: Yes Sepsis Event Note (H) Evaluation Current Stage of Sepsis: Sepsis Possible source of Sepsis: positive Pulmonary Sepsis Criteria Sepsis Criteria: Recorded Heart Rate greater than 90 bpm, Respiratory: Increasing oxygen requirements and WBC count greater than 12,000 or less than 4000 Assessment/Plan Problem List (1) Acute and chronic respiratory failure with hypoxia: Impression: remains tachypneic with wheezes and rhonchi in all lung joshi. Her lung exam is not improving. She is on oxygen 2L [place]. Her baseline is room air. She is on inhalers for her COPD. I am managing COPD/pneumonia/COVID-19 infection as below. She remains on supplemental oxygen. She was able to transfer status between ICU and [facility] yesterday afternoon because her respiratory status did improve. Today it is stagnant. She is transferred back to ICU status today given her A- fib with RVR. She is day #5 dexamethasone 6 mg daily. (2) Atrial fibrillation with rapid ventricular response: Impression: This is not improving. She remains very tachycardic. Her bloord pressures are decreased. She is not responding to metoprolol. I do not beleive that it is her sepsis causing this heart rate elevation. other indicators for sepsis are improving. I am going to start Amiodarone per protocol in an attempt to bring her heart rate down. Assuming this is effective, I will then transition her onto po amiodarone. I am not using diltiazem given her heart failure with reduced ejection fraction. LAter this afternoon her heart rate has improved into the low 100's. I am going to continue with Amiodarone loading protocol dependent on her response, will then transition to oral amiodarone. Selected Entries 08/15/24 21:00 08/16/24 00:00 08/16/24 04:00 Pulse Rate 120 H Pulse Rate [Monitoring electrodes] 113 H 149 H Blood Pressure [Left Brachial artery] 100/76 118/82 (3) Sepsis: Impression: She remains tachycardic, in a fib with RVR. She has been afebrile. Leukocytosis is improving. Laboratory Tests 08/14/24 08/15/24 08/16/24 23:30 09:56 12:33 WBC 16.2 H 12.6 H 10.8 Qualifiers: Acute respiratory failure type: with hypoxia Sepsis acute organ dysfunction status: with acute organ dysfunction Sepsis type: sepsis due to unspecified organism Severe sepsis acute organ dysfunction type: acute respiratory failure Severe sepsis shock status: without septic shock Qualified Code(s): A41.9 - Sepsis, unspecified organism; R65.20 - Severe sepsis without septic shock; J96.01 - Acute respiratory failure with hypoxia (4) Acute exacerbation of chronic obstructive pulmonary disease: Impression: She cannot get albuterol nebs secondary to her COVID infection. She is getting inhalers. she continues to have diffuse wheezing. I will start her on tiotropium inhaler in addition to albulterol. She is on only albuterol at home. discussed with pharmacy, we do not have MDI on formulary in a [place]. I will discuss with RT and come up with a solution. (5) COVID: Impression: Decadron 6 mg p.o. daily Holding off on remdesivir given length of time since dx. supportive oxygen CTA chest with no PE on 08/11 Her positive COVID PCR test was on 08/11. (6) Pneumonia: Impression: Given she is a facility resident, and has MRSA positive PCR at last admit, she will be treated with Zosyn and vancomycin IV I will not de escalate coverage for at least 3 days, given her failure of outpatient treatment and readmission. She is day #2 zosyn and vancomycin. Qualifiers: Laterality: right Lung location: upper lobe of lung Pneumonia type: d ue to unspecified organism Qualified Code(s): J18.9 - Pneumonia, unspecified organism (7) HFrEF (heart failure with reduced ejection fraction): Impression: She was given 20mg Lasix once yesterday. She is 580cc positive. her weight is up 2kg from original admission weight on 08/11. Her outpatient regimen does not include diuretics. I will hold these given she had minimal improvment with lasix yesterday. (8) Hypokalemia: Impression: new today, likely due to Lasix. I will give oral supplementation. I have ordered repeat BMP for the AM.
[2024-08-16] MEDS: AMIODARONE 150 MG/100 ML 100 ML IV ONE (08:57)
[2024-08-16] MEDS: FUROSEMIDE 20 MG/2 ML VIAL IVP ONE (09:01)
[2024-08-16] MEDS: AMIODARONE 360 MG/200 ML 200 ML IV ONE (09:17)
[2024-08-16] MEDS: lisinopriL 5 MG TABLET PO SCH (10:32)
[2024-08-16 12:40] LABS: BASOPHILS % (AUTO) 0.1 %; EOSINOPHILS # (AUTO) 0.1 10^3/uL (0.0-0.7); EOSINOPHILS % (AUTO) 0.6 %; HCT - HEMATOCRIT 33.7 % (37.0-47.0); HGB - HEMOGLOBIN 10.7 g/dL (12.0-16.0); LYMPHOCYTES # (AUTO) 1.2 10^3/uL (1.5-3.5); LYMPHOCYTES % (AUTO) 11.1 %; MEAN CORPUSCULAR HEMOGLOBIN 30.8 pg (27.0-31.0); MEAN CORPUSCULAR HGB CONC 31.8 g/dL (32.0-36.0); MEAN CORPUSCULAR VOLUME 97.1 fL (81.0-99.0); MEAN PLATELET VOLUME 10.5 fL (7.9-10.8); MONOCYTES # (AUTO) 0.6 10^3/uL (0.0-1.0); MONOCYTES % (AUTO) 5.4 %; NEUTROPHILS # (AUTO) 8.9 10^3/uL (1.5-6.6); NEUTROPHILS % (AUTO) 81.8 %; PLT - PLATELET COUNT 257 10^3/uL (130-450); RED BLOOD COUNT 3.47 10^6/uL (4.20-5.40); RED CELL DISTRIBUTION WIDTH 15.5 % (12.0-15.0); WHITE BLOOD COUNT 10.8 x10^3/uL (4.8-10.8)
[2024-08-16 12:57] LABS: CALCIUM 8.4 mg/dL (8.5-10.3); CREATININE 0.7 mg/dL (0.6-1.3); MAGNESIUM 1.7 mg/dL (1.7-2.3); POTASSIUM 3.2 mmol/L (3.5-4.5)
[2024-08-16] MEDS: AMIODARONE 360 MG/200 ML 200 ML IV SCH (14:54)
[2024-08-16] MEDS: POTASSIUM CHLORIDE 20 MEQ TABLET PO ONE (14:58)
[2024-08-17 04:51] LABS: BASOPHILS % (AUTO) 0.1 %; EOSINOPHILS % (AUTO) 0.1 %; HCT - HEMATOCRIT 31.3 % (37.0-47.0); HGB - HEMOGLOBIN 10.1 g/dL (12.0-16.0); LYMPHOCYTES # (AUTO) 0.8 10^3/uL (1.5-3.5); LYMPHOCYTES % (AUTO) 7.4 %; MEAN CORPUSCULAR HEMOGLOBIN 31.3 pg (27.0-31.0); MEAN CORPUSCULAR HGB CONC 32.3 g/dL (32.0-36.0); MEAN CORPUSCULAR VOLUME 96.9 fL (81.0-99.0); MEAN PLATELET VOLUME 10.5 fL (7.9-10.8); MONOCYTES # (AUTO) 0.6 10^3/uL (0.0-1.0); MONOCYTES % (AUTO) 5.8 %; NEUTROPHILS # (AUTO) 9.1 10^3/uL (1.5-6.6); NEUTROPHILS % (AUTO) 85.2 %; PLT - PLATELET COUNT 255 10^3/uL (130-450); RED BLOOD COUNT 3.23 10^6/uL (4.20-5.40); RED CELL DISTRIBUTION WIDTH 15.6 % (12.0-15.0); WHITE BLOOD COUNT 10.7 x10^3/uL (4.8-10.8)
[2024-08-17 05:03] LABS: CALCIUM, IONIZED 1.12 mmol/L (1.15-1.33); VBG PH 7.403 (7.31-7.41)
[2024-08-17 05:06] LABS: MAGNESIUM 1.7 mg/dL (1.7-2.3); PHOSPHORUS 2.7 mg/dL (2.5-5.0)
[2024-08-17 05:07] LABS: CALCIUM 8.3 mg/dL (8.5-10.3); CREATININE 0.7 mg/dL (0.6-1.3); POTASSIUM 4.1 mmol/L (3.5-4.5)
--- NOTE | 2024-08-17 07:44 | PROVIDER PROGRESS NOTE ---
Subjective Prog Note Date Prog Note Date: 08/17/24 Prog Note Time: 08:58 Subjective Pt reports feeling: Worse Subjective: She feels that her breathing is worse this AM. Current Medications Current Medications Current Medications: Current Medications Generic Name Dose Route Start Last Admin Trade Name Freq PRN Reason Stop Dose Admin Acetaminophen 650 mg 08/15/24 00:00 Acetaminophen 325 Mg Tablet PO Q4HR PRN Pain 1 to 4, or Fever Albuterol 2 puffs 08/15/24 11:00 08/16/24 22:56 Albuterol 1 Puff INH 2 puffs QID JONATHAN Administration Aripiprazole 5 mg 08/15/24 09:00 08/16/24 09:02 Aripiprazole 5 Mg Tablet PO 5 mg DAILY JONATHAN Administration Aspirin 81 mg 08/15/24 09:00 08/16/24 09:02 Aspirin Ec 81 Mg Tablet PO 81 mg DAILY JONATHAN Administration Benzonatate 100 mg 08/15/24 00:13 08/16/24 03:57 Benzonatate 100 Mg Capsule PO 100 mg Q8H PRN Administration Cough Dexamethasone 6 mg 08/15/24 09:00 08/16/24 09:02 Dexamethasone 4 Mg Tablet PO 6 mg DAILY JONATHAN Administration Gabapentin 100 mg 08/15/24 00:13 08/16/24 20:08 Gabapentin 100 Mg Capsule PO 100 mg HS PRN Administration pain Guaifenesin 600 mg 08/15/24 09:00 08/16/24 20:08 Guaifenesin 600 Mg Tablet PO 600 mg BID JONATHAN Administration Piperacillin Sod/Tazobactam 100 mls @ 25 mls/hr 08/15/24 03:00 08/17/24 03:17 Sod 3.375 gm/ Sodium Chloride IV 25 mls/hr Q8H JONATHAN Administration Vancomycin HCl 1 gm/ Sodium 250 mls @ 250 mls/hr 08/16/24 01:00 08/17/24 02:05 Chloride IV Infused Q24H JONATHAN Infusion Amiodarone HCl/Dextrose 200 mls @ 16.667 mls/hr 08/16/24 09:00 08/17/24 03:20 Nexterone 360 Mg/200 Ml IV 0.5 mg/min .Q12H JONATHAN 16.67 mls/hr Administration 0.5 MG/MIN Lisinopril 5 mg 08/16/24 09:00 08/16/24 10:32 Lisinopril 5 Mg Tablet PO 5 mg DAILY JONATHAN Administration Lorazepam 0.5 mg 08/15/24 00:13 08/17/24 01:03 Lorazepam 0.5 Mg Tablet PO 0.5 mg Q2H PRN Administration anxiety Metoprolol Succinate 200 mg 08/15/24 09:00 08/16/24 09:02 Metoprolol Succinate 50 Mg Tablet PO 200 mg DAILY JONATHAN Administration Ondansetron HCl 4 mg 08/15/24 00:00 Ondansetron 4 Mg/2 Ml Vial IVP Q6HR PRN Nausea / Vomiting Pantoprazole Sodium 40 mg 08/15/24 07:00 08/17/24 06:39 Pantoprazole 40 Mg Tablet PO 40 mg QDAC JONATHAN Administration Empagliflozin [ 1 each 08/15/24 09:00 08/16/24 10:32 Jardiance] 10 Mg PO Not Given Tablet DAILY JONATHAN Sodium Chloride 10 ml 08/15/24 00:00 Sodium Chloride Flush 0.9% 10 Ml Syringe IVP PRN PRN NEEDED PER PROVIDER ORDERS Sodium Chloride 10 ml 08/15/24 01:00 08/16/24 20:09 Sodium Chloride Flush 0.9% 10 Ml Syringe IVP 10 ml 0100,0900,1700 JONATHAN Administration Spironolactone 25 mg 08/15/24 09:00 08/16/24 10:33 Spironolactone 25 Mg Tablet PO 25 mg DAILY JONATHAN Administration Venlafaxine HCl 150 mg 08/15/24 09:00 08/16/24 10:33 Venlafaxine Er 75 Mg Capsule PO 150 mg DAILY JONATHAN Administration Objective Vital Signs/Intake & Output Reviewed Vital Signs: Yes Vital Signs: Vital Signs x48h Temp Pulse Resp BP Pulse Ox O2 Flow Rate 08/17/24 07:00 111 H 26 H 143/75 H 97 2 08/17/24 06:00 120 H 22 115/74 95 2 08/17/24 05:00 101 H 32 H 136/88 H 97 2 08/17/24 04:00 36.5 C 83 16 107/75 96 2 08/17/24 03:00 94 H 16 97/82 96 2 08/17/24 02:00 103 H 15 104/77 98 2 08/17/24 01:00 117 H 20 130/87 96 2 08/17/24 00:00 110 H 14 111/81 97 2 Intake & Output: Intake & Output 08/15/24 08/16/24 08/17/24 08/18/24 05:59 05:59 05:59 05:59 Intake Total 100 / 100 1927 / 1927 1750 / 1750 100 / 100 Output Total 300 / 300 1575 / 1575 Balance 100 / 100 1627 / 1627 175 / 175 100 / 100 Weight (kg) 78 kg 79 kg 78 kg Objective General Appearance: positive No acute distress and Alert Eyes Bilateral: positive Normal inspection ENT: positive ENT inspection nml Neck: positive Nml inspection Respiratory: positive Chest non-tender and Rhonchi (occasional) Cardiovascular: positive Tachycardia (remains tachy although improved to the low 100's from 130's-140's. ); negative Systolic murmur Abdomen: positive Non-tender and No distention Skin: positive Color nml and No rash Extremities: positive Non-tender and No pedal edema Neurologic/Psychiatric: positive Oriented x3 Lab Results 08/17/24 04:25 08/17/24 04:25 Other Labs: Lab Results x24hrs 08/17/24 08/16/24 Range/Units 04:25 12:33 WBC 10.7 10.8 (4.8-10.8) x10^3/uL RBC 3.23 L 3.47 L (4.20-5.40) 10^6/uL Hgb 10.1 L 10.7 L (12.0-16.0) g/dL Hct 31.3 L 33.7 L (37.0-47.0) % MCV 96.9 97.1 (81.0-99.0) fL MCH 31.3 H 30.8 (27.0-31.0) pg MCHC 32.3 31.8 L (32.0-36.0) g/dL RDW 15.6 H 15.5 H (12.0-15.0) % Plt Count 255 257 (130-450) 10^3/uL MPV 10.5 10.5 (7.9-10.8) fL Neut # (Auto) 9.1 H 8.9 H (1.5-6.6) 10^3/uL Lymph # (Auto) 0.8 L 1.2 L (1.5-3.5) 10^3/uL [place] # (Auto) 0.6 0.6 (0.0-1.0) 10^3/uL Eos # (Auto) 0.0 0.1 (0.0-0.7) 10^3/uL Baso # (Auto) 0.0 0.0 (0.0-0.1) 10^3/uL Absolute Nucleated RBC 0.00 0.00 x10^3/uL Nucleated RBC % 0.0 0.0 /100WBC VBG pH 7.403 (7.31-7.41) Ionized Calcium 1.12 L (1.15-1.33) mmol/L Sodium 136 133 L (135-145) mmol/L Potassium 4.1 3.2 L (3.5-4.5) mmol/L Chloride 105 100 L (101-111) mmol/L Carbon Dioxide 25 24 (21-32) mmol/L Anion Gap 6.0 9.0 (6-13) BUN 26 H 26 H (6-20) mg/dL Creatinine 0.7 0.7 (0.6-1.3) mg/dL Estimated GFR (MDRD) 80 L 80 L (>89) Glucose 125 H 141 H (74-104) mg/dL Calcium 8.3 L 8.4 L (8.5-10.3) mg/dL Phosphorus 2.7 (2.5-5.0) mg/dL Magnesium 1.7 1.7 (1.7-2.3) mg/dL ABX Reporting Has patient been on IV antibiotics over the past 48 hours?: Yes Sepsis Event Note (H) Evaluation Current Stage of Sepsis: Sepsis Possible source of Sepsis: positive Pulmonary Sepsis Criteria Sepsis Criteria: Recorded Heart Rate greater than 90 bpm Assessment/Plan Problem List (1) Acute and chronic respiratory failure with hypoxia: Impression: She remains tachypneic. . She is on oxygen 2L [place]. Her baseline is room air. She is on inhalers for her COPD. I am managing COPD/pneumonia/COVID-19 infection as below. She remains on supplemental oxygen. She remains in ICU for amiodarone infusion. She is day #5 dexamethasone 6 mg daily. I am continuing the dexamethasone. (2) Atrial fibrillation with rapid ventricular response: Impression: Her tachycardia is improving. her blood pressures are within normal range. She is not having chest pain or palpitations. I will transition her onto oral amiodarone. I have discussed her dosing with the pharmacist who is making recommendations regarding transistion to PO. We have stopped her digoxin. 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 I am not using diltiazem given her heart failure with reduced ejection fraction. Her TSH is WNL. 2 Selected Entries 08/17/24 03:00 08/17/24 04:00 08/17/24 05:00 Pulse Rate [Monitoring electrodes] 94 H 83 101 H Blood Pressure [Left Brachial artery] 97/82 107/75 136/88 H 08/17/24 06:00 08/17/24 07:00 Pulse Rate [Monitoring electrodes] 120 H 111 H Blood Pressure [Left Brachial artery] 115/74 143/75 H (3) Sepsis: Impression: Her sepsis is improving. She is afebrile, her leukocytosis is resolved. I beleive she is tachycardic due to her atrial fibrillation, not her sepsis. Laboratory Tests 08/15/24 08/16/24 08/17/24 09:56 12:33 04:25 WBC 12.6 H 10.8 10.7 Qualifiers: Acute respiratory failure type: with hypoxia Sepsis acute organ dysfunction status: with acute organ dysfunction Sepsis type: sepsis due to unspecified organism Severe sepsis acute organ dysfunction type: acute respiratory failure Severe sepsis shock status: without septic shock Qualified Code(s): A41.9 - Sepsis, unspecified organism; R65.20 - Severe sepsis without septic shock; J96.01 - Acute respiratory failure with hypoxia (4) Acute exacerbation of chronic obstructive pulmonary disease: Impression: despite steroids and appropriate abx I feel that she is not improving. I have been trying to avoid nebulizers due to her COVID infection, but I feel that she needs more than albuterol, which is the only MDI drug we have in stock here. I will be starting her on albuterol/ipratropium neb treatments QID in an efffort to improve her hypoxia. She is on dexamethasone; this has been in place since her admission on the . She is day #6. Due to her continued need for supplemental oxygen and wheezing on exam, I am going to continue the steroids. . (5) COVID: Impression: Decadron 6 mg p.o. daily Holding off on remdesivir given length of time since dx. supportive oxygen CTA chest with no PE on 08/11 Her positive COVID PCR test was on 08/11. Onset of symptoms is overall unclear, as she is a poor historian. on the , the ED provider notes symptoms for "several days". She had an antigen test that was positive on 08/11 at her care facility just prior to her ED visit. (6) Pneumonia: Impression: Given she is a facility resident, and has MRSA positive PCR at last admit, she will be treated with Zosyn and vancomycin IV I will not de escalate coverage, given her failure of outpatient treatment and readmission, and her inability to wean off supplemental O2. She is day #3/5 zosyn and vancomycin. Qualifiers: Laterality: right Lung location: upper lobe of lung Pneumonia type: d ue to unspecified organism Qualified Code(s): J18.9 - Pneumonia, unspecified organism (7) HFrEF (heart failure with reduced ejection fraction): Impression: She was given 20mg Lasix once 2 days ago. Her weight is stable at 78kg. She did not improve significantly with Lasix. I added BNP onto her labs today. Her BNP is 502. Therefore I will treat her with some Lasix. I have ordered 20 mg IV today and will continue to monitor her response to this treatment. If this is effective I will probably place her on oral Lasix daily.. (8) Hypokalemia: Impression: responded well to replacement. resolved. I will continue to monitor this given that I am giving her Lasix today.Laboratory Tests 08/16/24 08/17/24 12:33 04:25 Potassium 3.2 L 4.1 I have spent 55 minutes in the care of this patient today. This includes time [id number], review and ordering of diagnostic imaging and laboratory studies, monitoring the patient's signs symptoms, evaluation of medication effectiveness and patient's response to treatment, as well as completion of documentation
[2024-08-17] MEDS: FUROSEMIDE 20 MG/2 ML VIAL IVP SCH (14:07)
[2024-08-17] MEDS: IPRATROPIUM/ALBUTEROL 3 ML NEB INH SCH (17:45)
[2024-08-18 05:10] LABS: BASOPHILS % (AUTO) 0.1 %; EOSINOPHILS % (AUTO) 0.1 %; HGB - HEMOGLOBIN 10.8 g/dL (12.0-16.0); LYMPHOCYTES # (AUTO) 1.3 10^3/uL (1.5-3.5); LYMPHOCYTES % (AUTO) 9.7 %; MEAN CORPUSCULAR HEMOGLOBIN 31.2 pg (27.0-31.0); MEAN CORPUSCULAR HGB CONC 32.7 g/dL (32.0-36.0); MEAN CORPUSCULAR VOLUME 95.4 fL (81.0-99.0); MEAN PLATELET VOLUME 10.4 fL (7.9-10.8); MONOCYTES # (AUTO) 0.7 10^3/uL (0.0-1.0); MONOCYTES % (AUTO) 5.3 %; NEUTROPHILS # (AUTO) 11.5 10^3/uL (1.5-6.6); NEUTROPHILS % (AUTO) 83.7 %; PLT - PLATELET COUNT 323 10^3/uL (130-450); RED BLOOD COUNT 3.46 10^6/uL (4.20-5.40); RED CELL DISTRIBUTION WIDTH 15.6 % (12.0-15.0); WHITE BLOOD COUNT 13.8 x10^3/uL (4.8-10.8)
[2024-08-18 05:14] LABS: CALCIUM, IONIZED 1.09 mmol/L (1.15-1.33); VBG PH 7.441 (7.31-7.41)
[2024-08-18 05:29] LABS: CALCIUM 8.8 mg/dL (8.5-10.3); CREATININE 0.7 mg/dL (0.6-1.3); MAGNESIUM 1.8 mg/dL (1.7-2.3); PHOSPHORUS 3.1 mg/dL (2.5-5.0)
[2024-08-18] MEDS: CALCIUM GLUC 1,000MG/50ML-NACL 1,000 MG/50 ML BAG IV ONE (09:06)
--- NOTE | 2024-08-18 12:20 | PROVIDER PROGRESS NOTE ---
Subjective Prog Note Date Prog Note Date: 08/17/24 Prog Note Time: 08:58 Subjective Pt reports feeling: Worse Subjective: She continues to complain that she feels short of breath. She remains in the ICU due to the need for Amiodarone drip. I have discussed this with pharmacy and we will transition that this AM. Current Medications Current Medications Current Medications: Current Medications Generic Name Dose Route Start Last Admin Trade Name Freq PRN Reason Stop Dose Admin Acetaminophen 650 mg 08/15/24 00:00 Acetaminophen 325 Mg Tablet PO Q4HR PRN Pain 1 to 4, or Fever Albuterol 2 puffs 08/15/24 11:00 08/18/24 08:50 Albuterol 1 Puff INH 2 puffs QID JONATHAN Administration Albuterol/Ipratropium 3 ml 08/17/24 15:00 08/18/24 12:13 Ipratropium/Albuterol 3 Ml Neb INH 3 ml RTQID JONATHAN Administration Aripiprazole 5 mg 08/15/24 09:00 08/18/24 08:54 Aripiprazole 5 Mg Tablet PO 5 mg DAILY JONATHAN Administration Aspirin 81 mg 08/15/24 09:00 08/18/24 08:54 Aspirin Ec 81 Mg Tablet PO 81 mg DAILY JONATHAN Administration Benzonatate 100 mg 08/15/24 00:13 08/16/24 03:57 Benzonatate 100 Mg Capsule PO 100 mg Q8H PRN Administration Cough Budesonide 0.5 mg 08/18/24 19:00 Budesonide 0.5 Mg/2 Ml Neb INH RTBID JONATHAN Furosemide 20 mg 08/17/24 13:00 08/18/24 08:55 Furosemide 20 Mg/2 Ml Vial IVP 20 mg DAILY JONATHAN Administration Gabapentin 100 mg 08/15/24 00:13 08/16/24 20:08 Gabapentin 100 Mg Capsule PO 100 mg HS PRN Administration pain Guaifenesin 600 mg 08/15/24 09:00 08/18/24 08:54 Guaifenesin 600 Mg Tablet PO 600 mg BID JONATHAN Administration Piperacillin Sod/Tazobactam 100 mls @ 25 mls/hr 08/15/24 03:00 08/18/24 07:00 Sod 3.375 gm/ Sodium Chloride IV Infused Q8H JONATHAN Infusion Vancomycin HCl 1 gm/ Sodium 250 mls @ 250 mls/hr 08/16/24 01:00 08/18/24 05:19 Chloride IV Infused Q24H JONATHAN Infusion Amiodarone HCl/Dextrose 200 mls @ 16.667 mls/hr 08/16/24 09:00 08/18/24 03:36 Nexterone 360 Mg/200 Ml IV 0.5 mg/min .Q12H JONATHAN 16.67 mls/hr Administration 0.5 MG/MIN Lisinopril 5 mg 08/16/24 09:00 08/18/24 08:54 Lisinopril 5 Mg Tablet PO 5 mg DAILY JONAHTAN Administration Lorazepam 0.5 mg 08/15/24 00:13 08/17/24 01:03 Lorazepam 0.5 Mg Tablet PO 0.5 mg Q2H PRN Administration anxiety Metoprolol Succinate 200 mg 08/15/24 09:00 08/18/24 08:54 Metoprolol Succinate 50 Mg Tablet PO 200 mg DAILY JONATHAN Administration Ondansetron HCl 4 mg 08/15/24 00:00 Ondansetron 4 Mg/2 Ml Vial IVP Q6HR PRN Nausea / Vomiting Pantoprazole Sodium 40 mg 08/15/24 07:00 08/18/24 06:04 Pantoprazole 40 Mg Tablet PO 40 mg QDAC JONATHAN Administration Empagliflozin [ 1 each 08/15/24 09:00 08/18/24 12:09 Jardiance] 10 Mg PO Not Given Tablet DAILY JONATHAN Sodium Chloride 10 ml 08/15/24 00:00 Sodium Chloride Flush 0.9% 10 Ml Syringe IVP PRN PRN NEEDED PER PROVIDER ORDERS Sodium Chloride 10 ml 08/15/24 01:00 08/18/24 08:55 Sodium Chloride Flush 0.9% 10 Ml Syringe IVP 10 ml 0100,0900,1700 JONATHAN Administration Spironolactone 25 mg 08/15/24 09:00 08/18/24 08:54 Spironolactone 25 Mg Tablet PO 25 mg DAILY JONATHAN Administration Venlafaxine HCl 150 mg 08/15/24 09:00 08/18/24 08:54 Venlafaxine Er 75 Mg Capsule PO 150 mg DAILY JONATHAN Administration Objective Vital Signs/Intake & Output Reviewed Vital Signs: Yes Vital Signs: Vital Signs x48h Pulse Pulse Resp BP Pulse Ox O2 Flow Rate 08/18/24 10:00 121 H 31 H 121/77 95 2 08/18/24 09:00 123 H 33 H 108/85 95 2 08/18/24 08:58 2 08/18/24 08:58 115 H 20 2 08/18/24 08:00 106 H 23 116/79 90 L 2 08/18/24 07:00 109 H 20 124/95 H 98 2 08/18/24 06:00 95 H 25 H 117/84 94 2 08/18/24 05:00 114 H 31 H 124/91 H 98 2 Intake & Output: Intake & Output 08/16/24 08/17/24 08/18/24 08/19/24 05:59 05:59 05:59 05:59 Intake Total 1927 / 1927 1750 / 1750 1483 / 1483 550 / 550 Output Total 300 / 300 1575 / 1575 1401 / 1401 850 / 850 Balance 1627 / 1627 175 / 175 82 / 82 -300 / -300 Weight (kg) 79 kg 78 kg 76 kg Objective General Appearance: positive No acute distress and Alert Eyes Bilateral: positive Normal inspection ENT: positive ENT inspection nml Neck: positive Nml inspection Respiratory: positive Wheezes and Other (tachypneic) Cardiovascular: positive Tachycardia (remains tachy although improved to the low 100's from 130's-140's. ); negative Systolic murmur Abdomen: positive Non-tender and No distention Skin: positive Color nml and No rash Extremities: positive Non-tender and No pedal edema Neurologic/Psychiatric: positive Oriented x3 Lab Results 08/18/24 04:48 08/18/24 04:48 Other Labs: Lab Results x24hrs 08/18/24 Range/Units 04:48 WBC 13.8 H (4.8-10.8) x10^3/uL RBC 3.46 L (4.20-5.40) 10^6/uL Hgb 10.8 L (12.0-16.0) g/dL Hct 33.0 L (37.0-47.0) % MCV 95.4 (81.0-99.0) fL MCH 31.2 H (27.0-31.0) pg MCHC 32.7 (32.0-36.0) g/dL RDW 15.6 H (12.0-15.0) % Plt Count 323 (130-450) 10^3/uL MPV 10.4 (7.9-10.8) fL Neut # (Auto) 11.5 H (1.5-6.6) 10^3/uL Lymph # (Auto) 1.3 L (1.5-3.5) 10^3/uL [place] # (Auto) 0.7 (0.0-1.0) 10^3/uL Eos # (Auto) 0.0 (0.0-0.7) 10^3/uL Baso # (Auto) 0.0 (0.0-0.1) 10^3/uL Absolute Nucleated RBC 0.00 x10^3/uL Nucleated RBC % 0.0 /100WBC VBG pH 7.441 H (7.31-7.41) Ionized Calcium 1.09 L (1.15-1.33) mmol/L Sodium 138 (135-145) mmol/L Potassium 4.0 (3.5-4.5) mmol/L Chloride 103 (101-111) mmol/L Carbon Dioxide 28 (21-32) mmol/L Anion Gap 7.0 (6-13) BUN 23 H (6-20) mg/dL Creatinine 0.7 (0.6-1.3) mg/dL Estimated GFR (MDRD) 80 L (>89) Glucose 110 H (74-104) mg/dL Calcium 8.8 (8.5-10.3) mg/dL Phosphorus 3.1 (2.5-5.0) mg/dL Magnesium 1.8 (1.7-2.3) mg/dL ABX Reporting Has patient been on IV antibiotics over the past 48 hours?: Yes Sepsis Event Note (H) Evaluation Current Stage of Sepsis: Sepsis Possible source of Sepsis: positive Pulmonary Sepsis Criteria Sepsis Criteria: Recorded Heart Rate greater than 90 bpm Assessment/Plan Problem List (1) Acute and chronic respiratory failure with hypoxia: Impression: She remains tachypneic. . She is on oxygen 2L NC. Her baseline is room air. I have transitioned her onto nebulized medications. I am managing COPD/pneumonia/COVID-19 infection as below. She remains on supplemental oxygen. She remains in ICU for amiodarone infusion.She should be able to transfer to [facility] today. She is day #5 dexamethasone 6 mg daily. I am continuing the dexamethasone Today. (2) Atrial fibrillation with rapid ventricular response: Impression: Her tachycardia is improving. her blood pressures are within normal range. She is not having chest pain or palpitations. I will transition her onto oral amiodarone. I have discussed her dosing with the pharmacist who is making recommendations regarding transistion to PO. We have stopped her digoxin. This was a jail home medication. I am not using diltiazem given her heart failure with reduced ejection fraction. Her TSH is WNL. Selected Entries 08/18/24 10:00 08/18/24 11:00 08/18/24 12:00 Pulse Rate Pulse Rate [Monitoring electrodes] 121 H 101 H 100 H Blood Pressure [Left Brachial artery] 121/77 99/71 116/56 L 08/18/24 12:13 08/18/24 13:00 08/18/24 14:00 Pulse Rate 97 H Pulse Rate [Monitoring electrodes] 118 H 99 H Blood Pressure [Left Brachial artery] 116/56 L 117/52 L 08/18/24 15:00 08/18/24 16:00 08/18/24 16:00 Pulse Rate 98 H Pulse Rate [Monitoring electrodes] 113 H 113 H Blood Pressure [Left Brachial artery] 112/92 H 95/71 08/18/24 17:00 08/18/24 18:00 Pulse Rate Pulse Rate [Monitoring electrodes] 108 H 109 H Blood Pressure [Left Brachial artery] 111/80 118/85 (3) Sepsis: Impression: Her sepsis is improving. She is afebrile, her leukocytosis is slightly worse today. I beleive she is tachycardic due to her atrial fibrillation, not her sepsis. 2 Laboratory Tests 08/17/24 08/18/24 04:25 04:48 WBC 10.7 13.8 H . Qualifiers: Acute respiratory failure type: with hypoxia Sepsis acute organ dysfunction status: with acute organ dysfunction Sepsis type: sepsis due to unspecified organism Severe sepsis acute organ dysfunction type: acute respiratory failure Severe sepsis shock status: without septic shock Qualified Code(s): A41.9 - Sepsis, unspecified organism; R65.20 - Severe sepsis without septic shock; J96.01 - Acute respiratory failure with hypoxia (4) Acute exacerbation of chronic obstructive pulmonary disease: Impression: despite steroids and appropriate abx I feel that she is not improving. I have been trying to avoid nebulizers due to her COVID infection, but I feel that she needs more than albuterol, which is the only MDI drug we have in stock here. I will be starting her on albuterol/ipratropium neb treatments QID in an efffort to improve her hypoxia. She is on dexamethasone; this has been in place since her admission on the . She is day #6. Due to her continued need for supplemental oxygen and wheezing on exam, I am going to continue the steroids. . (5) COVID: Impression: Discontinuing steroids today. She remains on treatment for healthcare acquired pneumonia At the time of her initial COVID diagnosis her symptoms were not severe and she quickly weaned off supplemental oxygen, therefore remdesivir was not started It is probably due to this that she has had such a prolonged course with her COVID complicated by COPD. CTA chest with no PE on 08/11 Her positive COVID PCR test was on 08/11. Onset of symptoms is overall unclear, as she is a poor historian. on the , the ED provider notes symptoms for "several days". She had an antigen test that was positive on 08/11 at her care facility just prior to her ED visit. (6) Pneumonia: Impression: Given she is a facility resident, and has MRSA positive PCR at last admit, she will be treated with Zosyn and vancomycin IV I will not de escalate coverage, given her failure of outpatient treatment and readmission, and her inability to wean off supplemental O2. She is day #4/5 zosyn and vancomycin. Qualifiers: Laterality: right Lung location: upper lobe of lung Pneumonia type: d ue to unspecified organism Qualified Code(s): J18.9 - Pneumonia, unspecified organism (7) HFrEF (heart failure with reduced ejection fraction): Impression: She was given 20mg Lasix once 2 days ago. Her weight is stable at 78kg. She did not improve significantly with Lasix. I added BNP onto her labs today. Her BNP is 502. Therefore I will treat her with some Lasix. I have ordered 20 mg IV today and will continue to monitor her response to this treatment. If this is effective I will probably place her on oral Lasix daily.. (8) Hypokalemia: Impression: responded well to replacement. resolved. I will continue to monitor this given that I am giving her Lasix today.Laboratory Tests 08/16/24 08/17/24 12:33 04:25 Potassium 3.2 L 4.1 I have spent 43 minutes in the care of this patient today. This includes time [id number], review and ordering of diagnostic imaging and laboratory studies, monitoring the patient's signs symptoms, evaluation of medication effectiveness and patient's response to treatment, as well as completion of documentation
[2024-08-18] MEDS: AMIODARONE 200 MG TABLET PO SCH (17:15)
[2024-08-18] MEDS: BUDESONIDE 0.5 MG/2 ML NEB INH SCH (20:15)
[2024-08-18] MEDS: SODIUM CHLORIDE 0.9% 500 ML IV ONE (21:46)
[2024-08-18] MEDS: METOPROLOL 5 MG/5 ML VIAL IVP ONE (21:51)
--- NOTE | 2024-08-19 00:16 | PROVIDER PROGRESS NOTE ---
Hospitalist Cross-cover Note Cross-Cover Note Cross-Cover Note: A flutter sustaining 110-140s, BP 149/62, after receiving IV metoprolol 2.5 mg x 1 dose. Noted patient has received IV amio gtt now transitioned to PO, avoiding diltiazem due to low EF, digoxin recently discontinued by primary team. Additional IV metoprolol 5 mg ordered. BP stable. Discussed with RN
[2024-08-19] MEDS ORDERED: METOPROLOL 5 MG/5 ML VIAL IVP ONE (00:18)
[2024-08-19] MEDS: METOPROLOL 5 MG/5 ML VIAL IVP ONE (00:24)
[2024-08-19] MEDS ORDERED: AMIODARONE 360 MG/200 ML 200 ML IV SCH (01:00)
[2024-08-19] MEDS: MORPHINE 2 MG/ML CARPUJECT IVP ONE (01:24)
[2024-08-19] MEDS: DEXMEDETOMIDINE 400 MCG/100 ML 100 ML IV PRN (02:28)
[2024-08-19 04:57] LABS: BASOPHILS % (AUTO) 0.2 %; EOSINOPHILS # (AUTO) 0.2 10^3/uL (0.0-0.7); EOSINOPHILS % (AUTO) 1.7 %; HCT - HEMATOCRIT 32.2 % (37.0-47.0); HGB - HEMOGLOBIN 10.3 g/dL (12.0-16.0); LYMPHOCYTES # (AUTO) 1.4 10^3/uL (1.5-3.5); LYMPHOCYTES % (AUTO) 11.3 %; MEAN CORPUSCULAR HEMOGLOBIN 30.7 pg (27.0-31.0); MEAN CORPUSCULAR VOLUME 96.1 fL (81.0-99.0); MEAN PLATELET VOLUME 10.3 fL (7.9-10.8); MONOCYTES # (AUTO) 0.7 10^3/uL (0.0-1.0); MONOCYTES % (AUTO) 5.9 %; NEUTROPHILS # (AUTO) 9.7 10^3/uL (1.5-6.6); NEUTROPHILS % (AUTO) 78.9 %; PLT - PLATELET COUNT 319 10^3/uL (130-450); RED BLOOD COUNT 3.35 10^6/uL (4.20-5.40); RED CELL DISTRIBUTION WIDTH 15.5 % (12.0-15.0); WHITE BLOOD COUNT 12.2 x10^3/uL (4.8-10.8)
[2024-08-19 05:10] LABS: CALCIUM, IONIZED 1.01 mmol/L (1.15-1.33); VBG PH 7.527 (7.31-7.41)
[2024-08-19 05:13] LABS: CALCIUM 8.5 mg/dL (8.5-10.3); CREATININE 0.8 mg/dL (0.6-1.3); POTASSIUM 3.5 mmol/L (3.5-4.5)
[2024-08-19 05:28] LABS: MAGNESIUM 1.5 mg/dL (1.7-2.3); PHOSPHORUS 3.3 mg/dL (2.5-5.0)
[2024-08-19] MEDS: MAGNESIUM SULFATE 2 GRAM 2 GM/50 ML BAG IV ONE (05:37)
[2024-08-19] MEDS: POTASSIUM CHLOR 10 MEQ/100 ML 10 MEQ/100 ML BAG IV SCH (06:41)
[2024-08-19] MEDS: LEVALBUTEROL 1.25 MG/3 ML NEB INH PRN (07:41)
--- NOTE | 2024-08-19 07:57 | XRAY Report ---
PROCEDURE: XR Chest 1V INDICATIONS: shortness TECHNIQUE: One view of the chest was acquired. COMPARISON: 08/15/2024. FINDINGS: Surgical changes and devices: None. Lungs and pleura: Allowing for differences in technique, there may be slight overall interval improv ement in pulmonary status with bilateral pulmonary infiltrates, right greater than left. Findings may either represent pneumonia or pulmonary edema. Mediastinum: Mediastinal contours appear normal. Cardiomegaly. Bones and chest wall: No suspicious bony lesions. Overlying soft tissues appear unremarkable. IMPRESSION: Question slight interval improvement in pulmonary status. Bilateral pulmonary infiltrates. Cardiomega ly. Findings are concordant with preliminary interpretation provided by [facility]. Reviewed by: Clement Headley MD on 08/19/2024 7:56 AM PDT Approved by: Clement Headley MD on 08/19/2024 7:56 AM PDT Station ID: [id number]
[2024-08-19] MEDS ORDERED: dexAMETHasone 4 MG TABLET PO SCH (08:00)
[2024-08-19] MEDS ORDERED: AMIODARONE 200 MG TABLET PO SCH (09:00)
[2024-08-19] MEDS: dexAMETHasone 4 MG TABLET PO SCH (09:07)
[2024-08-19] MEDS: POTASSIUM CHLORIDE 20 MEQ TABLET PO ONE (11:07)
--- NOTE | 2024-08-19 12:54 | PROVIDER PROGRESS NOTE ---
Subjective Prog Note Date Prog Note Date: 08/19/24 Prog Note Time: 08:30 Subjective Pt reports feeling: Worse Subjective: She had a bad night. She had a feeling of impending doom overnight, and became very agitated and tachynpeic. She was also tachycardic with heart rate approachng 140-150. Metoprolol was ineffective. Her CXR did not change. she was given multiple doses of Ativan and ultimately did not improve, but her anxiety level stayed high. She was then put on a precedex drip, and felt much better. This AM she is calm and relaxed. She says that her breathing has felt better than in days. She is still on 2L NC but sats are doing well. Current Medications Current Medications Current Medications: Current Medications Generic Name Dose Route Start Last Admin Trade Name Freq PRN Reason Stop Dose Admin Acetaminophen 650 mg 08/15/24 00:00 Acetaminophen 325 Mg Tablet PO Q4HR PRN Pain 1 to 4, or Fever Albuterol 2 puffs 08/15/24 11:00 08/19/24 07:54 Albuterol 1 Puff INH Not Given QID JONATHAN Amiodarone HCl 400 mg 08/18/24 16:00 08/19/24 09:08 Amiodarone 200 Mg Tablet PO 400 mg DAILY JONATHAN Administration Aripiprazole 5 mg 08/15/24 09:00 08/19/24 09:09 Aripiprazole 5 Mg Tablet PO 5 mg DAILY JONATHAN Administration Aspirin 81 mg 08/15/24 09:00 08/19/24 09:09 Aspirin Ec 81 Mg Tablet PO 81 mg DAILY JONATHAN Administration Benzonatate 100 mg 08/15/24 00:13 08/18/24 19:57 Benzonatate 100 Mg Capsule PO 100 mg Q8H PRN Administration Cough Budesonide 0.5 mg 08/18/24 19:00 08/19/24 07:41 Budesonide 0.5 Mg/2 Ml Neb INH 0.5 mg RTBID JONATHAN Administration Dexamethasone 2 mg 08/19/24 08:00 08/19/24 09:07 Dexamethasone 4 Mg Tablet PO 2 mg DAILY JONATHAN Administration Furosemide 20 mg 08/17/24 13:00 08/19/24 08:48 Furosemide 20 Mg/2 Ml Vial IVP Not Given DAILY JONATHAN Gabapentin 100 mg 08/15/24 00:13 08/18/24 19:57 Gabapentin 100 Mg Capsule PO 100 mg HS PRN Administration pain Guaifenesin 600 mg 08/15/24 09:00 08/19/24 09:08 Guaifenesin 600 Mg Tablet PO 600 mg BID JONATHAN Administration Piperacillin Sod/Tazobactam 100 mls @ 25 mls/hr 08/15/24 03:00 08/19/24 11:08 Sod 3.375 gm/ Sodium Chloride IV 08/19/24 21:00 25 mls/hr Q8H JONATHAN Administration Dexmedetomidine/Sodium Chloride 100 mls @ 3.8 mls/hr 08/19/24 02:13 08/19/24 09:13 Precedex Premix IV 0 mcg/kg/hr .[id number] PRN 0 mls/hr Agitation Titration Protocol 0.2 MCG/KG/HR Levalbuterol HCl 1.25 mg 08/19/24 02:13 08/19/24 07:41 Levalbuterol 1.25 Mg/3 Ml Neb INH 1.25 mg Q4H PRN Administration Shortness of Air/Wheezing Lisinopril 5 mg 08/16/24 09:00 08/19/24 08:48 Lisinopril 5 Mg Tablet PO Not Given DAILY JONATHAN Lorazepam 0.5 mg 08/15/24 00:13 08/19/24 00:51 Lorazepam 0.5 Mg Tablet PO 0.5 mg Q2H PRN Administration anxiety Metoprolol Succinate 200 mg 08/15/24 09:00 08/19/24 08:47 Metoprolol Succinate 50 Mg Tablet PO Not Given DAILY JONATHAN Ondansetron HCl 4 mg 08/15/24 00:00 Ondansetron 4 Mg/2 Ml Vial IVP Q6HR PRN Nausea / Vomiting Pantoprazole Sodium 40 mg 08/15/24 07:00 08/19/24 06:07 Pantoprazole 40 Mg Tablet PO Not Given QDAC JONATHAN Empagliflozin [ 1 each 08/15/24 09:00 08/19/24 10:15 Jardiance] 10 Mg PO Not Given Tablet DAILY JONATHAN Quetiapine Fumarate 50 mg 08/19/24 21:00 Quetiapine 25 Mg Tablet PO QPM JONATHAN Quetiapine Fumarate 25 mg 08/19/24 12:00 Quetiapine 25 Mg Tablet PO DAILY JONATHAN Sodium Chloride 10 ml 08/15/24 00:00 Sodium Chloride Flush 0.9% 10 Ml Syringe IVP PRN PRN NEEDED PER PROVIDER ORDERS Sodium Chloride 10 ml 08/15/24 01:00 08/19/24 09:10 Sodium Chloride Flush 0.9% 10 Ml Syringe IVP 10 ml 0100,0900,1700 JONATHAN Administration Spironolactone 25 mg 08/15/24 09:00 08/19/24 09:09 Spironolactone 25 Mg Tablet PO 25 mg DAILY JONATHAN Administration Venlafaxine HCl 150 mg 08/15/24 09:00 08/19/24 09:08 Venlafaxine Er 75 Mg Capsule PO 150 mg DAILY JONATHAN Administration Objective Vital Signs/Intake & Output Vital Signs: Vital Signs x48h Temp Pulse Pulse Resp BP Pulse Ox O2 Flow Rate 08/19/24 12:00 120 H 16 97/71 98 2 08/19/24 11:00 122 H 29 H 88/57 L 95 2 08/19/24 10:00 124 H 23 78/61 L 94 08/19/24 09:00 117 H 23 85/60 L 94 2 08/19/24 08:00 36.7 C 120 H 13 97/55 L 97 2 08/19/24 07:42 2 08/19/24 07:42 106 H 24 2 08/19/24 07:00 98 H 21 85/65 L 94 2 08/19/24 06:36 93 H 08/19/24 06:34 94 H 08/19/24 06:30 95 H 08/19/24 06:25 96 H 08/19/24 06:20 96 H 90 L 2 08/19/24 06:00 118 H 24 93/79 94 2 08/19/24 05:00 36.7 C 08/19/24 05:00 104 H 18 87/52 L 94 2 08/19/24 04:30 127 H 76/58 L Intake & Output: Intake & Output 08/17/24 08/18/24 08/19/24 08/20/24 05:59 05:59 05:59 05:59 Intake Total 1750 / 1750 1483 / 1483 2770 / 2770 436 / 436 Output Total 1575 / 1575 1401 / 1401 1850 / 1850 100 / 100 Balance 175 / 175 82 / 82 920 / 920 336 / 336 Weight (kg) 78 kg 76 kg 76.5 kg Objective General Appearance: positive No acute distress and Alert Eyes Bilateral: positive Normal inspection ENT: positive ENT inspection nml Neck: positive Nml inspection Respiratory: positive Chest non-tender, No respiratory distress and Breath sounds nml; negative Wheezes or Rhonchi Cardiovascular: positive Tachycardia (low 100's when I saw her this AM. rhythm has always been a fib. ) Abdomen: positive Non-tender and No distention Skin: positive Color nml Extremities: positive No pedal edema Neurologic/Psychiatric: positive Oriented x3 Lab Results 08/19/24 04:47 08/19/24 04:47 Other Labs: Lab Results x24hrs 08/19/24 Range/Units 04:47 WBC 12.2 H (4.8-10.8) x10^3/uL RBC 3.35 L (4.20-5.40) 10^6/uL Hgb 10.3 L (12.0-16.0) g/dL Hct 32.2 L (37.0-47.0) % MCV 96.1 (81.0-99.0) fL MCH 30.7 (27.0-31.0) pg MCHC 32.0 (32.0-36.0) g/dL RDW 15.5 H (12.0-15.0) % Plt Count 319 (130-450) 10^3/uL MPV 10.3 (7.9-10.8) fL Neut # (Auto) 9.7 H (1.5-6.6) 10^3/uL Lymph # (Auto) 1.4 L (1.5-3.5) 10^3/uL Rabun # (Auto) 0.7 (0.0-1.0) 10^3/uL Eos # (Auto) 0.2 (0.0-0.7) 10^3/uL Baso # (Auto) 0.0 (0.0-0.1) 10^3/uL Absolute Nucleated RBC 0.00 x10^3/uL Nucleated RBC % 0.0 /100WBC VBG pH 7.527 H (7.31-7.41) Ionized Calcium 1.01 L (1.15-1.33) mmol/L Sodium 137 (135-145) mmol/L Potassium 3.5 (3.5-4.5) mmol/L Chloride 103 (101-111) mmol/L Carbon Dioxide 27 (21-32) mmol/L Anion Gap 7.0 (6-13) BUN 25 H (6-20) mg/dL Creatinine 0.8 (0.6-1.3) mg/dL Estimated GFR (MDRD) 68 L (>89) Glucose 99 (74-104) mg/dL Calcium 8.5 (8.5-10.3) mg/dL Phosphorus 3.3 (2.5-5.0) mg/dL Magnesium 1.5 L (1.7-2.3) mg/dL Sepsis Event Note (H) Evaluation Current Stage of Sepsis: Sepsis Possible source of Sepsis: positive Pulmonary Sepsis Criteria Sepsis Criteria: Recorded Heart Rate greater than 90 bpm Assessment/Plan Problem List (1) Acute and chronic respiratory failure with hypoxia: Impression: She has been tachypneic most of her admission. She is on 2 L by nasal cannula of oxygen with a baseline of being on room air. I have transitioned her onto nebulized albuterol and Atrovent. This was making her anxiety worse and so we have transitioned over to lev albuterol. I have discontinued the ipratropium. She still remains oxygen dependent. (2) Atrial fibrillation with rapid ventricular response: Impression: She remains tachycardic although this has improved since starting amiodarone. I have changed her over to oral amiodarone. And we are continuing a loading dose per pharmacy recommendations. Her heart rate remains elevated but treatment of her anxiety overnight with Precedex did improve her heart rate greatly. We have stopped her digoxin We have not used diltiazem given her heart failure with reduced ejection fraction. (3) Sepsis: Impression: She has remained afebrile. Her tachycardia is thought to be cardiac in origin. Her leukocytosis is essentially stable with a white blood cell count of 13.8 yesterday and 12.2 today. I have ordered repeat CBC for the a.m. Qualifiers: Acute respiratory failure type: with hypoxia Sepsis acute organ dysfunction status: with acute organ dysfunction Sepsis type: sepsis due to unspecified organism Severe sepsis acute organ dysfunction type: acute respiratory failure Severe sepsis shock status: without septic shock Qualified Code(s): A41.9 - Sepsis, unspecified organism; R65.20 - Severe sepsis without septic shock; J96.01 - Acute respiratory failure with hypoxia (4) Acute exacerbation of chronic obstructive pulmonary disease: Impression: Acute exacerbation of her COPD attributed to COVID infection but we are treating for secondary infection, healthcare acquired pneumonia. I had discontinued her Decadron after 8 days, but in light of development of hypotension (possibly adrenal insufficiency) have reduced that now to 2 mg a day. I would anticipate giving this to her for an additional 2 to 3 days and then discontinuing steroid therapy. (5) COVID: Impression: At the time of her initial infection she was not started on remdesivir as she had minimal supplemental oxygen requirements and was doing well, however her infection progressed and therefore she has had quite a prolonged course with her COVID. (6) Pneumonia: Impression: Treating for healthcare acquired pneumonia in light of COPD exacerbation and COVID infection. She is day 5 of 5 vancomycin and Zosyn. I have discontinued antibiotics. Qualifiers: Laterality: right Lung location: upper lobe of lung Pneumonia type: d ue to unspecified organism Qualified Code(s): J18.9 - Pneumonia, unspecified organism (7) HFrEF (heart failure with reduced ejection fraction): Impression: I have ordered Lasix 20 mg IV daily for her heart failure with reduced ejection fraction. Her weight is stable she seems euvolemic. (8) Hypokalemia: Impression: Repleted and resolved. Potassium is 3.5 today. I am going to start her on daily potassium as her level has fallen from 4.0-3.5 in 1 day. I have spent 36 minutes in the care of this patient today. This includes time [id number], review and ordering of diagnostic imaging and laboratory studies... Monitoring the patient's signs symptoms, evaluation of medication effectiveness and patient's response to treatment.
[2024-08-19] MEDS: QUEtiapine 25 MG TABLET PO SCH ×2 (13:03→20:46)
[2024-08-20 04:56] LABS: BASOPHILS % (AUTO) 0.2 %; EOSINOPHILS # (AUTO) 0.3 10^3/uL (0.0-0.7); HCT - HEMATOCRIT 31.3 % (37.0-47.0); HGB - HEMOGLOBIN 9.7 g/dL (12.0-16.0); LYMPHOCYTES # (AUTO) 1.4 10^3/uL (1.5-3.5); LYMPHOCYTES % (AUTO) 11.3 %; MEAN CORPUSCULAR HEMOGLOBIN 30.4 pg (27.0-31.0); MEAN CORPUSCULAR VOLUME 98.1 fL (81.0-99.0); MONOCYTES # (AUTO) 0.7 10^3/uL (0.0-1.0); MONOCYTES % (AUTO) 5.4 %; NEUTROPHILS # (AUTO) 9.8 10^3/uL (1.5-6.6); NEUTROPHILS % (AUTO) 79.7 %; PLT - PLATELET COUNT 297 10^3/uL (130-450); RED BLOOD COUNT 3.19 10^6/uL (4.20-5.40); RED CELL DISTRIBUTION WIDTH 15.7 % (12.0-15.0); WHITE BLOOD COUNT 12.3 x10^3/uL (4.8-10.8)
[2024-08-20 05:03] LABS: CALCIUM, IONIZED 1.1 mmol/L (1.15-1.33); VBG PH 7.44 (7.31-7.41)
[2024-08-20 05:13] LABS: CALCIUM 8.6 mg/dL (8.5-10.3); CREATININE 0.8 mg/dL (0.6-1.3); POTASSIUM 4.5 mmol/L (3.5-4.5)
[2024-08-20] MEDS: POTASSIUM CHLORIDE 20 MEQ TABLET PO SCH (08:49)
[2024-08-20] MEDS: METHADONE 5 MG TABLET PO SCH (10:45)
--- NOTE | 2024-08-20 12:14 | PROVIDER PROGRESS NOTE ---
Subjective Prog Note Date Prog Note Date: 08/20/24 Subjective Pt reports feeling: Improved Subjective: Breathing is somewhat improved. Still anxious during my interview Current Medications Current Medications Current Medications: Current Medications Generic Name Dose Route Start Last Admin Trade Name Freq PRN Reason Stop Dose Admin Acetaminophen 650 mg 08/15/24 00:00 Acetaminophen 325 Mg Tablet PO Q4HR PRN Pain 1 to 4, or Fever Amiodarone HCl 400 mg 08/20/24 21:00 Amiodarone 200 Mg Tablet PO 08/23/24 21:01 BID JONATHAN Amiodarone HCl 400 mg 08/24/24 09:00 Amiodarone 200 Mg Tablet PO 08/27/24 09:01 DAILY JONATHAN Amiodarone HCl 200 mg 08/28/24 09:00 Amiodarone 200 Mg Tablet PO DAILY JONATHAN Aripiprazole 5 mg 08/15/24 09:00 08/20/24 08:50 Aripiprazole 5 Mg Tablet PO 5 mg DAILY JONATHAN Administration Aspirin 81 mg 08/15/24 09:00 08/20/24 08:48 Aspirin Ec 81 Mg Tablet PO 81 mg DAILY JONATHAN Administration Benzonatate 100 mg 08/15/24 00:13 08/18/24 19:57 Benzonatate 100 Mg Capsule PO 100 mg Q8H PRN Administration Cough Budesonide 0.5 mg 08/18/24 19:00 08/20/24 07:26 Budesonide 0.5 Mg/2 Ml Neb INH 0.5 mg RTBID JONATHAN Administration Dexamethasone 2 mg 08/19/24 08:00 08/20/24 08:48 Dexamethasone 4 Mg Tablet PO 2 mg DAILY JONATHAN Administration Furosemide 20 mg 08/17/24 13:00 08/20/24 08:50 Furosemide 20 Mg/2 Ml Vial IVP 20 mg DAILY JONATHAN Administration Gabapentin 100 mg 08/15/24 00:13 08/19/24 20:46 Gabapentin 100 Mg Capsule PO 100 mg HS PRN Administration pain Guaifenesin 600 mg 08/15/24 09:00 08/20/24 08:50 Guaifenesin 600 Mg Tablet PO 600 mg BID JONATHAN Administration Dexmedetomidine/Sodium Chloride 100 mls @ 3.8 mls/hr 08/19/24 02:13 08/19/24 09:13 Precedex Premix IV 0 mcg/kg/hr .[id number] PRN 0 mls/hr Agitation Titration Protocol 0.2 MCG/KG/HR Levalbuterol HCl 1.25 mg 08/19/24 02:13 08/20/24 07:26 Levalbuterol 1.25 Mg/3 Ml Neb INH 1.25 mg Q4H PRN Administration Shortness of Air/Wheezing Lisinopril 5 mg 08/16/24 09:00 08/20/24 08:48 Lisinopril 5 Mg Tablet PO 5 mg DAILY JONATHAN Administration Lorazepam 0.5 mg 08/15/24 00:13 08/20/24 08:47 Lorazepam 0.5 Mg Tablet PO 0.5 mg Q2H PRN Administration anxiety Methadone HCl 2.5 mg 08/20/24 10:15 08/20/24 10:45 Methadone 5 Mg Tablet PO 2.5 mg BID JONATHAN Administration Metoprolol Succinate 200 mg 08/15/24 09:00 08/20/24 08:47 Metoprolol Succinate 50 Mg Tablet PO 200 mg DAILY JONATHAN Administration Ondansetron HCl 4 mg 08/15/24 00:00 Ondansetron 4 Mg/2 Ml Vial IVP Q6HR PRN Nausea / Vomiting Pantoprazole Sodium 40 mg 08/15/24 07:00 08/20/24 06:01 Pantoprazole 40 Mg Tablet PO 40 mg QDAC JONATHAN Administration Empagliflozin [ 1 each 08/15/24 09:00 08/20/24 10:36 Jardiance] 10 Mg PO Not Given Tablet DAILY JONATHAN Potassium Chloride 20 meq 08/20/24 08:00 08/20/24 08:49 Potassium Chloride 20 Meq Tablet PO 20 meq DAILYWM JONATHAN Administration Quetiapine Fumarate 50 mg 08/19/24 21:00 08/19/24 20:46 Quetiapine 25 Mg Tablet PO 50 mg QPM JONATHAN Administration Quetiapine Fumarate 25 mg 08/19/24 12:00 08/20/24 08:50 Quetiapine 25 Mg Tablet PO 25 mg DAILY JONATHAN Administration Sodium Chloride 10 ml 08/15/24 00:00 Sodium Chloride Flush 0.9% 10 Ml Syringe IVP PRN PRN NEEDED PER PROVIDER ORDERS Sodium Chloride 10 ml 08/15/24 01:00 08/20/24 08:50 Sodium Chloride Flush 0.9% 10 Ml Syringe IVP 10 ml 0100,0900,1700 JONATHAN Administration Spironolactone 25 mg 08/15/24 09:00 08/20/24 08:49 Spironolactone 25 Mg Tablet PO 25 mg DAILY JONATHAN Administration Venlafaxine HCl 150 mg 08/15/24 09:00 08/20/24 08:48 Venlafaxine Er 75 Mg Capsule PO 150 mg DAILY JONATHAN Administration Objective Vital Signs/Intake & Output Reviewed Vital Signs: Yes Vital Signs: Vital Signs x48h Temp Pulse Pulse Resp BP Pulse Ox O2 Flow Rate 08/20/24 11:00 111 H 32 H 92/74 92 08/20/24 10:00 124 H 29 H 99/72 97 08/20/24 09:00 133 H 29 H 104/61 95 08/20/24 08:00 36.7 C 114 H 25 H 124/79 95 08/20/24 07:27 1 08/20/24 07:27 123 H 21 08/20/24 07:00 117 H 22 106/80 98 2 08/20/24 06:00 119 H 30 H 96/81 96 2 08/20/24 05:00 36.7 C 123 H 29 H 108/77 94 2 Intake & Output: Intake & Output 08/18/24 08/19/24 08/20/24 08/21/24 05:59 05:59 05:59 05:59 Intake Total 1483 / 1483 2770 / 2770 1433 / 1433 440 / 440 Output Total 1401 / 1401 1850 / 1850 330 / 330 1040 / 1040 Balance 82 / 82 920 / 920 1103 / 1103 -600 / -600 Weight (kg) 78 kg 76 kg 76.5 kg 77.5 kg Objective General Appearance: positive Anxious Eyes Bilateral: positive Normal inspection Neck: positive Nml inspection Respiratory: positive Chest non-tender and Rhonchi Cardiovascular: positive Irregularly irregular and Tachycardia Abdomen: positive Non-tender Skin: positive Color nml Extremities: positive Non-tender Neurologic/Psychiatric: positive Oriented x3 Lab Results 08/20/24 04:42 08/20/24 04:42 Other Labs: Lab Results x24hrs 08/20/24 Range/Units 04:42 WBC 12.3 H (4.8-10.8) x10^3/uL RBC 3.19 L (4.20-5.40) 10^6/uL Hgb 9.7 L (12.0-16.0) g/dL Hct 31.3 L (37.0-47.0) % MCV 98.1 (81.0-99.0) fL MCH 30.4 (27.0-31.0) pg MCHC 31.0 L (32.0-36.0) g/dL RDW 15.7 H (12.0-15.0) % Plt Count 297 (130-450) 10^3/uL MPV 10.0 (7.9-10.8) fL Neut # (Auto) 9.8 H (1.5-6.6) 10^3/uL Lymph # (Auto) 1.4 L (1.5-3.5) 10^3/uL [place] # (Auto) 0.7 (0.0-1.0) 10^3/uL Eos # (Auto) 0.3 (0.0-0.7) 10^3/uL Baso # (Auto) 0.0 (0.0-0.1) 10^3/uL Absolute Nucleated RBC 0.00 x10^3/uL Nucleated RBC % 0.0 /100WBC VBG pH 7.440 H (7.31-7.41) Ionized Calcium 1.10 L (1.15-1.33) mmol/L Sodium 137 (135-145) mmol/L Potassium 4.5 (3.5-4.5) mmol/L Chloride 104 (101-111) mmol/L Carbon Dioxide 28 (21-32) mmol/L Anion Gap 5.0 L (6-13) BUN 24 H (6-20) mg/dL Creatinine 0.8 (0.6-1.3) mg/dL Estimated GFR (MDRD) 68 L (>89) Glucose 104 (74-104) mg/dL Calcium 8.6 (8.5-10.3) mg/dL Phosphorus 3.4 (2.5-5.0) mg/dL Magnesium 2.0 (1.7-2.3) mg/dL Sepsis Event Note (H) Evaluation Current Stage of Sepsis: Sepsis Possible source of Sepsis: positive Pulmonary Sepsis Criteria Sepsis Criteria: Recorded Heart Rate greater than 90 bpm Assessment/Plan Problem List (1) Acute and chronic respiratory failure with hypoxia: Impression: On room air now, weaned off oxygen this morning She was changed from albuterol to levalbuterol in the hopes that this would help her anxiety and tachycardia Continue low-dose Decadron, as she had dyspnea after COVID dose Decadron was discontinued (2) Atrial fibrillation with rapid ventricular response: Impression: Heart rate 100s to 120s today Started on oral amiodarone yesterday Discussed case with pharmacy, they recommend increasing dose to 400 twice daily, so that we can bring her up to therapeutic amiodarone level more quickly. Per pharmacy, okay to give amiodarone and digoxin at the same time. We have not completely optimized her amiodarone yet, so I will do that before attempting to start back digoxin Her heart rate was improved overnight on Precedex. I am unsure if this is because of her anxiety, or if she would benefit from clonidine to help with rate control Holding off on diltiazem/CCB's given her HFrEF (3) Sepsis: Impression: WBCs remain stable, although mildly elevated Likely secondary to steroid use, recent COVID infection Afebrile Continue to trend CBC daily Sepsis not likely at this point Qualifiers: Acute respiratory failure type: with hypoxia Sepsis acute organ dysfunction status: with acute organ dysfunction Sepsis type: sepsis due to unspecified organism Severe sepsis acute organ dysfunction type: acute respiratory failure Severe sepsis shock status: without septic shock Qualified Code(s): A41.9 - Sepsis, unspecified organism; R65.20 - Severe sepsis without septic shock; J96.01 - Acute respiratory failure with hypoxia (4) Acute exacerbation of chronic obstructive pulmonary disease: Impression: Respiratory failure as above, component of COPD possibly in exacerbation Manage COVID Continuing low-dose Decadron because of concern for adrenal insufficiency with hypotension Continue steroids for 2 more days at lower dose (5) COVID: Impression: Steroids as above No indication for remdesivir given no O2 requirements at this time Nebs as above Positive COVID test 08/11/2024, with several days of symptoms prior to this test. Patient likely out of infectious window at this point (6) Pneumonia: Impression: Completed a course of antibiotics for empiric coverage for healthcare acquired pneumonia. Bacterial infection is not likely, but given the severity of her illness, it was felt mcconnell to place her on empiric antibiotics Qualifiers: Laterality: right Lung location: upper lobe of lung Pneumonia type: d ue to unspecified organism Qualified Code(s): J18.9 - Pneumonia, unspecified organism (7) HFrEF (heart failure with reduced ejection fraction): Impression: Weight remains stable Continue lisinopril, metoprolol, Lasix Continue home Jardiance. This is not on formulary, so she will only get it if she brings it in from home (8) Hypokalemia: Impression: Repleted and resolved. K4.5 today. Continue supplementation and daily BMP in light of Lasix use
[2024-08-20] MEDS: ACETAMINOPHEN 325 MG TABLET PO PRN (12:38)
[2024-08-20] MEDS: AMIODARONE 200 MG TABLET PO SCH (21:29)
[2024-08-21 05:18] LABS: BASOPHILS % (AUTO) 0.2 %; EOSINOPHILS # (AUTO) 0.2 10^3/uL (0.0-0.7); EOSINOPHILS % (AUTO) 0.9 %; HCT - HEMATOCRIT 33.1 % (37.0-47.0); HGB - HEMOGLOBIN 10.2 g/dL (12.0-16.0); LYMPHOCYTES # (AUTO) 1.5 10^3/uL (1.5-3.5); LYMPHOCYTES % (AUTO) 8.6 %; MEAN CORPUSCULAR HEMOGLOBIN 30.6 pg (27.0-31.0); MEAN CORPUSCULAR HGB CONC 30.8 g/dL (32.0-36.0); MEAN CORPUSCULAR VOLUME 99.4 fL (81.0-99.0); MEAN PLATELET VOLUME 10.9 fL (7.9-10.8); MONOCYTES # (AUTO) 0.7 10^3/uL (0.0-1.0); MONOCYTES % (AUTO) 3.8 %; NEUTROPHILS # (AUTO) 14.5 10^3/uL (1.5-6.6); NEUTROPHILS % (AUTO) 85.4 %; PLT - PLATELET COUNT 326 10^3/uL (130-450); RED BLOOD COUNT 3.33 10^6/uL (4.20-5.40); RED CELL DISTRIBUTION WIDTH 15.8 % (12.0-15.0)
[2024-08-21 05:33] LABS: PHOSPHORUS 3.3 mg/dL (2.5-5.0)
[2024-08-21 05:35] LABS: CALCIUM 9.2 mg/dL (8.5-10.3); CREATININE 0.8 mg/dL (0.6-1.3)
[2024-08-21 05:57] LABS: CALCIUM, IONIZED 1.11 mmol/L (1.15-1.33); VBG PH 7.441 (7.31-7.41)
[2024-08-21 06:00] LABS: PLATELET ESTIMATE, MANUAL NORMAL (130-450,000) (NORMAL); PLATELET MORPHOLOGY NORMAL APPEARANCE (NORMAL)
[2024-08-21] MEDS ORDERED: hydrOXYzine PAMOATE 25 MG CAPSULE PO PRN (08:00)
--- NOTE | 2024-08-21 08:09 | PROVIDER PROGRESS NOTE ---
Subjective Prog Note Date Prog Note Date: 08/21/24 Subjective Pt reports feeling: Improved Subjective: She reports that she is still having shortness of breath. Her heart rate has improved somewhat, but it does rise with any activity or with talking Current Medications Current Medications Current Medications: Current Medications Generic Name Dose Route Start Last Admin Trade Name Freq PRN Reason Stop Dose Admin Acetaminophen 650 mg 08/15/24 00:00 08/20/24 12:38 Acetaminophen 325 Mg Tablet PO 650 mg Q4HR PRN Administration Pain 1 to 4, or Fever Amiodarone HCl 400 mg 08/20/24 21:00 08/20/24 21:29 Amiodarone 200 Mg Tablet PO 08/23/24 21:01 400 mg BID JONATHAN Administration Amiodarone HCl 400 mg 08/24/24 09:00 Amiodarone 200 Mg Tablet PO 08/27/24 09:01 DAILY JONATHAN Amiodarone HCl 200 mg 08/28/24 09:00 Amiodarone 200 Mg Tablet PO DAILY JONATHAN Aripiprazole 5 mg 08/15/24 09:00 08/20/24 08:50 Aripiprazole 5 Mg Tablet PO 5 mg DAILY JONATHAN Administration Aspirin 81 mg 08/15/24 09:00 08/20/24 08:48 Aspirin Ec 81 Mg Tablet PO 81 mg DAILY JONATHAN Administration Benzonatate 100 mg 08/15/24 00:13 08/18/24 19:57 Benzonatate 100 Mg Capsule PO 100 mg Q8H PRN Administration Cough Budesonide 0.5 mg 08/18/24 19:00 08/21/24 05:57 Budesonide 0.5 Mg/2 Ml Neb INH 0.5 mg RTBID JONATHAN Administration Clonidine HCl 0.1 mg 08/21/24 09:00 Clonidine 0.1 Mg Tablet PO BID JONATHAN Dexamethasone 2 mg 08/19/24 08:00 08/20/24 08:48 Dexamethasone 4 Mg Tablet PO 2 mg DAILY JONATHAN Administration Furosemide 20 mg 08/17/24 13:00 08/20/24 08:50 Furosemide 20 Mg/2 Ml Vial IVP 20 mg DAILY JONATHAN Administration Gabapentin 100 mg 08/15/24 00:13 08/19/24 20:46 Gabapentin 100 Mg Capsule PO 100 mg HS PRN Administration pain Guaifenesin 600 mg 08/15/24 09:00 08/20/24 21:29 Guaifenesin 600 Mg Tablet PO 600 mg BID JONATHAN Administration Hydroxyzine Pamoate 25 mg 08/21/24 08:00 Hydroxyzine Pamoate 25 Mg Capsule PO QPM PRN Insomnia Dexmedetomidine/Sodium Chloride 100 mls @ 3.8 mls/hr 08/19/24 02:13 08/19/24 09:13 Precedex Premix IV 0 mcg/kg/hr .[id number] PRN 0 mls/hr Agitation Titration Protocol 0.2 MCG/KG/HR Levalbuterol HCl 1.25 mg 08/19/24 02:13 08/21/24 05:57 Levalbuterol 1.25 Mg/3 Ml Neb INH 1.25 mg Q4H PRN Administration Shortness of Air/Wheezing Lisinopril 5 mg 08/16/24 09:00 08/20/24 08:48 Lisinopril 5 Mg Tablet PO 5 mg DAILY JONATHAN Administration Lorazepam 0.5 mg 08/15/24 00:13 08/21/24 05:56 Lorazepam 0.5 Mg Tablet PO 0.5 mg Q2H PRN Administration anxiety Methadone HCl 2.5 mg 08/20/24 10:15 08/20/24 21:28 Methadone 5 Mg Tablet PO 2.5 mg BID JONATHAN Administration Metoprolol Succinate 200 mg 08/15/24 09:00 08/20/24 08:47 Metoprolol Succinate 50 Mg Tablet PO 200 mg DAILY JONATHAN Administration Ondansetron HCl 4 mg 08/15/24 00:00 Ondansetron 4 Mg/2 Ml Vial IVP Q6HR PRN Nausea / Vomiting Pantoprazole Sodium 40 mg 08/15/24 07:00 08/21/24 05:58 Pantoprazole 40 Mg Tablet PO 40 mg QDAC JONATHAN Administration Empagliflozin [ 1 each 08/15/24 09:00 08/20/24 10:36 Jardiance] 10 Mg PO Not Given Tablet DAILY JONATHAN Quetiapine Fumarate 50 mg 08/19/24 21:00 08/20/24 21:28 Quetiapine 25 Mg Tablet PO 50 mg QPM JONATHAN Administration Quetiapine Fumarate 25 mg 08/19/24 12:00 08/20/24 08:50 Quetiapine 25 Mg Tablet PO 25 mg DAILY JONATHAN Administration Sodium Chloride 10 ml 08/15/24 00:00 Sodium Chloride Flush 0.9% 10 Ml Syringe IVP PRN PRN NEEDED PER PROVIDER ORDERS Sodium Chloride 10 ml 08/15/24 01:00 08/20/24 21:29 Sodium Chloride Flush 0.9% 10 Ml Syringe IVP 10 ml 0100,0900,1700 JONATHAN Administration Spironolactone 25 mg 08/15/24 09:00 08/20/24 08:49 Spironolactone 25 Mg Tablet PO 25 mg DAILY JONATHAN Administration Venlafaxine HCl 150 mg 08/15/24 09:00 08/20/24 08:48 Venlafaxine Er 75 Mg Capsule PO 150 mg DAILY JONATHAN Administration Objective Vital Signs/Intake & Output Reviewed Vital Signs: Yes Vital Signs: Vital Signs x48h Temp Pulse Pulse Resp BP Pulse Ox 08/21/24 07:00 109 H 15 112/82 97 08/21/24 06:00 106 H 20 116/84 98 08/21/24 05:55 98 H 20 08/21/24 05:00 109 H 22 119/71 98 08/21/24 04:00 36.5 C 93 H 23 111/64 95 08/21/24 03:00 107 H 14 94/58 L 98 08/21/24 02:00 91 H 23 120/78 96 08/21/24 01:00 104 H 20 122/75 95 Intake & Output: Intake & Output 08/19/24 08/20/24 08/21/24 08/22/24 05:59 05:59 05:59 05:59 Intake Total 2770 / 2770 1433 / 1433 1740 / 1740 120 / 120 Output Total 1850 / 1850 330 / 330 1989 / 1989 Balance 920 / 920 1103 / 1103 -250 / -250 120 / 120 Weight (kg) 76 kg 76.5 kg 76.5 kg Objective General Appearance: positive No acute distress and Anxious Eyes Bilateral: positive Normal inspection ENT: positive ENT inspection nml Neck: positive Nml inspection Respiratory: positive Chest non-tender and Rhonchi Cardiovascular: positive Irregularly irregular and Tachycardia Abdomen: positive Non-tender Skin: positive Color nml Extremities: positive Non-tender Neurologic/Psychiatric: positive Oriented x3 Lab Results 08/21/24 05:05 08/21/24 05:05 Other Labs: Lab Results x24hrs 08/21/24 Range/Units 05:05 WBC 17.0 H (4.8-10.8) x10^3/uL RBC 3.33 L (4.20-5.40) 10^6/uL Hgb 10.2 L (12.0-16.0) g/dL Hct 33.1 L (37.0-47.0) % MCV 99.4 H (81.0-99.0) fL MCH 30.6 (27.0-31.0) pg MCHC 30.8 L (32.0-36.0) g/dL RDW 15.8 H (12.0-15.0) % Plt Count 326 (130-450) 10^3/uL MPV 10.9 H (7.9-10.8) fL Neut # (Auto) 14.5 H (1.5-6.6) 10^3/uL Lymph # (Auto) 1.5 (1.5-3.5) 10^3/uL [place] # (Auto) 0.7 (0.0-1.0) 10^3/uL Eos # (Auto) 0.2 (0.0-0.7) 10^3/uL Baso # (Auto) 0.0 (0.0-0.1) 10^3/uL Absolute Nucleated RBC 0.00 x10^3/uL Nucleated RBC % 0.0 /100WBC Platelet Estimate NORMAL (130-450,000) (NORMAL) Platelet Morphology NORMAL APPEARANCE (NORMAL) VBG pH 7.441 H (7.31-7.41) Ionized Calcium 1.11 L (1.15-1.33) mmol/L Sodium 139 (135-145) mmol/L Potassium 5.0 H (3.5-4.5) mmol/L Chloride 108 (101-111) mmol/L Carbon Dioxide 26 (21-32) mmol/L Anion Gap 5.0 L (6-13) BUN 26 H (6-20) mg/dL Creatinine 0.8 (0.6-1.3) mg/dL Estimated GFR (MDRD) 68 L (>89) Glucose 103 (74-104) mg/dL Calcium 9.2 (8.5-10.3) mg/dL Phosphorus 3.3 (2.5-5.0) mg/dL Magnesium 2.0 (1.7-2.3) mg/dL Sepsis Event Note (H) Evaluation Current Stage of Sepsis: Sepsis Possible source of Sepsis: positive Pulmonary Sepsis Criteria Sepsis Criteria: Recorded Heart Rate greater than 90 bpm Assessment/Plan Problem List (1) Acute and chronic respiratory failure with hypoxia: Impression: On room air now, weaned off oxygen yesterday She was changed from albuterol to levalbuterol in the hopes that this would help her anxiety and tachycardia Continue low-dose Decadron through tomorrow (2) Atrial fibrillation with rapid ventricular response: Impression: Heart rate 90s to 120s today Started on oral amiodarone 08/19/2024 Increased dose of amiodarone to 400 twice daily yesterday She had an improvement of her heart rate a few days ago when she was on a Precedex drip for anxiety Starting low-dose clonidine to see if we can improve her anxiety and possibly improve rate control Holding off on CCB's given HFrEF If rate not controlled once amiodarone is up to therapeutic level and anxiety is managed, will restart her home digoxin (3) Sepsis: Impression: WBCs remain stable, although mildly elevated Likely secondary to steroid use, recent COVID infection Afebrile Continue to trend CBC daily Sepsis not likely at this point Qualifiers: Acute respiratory failure type: with hypoxia Sepsis acute organ dysfunction status: with acute organ dysfunction Sepsis type: sepsis due to unspecified organism Severe sepsis acute organ dysfunction type: acute respiratory failure Severe sepsis shock status: without septic shock Qualified Code(s): A41.9 - Sepsis, unspecified organism; R65.20 - Severe sepsis without septic shock; J96.01 - Acute respiratory failure with hypoxia (4) Acute exacerbation of chronic obstructive pulmonary disease: Impression: Respiratory failure as above, component of COPD possibly in exacerbation Manage COVID Continuing low-dose Decadron because of concern for adrenal insufficiency with hypotension Continue steroids for 1 more days at lower dose (5) COVID: Impression: Steroids as above No indication for remdesivir given no O2 requirements at this time Nebs as above Positive COVID test 08/11/2024, with several days of symptoms prior to this test. (6) Pneumonia: Impression: Completed a course of antibiotics for empiric coverage for healthcare acquired pneumonia. Bacterial infection is not likely, but given the severity of her illness, it was felt mccon[facility] to place her on empiric antibiotics Qualifiers: Laterality: right Lung location: upper lobe of lung Pneumonia type: d ue to unspecified organism Qualified Code(s): J18.9 - Pneumonia, unspecified organism (7) HFrEF (heart failure with reduced ejection fraction): Impression: Weight remains stable Continue lisinopril, metoprolol, Lasix Continue home Jardiance. This is not on formulary, so she will only get it if she brings it in from home (8) Hypokalemia: Impression: This has resolved. K 5 today, holding today's dose of potassium
[2024-08-21] MEDS: DIGOXIN 125 MCG TABLET PO SCH (12:25)
[2024-08-21] MEDS: cloNIDine 0.1 MG TABLET PO SCH (12:26)
[2024-08-21] MEDS: METHADONE 5 MG TABLET PO SCH (20:20)
[2024-08-22 05:51] LABS: BASOPHILS % (AUTO) 0.2 %; EOSINOPHILS # (AUTO) 0.2 10^3/uL (0.0-0.7); EOSINOPHILS % (AUTO) 1.1 %; HCT - HEMATOCRIT 32.7 % (37.0-47.0); LYMPHOCYTES # (AUTO) 2.1 10^3/uL (1.5-3.5); LYMPHOCYTES % (AUTO) 13.4 %; MEAN CORPUSCULAR HEMOGLOBIN 30.5 pg (27.0-31.0); MEAN CORPUSCULAR HGB CONC 30.6 g/dL (32.0-36.0); MEAN CORPUSCULAR VOLUME 99.7 fL (81.0-99.0); MEAN PLATELET VOLUME 10.6 fL (7.9-10.8); MONOCYTES # (AUTO) 0.7 10^3/uL (0.0-1.0); MONOCYTES % (AUTO) 4.4 %; NEUTROPHILS # (AUTO) 12.6 10^3/uL (1.5-6.6); NEUTROPHILS % (AUTO) 80.1 %; PLT - PLATELET COUNT 334 10^3/uL (130-450); RED BLOOD COUNT 3.28 10^6/uL (4.20-5.40); RED CELL DISTRIBUTION WIDTH 15.5 % (12.0-15.0); WHITE BLOOD COUNT 15.8 x10^3/uL (4.8-10.8)
[2024-08-22 05:55] LABS: CALCIUM, IONIZED 1.06 mmol/L (1.15-1.33); VBG PH 7.453 (7.31-7.41)
[2024-08-22 06:10] LABS: CALCIUM 8.8 mg/dL (8.5-10.3); CREATININE 0.8 mg/dL (0.6-1.3); POTASSIUM 4.8 mmol/L (3.5-4.5)
[2024-08-22] MEDS: CALCIUM CARBONATE CHEW 500 MG TABLET PO SCH (06:47)
--- NOTE | 2024-08-22 08:33 | PROVIDER PROGRESS NOTE ---
Subjective Prog Note Date Prog Note Date: 08/22/24 Subjective Pt reports feeling: Improved Subjective: Anxiety has improved since yesterday. Oxygenation stable, on some small amount of O2 at night for what is presumed to be sleep apnea per nursing staff. Heart rate stable after resuming her digoxin and adding clonidine for anxiety Current Medications Current Medications Current Medications: Current Medications Generic Name Dose Route Start Last Admin Trade Name Luba PRN Reason Stop Dose Admin Acetaminophen 650 mg 08/15/24 00:00 08/20/24 12:38 Acetaminophen 325 Mg Tablet PO 650 mg Q4HR PRN Administration Pain 1 to 4, or Fever Amiodarone HCl 400 mg 08/20/24 21:00 08/22/24 08:25 Amiodarone 200 Mg Tablet PO 08/23/24 21:01 400 mg BID JONATHAN Administration Amiodarone HCl 400 mg 08/24/24 09:00 Amiodarone 200 Mg Tablet PO 08/27/24 09:01 DAILY JONATHAN Amiodarone HCl 200 mg 08/28/24 09:00 Amiodarone 200 Mg Tablet PO DAILY JONATHAN Aripiprazole 5 mg 08/15/24 09:00 08/22/24 08:27 Aripiprazole 5 Mg Tablet PO 5 mg DAILY JONATHAN Administration Aspirin 81 mg 08/15/24 09:00 08/22/24 08:26 Aspirin Ec 81 Mg Tablet PO 81 mg DAILY JONATHAN Administration Benzonatate 100 mg 08/15/24 00:13 08/18/24 19:57 Benzonatate 100 Mg Capsule PO 100 mg Q8H PRN Administration Cough Budesonide 0.5 mg 08/18/24 19:00 08/22/24 06:05 Budesonide 0.5 Mg/2 Ml Neb INH 0.5 mg RTBID JONATHAN Administration Calcium Carbonate/Glycine 1,250 mg 08/22/24 07:00 08/22/24 06:47 Calcium Carbonate Chew 500 Mg Tablet PO 08/22/24 11:01 1,250 mg Q4H JONATHAN Administration Protocol Clonidine HCl 0.1 mg 08/21/24 09:00 08/22/24 08:27 Clonidine 0.1 Mg Tablet PO 0.1 mg BID JONATHAN Administration Dexamethasone 2 mg 08/19/24 08:00 08/22/24 08:27 Dexamethasone 4 Mg Tablet PO 2 mg DAILY JONATHAN Administration Digoxin 62.5 mcg 08/21/24 12:00 08/22/24 08:27 Digoxin 125 Mcg Tablet PO 62.5 mcg DAILY JONATHAN Administration Gabapentin 100 mg 08/15/24 00:13 08/19/24 20:46 Gabapentin 100 Mg Capsule PO 100 mg HS PRN Administration pain Guaifenesin 600 mg 08/15/24 09:00 08/22/24 08:27 Guaifenesin 600 Mg Tablet PO 600 mg BID JONATHAN Administration Hydroxyzine Pamoate 25 mg 08/21/24 08:00 Hydroxyzine Pamoate 25 Mg Capsule PO QPM PRN Insomnia Levalbuterol HCl 1.25 mg 08/19/24 02:13 08/22/24 06:05 Levalbuterol 1.25 Mg/3 Ml Neb INH 1.25 mg Q4H PRN Administration Shortness of Air/Wheezing Lisinopril 5 mg 08/16/24 09:00 08/22/24 08:25 Lisinopril 5 Mg Tablet PO 5 mg DAILY JONATHAN Administration Lorazepam 0.5 mg 08/15/24 00:13 08/21/24 05:56 Lorazepam 0.5 Mg Tablet PO 0.5 mg Q2H PRN Administration anxiety Methadone HCl 5 mg 08/21/24 21:00 08/22/24 08:27 Methadone 5 Mg Tablet PO 5 mg BID JONATHAN Administration Metoprolol Succinate 200 mg 08/15/24 09:00 08/22/24 08:25 Metoprolol Succinate 50 Mg Tablet PO 200 mg DAILY JONATHAN Administration Ondansetron HCl 4 mg 08/15/24 00:00 Ondansetron 4 Mg/2 Ml Vial IVP Q6HR PRN Nausea / Vomiting Pantoprazole Sodium 40 mg 08/15/24 07:00 08/22/24 06:47 Pantoprazole 40 Mg Tablet PO 40 mg QDAC JONATHAN Administration Empagliflozin [ 1 each 08/15/24 09:00 08/22/24 08:28 Jardiance] 10 Mg PO Not Given Tablet DAILY JONATHAN Quetiapine Fumarate 50 mg 08/19/24 21:00 08/21/24 21:22 Quetiapine 25 Mg Tablet PO 50 mg QPM JONATHAN Administration Quetiapine Fumarate 25 mg 08/19/24 12:00 08/22/24 08:28 Quetiapine 25 Mg Tablet PO 25 mg DAILY JONATHAN Administration Sodium Chloride 10 ml 08/15/24 00:00 Sodium Chloride Flush 0.9% 10 Ml Syringe IVP PRN PRN NEEDED PER PROVIDER ORDERS Sodium Chloride 10 ml 08/15/24 01:00 08/22/24 08:28 Sodium Chloride Flush 0.9% 10 Ml Syringe IVP 10 ml 0100,0900,1700 JONATHAN Administration Spironolactone 25 mg 08/15/24 09:00 08/22/24 08:27 Spironolactone 25 Mg Tablet PO 25 mg DAILY JONATHAN Administration Venlafaxine HCl 150 mg 08/15/24 09:00 08/22/24 08:25 Venlafaxine Er 75 Mg Capsule PO 150 mg DAILY JONATHAN Administration Objective Vital Signs/Intake & Output Reviewed Vital Signs: Yes Vital Signs: Vital Signs x48h Temp Pulse Pulse Resp BP Pulse Ox O2 Flow Rate 08/22/24 07:00 95 H 30 H 102/73 96 2 08/22/24 06:10 36.7 C 97 H 30 H 95/52 L 97 2 08/22/24 06:05 2 08/22/24 06:05 84 20 2 08/22/24 05:00 99 H 20 118/70 92 2 08/22/24 04:00 88 14 105/66 98 2 08/22/24 03:00 82 17 106/62 97 08/22/24 02:01 101 H 21 110/66 98 08/22/24 01:00 82 12 100/63 93 Intake & Output: Intake & Output 08/20/24 08/21/24 08/22/24 08/23/24 05:59 05:59 05:59 05:59 Intake Total 1433 / 1433 1740 / 1740 1320 / 1320 Output Total 330 / 330 1989 1450 / 1450 0 / 0 Balance 1103 / 1103 -250 / -250 -130 / -130 0 / 0 Weight (kg) 76.5 kg 76.5 kg 74 kg Objective General Appearance: positive Mild distress (Mild respiratory distress) Eyes Bilateral: positive Normal inspection ENT: positive ENT inspection nml Neck: positive Nml inspection Respiratory: positive Chest non-tender and Rhonchi; negative No respiratory distress Cardiovascular: positive Irregularly irregular Abdomen: positive Non-tender Skin: positive Color nml Extremities: positive Non-tender Neurologic/Psychiatric: positive Oriented x3 Lab Results 08/22/24 05:00 08/22/24 05:00 Other Labs: Lab Results x24hrs 08/22/24 Range/Units 05:00 WBC 15.8 H (4.8-10.8) x10^3/uL RBC 3.28 L (4.20-5.40) 10^6/uL Hgb 10.0 L (12.0-16.0) g/dL Hct 32.7 L (37.0-47.0) % MCV 99.7 H (81.0-99.0) fL MCH 30.5 (27.0-31.0) pg MCHC 30.6 L (32.0-36.0) g/dL RDW 15.5 H (12.0-15.0) % Plt Count 334 (130-450) 10^3/uL MPV 10.6 (7.9-10.8) fL Neut # (Auto) 12.6 H (1.5-6.6) 10^3/uL Lymph # (Auto) 2.1 (1.5-3.5) 10^3/uL Clarke # (Auto) 0.7 (0.0-1.0) 10^3/uL Eos # (Auto) 0.2 (0.0-0.7) 10^3/uL Baso # (Auto) 0.0 (0.0-0.1) 10^3/uL Absolute Nucleated RBC 0.00 x10^3/uL Nucleated RBC % 0.0 /100WBC VBG pH 7.453 H (7.31-7.41) Ionized Calcium 1.06 L (1.15-1.33) mmol/L Sodium 134 L (135-145) mmol/L Potassium 4.8 H (3.5-4.5) mmol/L Chloride 102 (101-111) mmol/L Carbon Dioxide 25 (21-32) mmol/L Anion Gap 7.0 (6-13) BUN 34 H (6-20) mg/dL Creatinine 0.8 (0.6-1.3) mg/dL Estimated GFR (MDRD) 68 L (>89) Glucose 84 (74-104) mg/dL Calcium 8.8 (8.5-10.3) mg/dL Phosphorus 4.0 (2.5-5.0) mg/dL Magnesium 2.0 (1.7-2.3) mg/dL Sepsis Event Note (H) Evaluation Current Stage of Sepsis: Sepsis Possible source of Sepsis: positive Pulmonary Sepsis Criteria Sepsis Criteria: Recorded Heart Rate greater than 90 bpm Assessment/Plan Problem List (1) Acute and chronic respiratory failure with hypoxia: Impression: Remains on room air She was changed from albuterol to levalbuterol in the hopes that this would help her anxiety and tachycardia Today is last dose of Decadron Continues to have dyspnea, this is likely anxiety or cardiac induced at this point (2) Atrial fibrillation with rapid ventricular response: Impression: Heart rate was 90s to low 100s overnight Started on oral amiodarone 08/19/2024 Amiodarone was increased 2 days ago, it is likely up to therapeutic level by now She had improvement of her heart rate when she was on Precedex, so clonidine was added yesterday to see if it would manage anxiety and improve her heart rate Holding off on CCB's given HFrEF Heart rate remained uncontrolled yesterday, so I started her home dose of digoxin back late last night BMP daily (3) Sepsis: Impression: WBC is down today Likely secondary to steroid use, recent COVID infection Afebrile Continue to trend CBC daily Sepsis not likely at this point Qualifiers: Acute respiratory failure type: with hypoxia Sepsis acute organ dysfunction status: with acute organ dysfunction Sepsis type: sepsis due to unspecified organism Severe sepsis acute organ dysfunction type: acute respiratory failure Severe sepsis shock status: without septic shock Qualified Code(s): A41.9 - Sepsis, unspecified organism; R65.20 - Severe sepsis without septic shock; J96.01 - Acute respiratory failure with hypoxia (4) Acute exacerbation of chronic obstructive pulmonary disease: Impression: Respiratory failure as above, component of COPD possibly in exacerbation Manage COVID Continuing low-dose Decadron because of concern for adrenal insufficiency with hypotension Today is last day of Decadron (5) COVID: Impression: Steroids as above No indication for remdesivir given no O2 requirements Nebs as above Positive COVID test 08/11/2024, with several days of symptoms prior to this test. Per infection control, she was supposed to be out of isolation on the of this month as that is 10 days after symptom onset. She continued having symptoms, so they recommended an additional 10 days of isolation but no more. The new out of isolation date is 08/25/2024 (6) Pneumonia: Impression: Completed a course of antibiotics for empiric coverage for healthcare acquired pneumonia. Bacterial infection is not likely, but given the severity of her illness, it was felt mcconnell to place her on empiric antibiotics Qualifiers: Laterality: right Lung location: upper lobe of lung Pneumonia type: d ue to unspecified organism Qualified Code(s): J18.9 - Pneumonia, unspecified organism (7) HFrEF (heart failure with reduced ejection fraction): Impression: Weight remains stable Holding Lasix now as she had soft blood pressures as we were managing her atrial fibrillation with RVR Continue spironolactone, Metoprolol, lisinopril Continue home Jardiance. This is not on formulary, so she will only get it if she brings it in from home (8) Hypokalemia: Impression: Resolved. Holding potassium supplementation as she is no longer on Lasix
[2024-08-22] MEDS ORDERED: COD LIVER OIL/ZINC OXIDE 113 GM TUBE TOP PRN (16:30)
[2024-08-23 06:18] LABS: BASOPHILS % (AUTO) 0.1 %; EOSINOPHILS # (AUTO) 0.2 10^3/uL (0.0-0.7); EOSINOPHILS % (AUTO) 0.9 %; HCT - HEMATOCRIT 33.1 % (37.0-47.0); HGB - HEMOGLOBIN 10.2 g/dL (12.0-16.0); LYMPHOCYTES # (AUTO) 1.8 10^3/uL (1.5-3.5); LYMPHOCYTES % (AUTO) 11.1 %; MEAN CORPUSCULAR HEMOGLOBIN 30.3 pg (27.0-31.0); MEAN CORPUSCULAR HGB CONC 30.8 g/dL (32.0-36.0); MEAN CORPUSCULAR VOLUME 98.2 fL (81.0-99.0); MEAN PLATELET VOLUME 10.2 fL (7.9-10.8); MONOCYTES # (AUTO) 0.6 10^3/uL (0.0-1.0); MONOCYTES % (AUTO) 3.6 %; NEUTROPHILS # (AUTO) 13.2 10^3/uL (1.5-6.6); NEUTROPHILS % (AUTO) 83.7 %; PLT - PLATELET COUNT 379 10^3/uL (130-450); RED BLOOD COUNT 3.37 10^6/uL (4.20-5.40); RED CELL DISTRIBUTION WIDTH 15.6 % (12.0-15.0); WHITE BLOOD COUNT 15.8 x10^3/uL (4.8-10.8)
[2024-08-23 06:34] LABS: CALCIUM 8.9 mg/dL (8.5-10.3); POTASSIUM 4.4 mmol/L (3.5-4.5)
--- NOTE | 2024-08-23 08:25 | PROVIDER PROGRESS NOTE ---
Subjective Prog Note Date Prog Note Date: 08/23/24 Subjective Pt reports feeling: Worse Subjective: Dyspneic at time of my interview. This waxes and wanes over the course of the day Current Medications Current Medications Current Medications: Current Medications Generic Name Dose Route Start Last Admin Trade Name Freq PRN Reason Stop Dose Admin Acetaminophen 650 mg 08/15/24 00:00 08/20/24 12:38 Acetaminophen 325 Mg Tablet PO 650 mg Q4HR PRN Administration Pain 1 to 4, or Fever Amiodarone HCl 400 mg 08/20/24 21:00 08/22/24 21:10 Amiodarone 200 Mg Tablet PO 08/23/24 21:01 400 mg BID JONATHAN Administration Amiodarone HCl 400 mg 08/24/24 09:00 Amiodarone 200 Mg Tablet PO 08/27/24 09:01 DAILY JONATHAN Amiodarone HCl 200 mg 08/28/24 09:00 Amiodarone 200 Mg Tablet PO DAILY JONATHAN Aripiprazole 5 mg 08/15/24 09:00 08/22/24 08:27 Aripiprazole 5 Mg Tablet PO 5 mg DAILY JONATHAN Administration Aspirin 81 mg 08/15/24 09:00 08/22/24 08:26 Aspirin Ec 81 Mg Tablet PO 81 mg DAILY JONATHAN Administration Benzonatate 100 mg 08/15/24 00:13 08/18/24 19:57 Benzonatate 100 Mg Capsule PO 100 mg Q8H PRN Administration Cough Budesonide 0.5 mg 08/18/24 19:00 08/23/24 04:49 Budesonide 0.5 Mg/2 Ml Neb INH 0.5 mg RTBID JONATHAN Administration Clonidine HCl 0.1 mg 08/21/24 09:00 08/22/24 21:10 Clonidine 0.1 Mg Tablet PO 0.1 mg BID JONATHAN Administration Dexamethasone 2 mg 08/19/24 08:00 08/22/24 08:27 Dexamethasone 4 Mg Tablet PO 2 mg DAILY JONATHAN Administration Digoxin 62.5 mcg 08/21/24 12:00 08/22/24 08:27 Digoxin 125 Mcg Tablet PO 62.5 mcg DAILY JONATHAN Administration Furosemide 20 mg 08/24/24 09:00 Furosemide 20 Mg Tablet PO DAILY JONATHAN Furosemide 20 mg 08/23/24 09:00 Furosemide 20 Mg/2 Ml Vial IVP ONCE JONATHAN Gabapentin 100 mg 08/15/24 00:13 08/19/24 20:46 Gabapentin 100 Mg Capsule PO 100 mg HS PRN Administration pain Guaifenesin 600 mg 08/15/24 09:00 08/22/24 21:09 Guaifenesin 600 Mg Tablet PO 600 mg BID JONATHAN Administration Hydroxyzine Pamoate 25 mg 08/21/24 08:00 Hydroxyzine Pamoate 25 Mg Capsule PO QPM PRN Insomnia Levalbuterol HCl 1.25 mg 08/19/24 02:13 08/23/24 07:55 Levalbuterol 1.25 Mg/3 Ml Neb INH 1.25 mg Q4H PRN Administration Shortness of Air/Wheezing Lisinopril 5 mg 08/16/24 09:00 08/22/24 08:25 Lisinopril 5 Mg Tablet PO 5 mg DAILY JONATHAN Administration Lorazepam 0.5 mg 08/15/24 00:13 08/23/24 05:17 Lorazepam 0.5 Mg Tablet PO 0.5 mg Q2H PRN Administration anxiety Methadone HCl 5 mg 08/21/24 21:00 08/22/24 21:10 Methadone 5 Mg Tablet PO 5 mg BID JONATHAN Administration Metoprolol Succinate 200 mg 08/15/24 09:00 08/22/24 08:25 Metoprolol Succinate 50 Mg Tablet PO 200 mg DAILY JONATHAN Administration Multi-Ingredient Ointment 1 applic 08/22/24 16:30 Zinc Oxide 20% Oint 30 Gm Tube TOP PRN PRN Skin Care Ondansetron HCl 4 mg 08/15/24 00:00 Ondansetron 4 Mg/2 Ml Vial IVP Q6HR PRN Nausea / Vomiting Pantoprazole Sodium 40 mg 08/15/24 07:00 08/23/24 06:11 Pantoprazole 40 Mg Tablet PO 40 mg QDAC JONATHAN Administration Empagliflozin [ 1 each 08/15/24 09:00 08/22/24 08:28 Jardiance] 10 Mg PO Not Given Tablet DAILY JONATHAN Quetiapine Fumarate 50 mg 08/19/24 21:00 08/22/24 21:10 Quetiapine 25 Mg Tablet PO 50 mg QPM JONATHAN Administration Quetiapine Fumarate 25 mg 08/19/24 12:00 08/22/24 08:28 Quetiapine 25 Mg Tablet PO 25 mg DAILY JONATHAN Administration Sodium Chloride 10 ml 08/15/24 00:00 Sodium Chloride Flush 0.9% 10 Ml Syringe IVP PRN PRN NEEDED PER PROVIDER ORDERS Sodium Chloride 10 ml 08/15/24 01:00 08/23/24 00:07 Sodium Chloride Flush 0.9% 10 Ml Syringe IVP 10 ml 0100,0900,1700 JONATHAN Administration Spironolactone 25 mg 08/15/24 09:00 08/22/24 08:27 Spironolactone 25 Mg Tablet PO 25 mg DAILY JONATHAN Administration Venlafaxine HCl 150 mg 08/15/24 09:00 08/22/24 08:25 Venlafaxine Er 75 Mg Capsule PO 150 mg DAILY JONATHAN Administration Zinc Oxide 113 gm 08/22/24 16:30 Cod Liver Oil/Zinc Oxide 113 Gm Tube TOP PRN PRN Skin Care Objective Vital Signs/Intake & Output Reviewed Vital Signs: Yes Vital Signs: Vital Signs x48h Temp Pulse Pulse Resp BP Pulse Ox O2 Flow Rate 08/23/24 07:56 89 28 H 08/23/24 05:00 36.5 C 98 H 23 100/59 L 94 1 08/23/24 04:51 1 08/23/24 04:51 102 H 24 1 Intake & Output: Intake & Output 08/21/24 08/22/24 08/23/24 08/24/24 05:59 05:59 05:59 05:59 Intake Total 1740 / 1740 1320 / 1320 1120 / 1120 300 / 300 Output Total 1989 1450 / 1450 1400 / 1400 150 / 150 Balance -250 / -250 -130 / -130 -280 / -280 150 / 150 Weight (kg) 76.5 kg 74 kg 75 kg Objective General Appearance: positive Mild distress (Mild respiratory distress) Eyes Bilateral: positive Normal inspection ENT: positive ENT inspection nml Neck: positive Nml inspection Respiratory: positive Chest non-tender and Rhonchi; negative No respiratory distress Cardiovascular: positive Irregularly irregular Abdomen: positive Non-tender Skin: positive Color nml Extremities: positive Non-tender Neurologic/Psychiatric: positive Oriented x3 Lab Results 08/23/24 05:50 08/23/24 05:50 Other Labs: Lab Results x24hrs 08/23/24 Range/Units 05:50 WBC 15.8 H (4.8-10.8) x10^3/uL RBC 3.37 L (4.20-5.40) 10^6/uL Hgb 10.2 L (12.0-16.0) g/dL Hct 33.1 L (37.0-47.0) % MCV 98.2 (81.0-99.0) fL MCH 30.3 (27.0-31.0) pg MCHC 30.8 L (32.0-36.0) g/dL RDW 15.6 H (12.0-15.0) % Plt Count 379 (130-450) 10^3/uL MPV 10.2 (7.9-10.8) fL Neut # (Auto) 13.2 H (1.5-6.6) 10^3/uL Lymph # (Auto) 1.8 (1.5-3.5) 10^3/uL [place] # (Auto) 0.6 (0.0-1.0) 10^3/uL Eos # (Auto) 0.2 (0.0-0.7) 10^3/uL Baso # (Auto) 0.0 (0.0-0.1) 10^3/uL Absolute Nucleated RBC 0.00 x10^3/uL Nucleated RBC % 0.0 /100WBC Sodium 133 L (135-145) mmol/L Potassium 4.4 (3.5-4.5) mmol/L Chloride 99 L (101-111) mmol/L Carbon Dioxide 27 (21-32) mmol/L Anion Gap 7.0 (6-13) BUN 35 H (6-20) mg/dL Creatinine 1.0 (0.6-1.3) mg/dL Estimated GFR (MDRD) 53 L (>89) Glucose 85 (74-104) mg/dL Calcium 8.9 (8.5-10.3) mg/dL Magnesium 1.9 (1.7-2.3) mg/dL Sepsis Event Note (H) Evaluation Current Stage of Sepsis: Sepsis Possible source of Sepsis: positive Pulmonary Sepsis Criteria Sepsis Criteria: Recorded Heart Rate greater than 90 bpm Assessment/Plan Problem List (1) Acute and chronic respiratory failure with hypoxia: Impression: She was placed back on oxygen yesterday Multiple factors are contributing to her hypoxic respiratory failure including HFrEF, recent COVID-19 infection, COPD She has finished a course of Decadron yesterday Encouraging pulmonary toilet I have added back Lasix today, as I feel that this is primarily cardiac in origin at this point She was changed from albuterol to levalbuterol in the hopes that this would help her anxiety and tachycardia (2) Atrial fibrillation with rapid ventricular response: Impression: Heart rate continues to remain stable on 200 mg/day metoprolol, amiodarone, digoxin, clonidine Started on oral amiodarone 08/19/2024 Holding off on CCB's given HFrEF BMP, Mag daily She was recently started back on her digoxin, and after discussion with pharmacy, decision was made to give her 1 additional dose of 125 mcg digoxin. Will recheck digoxin level in the morning (3) Sepsis: Impression: WBC is down today Leukocytosis was likely secondary to steroid use, recent COVID infection Afebrile Continue to trend CBC daily Sepsis not likely at this point Qualifiers: Acute respiratory failure type: with hypoxia Sepsis acute organ dysfunction status: with acute organ dysfunction Sepsis type: sepsis due to unspecified organism Severe sepsis acute organ dysfunction type: acute respiratory failure Severe sepsis shock status: without septic shock Qualified Code(s): A41.9 - Sepsis, unspecified organism; R65.20 - Severe sepsis without septic shock; J96.01 - Acute respiratory failure with hypoxia (4) Acute exacerbation of chronic obstructive pulmonary disease: Impression: Respiratory failure as above, component of COPD possibly in exacerbation Manage COVID She has finished an extended course of DecadronYe (5) COVID: Impression: Steroids as above No indication for remdesivir given no O2 requirements Nebs as above Positive COVID test 08/11/2024, with several days of symptoms prior to this test. Per infection control, she was supposed to be out of isolation on the of this month as that is 10 days after symptom onset. She continued having symptoms, so they recommended an additional 10 days of isolation but no more if no resolution of symptoms. She has remained afebrile, and her dyspnea can be attributed to other causes so she was taken out of isolation (6) Pneumonia: Impression: Completed a course of antibiotics for empiric coverage for healthcare acquired pneumonia. Bacterial infection is not likely, but given the severity of her illness, it was felt mcconnell to place her on empiric antibiotics Qualifiers: Laterality: right Lung location: upper lobe of lung Pneumonia type: d ue to unspecified organism Qualified Code(s): J18.9 - Pneumonia, unspecified organism (7) HFrEF (heart failure with reduced ejection fraction): Impression: Weight remains stable Patient was started back on oxygen yesterday, and is more dyspneic than usual this morning. I have ordered one-time dose of IV Lasix, and will resume p.o. Lasix starting tomorrow Continue spironolactone, Metoprolol, lisinopril Continue home Jardiance. This is not on formulary, so she will only get it if she brings it in from home (8) Hypokalemia: Impression: Resolved. Daily BMP
[2024-08-23] MEDS: MAGNESIUM OXIDE 400 MG TABLET PO SCH (08:45)
[2024-08-23] MEDS: FUROSEMIDE 20 MG/2 ML VIAL IVP ONE (08:46)
[2024-08-23] MEDS ORDERED: SODIUM CHLORIDE 0.9% 250 ML IV ONE (14:42)
[2024-08-23] MEDS: SODIUM CHLORIDE 0.9% 250 ML IV ONE (14:53)
[2024-08-23] MEDS ORDERED: DIGOXIN 125 MCG TABLET PO ONE (15:00)
--- NOTE | 2024-08-23 17:18 | MISCELLANEOUS PROVIDER NOTE ---
Miscellaneous Provider Note - Note: Patient has had intermittent soft blood pressures, and her heart rate is still only borderline controlled. After discussion with pharmacy, it was decided that she should have an extra dose of digoxin to quickly bring her up to a therapeutic level. I have ordered 125 mcg digoxin p.o. once with digoxin level in the morning. She appears dehydrated on assessment, with delayed skin turgor. I am discontinuing her Lasix and I have given her a very small fluid bolus of 250 mL. She is at max dose of metoprolol, and amiodarone should be at therapeutic level by now. Digoxin should be at therapeutic level by the morning. Next steps from here include additional fluids versus cardioversion, whether transthoracic here or transesophageal at an outside facility. She has history of A-fib, and I am unsure how effective any EP intervention would be. If by tomorrow we cannot get her heart rate controlled, we may need to discuss transition to palliative care with her and her DPOA. For tonight, if her blood pressure remains low, I have instructed the nurse to give an additional 500 cc fluid bolus. I would like to try everything in our power to not put her on Cardizem, as she has heart failure with reduced EF of 30 to 35%.
[2024-08-23] MEDS: TAMSULOSIN 0.4 MG CAPSULE PO SCH (17:55)
[2024-08-23] MEDS: DIGOXIN 125 MCG TABLET PO STA (17:55)
[2024-08-23] MEDS: SODIUM CHLORIDE 0.9% 500 ML IV ONE (19:10)
[2024-08-24 07:28] LABS: BASOPHILS % (AUTO) 0.1 %; EOSINOPHILS # (AUTO) 0.1 10^3/uL (0.0-0.7); EOSINOPHILS % (AUTO) 0.4 %; HCT - HEMATOCRIT 31.4 % (37.0-47.0); HGB - HEMOGLOBIN 9.8 g/dL (12.0-16.0); LYMPHOCYTES # (AUTO) 1.6 10^3/uL (1.5-3.5); LYMPHOCYTES % (AUTO) 9.6 %; MEAN CORPUSCULAR HEMOGLOBIN 30.7 pg (27.0-31.0); MEAN CORPUSCULAR HGB CONC 31.2 g/dL (32.0-36.0); MEAN CORPUSCULAR VOLUME 98.4 fL (81.0-99.0); MEAN PLATELET VOLUME 10.5 fL (7.9-10.8); MONOCYTES # (AUTO) 0.4 10^3/uL (0.0-1.0); MONOCYTES % (AUTO) 2.2 %; PLT - PLATELET COUNT 362 10^3/uL (130-450); RED BLOOD COUNT 3.19 10^6/uL (4.20-5.40); RED CELL DISTRIBUTION WIDTH 15.4 % (12.0-15.0); WHITE BLOOD COUNT 16.1 x10^3/uL (4.8-10.8)
[2024-08-24 07:31] LABS: BUN - BLOOD UREA NITROGEN 48 mg/dL (6-20); CALCIUM 8.9 mg/dL (8.5-10.3); CARBON DIOXIDE - CO2 26 mmol/L (21-32); CHLORIDE 99 mmol/L (101-111); CREATININE 1.3 mg/dL (0.6-1.3); GFR - MDRD 39 (>89); GLUCOSE 81 mg/dL (74-104); POTASSIUM 4.9 mmol/L (3.5-4.5); SODIUM 132 mmol/L (135-145)
[2024-08-24] MEDS: PRENATAL VITAMIN TABLET PO SCH (08:19)
[2024-08-24] MEDS: AMIODARONE 200 MG TABLET PO SCH (08:21)
[2024-08-24] MEDS ORDERED: FUROSEMIDE 20 MG TABLET PO SCH (09:00)
--- NOTE | 2024-08-24 09:21 | PROVIDER PROGRESS NOTE ---
Subjective Prog Note Date Prog Note Date: 08/24/24 Subjective Pt reports feeling: Improved Subjective: Patient states she is still intermittently dyspneic, but she feels much better today. Yesterday afternoon, she experienced low blood pressures and needed small amount of fluid resuscitation Current Medications Current Medications Current Medications: Current Medications Generic Name Dose Route Start Last Admin Trade Name Freq PRN Reason Stop Dose Admin Acetaminophen 650 mg 08/15/24 00:00 08/20/24 12:38 Acetaminophen 325 Mg Tablet PO 650 mg Q4HR PRN Administration Pain 1 to 4, or Fever Amiodarone HCl 400 mg 08/24/24 09:00 08/24/24 08:21 Amiodarone 200 Mg Tablet PO 08/27/24 09:01 400 mg DAILY JONATHAN Administration Amiodarone HCl 200 mg 08/28/24 09:00 Amiodarone 200 Mg Tablet PO DAILY JONATHAN Aripiprazole 5 mg 08/15/24 09:00 08/24/24 08:21 Aripiprazole 5 Mg Tablet PO 5 mg DAILY JONATHAN Administration Aspirin 81 mg 08/15/24 09:00 08/24/24 08:22 Aspirin Ec 81 Mg Tablet PO 81 mg DAILY JONATHAN Administration Benzonatate 100 mg 08/15/24 00:13 08/18/24 19:57 Benzonatate 100 Mg Capsule PO 100 mg Q8H PRN Administration Cough Budesonide 0.5 mg 08/18/24 19:00 08/24/24 05:43 Budesonide 0.5 Mg/2 Ml Neb INH 0.5 mg RTBID JONATHAN Administration Dexamethasone 2 mg 08/19/24 08:00 08/24/24 08:24 Dexamethasone 4 Mg Tablet PO 2 mg DAILY JONATHAN Administration Digoxin 62.5 mcg 08/21/24 12:00 08/24/24 08:24 Digoxin 125 Mcg Tablet PO 62.5 mcg DAILY JONATHAN Administration Gabapentin 100 mg 08/15/24 00:13 08/19/24 20:46 Gabapentin 100 Mg Capsule PO 100 mg HS PRN Administration pain Guaifenesin 600 mg 08/15/24 09:00 08/24/24 08:19 Guaifenesin 600 Mg Tablet PO 600 mg BID JONATHAN Administration Hydroxyzine Pamoate 25 mg 08/21/24 08:00 Hydroxyzine Pamoate 25 Mg Capsule PO QPM PRN Insomnia Levalbuterol HCl 1.25 mg 08/19/24 02:13 08/24/24 09:07 Levalbuterol 1.25 Mg/3 Ml Neb INH 1.25 mg Q4H PRN Administration Shortness of Air/Wheezing Lisinopril 5 mg 08/16/24 09:00 08/24/24 08:40 Lisinopril 5 Mg Tablet PO Not Given DAILY JONATHAN Lorazepam 0.5 mg 08/15/24 00:13 08/23/24 05:17 Lorazepam 0.5 Mg Tablet PO 0.5 mg Q2H PRN Administration anxiety Magnesium Oxide 400 mg 08/23/24 09:00 08/24/24 08:20 Magnesium Oxide 400 Mg Tablet PO 400 mg DAILYWM JONATHAN Administration Methadone HCl 5 mg 08/21/24 21:00 08/24/24 08:22 Methadone 5 Mg Tablet PO 5 mg BID JONATHAN Administration Metoprolol Succinate 200 mg 08/15/24 09:00 08/24/24 08:40 Metoprolol Succinate 50 Mg Tablet PO 200 mg DAILY JONATHAN Administration Multi-Ingredient Ointment 1 applic 08/22/24 16:30 Zinc Oxide 20% Oint 30 Gm Tube TOP PRN PRN Skin Care Ondansetron HCl 4 mg 08/15/24 00:00 Ondansetron 4 Mg/2 Ml Vial IVP Q6HR PRN Nausea / Vomiting Pantoprazole Sodium 40 mg 08/15/24 07:00 08/24/24 06:08 Pantoprazole 40 Mg Tablet PO 40 mg QDAC JONATHAN Administration Empagliflozin [ 1 each 08/15/24 09:00 08/23/24 08:52 Jardiance] 10 Mg PO Not Given Tablet DAILY JONATHAN Multivit/Folic Acid/Iron 1 tab 08/24/24 08:00 08/24/24 08:19 Vitamin Tablet PO 1 tab DAILYWM JONATHAN Administration Quetiapine Fumarate 50 mg 08/19/24 21:00 08/23/24 21:15 Quetiapine 25 Mg Tablet PO 50 mg QPM JONATHAN Administration Quetiapine Fumarate 25 mg 08/19/24 12:00 08/24/24 08:21 Quetiapine 25 Mg Tablet PO 25 mg DAILY JONATHAN Administration Sodium Chloride 10 ml 08/15/24 00:00 Sodium Chloride Flush 0.9% 10 Ml Syringe IVP PRN PRN NEEDED PER PROVIDER ORDERS Sodium Chloride 10 ml 08/15/24 01:00 08/24/24 00:36 Sodium Chloride Flush 0.9% 10 Ml Syringe IVP 10 ml 0100,0900,1700 JONATHAN Administration Spironolactone 25 mg 08/15/24 09:00 08/24/24 08:40 Spironolactone 25 Mg Tablet PO Not Given DAILY JONATHAN Tamsulosin HCl 0.4 mg 08/23/24 17:15 08/24/24 08:20 Tamsulosin 0.4 Mg Capsule PO 0.4 mg DAILY JONATHAN Administration Venlafaxine HCl 150 mg 08/15/24 09:00 08/24/24 08:19 Venlafaxine Er 75 Mg Capsule PO 150 mg DAILY JONATHAN Administration Zinc Oxide 113 gm 08/22/24 16:30 Cod Liver Oil/Zinc Oxide 113 Gm Tube TOP PRN PRN Skin Care Objective Vital Signs/Intake & Output Reviewed Vital Signs: Yes Vital Signs: Vital Signs x48h Temp Pulse Pulse Pulse Resp BP BP 08/24/24 09:07 112 H 24 08/24/24 08:36 102 H 108/54 L 08/24/24 08:34 125 H 96/54 L 08/24/24 08:32 36.5 C 20 08/24/24 08:13 105 H 96/58 L 08/24/24 05:43 08/24/24 05:43 60 24 08/24/24 05:00 36.5 C 98 H 21 104/58 L Pulse Ox O2 Flow Rate 08/24/24 09:07 08/24/24 08:36 08/24/24 08:34 08/24/24 08:32 08/24/24 08:13 08/24/24 05:43 3 08/24/24 05:43 3 08/24/24 05:00 93 3 Intake & Output: Intake & Output 08/22/24 08/23/24 08/24/24 08/25/24 05:59 05:59 05:59 05:59 Intake Total 1320 / 1320 1120 / 1120 2173 / 2173 Output Total 1450 / 1450 1400 / 1400 950 / 950 Balance -130 / -130 -280 / -280 1223 / 1223 Weight (kg) 74 kg 171.5 kg Objective General Appearance: positive No acute distress Eyes Bilateral: positive Normal inspection ENT: positive ENT inspection nml Neck: positive Nml inspection Respiratory: positive Chest non-tender and Rhonchi Cardiovascular: positive Irregularly irregular Abdomen: positive Non-tender Skin: positive Color nml Extremities: positive Non-tender Neurologic/Psychiatric: positive Oriented x3 Lab Results 08/24/24 06:58 08/24/24 06:58 Other Labs: Lab Results x24hrs 08/24/24 Range/Units 06:58 WBC 16.1 H (4.8-10.8) x10^3/uL RBC 3.19 L (4.20-5.40) 10^6/uL Hgb 9.8 L (12.0-16.0) g/dL Hct 31.4 L (37.0-47.0) % MCV 98.4 (81.0-99.0) fL MCH 30.7 (27.0-31.0) pg MCHC 31.2 L (32.0-36.0) g/dL RDW 15.4 H (12.0-15.0) % Plt Count 362 (130-450) 10^3/uL MPV 10.5 (7.9-10.8) fL Neut # (Auto) 14.0 H (1.5-6.6) 10^3/uL Lymph # (Auto) 1.6 (1.5-3.5) 10^3/uL [place] # (Auto) 0.4 (0.0-1.0) 10^3/uL Eos # (Auto) 0.1 (0.0-0.7) 10^3/uL Baso # (Auto) 0.0 (0.0-0.1) 10^3/uL Absolute Nucleated RBC 0.00 x10^3/uL Nucleated RBC % 0.0 /100WBC Sodium 132 L (135-145) mmol/L Potassium 4.9 H (3.5-4.5) mmol/L Chloride 99 L (101-111) mmol/L Carbon Dioxide 26 (21-32) mmol/L Anion Gap 7.0 (6-13) BUN 48 H (6-20) mg/dL Creatinine 1.3 (0.6-1.3) mg/dL Estimated GFR (MDRD) 39 L (>89) Glucose 81 (74-104) mg/dL Calcium 8.9 (8.5-10.3) mg/dL Magnesium 2.0 (1.7-2.3) mg/dL Random Cortisol 4.0 ug/dL Last Dose Date UNK Last Dose Time UNK Digoxin 1.0 ng/mL ABX Reporting Has patient been on IV antibiotics over the past 48 hours?: No Sepsis Event Note (H) Evaluation Current Stage of Sepsis: Resolved Possible source of Sepsis: positive Pulmonary Sepsis Criteria Sepsis Criteria: Recorded Heart Rate greater than 90 bpm Assessment/Plan Problem List (1) Acute and chronic respiratory failure with hypoxia: Impression: Still on oxygen therapy, her dyspnea has improved today Multiple factors are contributing to her hypoxic respiratory failure including HFrEF, recent COVID-19 infection, COPD She has finished a course of Decadron Encouraging pulmonary toilet Patient experienced dehydration, hypotension yesterday, so I have again canceled her Lasix Today, holding spironolactone She was changed from albuterol to levalbuterol in the hopes that this would help her anxiety and tachycardia (2) Atrial fibrillation with rapid ventricular response: Impression: on 200 mg/day metoprolol, amiodarone, digoxin, clonidine Started on oral amiodarone 08/19/2024 Holding off on CCB's given HFrEF BMP, Mag daily She was given an additional dose of digoxin yesterday, as well as small amount of IV fluid bolus as she became hypotensive Holding diuretics today Digoxin level today 1, which is in therapeutic range Holding off on the anticoagulation given she has reduced mobility and I am concern for fall risk Aspirin (3) HFrEF (heart failure with reduced ejection fraction): Impression: Weight remains stable Patient was given dose of IV Lasix yesterday because of increasing oxygen requirements. Her blood pressure could not tolerate this, so I will be holding off on aggressive diuresis. Overall, she appears mildly dehydrated today, so I will continue to hold her Lasix and will also hold her spironolactone She has had soft blood pressures for the past few days, will hold lisinopril Continue Metoprolol Continue home Jardiance. This is not on formulary, so she will only get it if she brings it in from home (4) Urinary retention: Impression: Patient has had multiple episodes of urinary retention over the past few days requiring straight catheter This retention is intermittent, and she has had a successful void this morning Continue as needed straight cath Started Flomax yesterday Consider Ch (5) Sepsis: Impression: WBC continues to be elevated, however she is afebrile. She completed a course of steroids and antibiotics. Her overall clinical picture appears to be improved, so we will hold off on infectious workup at this time Continue to trend CBC daily Sepsis not likely at this point Qualifiers: Acute respiratory failure type: with hypoxia Sepsis acute organ dysfunction status: with acute organ dysfunction Sepsis type: sepsis due to unspecified organism Severe sepsis acute organ dysfunction type: acute respiratory failure Severe sepsis shock status: without septic shock Qualified Code(s): A41.9 - Sepsis, unspecified organism; R65.20 - Severe sepsis without septic shock; J96.01 - Acute respiratory failure with hypoxia (6) Acute exacerbation of chronic obstructive pulmonary disease: Impression: Respiratory failure as above, component of COPD possibly in exacerbation Manage COVID She has finished an extended course of Decadron (7) COVID: Impression: Steroids as above No indication for remdesivir given no O2 requirements Nebs as above Positive COVID test 08/11/2024, with several days of symptoms prior to this test. Per infection control, she was supposed to be out of isolation on the of this month as that is 10 days after symptom onset. She continued having symptoms, so they recommended an additional 10 days of isolation but no more if no resolution of symptoms. She has remained afebrile, and her dyspnea can be attributed to other causes so she was taken out of isolation (8) Pneumonia: Impression: Completed a course of antibiotics for empiric coverage for healthcare acquired pneumonia. Bacterial infection is not likely, but given the severity of her illness, it was felt mcconnell to place her on empiric antibiotics Qualifiers: Laterality: right Lung location: upper lobe of lung Pneumonia type: d ue to unspecified organism Qualified Code(s): J18.9 - Pneumonia, unspecified organism (9) Hypokalemia: Impression: Resolved. Daily BMP
--- NOTE | 2024-08-24 11:14 | MISCELLANEOUS PROVIDER NOTE ---
Miscellaneous Provider Note - Note: I called her court appointed surrogate as requested, updated her on patient's condition, the delicate balance between managing her heart rate and blood pressure versus her respiratory status. I told her at this point my recommendation is to focus on heart rate and blood pressure control, and anticipate discharge home on oxygen. Discussed further possibilities and plan of care, including transfer for cardioversion, or continued pharmacologic management. I did told her that given her heart function, there are no more meds that we can add at this point for rate control and I will try to optimize her volume status as that seems to have improved her heart rate and blood p ressure since yesterday. Surrogate is agreeable to continued management at this hospital, and is agreeable to discharge on oxygen if her heart rate/blood pressure can be optimized
[2024-08-24] MEDS: LACTATED RINGERS 1,000 ML IV SCH (13:38)
[2024-08-24] MEDS: NYSTATIN POWDER 15 GM TOP SCH (20:49)
[2024-08-25 05:47] LABS: BASOPHILS % (AUTO) 0.1 %; EOSINOPHILS # (AUTO) 0.1 10^3/uL (0.0-0.7); EOSINOPHILS % (AUTO) 0.5 %; HGB - HEMOGLOBIN 8.1 g/dL (12.0-16.0); LYMPHOCYTES % (AUTO) 8.9 %; MEAN CORPUSCULAR HEMOGLOBIN 30.2 pg (27.0-31.0); MEAN CORPUSCULAR HGB CONC 31.2 g/dL (32.0-36.0); MEAN PLATELET VOLUME 10.3 fL (7.9-10.8); MONOCYTES # (AUTO) 0.2 10^3/uL (0.0-1.0); MONOCYTES % (AUTO) 1.8 %; NEUTROPHILS # (AUTO) 10.2 10^3/uL (1.5-6.6); NEUTROPHILS % (AUTO) 88.1 %; PLT - PLATELET COUNT 301 10^3/uL (130-450); RED BLOOD COUNT 2.68 10^6/uL (4.20-5.40); RED CELL DISTRIBUTION WIDTH 15.4 % (12.0-15.0); WHITE BLOOD COUNT 11.5 x10^3/uL (4.8-10.8)
[2024-08-25 06:01] LABS: CALCIUM 8.6 mg/dL (8.5-10.3); CREATININE 1.2 mg/dL (0.6-1.3); POTASSIUM 5.2 mmol/L (3.5-4.5)
[2024-08-25] MEDS ORDERED: guaiFENesin/DEXTROMETHORPHAN 10 ML UDC PO PRN (07:34)
--- NOTE | 2024-08-25 08:22 | PROVIDER PROGRESS NOTE ---
Subjective Prog Note Date Prog Note Date: 08/25/24 Subjective Pt reports feeling: Worse Subjective: Upon my arrival this morning, RT reported to me that she has had increasing oxygen needs overnight and increased dyspnea. She is now on 10 L oxy mask. On assessment, she does report feeling anxious, and also reports increased cough due to what she describes as a tickling in her upper chest Current Medications Current Medications Current Medications: Current Medications Generic Name Dose Route Start Last Admin Trade Name Freq PRN Reason Stop Dose Admin Acetaminophen 650 mg 08/15/24 00:00 08/20/24 12:38 Acetaminophen 325 Mg Tablet PO 650 mg Q4HR PRN Administration Pain 1 to 4, or Fever Amiodarone HCl 400 mg 08/24/24 09:00 08/24/24 08:21 Amiodarone 200 Mg Tablet PO 08/27/24 09:01 400 mg DAILY JONATHAN Administration Amiodarone HCl 200 mg 08/28/24 09:00 Amiodarone 200 Mg Tablet PO DAILY JONATHAN Aripiprazole 5 mg 08/15/24 09:00 08/24/24 08:21 Aripiprazole 5 Mg Tablet PO 5 mg DAILY JONATHAN Administration Aspirin 81 mg 08/15/24 09:00 08/24/24 08:22 Aspirin Ec 81 Mg Tablet PO 81 mg DAILY JONATHAN Administration Benzonatate 100 mg 08/15/24 00:13 08/24/24 15:03 Benzonatate 100 Mg Capsule PO 100 mg Q8H PRN Administration Cough Budesonide 0.5 mg 08/18/24 19:00 08/25/24 06:10 Budesonide 0.5 Mg/2 Ml Neb INH 0.5 mg RTBID JONATHAN Administration Clonidine HCl 0.1 mg 08/25/24 09:00 Clonidine 0.1 Mg Tablet PO BID JONATHAN Digoxin 62.5 mcg 08/21/24 12:00 08/24/24 08:24 Digoxin 125 Mcg Tablet PO 62.5 mcg DAILY JONATHAN Administration Gabapentin 100 mg 08/15/24 00:13 08/19/24 20:46 Gabapentin 100 Mg Capsule PO 100 mg HS PRN Administration pain Guaifenesin 600 mg 08/15/24 09:00 08/24/24 20:47 Guaifenesin 600 Mg Tablet PO 600 mg BID JONATHAN Administration Guaifenesin 10 ml 08/25/24 07:34 Guaifenesin/Dextromethorphan 10 Ml Udc PO Q6HR PRN Cough Hydroxyzine Pamoate 25 mg 08/21/24 08:00 Hydroxyzine Pamoate 25 Mg Capsule PO QPM PRN Insomnia Levalbuterol HCl 1.25 mg 08/19/24 02:13 08/25/24 06:10 Levalbuterol 1.25 Mg/3 Ml Neb INH 1.25 mg Q4H PRN Administration Shortness of Air/Wheezing Lorazepam 0.5 mg 08/15/24 00:13 08/24/24 23:42 Lorazepam 0.5 Mg Tablet PO 0.5 mg Q2H PRN Administration anxiety Magnesium Oxide 400 mg 08/23/24 09:00 08/24/24 08:20 Magnesium Oxide 400 Mg Tablet PO 400 mg DAILYWM JONATHAN Administration Methadone HCl 5 mg 08/21/24 21:00 08/24/24 20:47 Methadone 5 Mg Tablet PO 5 mg BID JONATHAN Administration Metoprolol Succinate 200 mg 08/15/24 09:00 08/24/24 08:40 Metoprolol Succinate 50 Mg Tablet PO 200 mg DAILY JONATHAN Administration Multi-Ingredient Ointment 1 applic 08/22/24 16:30 Zinc Oxide 20% Oint 30 Gm Tube TOP PRN PRN Skin Care Nystatin 1 applic 08/24/24 21:00 08/24/24 20:49 Nystatin Powder 15 Gm TOP 1 applic BID JONATHAN Administration Ondansetron HCl 4 mg 08/15/24 00:00 Ondansetron 4 Mg/2 Ml Vial IVP Q6HR PRN Nausea / Vomiting Pantoprazole Sodium 40 mg 08/15/24 07:00 08/25/24 06:37 Pantoprazole 40 Mg Tablet PO 40 mg QDAC JONATHAN Administration Empagliflozin [ 1 each 08/15/24 09:00 08/24/24 11:13 Jardiance] 10 Mg PO Not Given Tablet DAILY JONATHAN Multivit/Folic Acid/Iron 1 tab 08/24/24 08:00 08/24/24 08:19 Vitamin Tablet PO 1 tab DAILYWM JONATHAN Administration Quetiapine Fumarate 50 mg 08/19/24 21:00 08/24/24 20:47 Quetiapine 25 Mg Tablet PO 50 mg QPM JONATHAN Administration Quetiapine Fumarate 50 mg 08/25/24 09:00 Quetiapine 25 Mg Tablet PO DAILY JONATHAN Sodium Chloride 10 ml 08/15/24 00:00 Sodium Chloride Flush 0.9% 10 Ml Syringe IVP PRN PRN NEEDED PER PROVIDER ORDERS Sodium Chloride 10 ml 08/15/24 01:00 08/24/24 23:39 Sodium Chloride Flush 0.9% 10 Ml Syringe IVP 10 ml 0100,0900,1700 JONATHAN Administration Spironolactone 25 mg 08/15/24 09:00 08/24/24 08:40 Spironolactone 25 Mg Tablet PO Not Given DAILY JONATHAN Tamsulosin HCl 0.4 mg 08/23/24 17:15 08/24/24 08:20 Tamsulosin 0.4 Mg Capsule PO 0.4 mg DAILY JONATHAN Administration Venlafaxine HCl 150 mg 08/15/24 09:00 08/24/24 08:19 Venlafaxine Er 75 Mg Capsule PO 150 mg DAILY JONATHAN Administration Zinc Oxide 113 gm 08/22/24 16:30 Cod Liver Oil/Zinc Oxide 113 Gm Tube TOP PRN PRN Skin Care Objective Vital Signs/Intake & Output Reviewed Vital Signs: Yes Vital Signs: Vital Signs x48h Temp Pulse Pulse Resp BP Pulse Ox O2 Flow Rate 08/25/24 06:50 15 08/25/24 06:10 10 08/25/24 06:10 79 18 10 08/25/24 05:00 36.5 C 92 H 23 94/52 L 94 10 08/25/24 04:41 92 10 08/25/24 00:17 20 Intake & Output: Intake & Output 08/23/24 08/24/24 08/25/24 08/26/24 05:59 05:59 05:59 05:59 Intake Total 1120 / 1120 2173 / 2173 1880 / 1880 Output Total 1400 / 1400 950 / 950 650 / 650 100 / 100 Balance -280 / -280 1223 / 1223 1230 / 1230 -100 / -100 Weight (kg) 74 kg 171.5 kg 174.2 kg Objective General Appearance: positive Mild distress (Mild respiratory distress) Eyes Bilateral: positive Normal inspection ENT: positive ENT inspection nml Neck: positive Nml inspection Respiratory: positive Chest non-tender and Rhonchi (Diminished in bases) Cardiovascular: positive Irregularly irregular Abdomen: positive Non-tender Skin: positive Color nml Extremities: positive Non-tender Neurologic/Psychiatric: positive Oriented x3 Lab Results 08/25/24 05:37 08/25/24 05:37 Other Labs: Lab Results x24hrs 08/25/24 Range/Units 05:37 WBC 11.5 H (4.8-10.8) x10^3/uL RBC 2.68 L (4.20-5.40) 10^6/uL Hgb 8.1 L (12.0-16.0) g/dL Hct 26.0 L (37.0-47.0) % MCV 97.0 (81.0-99.0) fL MCH 30.2 (27.0-31.0) pg MCHC 31.2 L (32.0-36.0) g/dL RDW 15.4 H (12.0-15.0) % Plt Count 301 (130-450) 10^3/uL MPV 10.3 (7.9-10.8) fL Neut # (Auto) 10.2 H (1.5-6.6) 10^3/uL Lymph # (Auto) 1.0 L (1.5-3.5) 10^3/uL [place] # (Auto) 0.2 (0.0-1.0) 10^3/uL Eos # (Auto) 0.1 (0.0-0.7) 10^3/uL Baso # (Auto) 0.0 (0.0-0.1) 10^3/uL Absolute Nucleated RBC 0.00 x10^3/uL Nucleated RBC % 0.0 /100WBC Sodium 131 L (135-145) mmol/L Potassium 5.2 H (3.5-4.5) mmol/L Chloride 101 (101-111) mmol/L Carbon Dioxide 25 (21-32) mmol/L Anion Gap 5.0 L (6-13) BUN 48 H (6-20) mg/dL Creatinine 1.2 (0.6-1.3) mg/dL Estimated GFR (MDRD) 43 L (>89) Glucose 86 (74-104) mg/dL Calcium 8.6 (8.5-10.3) mg/dL Magnesium 2.0 (1.7-2.3) mg/dL Sepsis Event Note (H) Evaluation Current Stage of Sepsis: Resolved Possible source of Sepsis: positive Pulmonary Sepsis Criteria Sepsis Criteria: Recorded Heart Rate greater than 90 bpm Assessment/Plan Problem List (1) Acute and chronic respiratory failure with hypoxia: Impression: Today, her dyspnea has worsened, and she has had an increased need for oxygen. As stated before, her respiratory failure is multifactorial, however I suspect this could be related to receiving IV fluids yesterday. Her management is very delicate, as trial of diuretics led to a hypotension and worsening tachycardia, but IV fluids may have worsened her respiratory status. I have ordered a chest x-ray for this morning Multiple factors are contributing to her hypoxic respiratory failure including HFrEF, recent COVID-19 infection, COPD She has finished a course of Decadron Encouraging pulmonary toilet She was changed from albuterol to levalbuterol in the hopes that this would help her anxiety and tachycardia (2) Atrial fibrillation with rapid ventricular response: Impression: on 200 mg/day metoprolol, amiodarone, digoxin, clonidine Started on oral amiodarone 08/19/2024 Holding off on CCB's given HFrEF BMP, Mag daily Digoxin level today 1, which is in therapeutic range Holding off on the anticoagulation given she has reduced mobility and I am concern for fall risk Aspirin Today, rate fairly well-controlled, blood pressure stable (3) HFrEF (heart failure with reduced ejection fraction): Impression: Weight remains stable Closely monitoring her volume status, and how it interacts with her atrial fibrillation with RVR versus her respiratory failure. GDMT partly on hold at this time given her soft blood pressures She has had soft blood pressures for the past few days, will hold lisinopril Continue Metoprolol Continue home Jardiance. This is not on formulary, so she will only get it if she brings it in from home (4) Urinary retention: Impression: Patient has had multiple episodes of urinary retention over the past few days requiring straight catheter This retention is intermittent, and she has had a successful void this morning Continue as needed straight cath Started Flomax The next time she has urinary retention, we will place a Ch. As an added benefit, this will aid in strict I&O (5) Sepsis: Impression: WBC continues to be elevated, however she is afebrile. She completed a course of steroids and antibiotics. Her overall clinical picture appears to be improved, so we will hold off on infectious workup at this time Continue to trend CBC daily Sepsis not likely at this point WBC improved today Qualifiers: Acute respiratory failure type: with hypoxia Sepsis acute organ dysfunction status: with acute organ dysfunction Sepsis type: sepsis due to unspecified organism Severe sepsis acute organ dysfunction type: acute respiratory failure Severe sepsis shock status: without septic shock Qualified Code(s): A41.9 - Sepsis, unspecified organism; R65.20 - Severe sepsis without septic shock; J96.01 - Acute respiratory failure with hypoxia (6) Acute exacerbation of chronic obstructive pulmonary disease: Impression: Respiratory failure as above, component of COPD possibly in exacerbation Manage COVID (7) Depression with anxiety: Impression: Her anxiety has been a complicating factor throughout her stay. She is on her home dose of Effexor, as well as Seroquel I have increased her dose of Seroquel to 50 twice daily from 25 in the morning and 50 at night. Continue telemetry, watch for QTc prolongation (8) COVID: Impression: Steroids as above No indication for remdesivir given no O2 requirements Nebs as above Positive COVID test 08/11/2024, with several days of symptoms prior to this test. Per infection control, she was supposed to be out of isolation on the of this month as that is 10 days after symptom onset. She continued having symptoms, so they recommended an additional 10 days of isolation but no more if no resolution of symptoms. She has remained afebrile, and her dyspnea can be attributed to other causes so she was taken out of isolation (9) Pneumonia: Impression: Completed a course of antibiotics for empiric coverage for healthcare acquired pneumonia. Bacterial infection is not likely, but given the severity of her illness, it was felt mcconnell to place her on empiric antibiotics Qualifiers: Laterality: right Lung location: upper lobe of lung Pneumonia type: d ue to unspecified organism Qualified Code(s): J18.9 - Pneumonia, unspecified organism (10) Hypokalemia: Impression: Resolved. Daily BMP
[2024-08-25] MEDS: cloNIDine 0.1 MG TABLET PO SCH (08:48)
[2024-08-25] MEDS: QUEtiapine 25 MG TABLET PO SCH (08:48)
[2024-08-25] MEDS ORDERED: OLANZapine ODT 5 MG TABLET TL SCH (09:00)
--- NOTE | 2024-08-25 09:17 | XRAY Report ---
PROCEDURE: XR Chest 1V INDICATIONS: Dyspnea concern for worsening fluid overload TECHNIQUE: One view of the chest was acquired. COMPARISON: 08/19/2024 FINDINGS: Surgical changes and devices: None. Lungs and pleura: Worsening diffuse airspace opacities, right greater than left. Mediastinum: Mediastinal contours appear normal. Heart size is enlarged. Bones and chest wall: No suspicious bony lesions. Overlying soft tissues appear unremarkable. IMPRESSION: Worsening diffuse airspace opacities. Differential includes severe pulmonary edema, acute lung injury or severe pulmonary infection. Reviewed by: Sidney Herbert MD on 08/25/2024 9:16 AM PDT Approved by: Sidney Herbert MD on 08/25/2024 9:16 AM PDT Station ID: [id number]
[2024-08-25] MEDS ORDERED: iohexoL-300 100 ML VIAL ONE (09:42)
[2024-08-25] MEDS: FUROSEMIDE 20 MG/2 ML VIAL IVP ONE (10:02)
[2024-08-25] MEDS: iohexoL-300 100 ML VIAL IVP ONE (15:50)
--- NOTE | 2024-08-25 16:06 | CT Report ---
PROCEDURE: CT Angio Chest INDICATIONS: Increasing dyspnea, worsening chest x-ray CONTRAST: Omni 300 80ml TECHNIQUE: After the administration of intravenous contrast, 2 mm axial images were acquired from the pulmonary apices to the posterior costophrenic angles during the arterial phase. In addition, 1 mm lung kernel and 5 mm soft tissue kernel reconstructions were performed. 3-dimensional coronal oblique maximum int ensity projection (MIP) reformats, 8 mm axial MIP, and 5 mm coronal and sagittal MPR reformats were t hen performed through the thorax. For radiation dose reduction, the following was used: automated exp osure control, adjustment of mA and/or kV according to patient size. COMPARISON: Same day chest radiograph FINDINGS: Image quality: Excellent. Large vessels: No filling defects within the opacified pulmonary arteries, accounting for motion and contrast timing. No evidence of acute aortic syndrome or aortic aneurysm. Lungs and pleura: Diffuse ground glass and consolidation in all lobes. Small pleural effusions. Mediastinum: Heart size is enlarged. No pericardial effusion. Dilated main pulmonary artery. No media stinal adenopathy by size criteria. Reflux of contrast into the IVC. Chest wall and lower neck: Thyroid is unremarkable. No axillary or supraclavicular adenopathy by size . Bones: No aggressive osseous abnormality. Upper Abdomen: Unremarkable. IMPRESSION: Suspected severe pulmonary edema, with diffuse groundglass and consolidation. Small pleural effusions are present. Differential includes infection or acute lung injury. Cardiomegaly with reflux of contrast in the IVC, indicating elevated heart pressures. No pulmonary embolus. Reviewed by: Sidney Herbert MD on 08/25/2024 4:04 PM PDT Approved by: Sidney Herbert MD on 08/25/2024 4:04 PM PDT Station ID: [id number]
--- NOTE | 2024-08-25 16:43 | MISCELLANEOUS PROVIDER NOTE ---
Miscellaneous Provider Note - Note: I had another discussion today with her court appointed surrogate. I discussed her worsening clinical picture, and the very complex set of conditions were working with. I told her about the patient's increasing oxygen needs, and the recent CT scan results. I reconfirmed her DNR/DNI status. After discussion with surrogate, it was decided to place her on a very low-dose Lasix drip to gently diurese her. We are both in agreement that Ms. Stephens is in a very grave condition, and we should be prepared for the possibility of end-of-life. I suggested consultation with palliative care services, and surrogate agrees to this. I called the palliative care team, and consulted with them. I will continue medical management as best as possible, until palliative care is able to consult and we determine if she should be made hospice
[2024-08-25] MEDS ORDERED: SODIUM CHLORIDE 0.9% 100ML 100 ML IV ONE (18:11)
[2024-08-25] MEDS: FUROSEMIDE INJ 100mg VIAL 100 MG in SODIUM CHLORIDE 0.9% 100ML 90 ML IV SCH (18:14)
[2024-08-26] MEDS: MORPHINE 2 MG/ML CARPUJECT IVP PRN (05:21)
[2024-08-26] MEDS ORDERED: SODIUM CHLORIDE 0.9% 100ML 100 ML IV ONE ×2 (05:22)
[2024-08-26 05:45] LABS: BASOPHILS % (AUTO) 0.3 %; EOSINOPHILS # (AUTO) 0.2 10^3/uL (0.0-0.7); EOSINOPHILS % (AUTO) 2.1 %; HCT - HEMATOCRIT 28.4 % (37.0-47.0); LYMPHOCYTES % (AUTO) 9.7 %; MEAN CORPUSCULAR HEMOGLOBIN 30.4 pg (27.0-31.0); MEAN CORPUSCULAR HGB CONC 31.7 g/dL (32.0-36.0); MEAN CORPUSCULAR VOLUME 95.9 fL (81.0-99.0); MEAN PLATELET VOLUME 9.9 fL (7.9-10.8); MONOCYTES # (AUTO) 0.1 10^3/uL (0.0-1.0); NEUTROPHILS # (AUTO) 9.1 10^3/uL (1.5-6.6); NEUTROPHILS % (AUTO) 86.3 %; PLT - PLATELET COUNT 321 10^3/uL (130-450); RED BLOOD COUNT 2.96 10^6/uL (4.20-5.40); RED CELL DISTRIBUTION WIDTH 15.2 % (12.0-15.0); WHITE BLOOD COUNT 10.6 x10^3/uL (4.8-10.8)
[2024-08-26 05:59] LABS: CALCIUM 8.8 mg/dL (8.5-10.3); CREATININE 1.5 mg/dL (0.6-1.3); POTASSIUM 4.5 mmol/L (3.5-4.5)
[2024-08-26] MEDS: OLANZapine ODT 5 MG TABLET TL SCH (08:57)
--- NOTE | 2024-08-26 12:58 | PROVIDER PROGRESS NOTE ---
Subjective Prog Note Date Prog Note Date: 08/26/24 Subjective Pt reports feeling: No change Subjective: Still with intermittent dyspnea. Still on 15 L O2 Current Medications Current Medications Current Medications: Current Medications Generic Name Dose Route Start Last Admin Trade Name Freq PRN Reason Stop Dose Admin Acetaminophen 650 mg 08/15/24 00:00 08/20/24 12:38 Acetaminophen 325 Mg Tablet PO 650 mg Q4HR PRN Administration Pain 1 to 4, or Fever Amiodarone HCl 400 mg 08/24/24 09:00 08/26/24 08:57 Amiodarone 200 Mg Tablet PO 08/27/24 09:01 400 mg DAILY JONATHAN Administration Amiodarone HCl 200 mg 08/28/24 09:00 Amiodarone 200 Mg Tablet PO DAILY JONATHAN Aripiprazole 5 mg 08/15/24 09:00 08/26/24 08:57 Aripiprazole 5 Mg Tablet PO 5 mg DAILY JONATHAN Administration Aspirin 81 mg 08/15/24 09:00 08/26/24 08:57 Aspirin Ec 81 Mg Tablet PO 81 mg DAILY JONATHAN Administration Benzonatate 100 mg 08/15/24 00:13 08/24/24 15:03 Benzonatate 100 Mg Capsule PO 100 mg Q8H PRN Administration Cough Budesonide 0.5 mg 08/18/24 19:00 08/26/24 06:15 Budesonide 0.5 Mg/2 Ml Neb INH 0.5 mg RTBID JONATHAN Administration Clonidine HCl 0.1 mg 08/25/24 09:00 08/26/24 09:00 Clonidine 0.1 Mg Tablet PO Not Given BID JONATHAN Digoxin 62.5 mcg 08/21/24 12:00 08/26/24 08:56 Digoxin 125 Mcg Tablet PO 62.5 mcg DAILY JONATHAN Administration Gabapentin 100 mg 08/15/24 00:13 08/19/24 20:46 Gabapentin 100 Mg Capsule PO 100 mg HS PRN Administration pain Guaifenesin 600 mg 08/15/24 09:00 08/26/24 09:00 Guaifenesin 600 Mg Tablet PO 600 mg BID JONATHAN Administration Guaifenesin 10 ml 08/25/24 07:34 Guaifenesin/Dextromethorphan 10 Ml Udc PO Q6HR PRN Cough Hydroxyzine Pamoate 25 mg 08/21/24 08:00 Hydroxyzine Pamoate 25 Mg Capsule PO QPM PRN Insomnia Levalbuterol HCl 1.25 mg 08/19/24 02:13 08/26/24 06:15 Levalbuterol 1.25 Mg/3 Ml Neb INH 1.25 mg Q4H PRN Administration Shortness of Air/Wheezing Lorazepam 0.5 mg 08/15/24 00:13 08/24/24 23:42 Lorazepam 0.5 Mg Tablet PO 0.5 mg Q2H PRN Administration anxiety Magnesium Oxide 400 mg 08/23/24 09:00 08/26/24 08:57 Magnesium Oxide 400 Mg Tablet PO 400 mg DAILYWM JONATHAN Administration Methadone HCl 5 mg 08/21/24 21:00 08/26/24 08:57 Methadone 5 Mg Tablet PO 5 mg BID JONATHAN Administration Metoprolol Succinate 200 mg 08/15/24 09:00 08/26/24 09:00 Metoprolol Succinate 50 Mg Tablet PO Not Given DAILY JONATHAN Morphine Sulfate 2 mg 08/25/24 10:13 08/26/24 05:21 Morphine 2 Mg/Ml Carpuject IVP 2 mg Q2HR PRN Administration Shortness of Air/Wheezing Multi-Ingredient Ointment 1 applic 08/22/24 16:30 Zinc Oxide 20% Oint 30 Gm Tube TOP PRN PRN Skin Care Nystatin 1 applic 08/24/24 21:00 08/26/24 08:56 Nystatin Powder 15 Gm TOP 1 applic BID JONATHAN Administration Olanzapine 5 mg 08/26/24 09:00 08/26/24 08:57 Olanzapine Odt 5 Mg Tablet TL 5 mg DAILY JONATHAN Administration Ondansetron HCl 4 mg 08/15/24 00:00 Ondansetron 4 Mg/2 Ml Vial IVP Q6HR PRN Nausea / Vomiting Pantoprazole Sodium 40 mg 08/15/24 07:00 08/26/24 07:00 Pantoprazole 40 Mg Tablet PO 40 mg QDAC JONATHAN Administration Empagliflozin [ 1 each 08/15/24 09:00 08/26/24 09:01 Jardiance] 10 Mg PO Not Given Tablet DAILY JONATHAN Multivit/Folic Acid/Iron 1 tab 08/24/24 08:00 08/26/24 08:57 Vitamin Tablet PO 1 tab DAILYWM JONATHAN Administration Quetiapine Fumarate 50 mg 08/19/24 21:00 08/25/24 21:17 Quetiapine 25 Mg Tablet PO 50 mg QPM JONATHAN Administration Quetiapine Fumarate 50 mg 08/25/24 09:00 08/26/24 08:56 Quetiapine 25 Mg Tablet PO 50 mg DAILY JONATHAN Administration Sodium Chloride 10 ml 08/15/24 00:00 Sodium Chloride Flush 0.9% 10 Ml Syringe IVP PRN PRN NEEDED PER PROVIDER ORDERS Sodium Chloride 10 ml 08/15/24 01:00 08/26/24 09:01 Sodium Chloride Flush 0.9% 10 Ml Syringe IVP 10 ml 0100,0900,1700 JONATHAN Administration Spironolactone 25 mg 08/15/24 09:00 08/26/24 09:01 Spironolactone 25 Mg Tablet PO Not Given DAILY JONATHAN Tamsulosin HCl 0.4 mg 08/23/24 17:15 08/26/24 08:57 Tamsulosin 0.4 Mg Capsule PO 0.4 mg DAILY JONATHAN Administration Venlafaxine HCl 150 mg 08/15/24 09:00 08/26/24 08:57 Venlafaxine Er 75 Mg Capsule PO 150 mg DAILY JONATHAN Administration Zinc Oxide 113 gm 08/22/24 16:30 Cod Liver Oil/Zinc Oxide 113 Gm Tube TOP PRN PRN Skin Care Objective Vital Signs/Intake & Output Reviewed Vital Signs: Yes Vital Signs: Vital Signs x48h Temp Pulse Pulse Pulse Resp BP Pulse Ox 08/26/24 08:02 36.6 C 82 28 H 116/65 95 08/26/24 07:30 08/26/24 07:30 95 H 24 95/53 L 88 L 08/26/24 07:27 111 H 22 86/54 L 85 L 08/26/24 06:15 08/26/24 06:15 63 22 08/26/24 05:09 36.8 C 102 H 32 H 95/68 81 L O2 Flow Rate 08/26/24 08:02 15 08/26/24 07:30 15 08/26/24 07:30 15 08/26/24 07:27 15 08/26/24 06:15 15 08/26/24 06:15 15 08/26/24 05:09 15 Intake & Output: Intake & Output 08/24/24 08/25/24 08/26/24 08/27/24 05:59 05:59 05:59 05:59 Intake Total 2173 / 2173 1880 / 1880 460 / 460 560 / 560 Output Total 950 / 950 650 / 650 2900 / 2900 Balance 1223 / 1223 1230 / 1230 -2440 / -2440 560 / 560 Weight (kg) 171.5 kg 174.2 kg 174.2 kg 75.296 kg Objective General Appearance: positive Mild distress (Mild respiratory distress, Improved slightly from yesterday) Eyes Bilateral: positive Normal inspection ENT: positive ENT inspection nml Neck: positive Nml inspection Respiratory: positive Chest non-tender and Rhonchi (Diminished in bases) Cardiovascular: positive Irregularly irregular (Atrial fibrillation with occasional runs of RVR) Abdomen: positive Non-tender Skin: positive Color nml Extremities: positive Non-tender Neurologic/Psychiatric: positive Oriented x3 Lab Results 08/26/24 05:37 08/26/24 05:37 Other Labs: Lab Results x24hrs 08/26/24 08/25/24 Range/Units 05:37 10:55 WBC 10.6 (4.8-10.8) x10^3/uL RBC 2.96 L (4.20-5.40) 10^6/uL Hgb 9.0 L (12.0-16.0) g/dL Hct 28.4 L (37.0-47.0) % MCV 95.9 (81.0-99.0) fL MCH 30.4 (27.0-31.0) pg MCHC 31.7 L (32.0-36.0) g/dL RDW 15.2 H (12.0-15.0) % Plt Count 321 (130-450) 10^3/uL MPV 9.9 (7.9-10.8) fL Neut # (Auto) 9.1 H (1.5-6.6) 10^3/uL Lymph # (Auto) 1.0 L (1.5-3.5) 10^3/uL [place] # (Auto) 0.1 (0.0-1.0) 10^3/uL Eos # (Auto) 0.2 (0.0-0.7) 10^3/uL Baso # (Auto) 0.0 (0.0-0.1) 10^3/uL Absolute Nucleated RBC 0.00 x10^3/uL Nucleated RBC % 0.0 /100WBC Sodium 132 L (135-145) mmol/L Potassium 4.5 (3.5-4.5) mmol/L Chloride 95 L (101-111) mmol/L Carbon Dioxide 31 (21-32) mmol/L Anion Gap 6.0 (6-13) BUN 41 H (6-20) mg/dL Creatinine 1.5 H (0.6-1.3) mg/dL Estimated GFR (MDRD) 33 L (>89) Glucose 84 (74-104) mg/dL Calcium 8.8 (8.5-10.3) mg/dL Magnesium 2.0 (1.7-2.3) mg/dL Nasal Screen MRSA (PCR) NEGATIVE (NEGATIVE) Diagnostic Imaging Diagnostic Imaging Results: positive Final report reviewed Diagnostic Imaging Comments: CTA chest 08/25/2024 Severe pulmonary edema, groundglass and consolidation opacities, pleural effusions. Infection versus acute lung injury Sepsis Event Note (H) Evaluation Current Stage of Sepsis: Resolved Possible source of Sepsis: positive Pulmonary Sepsis Criteria Sepsis Criteria: Recorded Heart Rate greater than 90 bpm Assessment/Plan Problem List (1) Acute and chronic respiratory failure with hypoxia: Impression: Chest x-ray yesterday showed worsening infiltrate, and given patient's acute need for increasing oxygen I sent her for a CTA chest. That CTA showed severe pulmonary edema, small pleural effusions, reflux of contrast in the IVC indicating elevated heart pressures. After discussion with my attending hospitalist, it was decided that this was likely due to fluid overload. I initiated her on a Lasix drip at 5 mg an hour for a total of 100 mg. This was completed by this morning. I also discussed her case with palliative care, and they agreed to come and discuss goals of care with her. Her respiratory failure is complicated by her atrial fibrillation with RVR which has been refractory to everything I have tried. I have also discussed this with her court appointed surrogate, and I am under the impression that palliative care has had conversations with them as well Multiple factors are contributing to her hypoxic respiratory failure including HFrEF, recent COVID-19 infection, COPD She has finished a course of Decadron Encouraging pulmonary toilet She was changed from albuterol to levalbuterol in the hopes that this would help her anxiety and tachycardia (2) Atrial fibrillation with rapid ventricular response: Impression: on 200 mg/day metoprolol, amiodarone, digoxin, clonidine Started on oral amiodarone 08/19/2024 Holding off on CCB's given HFrEF BMP, Mag daily Digoxin level today 1, which is in therapeutic range Holding off on the anticoagulation given she has reduced mobility and I am concern for fall risk Aspirin Today, rate continues to be fairly well-controlled, blood pressure stable Check TSH in a.m. (3) HFrEF (heart failure with reduced ejection fraction): Impression: Closely monitoring her volume status, and how it interacts with her atrial fibrillation with RVR versus her respiratory failure. GDMT partly on hold at this time given her soft blood pressures She has had soft blood pressures for the past few days, will hold lisinopril Continue Metoprolol Continue home Jardiance. This is not on formulary, so she will only get it if she brings it in from home (4) Urinary retention: Impression: Patient has had multiple episodes of urinary retention over the past few days requiring straight catheter This retention is intermittent, and she has had a successful void this morning Continue as needed straight cath Started Flomax The next time she has urinary retention, we will place a Ch. As an added benefit, this will aid in strict I&O (5) Sepsis: Impression: WBC continues to be elevated, however she is afebrile. She completed a course of steroids and antibiotics. Her overall clinical picture appears to be improved, so we will hold off on infectious workup at this time Continue to trend CBC daily Sepsis not likely at this point WBC Down to 10.6 today Qualifiers: Acute respiratory failure type: with hypoxia Sepsis acute organ dysfunction status: with acute organ dysfunction Sepsis type: sepsis due to unspecified organism Severe sepsis acute organ dysfunction type: acute respiratory failure Severe sepsis shock status: without septic shock Qualified Code(s): A41.9 - Sepsis, unspecified organism; R65.20 - Severe sepsis without septic shock; J96.01 - Acute respiratory failure with hypoxia (6) Acute exacerbation of chronic obstructive pulmonary disease: Impression: Respiratory failure as above, component of COPD possibly in exacerbation Manage COVID (7) Depression with anxiety: Impression: Her anxiety has been a complicating factor throughout her stay. She is on her home dose of Effexor, as well as Seroquel I have increased her dose of Seroquel to 50 twice daily from 25 in the morning and 50 at night. Continue telemetry, watch for QTc prolongation Will repeat EKG for QTc check (8) COVID: Impression: Steroids as above No indication for remdesivir given no O2 requirements Nebs as above Positive COVID test 08/11/2024, with several days of symptoms prior to this test. Per infection control, she was supposed to be out of isolation on the of this month as that is 10 days after symptom onset. She continued having symptoms, so they recommended an additional 10 days of isolation but no more if no resolution of symptoms. She has remained afebrile, and her dyspnea can be attributed to other causes so she was taken out of isolation (9) Pneumonia: Impression: Completed a course of antibiotics for empiric coverage for healthcare acquired pneumonia. Bacterial infection is not likely, but given the severity of her illness, it was felt mcconnell to place her on empiric antibiotics Qualifiers: Laterality: right Lung location: upper lobe of lung Pneumonia type: d ue to unspecified organism Qualified Code(s): J18.9 - Pneumonia, unspecified organism (10) Hypokalemia: Impression: Resolved. Daily BMP
--- NOTE | 2024-08-26 15:24 | XRAY Report ---
PROCEDURE: XR Chest 1V INDICATIONS: Follow-up pulmonary edema TECHNIQUE: One view of the chest was acquired. COMPARISON: 08/17/2024. FINDINGS: Surgical changes and devices: None. Lungs and pleura: No pleural effusions or pneumothorax. Extensive bilateral airspace consolidation i s stable. Mediastinum: Mediastinal contours appear normal. Heart size is cardiomegaly.. Bones and chest wall: No suspicious bony lesions. Overlying soft tissues appear unremarkable. IMPRESSION: Stable findings. Extensive bilateral pulmonary infiltrates. Reviewed by: Clement Headley MD on 08/26/2024 3:23 PM PDT Approved by: Clement Headley MD on 08/26/2024 3:23 PM PDT Station ID: [id number]
[2024-08-27] MEDS: ZINC OXIDE 20% OINT 30 GM TUBE TOP PRN (00:07)
[2024-08-27 05:58] LABS: BASOPHILS % (AUTO) 0.1 %; EOSINOPHILS # (AUTO) 0.2 10^3/uL (0.0-0.7); EOSINOPHILS % (AUTO) 3.1 %; HCT - HEMATOCRIT 24.4 % (37.0-47.0); HGB - HEMOGLOBIN 7.7 g/dL (12.0-16.0); LYMPHOCYTES # (AUTO) 0.8 10^3/uL (1.5-3.5); LYMPHOCYTES % (AUTO) 10.8 %; MEAN CORPUSCULAR HEMOGLOBIN 30.6 pg (27.0-31.0); MEAN CORPUSCULAR HGB CONC 31.6 g/dL (32.0-36.0); MEAN CORPUSCULAR VOLUME 96.8 fL (81.0-99.0); MEAN PLATELET VOLUME 10.4 fL (7.9-10.8); MONOCYTES # (AUTO) 0.1 10^3/uL (0.0-1.0); MONOCYTES % (AUTO) 1.7 %; NEUTROPHILS # (AUTO) 6.5 10^3/uL (1.5-6.6); NEUTROPHILS % (AUTO) 83.9 %; PLT - PLATELET COUNT 297 10^3/uL (130-450); RED BLOOD COUNT 2.52 10^6/uL (4.20-5.40); WHITE BLOOD COUNT 7.7 x10^3/uL (4.8-10.8)
[2024-08-27 06:18] LABS: CALCIUM 8.3 mg/dL (8.5-10.3); CREATININE 1.4 mg/dL (0.6-1.3); POTASSIUM 4.8 mmol/L (3.5-4.5)
[2024-08-27 06:36] LABS: THYROID STIMULATING HORMONE 1.7 uIU/mL (0.34-5.60)
[2024-08-27] MEDS ORDERED: haloperidoL 1 MG TABLET PO PRN (09:25)
[2024-08-27] MEDS ORDERED: LACTULOSE 10 GM /15 ML UDC PO PRN (09:25)
[2024-08-27] MEDS ORDERED: bisacodyL 5 MG TABLET PO PRN (09:25)
[2024-08-27] MEDS ORDERED: dexAMETHasone 4 MG TABLET PO PRN (09:25)
[2024-08-27] MEDS ORDERED: GLYCOPYRROLATE 1 MG/5 ML VIAL SUBQ PRN (09:25)
[2024-08-27] MEDS ORDERED: MORPHINE SOL 10 MG/0.5 ML ORAL SYRINGE PO PRN (09:25)
[2024-08-27] MEDS ORDERED: polyethylene glycoL 3350 17 GM PACKET PO PRN (09:25)
[2024-08-27] MEDS ORDERED: ONDANSETRON ODT 4 MG TABLET TL PRN (09:25)
--- NOTE | 2024-08-27 09:27 | PROVIDER PROGRESS NOTE ---
Subjective Prog Note Date Prog Note Date: 08/27/24 Prog Note Time: 09:24 Subjective Pt reports feeling: No change Subjective: She says she feels somewhat short of breath. despite maximal medical treatment she has failed to improve. Palliative care has been consulted, and have recommended hospice. Her gamariaelenadian is in agreement. Saige has suffered with her mental illness and now this prolonged illness with exacerbation of her chronic conditions. Current Medications Current Medications Current Medications: Current Medications Generic Name Dose Route Start Last Admin Trade Name Freana PRN Reason Stop Dose Admin Acetaminophen 650 mg 08/15/24 00:00 08/20/24 12:38 Acetaminophen 325 Mg Tablet PO 650 mg Q4HR PRN Administration Pain 1 to 4, or Fever Amiodarone HCl 200 mg 08/28/24 09:00 Amiodarone 200 Mg Tablet PO DAILY JONATHAN Aripiprazole 5 mg 08/15/24 09:00 08/27/24 09:00 Aripiprazole 5 Mg Tablet PO 5 mg DAILY JONATHAN Administration Aspirin 81 mg 08/15/24 09:00 08/27/24 09:03 Aspirin Ec 81 Mg Tablet PO 81 mg DAILY JONATHAN Administration Benzonatate 100 mg 08/15/24 00:13 08/24/24 15:03 Benzonatate 100 Mg Capsule PO 100 mg Q8H PRN Administration Cough Budesonide 0.5 mg 08/18/24 19:00 08/27/24 08:34 Budesonide 0.5 Mg/2 Ml Neb INH 0.5 mg RTBID JONATHAN Administration Clonidine HCl 0.1 mg 08/25/24 09:00 08/27/24 09:01 Clonidine 0.1 Mg Tablet PO 0.1 mg BID JONATHAN Administration Digoxin 62.5 mcg 08/21/24 12:00 08/27/24 09:04 Digoxin 125 Mcg Tablet PO 62.5 mcg DAILY JONATHAN Administration Gabapentin 100 mg 08/15/24 00:13 08/19/24 20:46 Gabapentin 100 Mg Capsule PO 100 mg HS PRN Administration pain Guaifenesin 600 mg 08/15/24 09:00 08/27/24 09:02 Guaifenesin 600 Mg Tablet PO 600 mg BID JONATHAN Administration Guaifenesin 10 ml 08/25/24 07:34 Guaifenesin/Dextromethorphan 10 Ml Udc PO Q6HR PRN Cough Hydroxyzine Pamoate 25 mg 08/21/24 08:00 Hydroxyzine Pamoate 25 Mg Capsule PO QPM PRN Insomnia Levalbuterol HCl 1.25 mg 08/19/24 02:13 08/27/24 08:34 Levalbuterol 1.25 Mg/3 Ml Neb INH 1.25 mg Q4H PRN Administration Shortness of Air/Wheezing Lorazepam 0.5 mg 08/15/24 00:13 08/26/24 20:31 Lorazepam 0.5 Mg Tablet PO 0.5 mg Q2H PRN Administration anxiety Magnesium Oxide 400 mg 08/23/24 09:00 08/27/24 09:02 Magnesium Oxide 400 Mg Tablet PO 400 mg DAILYWM JONATHAN Administration Methadone HCl 5 mg 08/21/24 21:00 08/27/24 09:02 Methadone 5 Mg Tablet PO 5 mg BID JONATHAN Administration Metoprolol Succinate 100 mg 08/27/24 10:00 Metoprolol Succinate 50 Mg Tablet PO DAILY JONATHAN Morphine Sulfate 2 mg 08/25/24 10:13 08/27/24 00:02 Morphine 2 Mg/Ml Carpuject IVP 2 mg Q2HR PRN Administration Shortness of Air/Wheezing Multi-Ingredient Ointment 1 applic 08/22/24 16:30 08/27/24 00:07 Zinc Oxide 20% Oint 30 Gm Tube TOP 1 applic PRN PRN Administration Skin Care Nystatin 1 applic 08/24/24 21:00 08/27/24 09:03 Nystatin Powder 15 Gm TOP 1 applic BID JONATHAN Administration Olanzapine 5 mg 08/26/24 09:00 08/27/24 09:02 Olanzapine Odt 5 Mg Tablet TL 5 mg DAILY JONATHAN Administration Ondansetron HCl 4 mg 08/15/24 00:00 Ondansetron 4 Mg/2 Ml Vial IVP Q6HR PRN Nausea / Vomiting Pantoprazole Sodium 40 mg 08/15/24 07:00 08/27/24 06:57 Pantoprazole 40 Mg Tablet PO 40 mg QDAC JONATHAN Administration Empagliflozin [ 1 each 08/15/24 09:00 08/27/24 09:03 Jardiance] 10 Mg PO Not Given Tablet DAILY JONATHAN Multivit/Folic Acid/Iron 1 tab 08/24/24 08:00 08/27/24 09:00 Vitamin Tablet PO 1 tab DAILYWM JONATHAN Administration Quetiapine Fumarate 50 mg 08/19/24 21:00 08/26/24 20:31 Quetiapine 25 Mg Tablet PO 50 mg QPM JONATHAN Administration Quetiapine Fumarate 50 mg 08/25/24 09:00 08/27/24 09:01 Quetiapine 25 Mg Tablet PO 50 mg DAILY JONATHAN Administration Sodium Chloride 10 ml 08/15/24 00:00 Sodium Chloride Flush 0.9% 10 Ml Syringe IVP PRN PRN NEEDED PER PROVIDER ORDERS Sodium Chloride 10 ml 08/15/24 01:00 08/27/24 00:02 Sodium Chloride Flush 0.9% 10 Ml Syringe IVP 10 ml 0100,0900,1700 JONATHAN Administration Spironolactone 25 mg 08/15/24 09:00 08/26/24 09:01 Spironolactone 25 Mg Tablet PO Not Given DAILY [facility] Tamsulosin HCl 0.4 mg 08/23/24 17:15 08/27/24 09:02 Tamsulosin 0.4 Mg Capsule PO 0.4 mg DAILY JONATHAN Administration Venlafaxine HCl 150 mg 08/15/24 09:00 08/27/24 09:00 Venlafaxine Er 75 Mg Capsule PO 150 mg DAILY JONATHAN Administration Zinc Oxide 113 gm 08/22/24 16:30 Cod Liver Oil/Zinc Oxide 113 Gm Tube TOP PRN PRN Skin Care Objective Vital Signs/Intake & Output Reviewed Vital Signs: Yes Vital Signs: Vital Signs x48h Temp Pulse Pulse Resp BP Pulse Ox O2 Flow Rate 08/27/24 08:35 15 08/27/24 08:35 75 24 15 08/27/24 08:27 36.5 C 94 H 24 108/62 96 15 08/27/24 06:09 36.6 C 91 H 24 91/60 96 15 Intake & Output: Intake & Output 08/25/24 08/26/24 08/27/24 08/28/24 05:59 05:59 05:59 05:59 Intake Total 1880 / 1880 460 / 460 1060 / 1060 Output Total 650 / 650 2900 / 2900 500 / 500 Balance 1230 / 1230 -2440 / -2440 560 / 560 Weight (kg) 174.2 kg 174.2 kg 75.296 kg 75.296 kg Objective General Appearance: positive No acute distress, Alert and Mild distress Eyes Bilateral: positive Normal inspection ENT: positive ENT inspection nml Neck: positive Nml inspection Respiratory: positive Chest non-tender and Rhonchi Cardiovascular: positive Tachycardia Abdomen: positive Non-tender Skin: positive Color nml and No rash Extremities: positive Non-tender and No pedal edema Neurologic/Psychiatric: positive Disoriented to time Lab Results 08/27/24 05:25 08/27/24 05:25 Other Labs: Lab Results x24hrs 08/27/24 Range/Units 05:25 WBC 7.7 (4.8-10.8) x10^3/uL RBC 2.52 L (4.20-5.40) 10^6/uL Hgb 7.7 L (12.0-16.0) g/dL Hct 24.4 L (37.0-47.0) % MCV 96.8 (81.0-99.0) fL MCH 30.6 (27.0-31.0) pg MCHC 31.6 L (32.0-36.0) g/dL RDW 15.0 (12.0-15.0) % Plt Count 297 (130-450) 10^3/uL MPV 10.4 (7.9-10.8) fL Neut # (Auto) 6.5 (1.5-6.6) 10^3/uL Lymph # (Auto) 0.8 L (1.5-3.5) 10^3/uL [place] # (Auto) 0.1 (0.0-1.0) 10^3/uL Eos # (Auto) 0.2 (0.0-0.7) 10^3/uL Baso # (Auto) 0.0 (0.0-0.1) 10^3/uL Absolute Nucleated RBC 0.00 x10^3/uL Nucleated RBC % 0.0 /100WBC Sodium 131 L (135-145) mmol/L Potassium 4.8 H (3.5-4.5) mmol/L Chloride 97 L (101-111) mmol/L Carbon Dioxide 30 (21-32) mmol/L Anion Gap 4.0 L (6-13) BUN 44 H (6-20) mg/dL Creatinine 1.4 H (0.6-1.3) mg/dL Estimated GFR (MDRD) 36 L (>89) Glucose 117 H (74-104) mg/dL Calcium 8.3 L (8.5-10.3) mg/dL Magnesium 2.1 (1.7-2.3) mg/dL TSH 1.70 (0.34-5.60) uIU/mL Diagnostic Imaging Diagnostic Imaging Results: positive Final report reviewed Diagnostic Imaging Comments: CTA chest 08/25/2024 Severe pulmonary edema, groundglass and consolidation opacities, pleural effusions. Infection versus acute lung injury Sepsis Event Note (H) Evaluation Current Stage of Sepsis: Resolved Possible source of Sepsis: positive Pulmonary Sepsis Criteria Sepsis Criteria: Recorded Heart Rate greater than 90 bpm Assessment/Plan Problem List (1) Acute and chronic respiratory failure with hypoxia: Impression: CTA chest showed severe pulmonary edema, small pleural effusions, reflux of contrast in the IVC indicating elevated heart pressures. . Her respiratory failure is complicated by her atrial fibrillation with RVR which has been refractory to everything I have tried. Multiple factors are contributing to her hypoxic respiratory failure including HFrEF, recent COVID-19 infection, COPD She has finished a course of Decadron. However, I am starting Solu Medrol 40mg a day with palliation of symptoms in mind and little regard for downstream effects of prolonged steriods, given her prognosis. She was changed from albuterol to levalbuterol in the hopes that this would help her anxiety and tachycardia Briefly discussed with Palliative Care, Kavita Thakur NP, who is facilitating transition to hospice. I have discussed with social work. we are verifying that she may transition back to [facility] iwth needed flow rate of oxygen. I have ordered comfort medications. (2) Atrial fibrillation with rapid ventricular response: Impression: on 200 mg/day metoprolol, amiodarone, digoxin, clonidine Started on oral amiodarone 08/19/2024 Holding off on CCB's given HFrEF BMP, Mag daily Digoxin level in therapeutic range Holding off on the anticoagulation given she has reduced mobility and I am concern for fall risk Aspirin Today, rate continues to be fairly well-controlled, blood pressure stable TSH 1.71- WNL I am decreasing her venlafaxine, as that can contribute to tachycardia. decreased by 50% (3) HFrEF (heart failure with reduced ejection fraction): Impression: Closely monitoring her volume status, and how it interacts with her atrial fibrillation with RVR versus her respiratory failure. Blood pressures consisitently low- I am stopping the lisinopril. Continue Metoprolol Continue home Jardiance. This is not on formulary, so she will only get it if she brings it in from home (4) Urinary retention: Impression: Patient has had multiple episodes of urinary retention over the past few days requiring straight catheter This retention is intermittent, Due to her comfort care status, I am starting a russell today. She will be more comfortable with no retention and hygiene will be more simple. Started Flomax (5) Sepsis: Impression: leukocytosis has resolved. She has been treated with courses of antibiotics for community-acquired pneumonia and steroids. I have ordered repeat CBC for the a.m. Qualifiers: Acute respiratory failure type: with hypoxia Sepsis acute organ dysfunction status: with acute organ dysfunction Sepsis type: sepsis due to unspecified organism Severe sepsis acute organ dysfunction type: acute respiratory failure Severe sepsis shock status: without septic shock Qualified Code(s): A41.9 - Sepsis, unspecified organism; R65.20 - Severe sepsis without septic shock; J96.01 - Acute respiratory failure with hypoxia (6) Acute exacerbation of chronic obstructive pulmonary disease: Impression: Respiratory failure as above, component of COPD possibly in exacerbation. Her COVID infection should have resolved at this point. She is off precautions. (7) Depression with anxiety: Impression: Her anxiety has been a complicating factor throughout her stay. I have decreased her effexor, as there can be some related tachycardia. I have increased her dose of Seroquel to 50 twice daily from 25 in the morning and 50 at night. EKG shows QT interval is not prolonged. (8) COVID: Impression: Steroids as above No indication for remdesivir given no O2 requirements at the beginning of her course of infection. Nebs as above Positive COVID test 08/11/2024, with several days of symptoms prior to this test. Per infection control, she was supposed to be out of isolation on the of this month as that is 10 days after symptom onset. She continued having symptoms, so they recommended an additional 10 days of isolation but no more if no resolution of symptoms. She has remained afebrile, and her dyspnea can be attributed to other causes so she was taken out of isolation (9) Pneumonia: Impression: Completed a course of antibiotics for empiric coverage for healthcare acquired pneumonia. Bacterial infection is not likely, but given the severity of her illness, it was felt m[place]on[place] to place her on empiric antibiotics Qualifiers: Laterality: right Lung location: upper lobe of lung Pneumonia type: d ue to unspecified organism Qualified Code(s): J18.9 - Pneumonia, unspecified organism (10) Hypokalemia: Impression: Resolved. Daily BMP I have spent 57 minutes in the care of this patient today. This includes time [id number], review and ordering of diagnostic imaging and laboratory studies and consultation with other providers.. Monitoring the patient's signs symptoms, evaluation of medication effectiveness and patient's response to treatment. I have written comfort care orders on this patient today, and discussed her with palliative care COOKING INSTRUCTOR.
[2024-08-27] MEDS: METOPROLOL SUCCINATE 50 MG TABLET PO SCH (09:33)
[2024-08-27] MEDS: methylPREDNISolone SUCCINATE 40 MG/ML VIAL IVP SCH (12:59)
--- NOTE | 2024-08-28 08:52 | PROVIDER PROGRESS NOTE ---
Subjective Prog Note Date Prog Note Date: 08/28/24 Prog Note Time: 08:51 Subjective Pt reports feeling: Improved Subjective: She is sitting up eating breakfast this AM. Says her breathing is better. She has no complaints this AM. Current Medications Current Medications Current Medications: Current Medications Generic Name Dose Route Start Last Admin Trade Name Freq PRN Reason Stop Dose Admin Acetaminophen 650 mg 08/15/24 00:00 08/20/24 12:38 Acetaminophen 325 Mg Tablet PO 650 mg Q4HR PRN Administration Pain 1 to 4, or Fever Amiodarone HCl 200 mg 08/28/24 09:00 Amiodarone 200 Mg Tablet PO DAILY JONATHAN Aripiprazole 5 mg 08/15/24 09:00 08/27/24 09:00 Aripiprazole 5 Mg Tablet PO 5 mg DAILY JONATHAN Administration Aspirin 81 mg 08/15/24 09:00 08/27/24 09:03 Aspirin Ec 81 Mg Tablet PO 81 mg DAILY JONATHAN Administration Benzonatate 100 mg 08/15/24 00:13 08/28/24 00:11 Benzonatate 100 Mg Capsule PO 100 mg Q8H PRN Administration Cough Bisacodyl 10 mg 08/27/24 09:25 Bisacodyl 5 Mg Tablet PO DAILY PRN Constipation Budesonide 0.5 mg 08/18/24 19:00 08/28/24 06:46 Budesonide 0.5 Mg/2 Ml Neb INH 0.5 mg RTBID JONATHAN Administration Clonidine HCl 0.1 mg 08/25/24 09:00 08/27/24 20:02 Clonidine 0.1 Mg Tablet PO Not Given BID JONATHAN Digoxin 62.5 mcg 08/21/24 12:00 08/27/24 09:04 Digoxin 125 Mcg Tablet PO 62.5 mcg DAILY JONATHAN Administration Gabapentin 100 mg 08/15/24 00:13 08/19/24 20:46 Gabapentin 100 Mg Capsule PO 100 mg HS PRN Administration pain Glycopyrrolate 0.2 mg 08/27/24 09:25 Glycopyrrolate 1 Mg/5 Ml Vial SUBQ Q4H PRN Excessive secretions Guaifenesin 600 mg 08/15/24 09:00 08/27/24 20:02 Guaifenesin 600 Mg Tablet PO Not Given BID JONATHAN Guaifenesin 10 ml 08/25/24 07:34 Guaifenesin/Dextromethorphan 10 Ml Udc PO Q6HR PRN Cough Haloperidol 1 mg 08/27/24 09:25 Haloperidol 1 Mg Tablet PO Q6H PRN Nausea / Vomiting Hydroxyzine Pamoate 25 mg 08/21/24 08:00 Hydroxyzine Pamoate 25 Mg Capsule PO QPM PRN Insomnia Lactulose 10 gm 08/27/24 09:25 Lactulose 10 Gm /15 Ml Udc PO DAILY PRN Constipation Levalbuterol HCl 1.25 mg 08/19/24 02:13 08/28/24 06:46 Levalbuterol 1.25 Mg/3 Ml Neb INH 1.25 mg Q4H PRN Administration Shortness of Air/Wheezing Lorazepam 0.5 mg 08/15/24 00:13 08/26/24 20:31 Lorazepam 0.5 Mg Tablet PO 0.5 mg Q2H PRN Administration anxiety Magnesium Oxide 400 mg 08/23/24 09:00 08/27/24 09:02 Magnesium Oxide 400 Mg Tablet PO 400 mg DAILYWM JONATHAN Administration Methadone HCl 5 mg 08/21/24 21:00 08/27/24 20:02 Methadone 5 Mg Tablet PO Not Given BID JONATHAN Methylprednisolone 40 mg 08/27/24 12:00 08/27/24 12:59 Methylprednisolone Succinate 40 Mg/Ml Vial IVP 40 mg DAILY JONATHAN Administration Metoprolol Succinate 100 mg 08/27/24 10:00 08/27/24 09:33 Metoprolol Succinate 50 Mg Tablet PO 100 mg DAILY JONATHAN Administration Morphine Sulfate 2 mg 08/25/24 10:13 08/27/24 14:20 Morphine 2 Mg/Ml Carpuject IVP 2 mg Q2HR PRN Administration Shortness of Air/Wheezing Morphine Sulfate 10 mg 08/27/24 09:25 Morphine Nena 10 Mg/0.5 Ml Oral Syringe PO Q2HR PRN Moderate Pain (Level 4-6)/SOA Multi-Ingredient Ointment 1 applic 08/22/24 16:30 08/28/24 06:16 Zinc Oxide 20% Oint 30 Gm Tube TOP 1 applic PRN PRN Administration Skin Care Nystatin 1 applic 08/24/24 21:00 08/27/24 20:02 Nystatin Powder 15 Gm TOP Not Given BID JONATHAN Olanzapine 5 mg 08/26/24 09:00 08/27/24 09:02 Olanzapine Odt 5 Mg Tablet TL 5 mg DAILY JONATHAN Administration Ondansetron HCl 4 mg 08/15/24 00:00 Ondansetron 4 Mg/2 Ml Vial IVP Q6HR PRN Nausea / Vomiting Ondansetron HCl 4 mg 08/27/24 09:25 Ondansetron Odt 4 Mg Tablet TL Q8H PRN Nausea / Vomiting Pantoprazole Sodium 40 mg 08/15/24 07:00 08/28/24 06:15 Pantoprazole 40 Mg Tablet PO 40 mg QDAC JONATHAN Administration Empagliflozin [ 1 each 08/15/24 09:00 08/27/24 09:03 Jardiance] 10 Mg PO Not Given Tablet DAILY JONATHAN Polyethylene Glycol 17 gm 08/27/24 09:25 Polyethylene Glycol 3350 17 Gm Packet PO DAILY PRN Constipation Multivit/Folic Acid/Iron 1 tab 08/24/24 08:00 08/27/24 09:00 Vitamin Tablet PO 1 tab DAILYWM JONATHAN Administration Quetiapine Fumarate 50 mg 08/19/24 21:00 08/27/24 20:02 Quetiapine 25 Mg Tablet PO Not Given QPM JONATHAN Quetiapine Fumarate 50 mg 08/25/24 09:00 08/27/24 09:01 Quetiapine 25 Mg Tablet PO 50 mg DAILY JONATHAN Administration Sodium Chloride 10 ml 08/15/24 00:00 Sodium Chloride Flush 0.9% 10 Ml Syringe IVP PRN PRN NEEDED PER PROVIDER ORDERS Sodium Chloride 10 ml 08/15/24 01:00 08/28/24 00:08 Sodium Chloride Flush 0.9% 10 Ml Syringe IVP 10 ml 0100,0900,1700 JONATHAN Administration Spironolactone 25 mg 08/15/24 09:00 08/27/24 09:34 Spironolactone 25 Mg Tablet PO Not Given DAILY JONATHAN Tamsulosin HCl 0.4 mg 08/23/24 17:15 08/27/24 09:02 Tamsulosin 0.4 Mg Capsule PO 0.4 mg DAILY JONATHAN Administration Venlafaxine HCl 75 mg 08/28/24 09:00 Venlafaxine Er 75 Mg Capsule PO DAILY JONATHAN Zinc Oxide 113 gm 08/22/24 16:30 Cod Liver Oil/Zinc Oxide 113 Gm Tube TOP PRN PRN Skin Care Objective Vital Signs/Intake & Output Vital Signs: Vital Signs x48h Pulse Resp O2 Flow Rate 08/28/24 06:47 15 10/31/24 06:47 107 H 24 15 Intake & Output: Intake & Output 08/26/24 08/27/24 08/28/24 08/29/24 05:59 05:59 05:59 05:59 Intake Total 460 / 460 1060 / 1060 220 / 220 60 / 60 Output Total 2900 / 2900 500 / 500 1150 / 1150 Balance -2440 / -2440 560 / 560 -930 / -930 60 / 60 Weight (kg) 174.2 kg 75.296 kg 75.296 kg Lab Results 08/27/24 05:25 08/27/24 05:25 Sepsis Event Note (H) Evaluation Current Stage of Sepsis: Resolved Possible source of Sepsis: positive Pulmonary Sepsis Criteria Sepsis Criteria: Recorded Heart Rate greater than 90 bpm Assessment/Plan Problem List (1) Acute and chronic respiratory failure with hypoxia: (2) Atrial fibrillation with rapid ventricular response: (3) HFrEF (heart failure with reduced ejection fraction): (4) Urinary retention: (5) Sepsis: Qualifiers: Acute respiratory failure type: with hypoxia Sepsis acute organ dysfunction status: with acute organ dysfunction Sepsis type: sepsis due to unspecified organism Severe sepsis acute organ dysfunction type: acute respiratory failure Severe sepsis shock status: without septic shock Qualified Code(s): A41.9 - Sepsis, unspecified organism; R65.20 - Severe sepsis without septic shock; J96.01 - Acute respiratory failure with hypoxia (6) Acute exacerbation of chronic obstructive pulmonary disease: (7) Depression with anxiety: (8) Hypokalemia:
[2024-08-28] MEDS: AMIODARONE 200 MG TABLET PO SCH (09:15)
[2024-08-28] MEDS: VENLAFAXINE ER 75 MG CAPSULE PO SCH (09:15)
--- NOTE | 2024-08-28 11:54 | Discharge Summary ---
"Discharge Summary Admit Date: 08/15/24 Discharge Date: 08/28/24 Discharging Provider: Lexi Shabazz PA-C Primary Care Provider: Chey Mendez Code Status: Do Not Attempt Resuscitation Discharge Facility Name: [facility] DIAGNOSES Admission Diagnoses: Acute on chronic respiratory failure with hypoxia Acute exacerbation of COPD Atrial fibs with rapid ventricular response Sepsis Pneumonia Discharge Diagnoses with Status of Each Condition: (1) Acute and chronic respiratory failure with hypoxia: Impression: CTA chest showed severe pulmonary edema, small pleural effusions, reflux of contrast in the IVC indicating elevated heart pressures. . Her respiratory failure is complicated by her atrial fibrillation with RVR which has been refractory. We have treated her elevated heart rate with some success by treating her anxiety. Multiple factors are contributing to her hypoxic respiratory failure including HFrEF, recent COVID-19 infection, COPD She has finished a course of Decadron. However, I have started Solu Medrol 40mg a day with palliation of symptoms in mind and little regard for downstream effects of prolonged steriods, given her prognosis. She was changed from albuterol to levalbuterol in the hopes that this would help her anxiety and tachycardia Discussed transition back to [facility] on 15 L of oxygen. Her discharge several weeks ago to [facility] failed due to hypoxia. The concern is that she would fail there once again. I have discussed her with Dr. Omer, of [facility] hospice and the determination has been made to transition the patient to [facility] hospice care. Her increased oxygen needs, tachycardia and severe anxiety warrant this level of care. (2) Atrial fibrillation with rapid ventricular response: Impression: was on 200 mg/day metoprolol, amiodarone, digoxin, clonidine. I have decreased metoprolol to 100mg daily in light of decreased blood pressure. Started on oral amiodarone 08/19/2024 Holding off on CCB's given HFrEF Digoxin level in therapeutic range Holding off on the anticoagulation given her terminal prognosis Aspirin was given for stroke risk reduction. Will dc. TSH 1.71- WNL venlafaxine was decreased by 50% on 08/27 as that can contribute to tachycardia. (3) HFrEF (heart failure with reduced ejection fraction): Impression: Volume status was closely monitored given her blood pressure, heart rate, respiratory failure and heart failure. Blood pressures consisitently low-I have stopped lisinopril. Continue Metoprolol Jardiance- home supply was not brought in and therefore she did not receive this medication. (4) Urinary retention: Impression: Patient has had multiple episodes of urinary retention over the past few days requiring straight catheter This retention is intermittent, Due to her comfort care status, I started a russell. urine was bloody this AM. UA is pending at time of discharge. . She will be more comfortable with no retention and hygiene will be more simple. I doubt I would treat UTI as she has no complaints of abdominal pain, is not running fevers. Started Flomax (5) Sepsis: Impression: leukocytosis has resolved. She has been treated with courses of antibiotics for community-acquired pneumonia and steroids. (6) Acute exacerbation of chronic obstructive pulmonary disease: Impression: Respiratory failure as above, component of COPD possibly in exacerbation. Her COVID infection should have resolved at this point. She is off precautions. (7) Depression with anxiety: Impression: Her anxiety has been a complicating factor throughout her stay. I have decreased her effexor, as there can be some related tachycardia. I have increased her dose of Seroquel to 50 twice daily from 25 in the morning and 50 at night. EKG shows QT interval is not prolonged. (8) COVID: Impression: Steroids as above No indication for remdesivir given no O2 requirements at the beginning of her course of infection. Nebs as above Positive COVID test 08/11/2024, with several days of symptoms prior to this test. Per infection control, she was supposed to be out of isolation on the 18th of this month as that is 10 days after symptom onset. She continued having symptoms, so they recommended an additional 10 days of isolation but no more if no resolution of symptoms. She has remained afebrile, and her dyspnea can be attributed to other causes so she was taken out of isolation (9) Pneumonia: Impression: Completed a course of antibiotics for empiric coverage for healthcare acquired pneumonia. Bacterial infection is not likely, but given the severity of her illness, it was felt m[place]on[place] to place her on empiric antibiotics Qualifiers: Laterality: right Lung location: upper lobe of lung Pneumonia type: d ue to unspecified organism Qualified Code(s): J18.9 - Pneumonia, unspecified organism (10) Hypokalemia: Impression: Resolved. HPI History of Present Illness: Mrs. Stephens is an 84 yo F with a history of Afib, COPD not on chronic oxygen, who was just admitted to the hospitalist service for treatment of covid pneumonia. she was discharged on the day of presentation. Upon arrival to the nursing facility she was noted to be in continued respiratory distress and hypoxic on room air, oxygen saturations in the 70s. She was brought back to the Ed for furhter management. Upon arrival she was still in respiratory distress adn required upward titration of oxygen. She was tachycardic, ekg and telemetry showing sinus tachycardia. she was afebrile. Due to her continued respiratory distress hospitalist was asked to readmit for furhter management. Patient was seen via tele-medicine tools including telephone and live video. during my evaluation at bedside she was alert, but difficult to answer questions due to respiratory distress and the need for BIPAP. Plan of care was discussed with the patient and she signaled understanding and agreement to admission. CONSULTS | PROCEDURES Procedures: Chest x-ray 08/15/2024: Multifocal patchy airspace opacity of bilateral lung with consolidation in the left lower lobe, unchanged from prior concerning for multifocal pneumonia and/or moderate pulmonary edema with associated atelectasis. No pleural effusion or pneumothorax. Chest x-ray 08/19/2024: Slight improvement in pulmonary status. Bilateral pulmonary infiltrates. Cardiomegaly. Chest x-ray 08/25/2024: Worsening diffuse airspace opacities Chest x-ray 08/26/2024 stable findings CTA of the chest 08/25/2024 suspected severe pulmonary edema with diffuse groundglass and consolidation. Small pleural effusions. Differential includes infection or acute lung injury Cardiomegaly with reflux of contrast into the IVC indicating elevated heart pressures. No PE HOSPITAL COURSE Hospital Course: Admitted approximately 12 hours after discharge from the hospital for COVID- pneumonia. She had been admitted from 08/11/2024 to 08/14/2024 with COVID- pneumonia. At the time of her discharge from the hospital she was on room air and satting within normal limits unfortunately she bounced back through the emergency department and required BiPAP therapy for about 12 hours in the intensive care unit. She was able to wean back to nasal cannula but continued to be tachycardic in A-fib with rapid ventricular response for quite some time. Multiple modalities were used to treat her A-fib with RVR in addition to her hypoxic respiratory failure. She was placed on a course of antibiotics for healthcare acquired pneumonia she was placed on a course of Decadron she was not treated with calcium channel blockers due to her heart failure with reduced ejection fraction but she was given metoprolol and eventually loaded on amiodarone. Her anxiety and shortness of air were a constant issue in addition to her tachycardia. Multiple modalities were attempted in treating this. Ultimately palliative care was consulted and discussions were had with her appointed guardian. Decision were made to transfer Saige to comfort care. At this point she is requiring oxygen 15 L/min. Given her oxygen needs her tachycardia she would best be served by admission to hospice under general inpatient status. ALLERGIES Allergies Allergy/AdvReac Type Severity Reaction Status Date / Time No Known Drug Allergies Allergy Verified 08/14/24 23:23 MEDICATIONS Ambulatory Orders Medication Instructions Recorded Confirmed albuterol sulfate 90 mcg/actuation 2 puff inhalation Q4H PRN 05/16/21 08/11/24 breath activated powder inhaler Shortness Of Air/Wheezing (ProAir RespiClick) aripiprazole 5 mg tablet 5 mg PO DAILY 05/16/21 08/11/24 acetaminophen 325 mg capsule 650 mg PO Q4H PRN pain 08/11/24 08/11/24 digoxin 125 mcg (0.125 mg) tablet 62.5 mcg PO DAILY 08/11/24 08/11/24 methadone 5 mg tablet 5 mg PO BID 08/11/24 08/11/24 clonidine HCl 0.1 mg tablet 0.1 mg PO BID #30 tabs 08/28/24 venlafaxine 75 mg capsule,extended 75 mg PO DAILY #30 caps 08/28/24 release 24 hr PHYSICAL EXAM AT DISCHARGE General Appearance: positive No acute distress, Alert and Other (This morning she is alert and feels well. She is sitting up and eating her breakfast. She becomes hypoxic between bites of food. ) Eyes Bilateral: positive Normal inspection ENT: positive ENT inspection nml Neck: positive Nml inspection Respiratory: positive Wheezes (occasional), Rhonchi (occasional) and Other (tachypneic on 15L oxymask. ) Cardiovascular: positive Tachycardia Peripheral Pulses: positive 2+ Abdomen: positive Non-tender and No distention Skin: positive Pallor Extremities: positive Non-tender and No pedal edema Neurologic/Psychiatric: positive Disoriented to place and Disoriented to time LABS 08/27/24 05:25 08/27/24 05:25 SEPSIS Current Stage of Sepsis: Resolved Possible source of Sepsis: Pulmonary Sepsis Criteria: Recorded Heart Rate greater than 90 bpm TIME SPENT Time Spent in Discharge (Minutes): 45 Discharge Plan Discharge Patient Disposition: 50 Hospice/Home DC/Xfer Condition: Serious Medically Cleared Date:: 08/28/24 Prescriptions: New clonidine HCl 0.1 mg Tablet 0.1 mg PO BID Qty: 30 0RF venlafaxine 75 mg Capsule,Extended Release 24hr 75 mg PO DAILY Qty: 30 0RF Continued aripiprazole 5 MG tablet 5 mg PO DAILY ProAir RespiClick 90 MCG aerosol powdr breath activated 2 puff inhalation Q4H PRN (Reason: Shortness Of Air/Wheezing) methadone 5 mg tablet 5 mg PO BID digoxin 125 MCG tablet 62.5 mcg PO DAILY acetaminophen 325 mg capsule 650 mg PO Q4H PRN (Reason: pain) Discontinued pantoprazole 40 MG tablet,delayed release (DR/EC) 40 mg PO QDAC gabapentin 100 MG capsule 100 mg PO HS PRN (Reason: pain) cholecalciferol (vitamin D3) 25 MCG capsule 25 mcg PO DAILY (DME) SEA-BAND ADULT 1 EACH misc 1 ea miscellaneous DAILY Qty: 1 0RF Rx Instructions: air pressure pad for mattress 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, 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 Length of use 99 months aspirin 81 mg capsule 81 mg PO DAILY meloxicam 15 mg tablet 15 mg PO DAILY venlafaxine 150 mg capsule,extended release 24hr 150 mg PO DAILY sennosides [senna] 8.6 mg tablet 17.2 mg PO QPM ondansetron 4 mg tablet,disintegrating 4 mg PO Q4H PRN (Reason: nausea and vomiting) lorazepam [Ativan] 0.5 mg tablet 0.5 mg PO .COMPLEX PRN (Reason: anxiety) Rx Instructions: 0.5 mg orally every 2 hours as needed PRN; benzonatate 100 mg Capsule 100 mg PO Q8H PRN (Reason: Cough) Qty: 30 0RF amoxicillin-pot clavulanate 875-125 mg Tablet 1 tab PO BID 7 Days Qty: 14 0RF dexamethasone 4 mg Tablet 6 mg PO DAILY 3 Days Qty: 5 0RF metoprolol succinate 50 mg Tablet Extended Release 24 Hr 200 mg PO DAILY Qty: 120 0RF spironolactone 25 mg Tablet 25 mg PO DAILY Qty: 30 0RF Culturelle 10 billion cell Capsule 1 cap PO DAILY 14 Days Qty: 14 0RF doxycycline hyclate 100 mg Tablet 100 mg PO BID 7 Days Qty: 14 0RF Therapeutic-M 19 mg iron- 400 mcg Tablet 1 tab PO DAILYWM Qty: 30 0RF Jardiance 10 mg tablet 10 mg PO DAILY Qty: 30 0RF guaifenesin [Mucinex] 600 mg Tablet Extended Release 12hr 600 mg PO BID Qty: 60 0RF Activity Restrictions: Activity as Tolerated Diet: Soft Print Language: Vietnamese Patient Instructions: Hospice Start, Hospice Dyspnea Care Follow-up Care: Chey Mendez MD [Primary Care Provider] -"
[2024-08-28 13:36] LABS: BILIRUBIN,URINE NEGATIVE (NEGATIVE); GLUCOSE, URINE (UA) NEGATIVE (NEGATIVE); KETONES,URINE (UA) NEGATIVE (NEGATIVE); LEUKOCYTE ESTERASE, URINE MODERATE (NEGATIVE); NITRITE,URINE NEGATIVE (NEGATIVE); OCCULT BLOOD,URINE LARGE (NEGATIVE); PH,URINE 5.5 PH (5.0-7.5); PROTEIN,URINE 30 mg/dL (NEGATIVE); UROBILINOGEN,URINE 0.2 (NORMAL) E.U./dL (NORMAL)
[2024-08-28 13:43] LABS: BACTERIA,URINE Moderate /HPF (None Seen); CLARITY,URINE SL. CLOUDY (CLEAR); RBC,URINE TNTC /HPF (0-5); SQUAMOUS EPITHELIAL CELL,UR FEW Squamous (<= Few); WBC,URINE >25 /HPF (0-5)
[2024-08-28 13:44] LABS: YEAST,URINE PRESENT
[2024-08-28 15:04] VITALS: O2SAT 90
== END 2024-08-28 16:18 | disposition hospice, home (50) | DRG 871 ==
LOC: ICU 23:12 → ED 23:12 → ICU 08-15 01:46 → MS2 08-22 11:03
PROVIDERS: ADMIT Hospitalist; ATTEND Hospitalist
DX: Z79.82 Long term (current) use of aspirin; J18.9 Pneumonia, unspecified organism; Z66 Do not resuscitate; U07.1 COVID-19; A41.9 Sepsis, unspecified organism; F41.8 Other specified anxiety disorders; Z22.322 Carrier or suspected carrier of Methicillin resistant Staphylococcus aureus; J90 Pleural effusion, not elsewhere classified; I50.22 Chronic systolic (congestive) heart failure; E86.0 Dehydration; R65.20 Severe sepsis without septic shock; J96.21 Acute and chronic respiratory failure with hypoxia; Z87.891 Personal history of nicotine dependence; E87.6 Hypokalemia; Z51.5 Encounter for palliative care; I48.91 Unspecified atrial fibrillation; R33.9 Retention of urine, unspecified; Z87.01 Personal history of pneumonia (recurrent); J44.1 Chronic obstructive pulmonary disease with (acute) exacerbation; R00.0 Tachycardia, unspecified; J44.0 Chronic obstructive pulmonary disease with (acute) lower respiratory infection

== ENCOUNTER 2024-08-28 11:39 | Inpatient (IN) ==
[2024-08-28] MEDS ORDERED: MIN OIL/DIMETHICON/COCONUT OIL 92 GM TUBE TOP PRN (12:49)
[2024-08-28] MEDS ORDERED: PETROLATUM WHITE 5 GM PACKET TOP PRN (12:49)
[2024-08-28] MEDS ORDERED: CARBOXYMETHYLCELLULOSE OPHTH DROPS EACHEYE PRN (12:49)
[2024-08-28] MEDS ORDERED: ACETAMINOPHEN 325 MG TABLET PO PRN (12:55)
[2024-08-28] MEDS: MORPHINE SOL 10 MG/0.5 ML ORAL SYRINGE PO SCH (17:36)
[2024-08-28] MEDS: LORazepam 0.5 MG TABLET PO PRN (17:36)
[2024-08-28] MEDS: DIGOXIN 125 MCG TABLET PO SCH ×2 (17:37)
--- NOTE | 2024-08-28 18:06 | HISTORY & PHYSICAL EXAMINATION ---
Chief Complaint Chief Complaint Chief Complaint: Shortness of breath History of Present Illness Admitted From Admitted From:: Acute inpatient stay History of Present Illness HPI Comment/Other: 84 yo female w/Chronic systolic CHF, A fib, HTN, who resides at [facility]. She was admitted to the hospital 08/11-08/14/24 w/COVID pneumonia. She succesfully weaned off of oxygen and returned to her facility. Shortly after she returned to [facility], she was noted to be hypoxic to the 70s and in respiratory distress. She returned to the ED within hours of her discharge and was found to be in a fib w/RVR and respiratory failure. She was admitted to ICU and required BiPAP and an amiodarone drip. Over the course of the next nearly 2 weeks, multiple efforts were made at treatment w/o much success. Today, she was slated for discharge to [facility] w/hospice admission later today. However, her oxygen need remained very high (15L via oxymask) and we would need 2 concentrators and I had significant concern regarding our ability to achieve safe management abd symptom control at her [facility]. On arrival, pt was laying in her hospital bed. She notes she remains very SOB. She states she "gasps" when reaching for a fork to try to eat. She becomes quite SOB w/eating/drinking. She notes any attempts at moving in bed results in dyspnea. She denies any chest pain. She did not require O2 prior to her admission for COVID. She does have a long-standing tobacco use hx (1.5 ppd x nearly 70 yrs). She denies any significant pain. She is chronically on methadone 5 mg BID but cannot tell me what it is prescribed for. She admits she gets anxious when she feels SOB. Meds/Allgy Home Medications Ambulatory Orders Medication Instructions Recorded Confirmed albuterol sulfate 90 mcg/actuation 2 puff inhalation Q4H PRN 05/16/21 08/11/24 breath activated powder inhaler Shortness Of Air/Wheezing (ProAir RespiClick) aripiprazole 5 mg tablet 5 mg PO DAILY 05/16/21 08/11/24 acetaminophen 325 mg capsule 650 mg PO Q4H PRN pain 08/11/24 08/11/24 digoxin 125 mcg (0.125 mg) tablet 62.5 mcg PO DAILY 08/11/24 08/11/24 methadone 5 mg tablet 5 mg PO BID 08/11/24 08/11/24 clonidine HCl 0.1 mg tablet 0.1 mg PO BID #30 tabs 08/28/24 venlafaxine 75 mg capsule,extended 75 mg PO DAILY #30 caps 08/28/24 release 24 hr Allergies Allergies Allergy/AdvReac Type Severity Reaction Status Date / Time No Known Drug Allergies Allergy Verified 08/14/24 23:23 [facility] Medical History Medical History (Updated 08/26/24 @ 09:43 by LUZ ELENA Garcia) A-fib Chronic left systolic heart failure Degenerative brain disorder Pathological fracture due to osteoporosis Congenital QT prolongation on electrocardiogram (ECG) Hyperlipidemia Osteoarthritis COPD (chronic obstructive pulmonary disease) Gastro-esophageal reflux Social History Social History Smoking Status: Former smoker If you are a former smoker, when did you quit? (Date/Year): 2021 Number of Years Smoked: 40 How many cigarettes a day do you smoke? (20 cigarettes=1 Pk): 10 Second hand tobacco smoke exposure: No Do you dip or chew tobacco?: No Do you vape?: No Patient requests smoking cessation consult: No Initiate information on smoking cessation: No Living arrangement: Assisted living Living Condition: Alone Relationship: Level: Dependent Home Mobility Equipment: Wheelchair Do you feel safe in your home environment?: Yes Suffered physical, verbal, emotional, or financial abuse?: No History of Abuse: No POLST Patient has POLST: Yes POLST Status: Limited Interventions Exam Constitutional Tachypneic, ill appearing, pale elderly female laying in bed HENMT normocephalic, head/scalp atraumatic, external ears normal and external nose normal Eyes PERRL, conjunctivae normal and no scleral icterus Respiratory Coarse crackles to the lower 1/2 of the lung joshi bilaterally, tachypneic Cardiovascular Tachycardic, irregularly irregular, no murmur appreciated Gastrointestinal abdomen soft to palpation, nontender to palpation and normoactive bowel sounds Extremities normal to inspection, normal to palpation and no tenderness no significant edema Neurology no sensory deficits noted and speech normal Alert, oriented to self and answers questions appropriately Core Measures Issues Hospital Issues and Management Plan: 1. Acute hypoxic respiratory failure Likely secondary to CHF. While I was in the room, I was able to successfully wean her from 15+ LPM via oxymask to 10LPM via oxymizer. Sats maintained around 90-93%. Given likelihood of underlying COPD will set goal of 88-90% or higher and continue to wean O2 as able. At this point, her O2 need is too high to admit her to home hospice as we would not be able to safely manage her needs at [facility] level of care. Will admit to [facility] level of care for frequent RN assessments and monitoring of oxygen weaning. 2. Acute on Chronic systolic CHF Will d/c metoprolol as there is some potential it is worsening her CHF. Given she was having soft BPs with diuresis, will also dc spironolactone for now. Will initiate low-dose carvedilol. Continue low dose ASA. Not presently on ARB/ACEI or statin. For now, will not add additional goal directed therapy given comfort care goals. That said, I do think improved control of her CHF sxs will benefit her symptom burden. If we can get better rate control w/a fib and improve BP (D/c clonidine, tamsulosin, high dose metoprolol, spironolactone), I would like to reinitiate her diuretic. 3. A fib w/RVR Will increase amio to 200 BID. Dig level was on low side of therapeutic. Cr is up a bit w/diuresis efforts. Will increase dig from 62.5 mcg daily to 62.5 alternating with 125 mcg. May be able to add a bit of dilt for rate control if necessary if the above med discontinuation are effective at improving her BP. 4. Chronic pain syndrome Given her large number of psych medications, there are significant risks with ongoing use of methadone. She would likely get better dyspnea control w/morphine. Will dc methadone and start 10 mg q6 morphine. Will use prn morphine for pain/dyspnea. 5. Anxiety/depression/unspecified mental health disorder She has been on effexor/quetiapine/abilify/olanzepine and had vistaril and haldol ordered Prn. I have significant concerns for serotonin syndrome risk and QT prolongation risk. Therefore, I have discontinued quetiapine, olanzepine, vistaril, haldol, and methadone as noted. I will continue abilify and effexor. I have ordered lorazepam for PRN use for severe anxiety. Code status DNR/DNI Prophy Contraindicated d/t comfort directed care status Dispo Admit to [facility] level of care for mgmt of Respiratory failure.
[2024-08-28 18:24] VITALS: O2SAT 88
[2024-08-28] MEDS: VENLAFAXINE 37.5 MG TABLET PO SCH (20:08)
[2024-08-28] MEDS: AMIODARONE 200 MG TABLET PO SCH (20:08)
[2024-08-28] MEDS: carvediloL 3.125 MG TABLET PO SCH (20:09)
[2024-08-29] MEDS: MORPHINE SOL 10 MG/0.5 ML ORAL SYRINGE PO PRN (05:23)
[2024-08-29] MEDS: PANTOPRAZOLE 40 MG TABLET PO SCH (06:14)
[2024-08-29] MEDS ORDERED: MORPHINE 2 MG/ML CARPUJECT IVP PRN (07:49)
[2024-08-29] MEDS ORDERED: ASPIRIN 325 MG TABLET PO SCH (08:00)
[2024-08-29] MEDS: LORazepam 2 MG/ML VIAL IVP STA (08:42)
[2024-08-29] MEDS: MORPHINE 2 MG/ML CARPUJECT IVP STA ×2 (08:42→17:01)
[2024-08-29] MEDS ORDERED: ARIPiprazole 5 MG TABLET PO SCH (09:00)
--- NOTE | 2024-08-29 10:56 | PROVIDER PROGRESS NOTE ---
Progress Note Progress Note Progress Note: 84 yo female w/A fib w/RVR, acute hypoxic resp failure, intractable acute on chronic systolic CHF who was admitted to [facility] level of care yesterday for mgmt of resp failure. Last evening she was successfully weaned to 6lpm via oxymizer and was able to maintain her O2 sats in the 89-90% range and was not feeling particularly dyspneic. This morning she states she slept very little overnight and says she is feeling very short of breath. She feels a constant tickle in her throat which she says makes her cough. She is notably fatigued appearing and dyspneic. Frequently coughing. Exam: HR 122 RR 28 BP 102/58 O2 sat 60% on 10lpm Gen-Drowsy, but answers appropriately, dyspneic, tachypneic, pale HEENT - NC, face symmetric, dark circles around her eyes Chest- tachypneic, shallow respirations, persistent coarse crackles heard in L base; coarse to B ant lung joshi, could not hear R base d/t positioning in bed CV-tachycardic, irreg irreg Abd-soft, NT, ND, BTx4 Ext-warm, No C/C/E Neuro - significant myoclonus noted (likely hypoxia induced) Assessment/Plan: 1. Acute hypoxic Resp failure I titrated patient's O2 up to 15LPM. I remained in the room for 20 minutes and the highest her O2 sat went was 77% and then drifted back down to the high 60s to low 70s. 2. A fib w/RVR I did adjust her meds last night in hopes of improved rate control, but at this point I suspect her hypoxia is driving some of her tachycardia. 3. Acute on Chronic systolic CHF My hope was she would have some improvement in her BP to allow for some additional medication adjustments and the addition of diuretics. However her BPs remain borderline and I cannot safely attempt further diuresis. 4. Chronic pain syndrome Addressing w/morphine. 5. Anxiety/depression/unspecified mental health disorder Given above, it is clear she has declined such that she will not survive this ho spital stay. She is profoundly symptomatic, hypoxic and has hypoxia induced myoclonus. I spoke to her state appointed guardian, Anny Hawley and apprised her of my findings this morning as well as my recommendation that we transition to a morphine infusion as I anticipate a fairly short prognosis for Saige. She agreed and asked to be notified when Saige expires so she can notify the court. Will d/c all po meds and start a morphine infusion at 2 mg/hr w/IVP PRN as well as lorazepam IV PRN. Will monitor and adjust as needed for comfort. Continue [facility] level of care for management of sxs related to resp failure.
[2024-08-29] MEDS: MORPHINE PCA 50 MG IV PRN (11:48)
[2024-08-29] MEDS: LORazepam 2 MG/ML VIAL IVP PRN (14:52)
[2024-08-29] MEDS ORDERED: HALOPERIDOL 5 MG/ML VIAL IVP PRN (16:06)
[2024-08-29] MEDS ORDERED: LORazepam 2 MG/ML VIAL IVP PRN (16:08)
[2024-08-29] MEDS: HALOPERIDOL 5 MG/ML VIAL IVP STA (17:01)
--- NOTE | 2024-08-29 19:48 | Discharge Summary ---
Discharge Summary Admit Date: 08/28/24 Discharge Date: 08/29/24 DIAGNOSES Admission Diagnoses: 1. Acute hypoxic respiratory failure 2. Acute on Chronic systolic CHF 3. A fib w/RVR 4. Chronic pain syndrome 5. Anxiety/depression/unspecified mental health disorder Discharge Diagnoses with Status of Each Condition: 1. Acute hypoxic Resp failure 2. A fib w/RVR 3. Acute on Chronic systolic CHF 4. Chronic pain syndrome 5. Anxiety/depression/unspecified mental health disorder HPI History of Present Illness: 84 yo female w/Chronic systolic CHF, A fib, HTN, who resides at [facility]. She was admitted to the hospital 08/11-08/14/24 w/COVID pneumonia. She succesfully weaned off of oxygen and returned to her facility. Shortly after she returned to [facility], she was noted to be hypoxic to the 70s and in respiratory distress. She returned to the ED within hours of her discharge and was found to be in a fib w/RVR and respiratory failure. She was admitted to ICU and required BiPAP and an amiodarone drip. Over the course of the next nearly 2 weeks, multiple efforts were made at treatment w/o much success. Today, she was slated for discharge to [facility] w/hospice admission later today. However, her oxygen need remained very high (15L via oxymask) and we would need 2 concentrators and I had significant concern regarding our ability to achieve safe management abd symptom control at her [facility]. On arrival, pt was laying in her hospital bed. She notes she remains very SOB. She states she "gasps" when reaching for a fork to try to eat. She becomes quite SOB w/eating/drinking. She notes any attempts at moving in bed results in dyspnea. She denies any chest pain. She did not require O2 prior to her admission for COVID. She does have a long-standing tobacco use hx (1.5 ppd x nearly 70 yrs). She denies any significant pain. She is chronically on methadone 5 mg BID but cannot tell me what it is prescribed for. She admits she gets anxious when she feels SOB. HOSPITAL COURSE Hospital Course: On the evening of admission, she was successfully weaned to 6lpm via oxymizer and was able to maintain her O2 sats in the 89-90% range and was not feeling particularly dyspneic. Unfortunately, by the following morning, she had slept v elisabeth little and was very short of breath. She was coughing frequently, was fatigued appearing and dyspneic. She had a HR in the 120s, RR in the high 20s SBP of 102 and O2 sat of 60% on 10lpm. Despite titrating her O2 up to 15lpm, her sat remained low in the mid-70s. After discussion with her state appointed guardian, the decision was to transition to IV medication, including morphine infusion for support of her severe dyspnea. She received IV morphine and lorazepam and was more comfortable a bit later in the morning but any effort at talking led her to develop myoclonus and dyspnea. After the morphine infusion was initiated she was gradually weaned to 2lpm O2 for comfort. denture laboratory technician assessed in the afternoon and found her to be hallucinating and dyspneic w/RR 40. O2 sat was in the 80s at that time. She received a dose of IVP morphine 4 mg for dyspnea, haldol 1 mg IV for hallucination. Shortly thereafter, she was noted to be more comfortable with resolution of hallucinations. Morphine infusion was increased to 3 mg/hr. Pt at 1907. denture laboratory technician was asked to notify state appointed guardian of Saige's passing. ALLERGIES Allergies Allergy/AdvReac Type Severity Reaction Status Date / Time No Known Drug Allergies Allergy Verified 08/14/24 23:23 MEDICATIONS Ambulatory Orders Medication Instructions Recorded Confirmed albuterol sulfate 90 mcg/actuation 2 puff inhalation Q4H PRN 05/16/21 08/11/24 breath activated powder inhaler Shortness Of Air/Wheezing (ProAir RespiClick) aripiprazole 5 mg tablet 5 mg PO DAILY 05/16/21 08/11/24 acetaminophen 325 mg capsule 650 mg PO Q4H PRN pain 08/11/24 08/11/24 digoxin 125 mcg (0.125 mg) tablet 62.5 mcg PO DAILY 08/11/24 08/11/24 methadone 5 mg tablet 5 mg PO BID 08/11/24 08/11/24 clonidine HCl 0.1 mg tablet 0.1 mg PO BID #30 tabs 08/28/24 venlafaxine 75 mg capsule,extended 75 mg PO DAILY #30 caps 08/28/24 release 24 hr Discharge Plan Discharge Patient Disposition: 20 Print Language: Luxembourgish
--- NOTE | 2024-09-01 13:46 | Discharge Summary ---
Discharge Summary DIAGNOSES Admission Diagnoses: See D/C summary in the Discharge Continuing Care Plan. ALLERGIES Allergies Allergy/AdvReac Type Severity Reaction Status Date / Time No Known Drug Allergies Allergy Verified 08/14/24 23:23 MEDICATIONS Ambulatory Orders Medication Instructions Recorded Confirmed albuterol sulfate 90 mcg/actuation 2 puff inhalation Q4H PRN 05/16/21 08/11/24 breath activated powder inhaler Shortness Of Air/Wheezing (ProAir RespiClick) aripiprazole 5 mg tablet 5 mg PO DAILY 05/16/21 08/11/24 acetaminophen 325 mg capsule 650 mg PO Q4H PRN pain 08/11/24 08/11/24 digoxin 125 mcg (0.125 mg) tablet 62.5 mcg PO DAILY 08/11/24 08/11/24 methadone 5 mg tablet 5 mg PO BID 08/11/24 08/11/24 clonidine HCl 0.1 mg tablet 0.1 mg PO BID #30 tabs 08/28/24 venlafaxine 75 mg capsule,extended 75 mg PO DAILY #30 caps 08/28/24 release 24 hr Discharge Plan Discharge Patient Disposition: 20 Print Language: Irish Date/Time: 08/29/24 19:08
== END 2024-08-29 19:08 | disposition expired | DRG 189 ==
LOC: MS2 16:40
PROVIDERS: ADMIT Family Medicine; ATTEND Family Medicine